=== PATIENT | female | born 1960 | race Caucasian/White ===

== ENCOUNTER 2022-06-13 12:29 | Emergency (ER) | payer BC, SELFPAY ==
[2022-06-13 12:47] VITALS: BP 160/112; PULSE 80; RESP 20; TEMP 36.8; O2SAT 97; BMI 25.7
--- OUTSIDE RECORDS SUMMARY | 2022-06-13 13:43 | XMS_ITS | Encounter Summary ---
:1960 Author Organization [facility] Address [address], [place] [address] Care Team Providers Name Role Phone Brady Morgan MD Primary Care Provider Reason for Visit Reason Comments Post-Op Check Encounter Details Date Type Department Care Team Description 03/17/2021 Office Visit GINGER Favio Mar Status pos t total Orthopaedics & Sports MD Jaylen replacement of right Medicine [address] [address] hip (Primary Dx) [address] [facility] [address] [place] [address] [phone] Social History Tobacco Use Types Packs/Day Years Used Date Smoking Tobacco: Every Day Smokeless Tobacco: Never Sex Assigned at Date Recorded Not on file documented as of this encounter Patient Instructions Patient InstructionsFavio Clark MD - 03/17/2021 4:00 PM CDT These are the instructions for your total hip replacement at this stage of your recovery: 1) You can take up to 1000 mg of Tylenol 3x/day 2) You can take up to 600 mg of Ibuprofen 3x/day with food (if you have kidney, stomach bleeding issues or take blood thinners do NOT take this) Using Omeprazole (Prilosec) daily while on the Ibuprofen can be helpful for your stomach 3) You should stay away from the dentist for at least 6 months after surgery 4) You will not require antibiotics prior to dental work 5) Vigorous massage can be helpful to soften the deep scar tissue Please call me with any questions! [phone] (TRIA) Take care, K Jaylen Clark MD documented in this encounter Progress Notes Favio Clark MD - 03/17/2021 4:00 PM CDT Delmi Blanton [id number] 1960 Date of visit: 03/17/21 POST-OP Chief complaint: Post op follow up Procedure: Right CESAR Date of surgery: (01/30/21) History of Present Illness: Delmi Blanton is a 60 y.o. female who is s/p 7 weeks the above procedure. She is feeling well. Right hip is doing well. She has occasional twinges of pain when she first gets up. She reports that she still has a little bit of trouble with her limp. Physical Exam: GENERAL: The patient is in no apparent distress. Mood and affect is normal. Alert and oriented x3. Vital signs as per the EMR SKIN: Surgical incisions in right hip, healing well. There is some thickened scar deep in the tissues. No evidence for infection. Assessment: Diagnosis and Associated Orders ICD-10-CM 1. Status post total replacement of right hip Z96.641 Plan: Patient will continue working on strengthening and stretching. I told her more therapy would probably be beneficial for her. She can follow up with me at the 1-year brady at which point new x-rays should be taken. She is very pleased with the results of the operation to date as am I. CC: Brady Morgan MD [address] [place] [id number] Scribe disclosure: Scribed for Favio Clark MD by Shwetha Allen Operations General Agent. I, Favio Clark MD, have personally reviewed and agree with the information entered by the Scribe. documented in this encounter Plan of Treatment Not on filedocumented as of this encounter Visit Diagnoses Diagnosis Status post total replacement of right h ip - Primary documented in this encounter Care Teams Punch Press Setter Relationship Specialty Start Date End Date Brady Morgan MD PCP - General Family Practice 03/01/18 [address] [place] [address] documented as of this encounter
--- OUTSIDE RECORDS SUMMARY | 2022-06-13 13:43 | XMS_ITS | Encounter Summary ---
:1960 Author Organization [facility] Address [address] [address] Care Team Providers Name Role Phone Richard Morgan MD Primary Care Provider Reason for Visit Procedure/Equipment (Routine) - Incomplete Specialty Diagnoses / Procedures Referred By Contact Refer red To Contact Procedures Provider, Foreign Images Foreign Image(S) XR Pelvis [address] [place] [address] Referral ID Status Reason Start Date Expiration Date Visits V isits Requested Authorized [id number] Incomplete 02/07/2021 05/09/2022 1 1 Encounter Details Date Type Department Care Team Description 01/30/2021 Ancillary Procedure [facility] Radiology PACS Provider, Foreign [address] [place] [address] [address] [place] [address] Social History Tobacco Use Types Packs/Day Years Used Date Smoking Tobacco: Every Day Smokeless Tobacco: Never Sex Assigned at Date Recorded Not on file documented as of this encounter Plan of Treatment Not on filedocumented as of this encounter Procedures Procedure Name Priority Date/Time Associated Diagnosis Comme nts FOREIGN IMAGE(S) XR Routine 01/30/2021 3:45 PM Re sults for this PELVIS CDT procedure are i n the results section. documented in this encounter Results Foreign Image(S) XR Pelvis (01/30/2021 3:45 PM CDT) Specimen (Source) Anatomical Location Collection Method / Collectio n Time Received Time / Laterality Volume Narrative POCT - 02/07/2021 3:41 PM CDT These outside images have been uploaded into PACS. If the results were provided, they will be located in the la goran's chart under the Media or Imaging tab. Foreign Images Provider RAD NON-REPORTABLES Performing Organization Address City/State/ZIP Code Phon e Number POCT documented in this encounter Visit Diagnoses Not on filedocumented in this encounter Care Teams Band Presser Relationship Specialty Start Date End Date Richard Morgan MD PCP - General Family Practice 03/01/18 [address] [place] [address] documented as of this encounter
--- OUTSIDE RECORDS SUMMARY | 2022-06-13 13:43 | XMS_ITS | Encounter Summary ---
:1960 Author Organization [facility] Address [address] [place] [address] Care Team Providers Name Role Phone Richard Morgan MD Primary Care Provider Encounter Details Date Type Department Care Team Description 07/29/2018 Notes/Orders [facility] Tammie Avelar MD [address] [facility] [place] [address] [place] [address] [phone] (Wo rk) Social History Tobacco Use Types Packs/Day Years Used Date Smoking Tobacco: Every Day Smokeless Tobacco: Never Sex Assigned at Date Recorded Not on file documented as of this encounter Plan of Treatment Not on filedocumented as of this encounter Visit Diagnoses Not on filedocumented in this encounter Care Teams Sanitary Engineering Teacher Relationship Specialty Start Date End Date Richard Morgan MD PCP - General Family Practice 03/01/[address] [place] [place] [address] documented as of this encounter
--- OUTSIDE RECORDS SUMMARY | 2022-06-13 13:43 | XMS_ITS | Clinical Summary ---
:1960 Author Organization [facility] Address [address] [place] [address] Care Team Providers Name Role Phone Richard Morgan MD Primary Care Provider Source Comments You are receiving this document as you are listed as the primary care provider,follow-up provider, or the patient has been referred to you for consultation.This is in compliance with the Medicare and Medicaid EHR Incentive Program,which states Providers who transition their patient to another setting of careor provider of care or refers their patient to another provider of care shouldprovide summarycare record for each transition of care or referral. [employer] Allergies Active Allergy Reactions Severity Noted Date Comments Erythromycin Nausea And Vomiting 05/04/2017 Latex Other, see comments Low 03/01/2018 Swelling and redness fingers or wherever lat ex touches skin Penicillins Hives, Rash High 12/26/2007 Medications Medication Sig Dispensed Refills Start Date End Date Status PARoxetine (PAXIL) 20 Take 20 mg by 0 Active MG tablet mouth daily. lisinopril-hydrochloro Take 1 Tab by 0 Active thiazide mouth daily. (PRINZIDE;ZESTORETIC) Indications: High 20-25 MG Blood Pressure tabletIndications: Disorder Hypertension VITAMIN B COMPLEX-C Take 1 Cap by 0 Active ORIndications: mouth daily. Supplement Indications: Supplement cholecalciferol Take 1,000 Units 0 Active (VITAMIN D3) 1000 by mouth daily. units Indications: tabletIndications: supplement supplement Pediatric Take 1 Each by 0 Activ e Ykpaqhan-Quhbcgwj-C mouth daily. 1 (GUMMI BEAR multivitamin gummy MULTIVITAMIN/MIN) daily aspirin EC 81 MG aspirin 81 mg 0 Active enteric coated tablet tablet,delayed release metoprolol succinate Take 50 mg by 0 12/30/2021 Active (TOPROL XL) 50 MG 24 mouth daily. hour release tablet rosuvastatin (CRESTOR) Take 20 mg by 0 11/04/2021 Active 20 MG tablet mouth daily at bedtime. predniSONE (DELTASONE) prednisone 20 mg 0 Active 20 MG tablet tablet Active Problems Problem Noted Date Primary osteoarthritis of right hip 12/16/2020 History of total left hip replacement 03/10/2018 Overview: 03/10/18 History of spinal surgery 03/01/2018 Overview: For scoliosis, with rods (1978 & 1986 @ [place]) Tobacco abuse 03/01/2018 Sjoegren syndrome 03/01/2018 HTN (hypertension) 02/05/2017 Esophageal reflux 12/26/2007 Resolved Problems Problem Noted Date Resolved Date Primary osteoarthritis of left hip 02/22/201804/19 Encounters Date Type Specialty Care Team Description 03/18/2022 Ancillary Procedure Radiology PN Favio Clark Status post total MD Jaylen replacement of right hip 03/18/2022 Office Visit Orthopedics Favio Clark Status post t otal replacement of right hip (Primary Dx); MD Jaylen History of tota l left hip replacement from Last 3 Months Social History Tobacco Use Types Packs/Day Years Used Date Smoking Tobacco: Every Day Smokeless Tobacco: Never Sex Assigned at Date Recorded Not on file Last Filed Vital Signs Vital Sign Reading Time Taken Comments Blood Pressure 113/59 03/11/2018 7:40 AM CDT Pulse 69 03/11/2018 7:40 AM CDT Temperature 36.7 ??C (98 ??F) 03/11/2018 7:40 AM CDT Respiratory Rate 18 03/11/2018 7:40 AM CDT Oxygen Saturation 100% 03/11/2018 7:40 AM CDT Inhaled Oxygen Concentration - - Weight 65.5 kg (144 lb 8.2 oz) 03/18/2022 4:12 PM CDT Height 158.8 cm (5' 2.5) 03/18/2022 4:12 PM CDT Body Mass Index 26.01 03/18/2022 4:12 PM CDT Plan of Treatment Health Maintenance Due Date Last Done Comments Cervical Cancer Screening 1960 Due Colon Cancer Screening Plan 1960 Due Hep C Screening (Preventive 1960 Services) Mammogram 1960 COVID-19 Vaccine (#1) 02/01/1959 HIV Screening (Preventive 1974 Services) Adult Preventive Visit 1976 Cholesterol 2003 Pneumococcal (2 - PCV) 06/27/2005 06/27/2004 Zoster/Shingles (2 of 2) 09/05/2019 07/11/2019 Influenza (#1) 2022 08/08/2021, 07/20/2020, 07/11/2019, Additional history exists DTaP/Tdap/Td (3 - Tdap) 09/09/2031 09/09/2021, 08/19/2011, 08/22/2002 HepA Aged Out No longer eligib le based on patient 's age to complete this topic HepB Aged Out No longer eligib le based on patient 's age to complete this topic Hib Aged Out No longer eligib le based on patient 's age to complete this topic IPV (Polio) Aged Out No longer eligib le based on patient 's age to complete this topic MCV4 Aged Out No longer eligib le based on patient 's age to complete this topic Medical Devices Implanted Type Area Tape Making Machine Operator Device Shelf Model / Identifier Expiration Date Ser ial / Lot Hd Fem Oxinium 09/02 36mm +0 - [id number] DEVICE Left: HIP S 01/15/2028 [id number] / Implanted: Qty: 1 on 03/10/2018 by Tammie Nowak MD at [facility] / [id number] Procedures Procedure Name Priority Date/Time Associated Diagnosis Comme nts XR PELVIS W RT Routine 03/18/2022 4:21 PM Status post total Re sults for this LATERAL HIP CDT replacement of right procedu re are in hip the results section. from Last 3 Months Results XR Pelvis W Rt Lateral Hip (03/18/2022 4:21 PM CDT) Anatomical Region Laterality Modality Pelvis, Hip Digital Radiography Specimen (Source) Anatomical Collection Method Collection Time Re ceived Time Location / / Volume Laterality 03/18/2022 4:15 PM CDT Impressions 03/18/2022 4:24 PM CDT COMPARISON: ??01/30/2021 FINDINGS: ??AP view of the pelvis with 2 additional views of the right hip. Bilateral total hip arthroplasties. No fracture or malalignment. Spinal rods appears similar with a discontinuous segment of s bird akira on the left at the level of L3 . 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 Procedure Note Roel Taveras MD - 03/18/2022Formattin g of this note might be different from the original. IMPRESSION COMPARISON: 01/30/2021 FINDINGS: AP view of the pelvis with 2 a dditional views of the right hip. Bilateral total hip arthroplasties. No fracture or malalignment. Spinal rods appears similar with a discontinuous segment of spinal akira on the left at the level of L3. Advanced osteoa rthritis at the sacroiliac joints. Favio BOB GD from Last 3 Months Insurance Payer Benefit Plan / Subscriber ID Effective Dates Phone Addre ss Type Group BCBS BCBS MNCARE [id number] 1960-Present [address] [address] [place] [address] Advance Directives Latest Code Status on File Code Status Date Activated Date Inactivated Comments Full Code 03/10/2018 12:02 PM 03/11/2018 4:41 PM Care Teams Electric Screw Driver Operator Relationship Specialty Start Date End Date Richard Morgan MD PCP - General Family Practice 03/01/18 [address] [place] [address]
--- OUTSIDE RECORDS SUMMARY | 2022-06-13 13:43 | XMS_ITS | Encounter Summary ---
:1960 Author Organization [facility] Address [address], [place] [address] Care Team Providers Name Role Phone Richard Morgan MD Primary Care Provider Reason for Visit Procedure/Equipment (Routine) - Incomplete Specialty Diagnoses / Procedures Referred By Contact Refer red To Contact Procedures Provider, Foreign Images Foreign Image(S) XR Pelvis [address] [place] [address] Referral ID Status Reason Start Date Expiration Date Visits V isits Requested Authorized [id number] Incomplete 02/07/2021 05/09/2022 1 1 Encounter Details Date Type Department Care Team Description 01/30/2021 Ancillary Procedure RC Radiology PACS Provider, Foreign [address] [place] [address] [address] [place] [address] Social History Tobacco Use Types Packs/Day Years Used Date Smoking Tobacco: Every Day Smokeless Tobacco: Never Sex Assigned at Date Recorded Not on file documented as of this encounter Plan of Treatment Not on filedocumented as of this encounter Procedures Procedure Name Priority Date/Time Associated Diagnosis Comme nts FOREIGN IMAGE(S) XR Routine 01/30/2021 3:50 PM Re sults for this PELVIS CDT procedure are i n the results section. documented in this encounter Results Foreign Image(S) XR Pelvis (01/30/2021 3:50 PM CDT) Specimen (Source) Anatomical Location Collection Method / Collectio n Time Received Time / Laterality Volume Narrative POCT - 02/07/2021 3:41 PM CDT These outside images have been uploaded into PACS. If the results were provided, they will be located in the ia goran's chart under the Media or Imaging tab. Foreign Images Provider RAD NON-REPORTABLES Performing Organization Address City/State/ZIP Code Phon e Number POCT documented in this encounter Visit Diagnoses Not on filedocumented in this encounter Care Teams Wheel Roller Relationship Specialty Start Date End Date Richard Morgan MD PCP - General Family Practice 03/01/18 [address] [place] [address] documented as of this encounter
--- OUTSIDE RECORDS SUMMARY | 2022-06-13 13:43 | XMS_ITS | Encounter Summary ---
:1960 Author Organization [facility] Address [address] [address] Care Team Providers Name Role Phone Richard Morgan MD Primary Care Provider Reason for Visit Reason Comments Post-Op Check Encounter Details Date Type Department Care Team Description 02/10/2021 Office Visit GINGER Archie Porras Status post total Orthopaedics & Sports A, ATC replac ement of right Medicine hip (Primary Dx) [address] [place] [address] Social History Tobacco Use Types Packs/Day Years Used Date Smoking Tobacco: Every Day Smokeless Tobacco: Never Sex Assigned at Date Recorded Not on file documented as of this encounter Patient Instructions Patient InstructionsArchie Jacome ATC - 02/10/2021 10:30 AM CDT Caring for your incision: ?? At this time you do not need to cover your incision with a bandage. ?? You can shower as normal. ?? Do not scrub your incision. ?? Do not take a bath or go in a pool for 3 weeks or until your incision is completely closed. ?? Do not go in a hot tub for 6 weeks. ?? Do not put any lotions, ointments, or scar cream on your incision. It is okay to gently cleanse with soap and water. ?? You can start light scar massage at 2 weeks and deeper scar massage at 3 weeks. Make sure your hands are clean. Activity: ?? Get regular activity. You should be walking 5-10 minutes at one time and slowly build to walking 30 minutes at one time. Walk often, four to five times a day. Increase the amount of time you walk asyour body tolerates. ?? Rest is also an important part of healing. You should rest 2-3 times as long as you are active inthe first couple weeks. For example, if you walk for 10 minutes you should rest, elevate, and ice for 30 minutes. ?? Attend your physical therapy appointments if you are going to physical therapy. ?? Be sure to ice every 2-4 hours the first couple weeks. Range of motion: ?? Work on range of motion by doing your exercises. ?? It is very important to work on getting full extension at the knee in the first 4-6 weeks. The extension you get by 6 weeks is the extension you will likely be left with. You can prop your ankle up on a chair and really lean into the thigh/knee. Do this at least 10 times a day and more often if able. ?? Working on getting full flexion is also important. documented in this encounter Progress Notes Archie Jacome ATC - 02/10/2021 10:30 AM CDT Subjective: Delmi Blanton is 60 y.o. and is now 2 week post right total hip arthroplasty. Pain is controlled withcurrent analgesics. Medication(s) being used: acetaminophen, ibuprofen (OTC). The patient denies fever, wound drainage, increasing redness, pus, increasing pain, increasing swelling. Post op problems reported: Patient does note increasing swelling in the posterior hip superior to her incision. Patientnotes that swelling has subsided greatly. Patient notes that she has been doing a lot of walking andactivity which seems to increase the swelling. 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 She is ambulating well with use of walker for support. Objective: General : alert, cooperative, no distress, appears stated age Gait: Normal. Incision: healing well, no significant drainage, no dehiscence, no significant erythema Tenderness: mild Flexion ROM: full range of motion Extension ROM: full range of motion Abduction ROM: full range of motion DVT Evaluation: No evidence of DVT seen on physical exam. Imaging Pelvis and post op imaging reviewed with patient. Assessment: Status post right total hip arthroplasty. doing well postoperatively. Plan: Begin local wound cares. Wound care discussed. Range of motion and rehabilitation exercises discussed with the patient. Physical Therapy for post-operative rehabilitation. Full weight bearing. Follow up: 4 weeks. documented in this encounter Plan of Treatment Not on filedocumented as of this encounter Visit Diagnoses Diagnosis Status post total replacement of right h ip - Primary documented in this encounter Care Teams Cement Truck Loader Relationship Specialty Start Date End Date Richard Morgan MD PCP - General Family Practice 03/01/18 [address] [place] [address] documented as of this encounter
--- OUTSIDE RECORDS SUMMARY | 2022-06-13 13:43 | XMS_ITS | Encounter Summary ---
:1960 Author Organization [facility] Address [address] [place] [address] Care Team Providers Name Role Phone Richard Morgan MD Primary Care Provider Encounter Details Date Type Department Care Team Description 02/05/2021 Orders Only Initial Department Provider, [place], [facility] ANI FRAUSTO MD [place], [place] [address] Interface provider [phone] [place] [address] Social History Tobacco Use Types Packs/Day Years Used Date Smoking Tobacco: Every Day Smokeless Tobacco: Never Sex Assigned at Date Recorded Not on file documented as of this encounter Plan of Treatment Not on filedocumented as of this encounter Procedures Procedure Name Priority Date/Time Associated Diagnosis Comme nts IMAGING 02/05/2021 documented in this encounter Results IMAGING (02/05/2021) Anatomical Region Laterality Modality Other Narrative This result has an attachment that is no t available. Interface Provider DUMMY/OTHER/AR documented in this encounter Visit Diagnoses Not on filedocumented in this encounter Care Teams Business Risk Consultant Relationship Specialty Start Date End Date Richard Morgan MD PCP - General Family Practice 03/01/18 [place] [address] documented as of this encounter
--- OUTSIDE RECORDS SUMMARY | 2022-06-13 13:43 | XMS_ITS | Encounter Summary ---
:1960 Author Organization [facility] Address [address] [place] [address] Care Team Providers Name Role Phone Richard Morgan MD Primary Care Provider Encounter Details Date Type Department Care Team Description 01/28/2021 Lab Visit [facility] Preop examination [address] [place] [address] Social History Tobacco Use Types Packs/Day Years Used Date Smoking Tobacco: Every Day Smokeless Tobacco: Never Sex Assigned at Date Recorded Not on file documented as of this encounter Plan of Treatment Not on filedocumented as of this encounter Procedures Procedure Name Priority Date/Time Associated Diagnosis Comme nts 2019 NOVEL Routine 01/28/2021 4:00 PM Preop examination Resu lts for this CORONAVIRUS CDT procedure are i n the results section. documented in this encounter Results Asymptomatic - 2019 Novel Coronavirus (COVID-19) (01/28/2021 4:00 PM CDT) [facility] Method Time Signature COVID-19 Not Not 01/29/2021 [facility] Interpretation Detected Detected 7:10 AM [facility] CDT Specimen Anatomical Collection Method Collection Time Receive d Time (Source) Location / / Volume Laterality Swab (Source Non-blood 01/28/2021 4:00 PM 4:00 Required) Collection / CDT PM CDT Unknown Narrative [facility] - 01/29/2021 7:10 AM CDT Test performed by Dry Cleaning Machine Operator Mediated Amplification. TMA has been shown to be equivalent to commercial real-time PCR t ests. This test has been authorized by the FDA under an Emergency Use Authorization (EUA) for use by authorized laboratories. Richard Morgan MD LAB_1 Performing Organization Address City/State/ZIP Code Phon e Number [facility] [address] [place] [address] documented in this encounter Visit Diagnoses Diagnosis Preop examination Preoperative examination, unspecified documented in this encounter Care Teams Transcribing Operator Head Relationship Specialty Start Date End Date Richard Morgan MD PCP - General Family Practice 03/01/18 [facility] [place] [place] [address] documented as of this encounter
--- OUTSIDE RECORDS SUMMARY | 2022-06-13 13:43 | XMS_ITS | Clinical Summary ---
:1960 Author Organization [facility] [place] [address] Care Team Providers Name Role Phone Rian Marmolejo MD Unavailable Kasey Roman MD Primary Care Provider Allergies Active Allergy Reactions Severity Noted Date Comments Erythromycin Nausea And Vomiting 05/04/2017 Latex Other - Describe In Low 03/01/2018 Swelling and redness Comment Field fingers or whe rever latex touches s kin Penicillins Rash 12/26/2007 Medications Medication Sig Dispensed Refills Start Date End Date Status triamcinolone 0.1% Apply topically 1 Bottle 0 01/15/2021 Active TOPICAL (KENALOG) 0.1 to affected % lotionIndications: area(s) 3 times Hand dermatitis daily. gabapentin (NEURONTIN) Take 1 Capsule 10 Capsule 0 01/30/2021 Active 300 mg (300 mg) by mouth capsuleIndications: at bedtime. Primary osteoarthritis of right hip oxyCODONE (ROXICODONE) Take 1-2 Tablets 30 Tablet 0 01/30/2021 Active 5 mg immediate release (5-10 mg) by tabletIndications: mouth every 4 Primary osteoarthritis hours if needed of right hip for Pain. sennosides-docusate Take 1 Tablet by 30 Tablet 0 01/30/2021 Active (SENOKOT S) (8.6-50 mouth 2 times mg) tabletIndications: daily. Stop for Primary osteoarthritis loose stools of right hip rosuvastatin (CRESTOR) Take 1 Tablet (20 90 tablet. 3 09/09/20 21 Active 20 mg mg) by mouth at tabletIndications: bedtime. Coronary artery disease involving [place] coronary artery, unspecified whether angina present, unspecified whether [place] or transplanted heart lisinopril-hydrochloro Take 1 Tablet by 90 Tablet 3 09/09/2021 Active thiazide, 20-25 mg, mouth once daily. (PRINZIDE, ZESTORETIC) 20-25 mg per tabletIndications: Essential hypertension metoprolol succinate Take 1 Tablet (50 90 Tablet 3 09/09/2021 Active (TOPROL XL) 50 mg mg) by mouth once sustained-release daily. tabletIndications: Frequent PVCs amLODIPine (NORVASC) 5 Take 1 Tablet (5 90 tablet. 3 1 Active mg tabletIndications: mg) by mouth once HTN (hypertension) daily. PARoxetine (PAXIL) 20 Take 1 Tablet (20 90 Tablet 3 09/09/2021 Active mg tabletIndications: mg) by mouth once Anxiety state daily. albuterol (PROVENTIL) Inhale 3 mL (2.5 180 mL 0 05/01/2022 Active 0.083 % neb mg) via a solutionIndications: nebulizer every 4 Wheezing hours if needed for Cough. albuterol HFA (ProAir Inhale 2 Puffs by 1 Each 0 05/01/2022 Active HFA) 90 mcg/actuation mouth every 4 inhalerIndications: hours if needed Wheezing for Shortness Of Breath. Wait until they call for this. 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 0 Allergic rhinitis, cause unspecified 12/27/2007 Tobacco use disorder 12/27/2007 Anxiety state, unspecified 12/26/2007 Esophageal reflux 12/26/2007 Endometriosis, site unspecified 12/26/2007 Overview: 04/11/00 Resolved Problems Problem Noted Date Resolved Date Sjogrens syndrome 10/31/2012 02/11/2018 Encounters Date Type Specialty Care Team Description 05/27/2022 Telephone Rosa Maria Gaviria, SALES SERVICE PROMOTER Appointment 05/01/2022 Phone Office Visit Aimee Berumen [facility] (positive CAITIE Lam covid 04/30) 05/01/2022 Travel 04/30/2022 Telephone Kasey Roman Covid-19 Positive Result MD from Last 3 Months Immunizations Name Administration Dates Next Due AMB Influenza, IIV3 (Age >=3 07/14/2013, 07/28/2012, 011, years)(Flu Clinic Only) 06/26/2009, 07/23/2008 COVID-19 vaccine (j-Grab 11/23/2020, 11/02/2020 30mcg/0.3mL) PF, MDV Influenza A (H1N1), Inactivated (Age 1107/29/2009 >=3 Years) Influenza, IIV3 (Age 6-35 mos) 07/13/2011 Influenza, IIV3 (Age >=3 years) 07/14/2013, 07/28/2012, 06/20, 06/26/2009, 07/23/2008, 10/29/2006, 06/30/2004, 06/27/2004, 07/14/2003 Influenza, IIV4 08/08/2021, 07/20/2020, 07/11/2019, 07/15/2018, 06/25/2017, 07/22/2016, 06/17/2015 Pneumococcal Poly,23-Valent 06/27/2004 (Pneumovax) Td (Age >=7 Years) 08/22/2002 Tdap 09/09/2021, 08/19/2011 Zoster (Shingrix-RZV, recombinant) 07/11/2019 Family History Medical History Relation Name Comments Allergies Father Heart Disease Father CHF at 72 Hypertension Father Cancer Maternal Grandfather in 60s unknown origin Arthritis Mother Rheumatoid arthr itis Asthma Mother Heart Disease Mother CHF, Atrial Fib Other Mother Blood clots, Pul monary embolus Stroke Mother Thyroid Disease Mother Diabetes Paternal Grandmother Lupus Sister Other Sister disabled Cancer-breast No Family History Cancer-ovarian No Family History Relation Name Status Comments Father Maternal Grandfather Mother Paternal Grandmother Sister Alive Social History Tobacco Use Types Packs/Day Years Used Date Current Every Day Smoker Cigarettes 1 45 Smokeless Tobacco: Never Used Tobacco Cessation: Counseling Given: Yes Alcohol Use Standard Drinks/Week Comments Yes 11.7 (1 standard drink = 0.6 oz pure 2 g lasses of wine daily in the alcohol) evening Alcohol Habits Answer Date Recorded How often do you have a drink 4 or more times a week 019 containing alcohol? How many drinks containing alcohol do 1 or 2 you have on a typical day when you are drinking? How often do you have six or more Not asked drinks on one occasion? Comment: 2 glasses of wine daily in the 8 evening Sex Assigned at Date Recorded Not on file Obstetrics History Last Filed Vital Signs Vital Sign Reading Time Taken Comments Blood Pressure 190/87 12/01/2021 3:02 PM CDT Pulse 62 12/01/2021 3:00 PM CDT Temperature 36.8 ??C (98.2 ??F) 12/01/2021 3:00 PM CDT Respiratory Rate 20 12/01/2021 3:00 PM CDT Oxygen Saturation 98% 12/01/2021 3:00 PM CDT Inhaled Oxygen Concentration - - Weight 66.7 kg (147 lb 1.6 oz) 12/01/2021 3:00 PM CDT Height 158.5 cm (5' 2.4) 09/09/2021 1:18 PM VAULT WORKER Body Mass Index 26.56 09/09/2021 1:18 PM VAULT WORKER Plan of Treatment Upcoming Encounters Date Type Specialty Care Team Description 06/26/2022 Preop Visit Suellen Freire Ma, PA [address] [place] [address] (Wo rk) 07/13/2022 Nurse/Clinic Staff Only Health Maintenance Due Date Last Done Comments Pneumococcal series for age 19-64 06/27/2005 06/27/2004 (2 - PCV) Pap test for age 21-65 01/14/2018 01/14/2015, 10/04/2006, 10/31/2004 Zoster (shingles) series for age 1209/05/2019 07/11/2019 50+ (2 of 2) Fecal testing non-DNA 10/09/2020 10/09/2019 (FIT,FOBT,iFOBT) for age 45-75 COVID-19 vaccine series (4 - 11/28/2021 07/31/2021, 021, Booster for Pfizer series) 11/02/2020 Influenza for age 50-64 05/21/2022 08/08/2021, 07/20/2020, 07/11/2019, Additional history exists BMI (ht and wt on same day) for 09/09/2022 09/09/2021, 12/20, age 18+ 10/05/2019, Additional history exists Depression screening for age 12+ 09/10/2022 09/10/2021, , 09/09/2021, Additional history exists Mammogram for age 45-75 09/30/2022 09/30/2021, 10/09/2019, 02/12/2017, Additional history exists Low Dose CT (for lung CA) age 0312/01/2022 12/01/2021 50-80 Lipids for age 45-75 09/09/2026 09/09/2021, 08/22/2020, 02/12/2017, Additional history exists Tetanus booster 09/09/2031 09/09/2021, 08/19/2011, 08/22/2002 Hepatitis C screening for age Completed 01/24/2015 18-79 Tdap Completed 09/09/2021, 08/19/2011 Medical Devices Implanted Type Area Back Hoe Machine Operator Device Shelf Model / Identifier Expiration Serial / Date Lot Stem Hip Sz 6 Profemswati Gladiator Classic Std - [id number] Right: [facility] 05/20/2024 [id number] / Implanted: Qty: 1 on 01/30/2021 by Favio Clark MD at [facility] [employer] / [id number] Results Not on filefrom Last 3 Months Insurance Payer Benefit Plan / Subscriber ID Effective Dates Phone Addre ss Type Group [employer] [place] [employer] [id number] 2018-Present [address] [address] [place] [address] Advance Directives Latest Code Status on File Code Status Date Activated Date Inactivated Comments Full Code 01/30/2021 6:17 AM 01/30/2021 5:56 PM Code Status Discussion: Discussed Care Teams Pick Up Relationship Specialty Start Date End Date Kasey Roman MD PCP - General Family Practice 09/21/19 [address] [place] [address] Rian Marmolejo MD Rheumatology Rheumatology 05/04/17 [address] [facility] [address] [place], [place] [id number]
--- OUTSIDE RECORDS SUMMARY | 2022-06-13 13:43 | XMS_ITS | Encounter Summary ---
:1960 Author Organization [facility] Address [address] [facility] [place] [address] Care Team Providers Name Role Phone Richard Morgan MD Primary Care Provider Encounter Details Date Type Department Care Team Description 06/10/2019 Notes/Orders [facility] Tammie Avelar MD [address] [facility] [place] [address] [place] [address] [phone] (Wo rk) Social History Tobacco Use Types Packs/Day Years Used Date Smoking Tobacco: Every Day Smokeless Tobacco: Never Sex Assigned at Date Recorded Not on file documented as of this encounter Plan of Treatment Not on filedocumented as of this encounter Visit Diagnoses Not on filedocumented in this encounter Care Teams Lens Dotter Relationship Specialty Start Date End Date Richard Morgan MD PCP - General Family Practice 03/01/[address] [place] [address] documented as of this encounter
--- OUTSIDE RECORDS SUMMARY | 2022-06-13 13:43 | XMS_ITS | Encounter Summary ---
:1960 Author Organization [facility] Address [address] [address] Care Team Providers Name Role Phone Richard Morgan MD Primary Care Provider Reason for Visit Procedure/Equipment (Routine) - Incomplete Specialty Diagnoses / Procedures Referred By Contact Refer red To Contact Diagnoses Status post total replacement of right hip Favio Clark MD Procedures XR Pelvis W Rt Lateral Hip [address] [address] [place] [address] Referral ID Status Reason Start Date Expiration Date Visits V isits Requested Authorized [id number] Incomplete 03/18/2022 06/17/2023 1 1 Encounter Details Date Type Department Care Team Description 03/18/2022 Ancillary [place] Favio Cochran Status post total Procedure Fay [id number] MD Jaylen replacement of right Radiology [address] [address] hip [address] [phone] Social History Tobacco Use Types Packs/Day [...] re are in hip the results section. documented in this encounter Results XR Pelvis W Rt Lateral Hip [...] osteoa rthritis at the sacroiliac joints. Favio Jaylen Clark MD RAD GD documented in this encounter Visit Diagnoses Diagnosis Status post total replacement of right h ip documented in this encounter Care Teams Credit Control Manager Relationship Specialty Start Date End Date Richard Morgan MD PCP - General Family Practice 03/01/18 [address] [place] [address] documented as of this encounter
--- OUTSIDE RECORDS SUMMARY | 2022-06-13 13:43 | XMS_ITS | Encounter Summary ---
:1960 Author Organization [facility] Address [address], [place] [address] Care Team Providers Name Role Phone Richard Morgan MD Primary Care Provider Reason for Visit Procedure/Equipment (Routine) - Incomplete Specialty Diagnoses / Procedures Referred By Contact Refer red To Contact Diagnoses Hip pain Favio Clark MD Procedures XR Pelvis Bilat Hips 2+ Views [id number] [facility] [address] [place] [address] Referral ID Status Reason Start Date Expiration Date Visits V isits Requested Authorized [id number] Incomplete 12/16/2020 03/17/2022 1 1 Encounter Details Date Type Department Care Team Description 12/16/2020 Ancillary Procedure Park Favio Cochran, Hip pain [place] [address] Radiology [address] [address] [id number] [phone] Social History Tobacco Use Types Packs/Day Years Used Date Smoking Tobacco: Every Day Smokeless Tobacco: Never Sex Assigned at Date Recorded Not on file documented as of this encounter Plan of Treatment Not on filedocumented as of this encounter Procedures Procedure Name Priority Date/Time Associated Diagnosis Comme nts XR PELVIS BILAT Routine 12/16/2020 4:09 PM Hip pain Result s for this HIPS 2+ VIEWS CDT procedure are in the results section. documented in this encounter Results XR Pelvis Bilat Hips 2+ Views (12/16/2020 4:09 PM CDT) Anatomical Region Laterality Modality Pelvis, Hip Digital Radiography Specimen (Source) Anatomical Collection Method Collection Time Re ceived Time Location / / Volume Laterality 12/16/2020 3:52 PM CDT Impressions 12/16/2020 4:25 PM CDT COMPARISON: ??03/10/1980 FINDINGS: ??Advanced degenerative change s of the right hip with marked narrowing. Findings have progressed compared to prior. Prominent osteophytic spurring. Left hip prosthesis appears in stable alignm ent compared to prior. Spinal rods appea r similar. No acute finding. Procedure Note Rafael Mejias MD - 12/16/2020For matting of this note might be different from the original. IMPRESSION COMPARISON: 03/10/1980 FINDINGS: Advanced degenerative changes of the right hip with marked narrowing. Findings have progressed compared to prior. Prominent osteophytic spurring. Left hip prosthesis appears in stable alignment compared to prior. Spinal rods appear si milar. No acute finding. [place] Jaylen Clark MD RAD GD documented in this encounter Visit Diagnoses Diagnosis Hip pain Pain in joint, pelvic region and thigh documented in this encounter Care Teams Morning Babysitter Relationship Specialty Start Date End Date Richard Morgan MD PCP - General Family Practice 03/01/18 [address] [place] [address] documented as of this encounter
--- OUTSIDE RECORDS SUMMARY | 2022-06-13 13:43 | XMS_ITS | Encounter Summary ---
:1960 Author Organization [facility] Address [address], [place] [address] Care Team Providers Name Role Phone Richard Morgan MD Primary Care Provider Reason for Visit Reason Comments QUESTIONS, GENERAL Encounter Details Date Type Department Care Team Description 05/14/2021 Telephone TRIA Favio Mar QUES TIONS, GENERAL Orthopaedics & Sports MD Medicine [address] [facility] [address] [facility] [address] [place] [address] [place] [address] [phone] (Wo rk) Social History Tobacco Use Types Packs/Day Years Used Date Smoking Tobacco: Every Day Smokeless Tobacco: Never Sex Assigned at Date Recorded Not on file documented as of this encounter Nursing Notes Meghna Yeung RN - 05/14/2021 10:15 AM CDT Spoke with pt and made her aware ok to have bronchitis treated with recommended abx from PCP. Pt aware when it comes to abx we recommend not having any treatment of possible infection of the hipreplacement until Dr. Clark evaluates. All other potential infections throughout the body should be treated as soon as possible. Pt verbalized understanding. KT Zelda Luu - 05/14/2021 10:06 AM CDT Has the patient recently had surgery or an injury? Yes. Date of Surgery: January 30, 2021 Type of Surgery: Right CESAR How may we help you today? Pt. would like call back from the care team. Describe your symptoms/concerns: pt. stated that she has Bronchitis she needs prescription for antibiotics. Please call to advise RICHARD. When did the issue start: N/A Have you been seen for this recently?: N/A [[facility] [employer]: If yes, please include date and provider.] Is it okay to leave detailed message on your voicemail? yes [[facility] [employer]: If this call is after 3 p.m., communicate to patient: If we are not able to get back to you by the end of the day and your symptoms worsen please contact the Careline] documented in this encounter Plan of Treatment Not on filedocumented as of this encounter Visit Diagnoses Not on filedocumented in this encounter Care Teams Top Collar Maker Relationship Specialty Start Date End Date Richard Morgan MD PCP - General Family Practice 03/01/18 [address] [place] [address] documented as of this encounter
--- OUTSIDE RECORDS SUMMARY | 2022-06-13 13:43 | XMS_ITS | Encounter Summary ---
:1960 Author Organization [facility] Address [address] [place] [address] Care Team Providers Name Role Phone Richard Morgan MD Primary Care Provider Encounter Details Date Type Department Care Team Description 01/27/2021 Notes/Orders [facility] Saira Morgan MD Preop examination Up [address] [place] [address] [place], [place] [id number] [phone] Social History Tobacco Use Types Packs/Day Years Used Date Smoking Tobacco: Every Day Smokeless Tobacco: Never Sex Assigned at Date Recorded Not on file documented as of this encounter Plan of Treatment Not on filedocumented as of this encounter Results Asymptomatic - 2019 Novel Coronavirus (COVID-19) (01/28/2021 4:00 PM CDT) [facility] Method Time Signature COVID-19 Not Not 01/29/2021 [facility] Interpretation Detected Detected 7:10 AM CENTRAL LAB CDT Specimen Anatomical Collection Method Collection Time Receive d Time (Source) Location / / Volume Laterality Swab (Source Non-blood 01/28/2021 4:00 PM 4:00 Required) Collection / CDT PM CDT Unknown Narrative [facility] - 01/29/2021 7:10 AM CDT Test performed by Check Embosser Mediated Amplification. TMA has been shown to be equivalent to commercial real-time PCR t ests. This test has been authorized by the FDA under an Emergency Use Authorization (EUA) for use by authorized laboratories. Richard Morgan MD LAB_1 Performing Organization Address City/State/ZIP Code Phon e Number [facility] [address] [address] documented in this encounter Visit Diagnoses Diagnosis Preop examination Preoperative examination, unspecified documented in this encounter Care Teams Lan Manager Relationship Specialty Start Date End Date Richard Morgan MD PCP - General Family Practice 03/01/18 [address] [place] [address] documented as of this encounter
--- OUTSIDE RECORDS SUMMARY | 2022-06-13 13:43 | XMS_ITS | Encounter Summary ---
:1960 Author Organization [facility] Address [address], [place] [address] Care Team Providers Name Role Phone Richard Morgan MD Primary Care Provider Reason for Visit Procedure/Equipment (Routine) - Incomplete Specialty Diagnoses / Procedures Referred By Contact Refer red To Contact Procedures Provider, Foreign Images Foreign Image(S) XR Pelvis [address] [place] [address] Referral ID Status Reason Start Date Expiration Date Visits V isits Requested Authorized [id number] Incomplete 02/07/2021 05/09/2022 1 1 Encounter Details Date Type Department Care Team Description 01/30/2021 Ancillary Procedure [facility] Radiology PACS Provider, Foreign [address] [place] [address] [address] [place] [address] Social History Tobacco Use Types Packs/Day Years Used Date Smoking Tobacco: Every Day Smokeless Tobacco: Never Sex Assigned at Date Recorded Not on file documented as of this encounter Plan of Treatment Not on filedocumented as of this encounter Procedures Procedure Name Priority Date/Time Associated Diagnosis Comme nts FOREIGN IMAGE(S) XR Routine 01/30/2021 3:55 PM Re sults for this PELVIS CDT procedure are i n the results section. documented in this encounter Results Foreign Image(S) XR Pelvis (01/30/2021 3:55 PM CDT) Specimen (Source) Anatomical Location Collection [...] on filedocumented in this encounter Care Teams Vendor Management Consultant Relationship Specialty Start Date End Date Richard Morgan MD PCP - General Family Practice 03/01/18 [address] [place] [address] documented as of this encounter
--- OUTSIDE RECORDS SUMMARY | 2022-06-13 13:43 | XMS_ITS | Encounter Summary ---
:1960 Author Organization [facility] Address [address] [place] [address] Care Team Providers Name Role Phone Richard Morgan MD Primary Care Provider Encounter Details Date Type Department Care Team Description 02/05/2021 Orders Only Initial Department Provider, Lynn, [facility] ANI FRAUSTO MD [place], [place] [address] Interface provider [phone] [place] [address] Social History Tobacco Use Types Packs/Day Years [...] on filedocumented in this encounter Care Teams Rectification Printer Relationship Specialty Start Date End Date Richard Morgan MD PCP - General Family Practice 03/01/18 [place] [address] documented as of this encounter
--- OUTSIDE RECORDS SUMMARY | 2022-06-13 13:43 | XMS_ITS | Encounter Summary ---
:1960 Author Organization [facility] Address [address] [place] [address] Care Team Providers Name Role Phone Richard Morgan MD Primary Care Provider Encounter Details Date Type Department Care Team Description 02/05/2021 Orders Only Initial Department Provider, Lynn, [facility] ANI FRAUSTO MD [place], [place] [address] Interface provider [phone] [place] [address] Social History Tobacco Use Types Packs/Day Years [...] on filedocumented in this encounter Care Teams Nutrition Technician Relationship Specialty Start Date End Date Richard Morgan MD PCP - General Family Practice 03/01/18 [place] [address] documented as of this encounter
--- OUTSIDE RECORDS SUMMARY | 2022-06-13 13:43 | XMS_ITS | Encounter Summary ---
:1960 [facility] Address [address], [place] [address] Care Team Providers Name Role Phone Richard Morgan MD Primary Care Provider Reason for Referral Procedure/Equipment (Routine) - Incomplete Specialty Diagnoses / Procedures Referred By Contact Refer red To Contact Diagnoses Status post total replacement of right hip Favio Clark MD Procedures XR Pelvis W Rt Lateral Hip [address] [address] [place] [id number] Referral ID Status Reason Start Date Expiration Date Visits V isits Requested Authorized [id number] Incomplete 03/18/2022 06/17/2023 1 1 Reason for Visit Reason Comments Follow-up R CESAR DOS: 01/30/21 Encounter Details Date Type Department Care Team Description 03/18/2022 Office Visit Favio Sands Status pos t total replacement of right hip (Primary Dx); Orthopaedics & Sports MD Jaylen History of total left hip replacement Medicine [address] [address] [id number] [phone] Social History Tobacco Use Types Packs/Day Years Used Date Smoking Tobacco: Every Day Smokeless Tobacco: Never Sex Assigned at Date Recorded Not on file documented as of this encounter Last Filed Vital Signs Vital Sign Reading Time Taken Comments Blood Pressure - - Pulse - - Temperature - - Respiratory Rate - - Oxygen Saturation - - Inhaled Oxygen Concentration - - Weight 65.5 kg (144 lb 8.2 oz) 03/18/2022 4:12 PM CDT Height 158.8 cm (5' 2.5) 03/18/2022 4:12 PM CDT Body Mass Index 26.01 03/18/2022 4:12 PM CDT documented in this encounter Progress Notes Favio Clark MD - 03/18/2022 4:00 PM CDT Delmi Blanton [id number] 1960 Date of visit: 03/18/22 FOLLOW UP Chief complaint: Right hip pain History of Present Illness: Delmi Blanton is a 61 y.o. female who presents for follow-up of right hip pain. She is 1-year status post right total hip arthroplasty performed on 01/30/21. She has no pain in the hip. She states she feels like she waddles when she walks. She reports the left total hip is doing well. Physical Exam: GENERAL: The patient is in no apparent distress. Mood and affect is normal. Alert and oriented x3. Vital signs as per the EMR MUSCULOSKELETAL: Right hip/lower extremity: She has some weakness in both gluteal muscle groups. She has a slight waddle when she walks. No tenderness in the trochanter. Imaging: Radiographs taken today are personally reviewed and demonstrate good alignment and fixation of bilateral total hip arthroplasties with no evidence for complications. Assessment: Diagnosis and Associated Orders ICD-10-CM 1. Status post total replacement of right hip Z96.641 XR Pelvis W Rt Lateral Hip 2. History of total left hip replacement Z96.642 Plan: Patient is doing well. She needs to work on gluteal strengthening. She can follow up with me in 5 years for new x-rays of both hips. All of her questions were answered. Scribe Disclosure: Scribed for Favio Clark MD by Shwetha Allen, Janitor Helper. I, Favio Clark MD , have personally reviewed and agree with the information entered by the Scribe. documented in this encounter Plan of Treatment Not on filedocumented as of this encounter Results XR Pelvis W Rt [...] osteoa rthritis at the sacroiliac joints. Favio Clark MD RAD GD documented in this encounter Visit Diagnoses Diagnosis Status post total replacement of right h ip - Primary History of total left hip replacement Status post total replacement of right h ip documented in this encounter Care Teams Nitrogen Operator Relationship Specialty Start Date End Date Richard Morgan MD PCP - General Family Practice 03/01/[address] [place] [place] [address] documented as of this encounter
--- OUTSIDE RECORDS SUMMARY | 2022-06-13 13:43 | XMS_ITS | Encounter Summary ---
:1960 Author Organization [facility] Address [address] [place] [address] Care Team Providers Name Role Phone Judith Justin MD Primary Care Provider Reason for Referral Therapies (Routine) - Closed Specialty Diagnoses / Procedures Referred By Contact Refer red To Contact Diagnoses Status post total replacement of left hip Muscular deconditioning Tammie Nowak MD [address] [place] [address] Dr FERRO ME 7255 1 Referral ID Status Reason Start Date Expiration Date Visits Requ ested Visits Authorized [id number] Closed 04/19/2018 06/18/2018 1 1 Scheduling Instructions If scheduling assistance is needed, juan jose evans inquire with the medical office staff upon exiting your appointment or contact the ordering clinic for recommended locations. This recommended service/s may not be co parth by your insurance coverage. To find out your specific benefit coverage, please c all the number on your insurance card. Reason for Visit Reason Comments Post-Op Follow Up quin check 6 wk Encounter Details Date Type Department Care Team Description 04/19/2018 Office Visit [facility] Tammie Nowak, Statu s post total replacement of left hip (Primary Dx); [facility]OO[facility] Muscular deconditioning; [address] [place] [address] [place] [address] History of spinal surgery; [place], [place] [address] [place], [place] Sjogren's syndrome, with uns pecified organ involvement (HRC) [phone] (Wo rk) Social History Tobacco Use Types Packs/Day Years Used Date Smoking Tobacco: Every Day Smokeless Tobacco: Never Sex Assigned at Date Recorded Not on file documented as of this encounter Patient Instructions Patient InstructionsMicNury bender OA-C - 04/19/2018 3:[address] Tammie Nowak MD Orthopaedic Surgeon Curator Of Manuscripts: Bel Oh Please contact Bel for all administrative questions at [phone] Please contact Nurse Triage for all medical related questions at [phone] Medication Requests: Prescriptions are not filled on Weekends or on Weekdays after 3:00PM For all medication refills: Request a refill using [facility] or contact your Pharmacy documented in this encounter Progress Notes Tammie Nowak MD - 04/19/2018 12:00 PM CDT NAME: JAVI BLANTON MR#: [id number] CSN: [id number] AUTHENTICATING CLINICIAN: Tammie Nowak MD CONFIRM #: [id number] LOC: 711 CLINIC PROGRESS NOTE DATE OF VISIT: 04/19/2018 : 1960 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 Date of surgery March 10, 2018. Javi is delighted at her pain relief. She says she feels like a new person and like she has gotten her life back. She is able to even stand more upright when she walks. Others have commented in a positive fashion with regard to that. 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 She is eager to resume her massage therapy that she was receiving at [facility] in [place]. We asked her to hold off for the first 6 weeks as they were doing some work on her IT band there prior to surgery and we wished to hold off until her scar had adequate time to heal. She has hypertension and Sjogren's disease, but does not take any immune suppression medications. She completed her 2 baby aspirin daily course for DVT prophylaxis. EXAM: Patient is alert and oriented. Walks with a much smoother, nonantalgic gait pattern now without assistive devices. Seated flip test does not give her radicular pain. Her left hip surgical scar is healed nicely. She tolerates hip range of motion much more comfortably. ASSESSMENT: 1.Doing well 6 weeks status post left total hip arthroplasty for end-stage degenerative joint disease. 2.Healthy immune system. Not indicated for antibiotic prophylaxis for dental procedures. I placed an order for her outpatient PT that may resume now. Okay to have massage work done. Stick with low-impact exercise. No hip precautions. I will see her back on an as-needed basis. CC: JUDITH JUSTIN MD [address] [place] [address] KSP:MEDQ C: R:04/19/18 16:41 CONFIRM#:[id number] documented in this encounter Plan of Treatment Scheduled Referrals Name Type Priority Associated Diagnoses Order S chedule Physical Therapy Referral Routine Status post total replac ement Ordered: 04/19/2018 of left hip Muscular deconditioning documented as of this encounter Visit Diagnoses Diagnosis Status post total replacement of left hi p - Primary Muscular deconditioning Muscular wasting and disuse atrophy, not elsewhere classified History of spinal surgery Other postprocedural status Sjogren's syndrome, with unspecified org an involvement (HRC) documented in this encounter Care Teams Solar Sales Advisor Relationship Specialty Start Date End Date Judith Justin MD PCP - General Family Practice 03/01/18 [address] [place] [address] documented as of this encounter
--- OUTSIDE RECORDS SUMMARY | 2022-06-13 13:43 | XMS_ITS | Encounter Summary ---
:1960 Author Organization [facility] Address [address] [place] [address] Care Team Providers Name Role Phone Richard Morgan MD Primary Care Provider Reason for Referral Procedure/Equipment (Routine) - Incomplete Specialty Diagnoses / Procedures Referred By Contact Refer red To Contact Diagnoses Hip pain Favio Clark MD Procedures XR Pelvis Bilat Hips 2+ Views [id number] [place] [address] Referral ID Status Reason Start Date Expiration Date Visits V isits Requested Authorized [id number] Incomplete 12/16/2020 03/17/2022 1 1 Reason for Visit Reason Comments HIP PAIN Consult/Transfer Care (Routine) - Closed Specialty Diagnoses / Procedures Referred By Contact Refer red To Contact Orthopedics Diagnoses Pain in right hip Kasey Roman MD [facility] Orthopaedic [address] [place] [address] [place] [address] Fax: Referral ID Status Reason Start Date Expiration Date Visits Requ ested Visits Authorized [id number] Closed 11/21/2020 02/20/2022 1 1 Encounter Details Date Type Department Care Team Description 12/16/2020 Office Visit Favio Sands Primary os teoarthritis of right hip (Primary Dx); Orthopaedics & Sports MD Jaylen Hip pain; Medicine [address] [place] History of total left hip re placement; [address] [facility] 1ST FLOOR Screening examination for infectious dis ease; [place], [place] History of total right hip replacement [id number] [phone] Social History Tobacco Use Types Packs/Day Years Used Date Smoking Tobacco: Every Day Smokeless Tobacco: Never Sex Assigned at Date Recorded Not on file documented as of this encounter Last Filed Vital Signs Vital Sign Reading Time Taken Comments Blood Pressure - - Pulse - - Temperature - - Respiratory Rate - - Oxygen Saturation - - Inhaled Oxygen Concentration - - Weight 68 kg (150 lb) 12/16/2020 3:49 PM CDT Height 158.8 cm (5' 2.5) 12/16/2020 3:49 PM CDT Body Mass Index 27 12/16/2020 3:49 PM CDT documented in this encounter Progress Notes Favio Clark MD - 12/16/2020 3:30 PM CDT Delmi Blanton [id number] 1960 Date of Visit: 12/16/20 CONSULT Chief Complaint: Right hip pain History of Present Illness: Delmi Blanton is a 60 y.o. female who presents for evaluation of right hip pain. This has been going on the last month or so now, progressively worsening. She reports no specific injury, trauma or surgery. Her left hip is doing well status post left hip replacement. Pain is constant, localized in groin,lateral aspect and worsened with walking. She is using a cane to help ambulate. She has difficulty with going up and down the stairs. Sleep is being disrupted currently. Usually takes OTC medication for pain management. The patient has a PMHx of HTN, esophageal reflux, Sjoegren syndrome, tobacco abuse. PSHx of spinal surgery and left hip replacement. Past medical, social, family history, medications, and allergies were personally reviewed and as perthe intake form. Review of Systems: A complete 12-point review of systems is done today. This is notable for right hip pain, HTN, esophageal reflux, Sjoegren syndrome, tobacco abuse, spinal surgery and left hip replacement. The remainderare negative. Physical Exam: GENERAL: This is a very pleasant 60 y.o. female in no apparent distress. Mood and affect is normal. Alert and oriented x3. VITALS: As per the EMR MUSCULOSKELETAL: Deferred. Imaging: Radiographs of the BILATERAL HIPS - 2+ views (12/16/20): Findings: Deferred. The images were personally reviewed and results were discussed with the patient. Assessment: Diagnosis and Associated Orders ICD-10-CM 1. Primary osteoarthritis of right hip M16.11 2. Hip pain M25.559 XR Pelvis Bilat Hips 2+ Views 3. History of total left hip replacement Z96.642 4. Screening examination for infectious disease Z11.9 MRSA MSSA Preop Culture - Staph Aureus Culture 5. History of total right hip replacement Z96.641 Physical Therapy Plan: Patient is having advancing symptoms. She has severe osteoarthritic change in the right hip. It is bone on bone. It has gotten worse since the last time she had x-rays. She is good candidate to move forward with surgical intervention. We will have to be careful with the anteversion of her cup given the horizontal nature of her pelvis and her stiff spine. All of her questions were answered. CC: Kasey Roman MD [address] [place], [place] [id number] Scribe Disclosure: Scribed for Favio Clark MD by Shwetha Allen, Compensation Business Partner. I, Favio Clark MD, have personally reviewed and agree with the information entered by the Scribe. documented in this encounter Plan of Treatment Not on filedocumented as of this encounter Results XR Pelvis Bilat Hips [...] rods appear si milar. No acute finding. Favio Clark MD RAD GD documented in this encounter Visit Diagnoses Diagnosis Primary osteoarthritis of right hip - Pr imary Primary localized osteoarthrosis, pelvic region and thigh Hip pain Pain in joint, pelvic region and thigh History of total left hip replacement Screening examination for infectious dis ease Screening examination for unspecified in fectious disease History of total right hip replacement Hip pain Pain in joint, pelvic region and thigh documented in this encounter Care Teams Undercoat Sprayer Relationship Specialty Start Date End Date Richard Morgan MD PCP - General Family Practice 03/01/18 [address] [place] [address] documented as of this encounter
--- OUTSIDE RECORDS SUMMARY | 2022-06-13 13:44 | XMS_ITS | Encounter Summary ---
:1960 [address] [facility] Address [address] [place] [address] Care Team Providers Name Role Phone Judith Morgan MD Primary Care Provider Reason for Referral (Routine) - Closed Specialty Diagnoses / Procedures Referred By Contact Refer red To Contact Procedures Tammie Nowak MD Physical Therapy Eval and [facility] Treat twice [place] [address] Today Referral ID Status Reason Start Date Expiration Date Visits Requ ested Visits Authorized [id number] Closed 03/10/2018 06/09/2019 1 1 Procedure/Equipment (Routine) - Incomplete Specialty Diagnoses / Procedures Referred By Contact Refer red To Contact Procedures Tammie Nowak MD XR Hip Lt [address] [place] [address] Dr [place] 5543 1 Referral ID Status Reason Start Date Expiration Date Visits V isits Requested Authorized [id number] Incomplete 03/10/2018 06/09/2019 1 1 Procedure/Equipment (Routine) - Incomplete Specialty Diagnoses / Procedures Referred By Contact Refer red To Contact Procedures Tammie Nowak MD XR Pelvis 1-[address] 5543 1 Referral ID Status Reason Start Date Expiration Date Visits V isits Requested Authorized [id number] Incomplete 03/10/2018 06/09/2019 1 1 Reason for Visit Auth/Cert Specialty Diagnoses / Procedures Referred By Contact Refer red To Contact Diagnoses Primary osteoarthritis of left hip Procedures TOTAL HIP JOINT REPLACEMENT Referral ID Status Reason Start Date Expiration Date Visits Requ ested Visits Authorized [id number] 1 1 Encounter Details Date Type Department Care Team Description 03/10/2018 - Hospital Encounter [facility] 6E Ortho Tammie Nowak, 03/11/2018 Med Surg [address] [facility] [address] [place], [place] [id number] [phone] (Wo rk) Social History Tobacco Use Types [...] CDT Inhaled Oxygen Concentration - - Weight 68 kg (149 lb 14.6 oz) 03/10/2018 12:17 PM CDT Height 158 cm (5' 2.21) 03/09/2018 11:25 AM CDT Body Mass Index 27.23 03/09/2018 11:25 AM CDT documented in this encounter Discharge Summaries Trudy Bush, BLACKJACK DEALER, CORRESPONDENT - 03/11/2018 8:25 AM CDT Ortho Discharge Summary Admission Date: 03/10/2018 Discharge Date: 03/11/2018 Admitting Diagnosis: Primary osteoarthritis of left hip [M16.12] Discharge diagnosis: left CESAR Procedure: Procedure(s) (LRB): TOTAL HIP JOINT REPLACEMENT (Left) Date of Procedure: 03/10/2018 Surgeon: Dr Nowak Disposition: home Code Status: Full Discharge condition: stable HPI: Patient is a 57 y.o., she who presents with left hip OA. For full details please refer to Dr Eliu hsu. Surgical management was recommended and patient underwent Procedure(s) (LRB): TOTAL HIP JOINT REPLACEMENT (Left). Patient today has tolerable pain. No n/v/sob/dizzyness. Hospital Course: Patient was admitted following the above noted procedure. Procedure was without complication. For full details please refer to operative note. Patient received routine angelito-operative antibiotic and DVTprophylaxis. she was evaluated by physical therapy and will discharge to home in stable condition. Significant Studies: Lab Results Component Value Date/Time Hemoglobin 9.5 (L) 03/11/2018 0703 Hemoglobin 13.6 03/10/2018 0602 Lab Results Component Value Date/Time Creatinine Serum 0.52 (L) 03/10/2018 0603 Blood Urea Nitrogen 11 03/10/2018 0603 Sodium 137 03/10/2018 0603 Potassium 3.4 (L) 03/10/2018 0603 Chloride 104 03/10/2018 0603 CO2 26 03/10/2018 0603 Recent Labs 03/11/18 0703 HGB 9.5* No results for input(s): INR, PTT in the last 24 hours. Invalid input(s): PT I/O last 3 completed shifts: In: 2370 [Oral:420; IV:1950] Out: 800 [Urine:550] Active Problems: Principal Problem: Primary osteoarthritis of left hip Active Problems: Tobacco abuse (HRC) HTN (hypertension) (HRC) Esophageal reflux Status post total replacement of left hip Past Medical Diagnoses: Patient Active Problem List Diagnosis ??? Primary osteoarthritis of left hip ??? History of spinal surgery ??? Tobacco abuse (HRC) ??? Sjoegren syndrome (HRC) ??? HTN (hypertension) (HRC) ??? Esophageal reflux ??? Status post total replacement of left hip Medications: Medication List START taking these medications acetaminophen 325 MG tablet Commonly known as: TYLENOL Take 2 Tabs by mouth 4 times a day. 24 hour limit of acetaminophen (TYLENOL) is 4000mg. Each tablet contains 325mg of acetaminophen. Please be aware of acetaminophen limit when taking other medicationsthat contain acetaminophen. Indications: Pain aspirin EC 81 MG enteric coated tablet Take 2 Tabs by mouth daily for 42 days. Over the counter medication. If on previous aspirin, resume previous aspirin dosing after 42 days. Indications: Thrombosis prevention following orthopedic surgery. HYDROmorphone 2 MG tablet Commonly known as: DILAUDID Take 0.5-1 Tabs by mouth every 4 hours as needed for Pain. Take 0.5 tablet for pain rated at 5-7. Take 1 tablet for pain rated 8-10. senna 8.6 MG tablet Commonly known as: SENOKOT Take 1 Tab by mouth daily. Take while on narcotics. Hold for loose stools. Indications: Constipation ASK your doctor about these medications cholecalciferol 1000 units tablet Commonly known as: VITAMIN D3 cyclobenzaprine 10 MG tablet Commonly known as: FLEXERIL GUMMI BEAR MULTIVITAMIN/MIN lisinopril-hydrochlorothiazide 20-25 MG tablet Commonly known as: PRINZIDE;ZESTORETIC PARoxetine 20 MG tablet Commonly known as: PAXIL VITAMIN B COMPLEX-C OR Where to Get Your Medications You can get these medications from any pharmacy Bring a paper prescription for each of these medications ??? acetaminophen 325 MG tablet ??? aspirin EC 81 MG enteric coated tablet ??? HYDROmorphone 2 MG tablet ??? senna 8.6 MG tablet Discharge Exam: BP 113/59 (BP Location: Right Arm, BP Cuff Size: Adult Regular) Pulse 69 Temp 36.7 ??C (98 ??F) (Oral) Resp 18 Ht 1.58 m (5' 2.21) Wt 68 kg (149 lb 14.6 oz) SpO2 100% BMI27.23 kg/m2 Normal exam - Patient is in no acute distress. Patient alert, has normal respiratory effort, Distal CMS is intact. Calf is soft and nontender 2+ DP pulses. +dorsi/planter flexion Abnormal exam - alginate Dressing is clean, dry, intact and soft thigh Assessment and Plan: Status post left CESAR POD #1. ?? DJD/osteoarthritis- s/p left CESAR. No precautions. alginate ?? Pain, left CESAR - controlled with toradol and dilaudid, reviewed post op pain expectations and management strategies. ?? Constipation- narcotic induced, senna and MOM. ?? Acute blood loss asymptomatic, no acute s/s of bleeding. No further monitoring of hemoglobin unless patient becomes symptomatic. ?? Physical deconditioning - PT/OT, ?? Obesity - Estimated body mass index is 27.23 kg/(m^2) as calculated from the following: ?? Height as of this encounter: 1.58 m (5' 2.21). ?? Weight as of this encounter: 68 kg (149 lb 14.6 oz)., ETCO2 inpatient, ?? VTE prophylaxis/Anticoagulation - ASA 162mg x 6 weeks ?? Sjorgen syndrome ?? Essential htn stable with current meds ?? Hypokalemia- replaced with KCL. Follow up: Discharge Procedure Orders Eat fiber (whole grains, fruits and vegetables) and drink plenty of fluids to prevent constipation. Pain medication can cause constipation. Resume your usual diet as you feel comfortable. Activity as tolerated. You may bear weight as tolerated on your operative leg Use 1 to 2 pillows between your legs while in bed for comfort. Do the exercises instructed by your physical therapist at least twice daily You may shower Let the water run over your dressing. Leave the dressing on until your first orthopedic follow up appointment. If you have trouble with your dressings, please call your surgeon. Do not soak in a bath tub, hot tub or pool until your incision is completely healed Order Comments: X 6 weeks Apply ice over your incision (not directly on your skin) as needed to ease discomfort and reduce swelling Do not apply creams, lotions, powder or hydrogen peroxide to your incision You must be accompanied by a responsible adult combine driver at the time you are discharged. Do not drive until you have been seen for your follow-up appointment and are OK???d for driving. Do not drink alcohol or make any major decisions, such as signing important papers or managing legalissues, while taking prescription pain medication. To prevent pneumonia after surgery: Order Comments: 1) Use your incentive spirometer 10 times an hour while you are awake and continue this 2 weeks after your surgery. 2) Practice coughing after each set of incentive spirometer use 3) Practice good oral care. [place] your teeth and use mouthwash twice daily. Educational handouts provided: Hip and Knee Replacement Care Guide Preparing for Surgery and Becoming Active Again Call your doctor if you have any of the following symptoms: (See below) Order Comments: Call your doctor if you have any of the following symptoms: 1. Fever of 101 degrees Farenheit or 38 degrees Celsius or higher and /or chills 2. Severe pain not relieved with pain medication 3. Bleeding from the incision that does not stop. 4. Signs of a surgical infection: increased or foul smelling drainage and/or extreme redness, warmth, tenderness or swelling around the incision and/ or seperation of the skin closures Do not start antibiotics for incision/joint infection without contacting the orthopedic surgeon first. For non-urgent orthopedic questions please contact your orthopedic nurse care manager Wednesday - Wednesday Order Comments: 1. Your Orthopedic Product Development Specialist Wednesday - Wednesday 2. [facility] Orthopedic Nurse Information Line Wednesday - Wednesday 8:30 am to 5:00 pm at [phone] and select option #2. 3. Your orthopedic surgeon or the surgeon etl consultant Evenings 5:00 pm - 8:30 am, weekends and holidays at: [phone]. For medical issues, please contact your primary care physician JAME: For URGENT surgical issues, wound concerns, pain medication refill requests, please contact: (See below) Order Comments: Call [facility] Orthopedic Triage Nurse at [phone] Not all post-operative infections can be prevented, but early detection and proper treatment can prevent major catastrophes. Do not start antibiotics for incision/joint infection without contacting the orthopedic surgeon first. IF in doubt, call the orthopedic surgeon. No follow-up provider specified. Total time spent on discharge on day of discharge 35 For full discharge orders and instructions, please see the after visit summary for this hospitalization. Trudy Bush APRN, CNP 8:25 AM 03/11/2018 documented in this encounter Medications at Time of Discharge Medication Sig Dispensed Refills Start Date End Date cholecalciferol (VITAMIN Take 1,000 Units by 0 D3) 1000 units mouth daily. tabletIndications: Indications: supplement supplement lisinopril-hydrochloroth Take 1 Tab by mouth 0 iazide daily. Indications: (PRINZIDE;ZESTORETIC) High Blood Pressure 20-25 MG Disorder tabletIndications: Hypertension PARoxetine (PAXIL) 20 MG Take 20 mg by mouth 0 tablet daily. Pediatric Take 1 Each by mouth 0 Eiftqcsb-Zhwrcgkd-R daily. 1 multivitamin (GUMMI BEAR gummy daily MULTIVITAMIN/MIN) VITAMIN B COMPLEX-C Take 1 Cap by mouth 0 ORIndications: daily. Indications: Supplement Supplement aspirin EC 81 MG enteric Take 2 Tabs by mouth 84 Tab 0 0 03/10/2018 04/21/2018 coated daily for 42 days. tabletIndications: Over the counter Thrombosis prevention medication. If on following orthopedic previous aspirin, surgery. resume previous aspirin dosing after 42 days. Indications: Thrombosis prevention following orthopedic surgery. acetaminophen (TYLENOL) Take 2 Tabs by mouth 100 Tab 0 12/16/2020 325 MG 4 times a day. 24 tabletIndications: Pain hour limit of acetaminophen (TYLENOL) is 4000mg. Each tablet contains 325mg of acetaminophen. Please be aware of acetaminophen limit when taking other medications that contain acetaminophen. Indications: Pain cyclobenzaprine Take 10 mg by mouth 3 01/29/2018 03/18/2022 (FLEXERIL) 10 MG at bedtime as needed tabletIndications: for Muscle Spasms. Muscle Spasm Indications: Muscle Spasm HYDROmorphone (DILAUDID) Take 0.5-1 Tabs by 35 Tab 0 04/19/2018 2 MG tablet mouth every 4 hours as needed for Pain. Take 0.5 tablet for pain rated at 5-7. Take 1 tablet for pain rated 8-10. senna (SENOKOT) 8.6 MG Take 1 Tab by mouth 30 Tab 0 02/1904/19/2018 tabletIndications: daily. Take while on Constipation narcotics. Hold for loose stools. Indications: Constipation documented as of this encounter Progress Notes Arminda Whipple RN - 03/11/2018 2:31 PM CDT DISCHARGE O: Patient safely discharged to home. D: Patient is alert and oriented x 4. Pt up independently with assistive device . Discharge criteriamet. Vaccines addressed prior to discharge. A: Discharge instructions and medications reviewed and given to patient. Written medication education material provided on verbal explanation on new meds including possible side effects. Prescriptions sent with patient. Belongings checklist reviewed with patient and belongings sent. Equipment sent: walker. Supplies sent none. Care plan issues addressed and education record updated. R: Patient verbalizes understanding and teaches back discharge instructions. Patient discharged by: wheelchair with volunteer. Arminda Whipple RN 2:32 PM 03/11/2018 Thelma Rojas, PT - 03/11/2018 8:11 AM CDT Physical Therapy Inpatient Daily Progress Note Patient's diagnosis: L CESAR on 03/10/2018 GENERAL INFORMATION Mood: pleasant and alert Cooperation: full Treatment Location: Satellite Special Equipment: None Precautions: total hip precautions: none, falls risk Patient Self Report: AGreeable to PT. Feels ready to DC home after afternoon PT session. Continues to report pain in L ITband. Pain: pain in Lt IT band- does not rate pain OBJECTIVE Objective: -- Range of Motion: Decreased L hip ROM; RLE WFL -- Strength: Functionally 3+/5 in BLE, pt able to complete SLR without assist, quad activation, and DF/PF on LLE this date. -- Sensation: intact to light touch bilateral lower extremities and patient denies numbness and tingling -- Endurance: adequate for household mobility -- Balance: -- standing balance: fair with FWW Patient???s treatment includes: Gait: Weight bearing status - L LE: full, as tolerated Equipment: wheeled walker Assistance: minimal assist with managing FWW Distance: 200 feet Gait Pattern: reciprocal gait at slower gait speed with decreased stance time on LLE. Instruction provided: Cues for gait mechanics, providing wheels for FWW at DC. Stairs: Equipment: 1 rail and 2 rails Assistance: contact guard assist # of steps: 3x3 steps (total of 9 steps) Pattern: Step-to Instruction provided: Cue for pattern, safety with mobility, having family nearby Transfers: Sit to Stand: supervision with UE assist Supine to/sit Sit: supervision Other Treatments: CESAR exercises: Supine L LE x10 reps each: -quad sets -glut sets -straight leg raise -short arc quad -heel slides -hamstring sets -hip abduction -ankle pumps *verbal and tactile cues for correct technique. Patient Education Provided: Plan for session, cues for gait, exercise and stairs; DC recommendations. ASSESSMENT/PLAN Patient findings include: Patient's response to RX: good Barriers to Learning: none Assessment & Progress Toward Goals: Pt is progressing toward her therapy goals this date. Continues to require cues for safety with gait and stairs. Pt will continue to benefit from skilled PT. Updated progress toward goals set on 03/10/18: Progressing toward goals 03/11/2018 Patient will transfer supine to/from sit with modified independent in 2 days. Patient will transfer sit to/from stand with modified independent in 2 days. Patient will ambulate with wheeled walker and modified independent for 100 feet in 2 days. Patient will climb 7 steps modified independent with 1 rail in 2 days. Therapist Discharge Recommendations: Anticipate patient will be safe to discharge home on 03/11/2018 after pm session. Patient does not need additional PT services upon discharge. Therapist discharge recommendation was discussed with patient. Patient in agreement with recommendations. Interdisciplinary Communication: OT Plan for Next Treatment: Satellite: gait with FWW, stairs with single HR, CESAR exercises. Timed codes: Therapeutic exercise x 10 minutes, Therapeutic activities x 10 minutes and Gait training x 10 minutes Total timed minutes: 30 Total treatment time: 30 min Therapist: Thelma Rojas PT 9:19 AM 03/11/2018 PM Physical Therapy Treatment session: Subjective: Pt is agreeable to therapy this session. Reports she feels ready to DC home. Pt's is present during session. Treatment today: Gait: Weight bearing status - L LE: full, as tolerated Equipment: wheeled walker Assistance: Modified independent Distance: 300 feet Gait Pattern: reciprocal gait at slower gait speed with decreased stance time on LLE. Instruction provided: Cues for gait mechanics Stairs: Equipment: 1 rail (2 hands on single rail) Assistance: Modified independent # of steps: 2x3 steps (total 6 steps) Pattern: Step-to Instruction provided: Educated pt's on CGA at home during stairs for first couple days. Transfers: Sit to Stand: Modified independent Supine to/sit Sit: Modified independent Other Treatments: CESAR exercises: Supine L LE x10 reps each: -quad sets -glut sets -straight leg raise -short arc quad -heel slides -hamstring sets -hip abduction -ankle pumps *verbal and tactile cues for correct technique. Provided handout of CESAR exercises for pt to take home. *provided pt with wheel extensions for her FWW, educated on how to set up on FWW and pt signed appropriate paperwork for insurance. *RN notified of performance and safe to DC. Timed codes: Therapeutic exercise x 10 minutes and Gait training x 15 min minutes Total timed minutes: 25 min Total treatment time: 25 min Therapist: Thelma Rojas PT 2:22 PM 03/11/2018 Xiomy Hartley OTR/L - 03/11/2018 7:57 AM CDT Occupational Therapy Occupational Therapy Orthopedic Hip/Knee ADL Evaluation Date of admit: 03/10/2018 5:31 AM History of current medical diagnosis:s/p L CESAR on 03/10/18 Past medical history: No past medical history on file. MD order: Eval and Treat: Total Joint Protocol General Current living situation: house with spouse Prior ADL/IADL status: independent using standard walker/cane and driving. 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 Precautions: falls risk, WBAT LLE, NO hip precautions Communication: Verbal/appropriate Location of treatment: satellite clinic Objective Information Current upper extremity ROM: Right: WFL Left: WFL Current upper extremity strength: Right: WFL Left: WFL Current Visual Functioning: Reports no concerns GLASSES: Yes: reading Current Cognitive Functioning: oriented x 3, appropriate Current ADL Performance: Grooming/Hygiene: independently Upper body dressing: independently Lower body dressing: educated pt on use of outpatient case manager to assist with LE dressing; pt reports plan to have spouse assist with all dressing tasks at home Recliner transfer: with standby assist Bed mobility: with standby assist- educated pt on safe technique to assist with pain management Toileting/toilet transfer: with standby assist- using elevated toilet seat Bathing/Tub/Shower transfer: with standby assist stepping in/out of tub. Educated pt on safe technique for in/out of tub. Pt reports she is hoping her will place grab bars Meal Prep: no concerns- family to complete Homemaking/Home management: no concerns- family to complete Gait/mobility: with standby assist with FWW Treatment Today: educated pt on OT role and above ADLs Recommended adaptive equipment: None Resource information provided: No Response to treatment: Endurance/activity tolerance: Patient tolerated treatment well. Cooperation: good Pain scale 0 to 10 (low to high): At rest 5/10 With activity 3-4/10 Functional Limitations/Impairments Patient's functional limitations are: ?? Decreased activity tolerance/endurance Barriers to Learning Patient's barriers to learning are: ?? none Occupational Therapy Interventions Patient's Occupational Therapy interventions are: ?? Evaluation only Outcomes The following goals have been established: ?? Patient and family goals: Discharging home today ?? Goals reviewed with patient/family: Yes ?? Other services: Physical Therapy ?? Rehab potential: Good ?? Evaluation Complexity Rating: Occupational profile and history: low Assessment: low Clinical decision making: low Overall complexity rating: low ?? Timed Code Treatment Minutes: 0 ?? Total Treatment Minutes: 15 - DC OT ?? Plan for next session: No further OT needs at this time Initial Discharge Recommendations Patient's initial discharge recommendation is: From ADL/safety standpoint, patient is safe to discharge home today with: increased assist for: bathing, meal prep, homemaking and driving. Disposition recommendations discussed with patient. Patient agrees with recommendations. Signature: JLUIS Anderson/Brenda 9:31 AM 03/11/2018 NOTE: The clinician's signature certifies medical necessity for the treatment plan above. Thelma Rojas, PT - 03/10/2018 2:00 PM CDT Physical Therapy Inpatient Initial Evaluation Date of Admit: 03/10/2018 History of current medical diagnosis: L CESAR on 03/10/2018 Rehab Diagnosis: Pain, Decreased range of motion, Weakness, Deconditioning, Impaired mobility, Decreased balance and Risk of falls Past Medical History: No past medical history on file. Order: Twice daily For Gait training: Straight Leg Raises, active abduction to operative leg, Isometric, AAROM, AROM to operative leg. SUBJECTIVE Patient reports: Pt is agreeable to PT this date. Mood: pleasant and alert Pain: 2/10 pain scale Location: lateral L hip Support System: is able to assist pt as needed. Prior Functional Level: Mobility: --Independent with community mobility with wheeled walker and SEC - Single End Cane. --Independent with household mobility with wheeled walker and SEC - Single End Cane. 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 Moderate Complexity: 1-2 personal factors and/or comorbidities that impact plan of care OBJECTIVE Treatment Location: Bedside - room 662 Special Equipment: IV Precautions: total hip precautions: none, falls risk Orientation: Oriented x 3 Cooperation: full -- Range of Motion: Decreased L hip ROM; RLE WFL -- Strength: Functionally 3+/5 in BLE, pt able to complete SLR with min A, quad activation, and DF/PF on LLE this date. -- Sensation: intact to light touch bilateral lower extremities and patient denies numbness and tingling -- Endurance: Inadequate for household mobility this date but anticipate pt will be adequate for household mobility by DC. -- Balance: -- standing balance: fair with FWW Standardized test: AM-PAC 5 Items (out of 20 points): Raw Score: 15, Standardized Score: 38.88, G Code: CK, 44.61% impaired Gait: Weight bearing status - L LE: full, as tolerated Equipment: wheeled walker Assistance: minimal assist Distance: bed to chair Gait Pattern: antalgic, emily decreased, step-to: left, heelstrike decreased: left, stance time decreased: left and weight shift decreased: left Instruction provided: Cues for safety with gait this date. Stairs: Not tested this date. Transfers: Sit to Stand: minimal assist at trunk Supine to Sit: minimal assist at trunk and LLE to EOB Clinical Examination: ?? Low complexity: Addressed 1-2 elements from body structures and functions (see above), and/or functional limitations as noted below. Today's Intervention: None this date, focused on mobility. *pt was left sitting in bedside chair with call light nearby, all needs met, tray table within reachand RN aware of performance and ending position. Education/Handouts: Plan for session, cues for mobility and safety, no precautions and WBAT, DC recommendations. Multidisciplinary Communication: RN joshua'd session. Timed codes: None Total timed minutes: 0 Total treatment time: 30 in ASSESSMENT PT Clinical Presentation: ?? Moderate Complexity: Evolving Clinical Presentation with changing clinical characteristics Clinical Decision Making: ?? Low Complexity Eval Patient's impairments are: Decreased balance Decreased strength in LLE Decreased ROM in LLE Decreased endurance Pain Functional limitations: Patient unable to perform bed mobility independently Patient unable to transfer independently Patient unable to ambulate independently Patient unable to climb stairs independently Increased risk of falls Goals/Functional Outcomes: Patient will transfer supine to/from sit with modified independent in 2 days. Patient will transfer sit to/from stand with modified independent in 2 days. Patient will ambulate with wheeled walker and modified independent for 100 feet in 2 days. Patient will climb 7 steps modified independent with 1 rail in 2 days. Barriers to Learning: none Rehab Potential: Good PLAN Planned intervention/education: Evaluation Therapeutic Exercise Therapeutic Activity Gait Training Neuromuscular re-education Patient/family education Home exercise program instruction Frequency: twice a day Duration: 2-3 days Goals and Plan of Care discussed with patient/family; patient consents to treatment: Yes Discharge Recommendations: Patient is post-op day zero after joint replacement. Patient's desired discharge plan is home with family assistance and no further PT Plan for Next Treatment: satellite: progress mobility with FWW, transfers, stairs with single hand rail, CESAR exercises. NOTE: The clinician's signature certifies medical necessity for the treatment plan above. Chris Keyes RN - 03/10/2018 1:43 PM CDT ADMIT O: Admitted patient via cart from Post-Anesthesia Recovery to bed # [id number]. D: Patient is alert and oriented x 4; significant other present. See Admission Assessments. A: Discussed plan of care. See education record for admission education. Oriented to room. Call light in reach. Bed alarm: on R: Patient status: VSS; dressing CDI. Will monitor. documented in this encounter H&P Notes Tammie Nowak MD - 03/10/2018 7:33 AM CDT Surgery Update for Preop History and Physical For 03/10/2018 scheduled procedure Update to H&P includes: Patient and/or family denies any health changes since the H&P (which was done by her PCP, paper copy in chart reviewed) This patient has been evaluated by me today and has been found to be a suitable candidate for surgery. 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 She has a diagnosis of severe osteoarthritis of her left hip. She has been feltto have tried and failed optimized nonsurgical management for the past 6 plus months and is referredfor consideration of hip replacement surgery. Onset of symptoms approximately 1 year ago without any specific injury, primarily left groin area pain. Over the past 6 months or so pain has radiated from the left groin down the anterior thigh towards her knee. Exacerbated particularly with weightbearing activity, also with going up and down stairs, which she has had progressively more difficulty with. She leans heavily on the railing for stairs, has difficulty going grocery shopping, leans on a cart. Her walking distance has been limited to less than 1 block for the past 4 months. For the past 2 months, she has been using a walker or cane for support with ambulation, even around the house. Her pain occasionally is a 10 on a scale of 1-10. With use of the walker, she can reduce the pain toabout a 6 at times. She has felt as though her left hip might buckle or give way, is awakened at nighttime by discomfort, and sleeps generally with a pillow between her knees to try to control that. She has had more difficulty dressing herself, rotating her hip to get shoe or sock on and off and has tended to wear slides. 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 Getting down to the floor and up again is quite uncomfortable, if not impossible. She has tried Tylenol 1000 mg 2-3 times daily and that seems to be no longer effective. She supplemented that with Aleve at times. She has to be cautious about nonsteroidals due to history of hypertension. She has been working with physical therapist since May of 2017, with mild benefit, and is working with a massage therapist. She was initially thought to have possibly sciatic type pain, but when she was referred to a supervisory investigative specialist, an MRI study of the lumbar spine was done and her exam suggested that the pain was actually coming from her hip joint. Thus, she saw Dr. Tony Thompson February 21, 2018, and was felt to be an appropriate surgical candidate as there was really no other nonsurgical treatment to offer her that she had not already tried and failed. Delmi feels that she is lost quality of life and her pain, stiffness, and sense of instability are affecting her activities of daily living and her ability to be a good day care provider. She is eager to have her hip replaced, would like to have it done within the next couple of weeks if possible. She has tried activity modification, has become less and less active and able to do activities of daily living. She has to use her hands to lift her thigh into and out of a vehicle, cannot get down on to the floor for light housekeeping or to pharmacy picking tech items or children under her care. She has medical problems of hypertension and anxiety. She takes blood pressure medications and Paxil, in addition to Tylenol or Aleve. She has a history of scoliosis and has had 2 lumbar spine surgeries in 1978, and 1988, with rods placed. She denies any back pain, but does have some limited spine mobility. ALLERGIES: Medication allergy listed to penicillin (hives). SOCIAL HISTORY: She is , lives with her . They provide daycare out of their home. 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 has had some medical problems this past year and Delmi was then able to really take care of herself or seek medical care for her own hip area pain as the 's health care needed to be their priority. It has only been over the past several months that she could seek her own medical care. RISK FACTORS: Include no history of drug abuse. She is a cigarette smoker 1 and half packs per day and has for 42 years. She drinks alcohol daily, a glass of wine after work. She never exercises, but she would love to get back to being more active again once her hip pain is resolved. She always wears her seatbelt. REVIEW OF SYSTEMS: 14-point review of symptoms positive for wearing eyeglasses, having nosebleeds in the winter, wears dentures, has hypertension, joint pain, arthritis, and anxiety. 14-point review of symptoms otherwisenegative. FAMILY HEALTH HISTORY: Positive for grandparent with diabetes, mother with stroke, mother with arthritis. GOALS: Patient's goals for today's visit, pain relief and surgery, specifically hip replacement. PHYSICAL EXAMINATION: Delmi is alert and oriented, appropriate weight for height. Height listed as 5 foot 2 inches, [id number] pounds. She walks with a markedly antalgic gait pattern favoring the left side. Standing position, left iliac crest height about a quarter to half inch lower than the right, but she also appears unable to fully extend her left hip and knee. She reports some peripheral neuropathy affecting her feet. Sensation seems to be intact over her legs and thighs. Seated flip test does not give her radicularpain, and with the left hip flexed, her left knee fully extends. She does not have an effusion of either knee. Left hip range of motion is extremely limited compared to the right. As her hip is flexed from 0-90,she goes into slight abduction and external rotation about 15 degrees. Further external rotation is to about 30 degrees with discomfort at extreme, internal rotation lacks 5 degrees to neutral with discomfort, and abduction is to about 30 degrees with discomfort. This compares to the right hip which ranges from 0-100 of flexion, external rotation 45, internal rotation 20, abduction 40 without discomfort. IMAGING STUDIES: X-rays were reviewed from February 21, 2018, showing severe end-stage osteoarthritis of left hip with subchondral sclerosis and cyst formation of the femoral head, particularly superiorly, and the subchondral bone of the left acetabulum. Completely [id number] with lateral osteophytes. Right hip joint space narrowed down to about 2 mm. Good cortical bone thickness of the femoral shafts. Sacroiliac jointshave some surrounding sclerosis, a little more so on the right side than the left, and patient has retained rods in her lumbar spine to the sacrum, on the left side, the akira is broken at about the L4 level. ASSESSMENT: Severe end-stage osteoarthritis of left hip with [id number]. Stiffness, sense of instability, and pain are affecting her quality of life and activities of daily living, which have been compromised despite greater than 6 months efforts at optimized nonsurgical management, including medication, activity modification, use of assistive device, physical therapy, and maintaining good weight. 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 Benefits and risks of hip replacement surgery were discussed with the patient, including risk of anesthetic complications, blood loss and possible need for transfusion, blood clot, fracture, dislocation, infection, possible need for revision surgery in the future, limb length inequality, and continuedpain. The fact that she will still have whatever issues are going on with her spine postop, but hopefully to improve her left hip range of motion, may secondarily benefit her lumbar spine as well. Further diagnosis and management of her lumbar spine can be carried out after she has recovered from her hip replacement as needed. Surgery will be done at [facility] under either a spinal or general anesthetic. Likely 1, possibly 2 nights stay in the hospital and then discharging home. Handicap parking form was filled out.She will need to see her primary care provider for preoperative history and physical consultation within a month of surgery. Hoping to get the surgery scheduled within the next 2 weeks at patient's request. Today's clinic visit was 40 minutes in length of which 20-30 minutes were spent counseling and discussion with patient regarding her symptoms, diagnosis, management options, and recommendations, including benefits and risks of hip replacement surgery. CC: TONY THOMPSON MD [address] [place] [address] JUDITH MORGAN MD [facility] [address] [place] [address] KSP:MEDQ C: R:03/01/18 11:21 CONFIRM#:[id number] documented in this encounter Procedure Notes Tammie Nowak MD - 03/10/2018 9:37 AM CDT Operative Report Patient Name: Delmi Blanton Procedure Date: 03/10/2018 Date of : 1960 Admit Type: Inpatient Age:57 y.o. Gender: female Attending MD: Tammie Nowak MD Surgical Staff: MD Eliu; CELESTE Chauhan Procedure: Primary Left Total Hip Arthroplasty: Press Fit Acetabular and Femoral Components Implant List: Solares Nephew R3 54 cup with 2 screws and 0 deg xlpe liner Synergy 14 stem with +0 x 36 Oxinium head Patient Profile: This is a 57 y.o. female. Refer to note in patient chart for documentation of history and physical. This patient has had progressively severe and disabling hip pain. The patient has failed appropriate non-operative treatment, including anti-inflammatory treatment and physical therapy. As a result, surgery is recommended. The alternatives, risks and benefits of surgery were discussed with the patient.The patient verbalized understanding of the risks as well as the alternatives to surgery. The patient wished to proceed with operative intervention. A signed and witnessed informed consent was then placed on the chart. Pre-OP Diagnosis: Primary osteoarthritis of Left hip Post-OP Diagnosis: Primary osteoarthritis of Left hip Comorbidities HTN Tobacco use (1ppd smoker) h/o L/S spine surgery with retained hardware Anesthesia: General. Findings: Bone: Severe degenerative changes were found. The quality of the bone stock for subsequent implant placement was good. Large circumferential osteophyte rim acetabulum (1cm), oblong flattened misshappened femoral head and egg shaped acetabulum. Severely stiff hip (flexion and abduction contractures) Description of Procedure: Patient Positioning: Pre-operative antibiotics were administered, with 1000mg Tranexamic acid + 8mg Dexamethasone IV. Following induction of anesthesia a ely catheter was placed aseptically. The patient was placed in thelateral decubitus position on the standard operating table with the Wixson positioner. An axillary roll was placed. All body parts were well padded and protected to make sure there were no pressure points. The surgical area was prepped and draped in the appropriate sterile fashion. Instruments and Methods: Pause for the cause was carried out to confirm correct patient, procedure, surgical site, and staff.A standard small incision was made posteriorly, centered on the posterior aspect of the greater trochanter. The fascia jenny was incised on the lateral aspect of the femur to expose the vastus lateralis. Deep dissection was continued by splitting the fibers of the gluteus terry. The split gluteus terry and the deep fascia of the thigh were retracted. The short external rotator muscles were detached from their femoral insertions and reflected back to protect the sciatic nerve. The posterior hip capsule was identified. A posterior T-shaped arthrotomy was performed and the capsule was tagged for later repair. Following incision of the capsule and dislocation of the femoral head, the femoral neck was transected one thumb breadth above the lesser trochanter. This was done using the oscillating saw. Throughoutthe surgical procedure, great care was taken to protect the sciatic nerve. A large smooth Lexis pin was placed in the innominate bone superiorly, a largeretractor carefully placed on the anterior rim of the acetabulum, a blunt Cobra placed inferiorly, to expose the acetabulum. With the excision of cartilage fragments, labrum and 1cm rim osteophytes using osteotome and rongeur, the acetabulum was cleared of soft tissue and satisfactory exposure was obtained. The acetabulum was reamed starting at 42 mm diameter. The final ream diameter was 54 mm, down to the true floor of cotyloid fossa. The acetabular bone quality was good. The trial component was inserted and found to be stable. 1x2cm posterior periacetabular cyst was removed with cautery and rongeur. The Solares Nephew 54 hydroxyapatite coated press fit acetabular implant was inserted in satisfactory abduction, in satisfactory anteversion. The implant was stable. Fixation was augmented by the placement of 2 screws. A 0 degree hooded trial liner was inserted. The femoral neck was exposed and excess soft tissue was resected. The femoral broach entry site was created on the medial aspect of the greater trochanter, into the medullary canal, using the Follicum cutter. The femoral canal was reamed and broached sequentially in increments of 1 mm to accept the Solares Nephew Synergy press fit 14 femoral implant. Trial reductions were performed and the +0 neck provided optimum stability and seemed to restore the proper length. Was still stiff with effort at full extension and adduction. But the -3 was equally stiff and less stable to adduction and flexion with internal rotation. Broach was then removed, the acetabulum was irrigated, and the 0 degree acetabular line r was seated in the shell. The Solares Nephew Synergy femoral implant was seated into place. Trialing with various neck lengths was performed and the +0 was found optimal, and this 36 mm Oxinium implant was placed on the 09/02 taper. The hip was reduced and range of motion, limb length and stability were re-examined. Implants: Solares Nephew R3 54 acetabular component with 2 screws and 0 degree highly crosslinked poly liner. Solares Nephew Synergy press fit 14 femoral stem with Oxinium +0 x 36mm head. Wound Closure: The wound was thoroughly irrigated with brown wash protocol, including a liter of sterile saline. 1000mg Tranexamic acid was redosed IV. The joint capsule was closed with #1 Ethibond using figure of 8 technique. The fascia was closed with #0 Vicryl using simple running technique. The subcutaneous layer was closed with 2-0 Vicryl. The skin was closed with subcuticular 3-0 monoQuill and steristrips. Drains / Dressing: A sterile Tegaderm alginate dressing was applied. Sponge / Instrument / Needle Counts: Final counts were correct. Estimated Blood Loss: 250 mL. Patient to Recovery Room: The patient tolerated the procedure well and was brought to the recovery room in satisfactory condition. Complications: No Immediate Complications. Post-OP Plan: Keep Tegaderm alginate dressing in place for 2 weeks postop. DVT prophylaxis with ASA. WBAT, no hip precautions needed. Nicoderm patch while inpatient. Patient states she prefers no oxycodone, due to potential for abuse or dependence. Is ok with Dilaudid or Glover, or narcotic sparing pain management as able. Home in 1 day, anticipated. RTC appts as scheduled. documented in this encounter Consult Notes Jana Dorsey RN - 03/11/2018 9:26 AM CDTAssociated Order(s): CONSULT CARE INTEGRATION Care Integration: Received Care Integration consult for discharge planning. Reviewed chart including therapy recommendations and attending provider???s progress note. Patient has been cleared to discharge home with no additional PT. Care Integration will not assess/meet patient face to face because no transition needs are required at this time. If further discharge needs arise, please page the assigned Care Integration treatment team to assess. Jana Dorsey RN CC 03/11/2018, 9:27 AM documented in this encounter Miscellaneous Notes [employer] Activation Code - Priscilla Machado HUC - 03/10/2018 12:02 PM CDT Thank you for enrolling in [employer]. Please follow the instructions below to securely access your online medical record. [employer] allows you to send messages to your doctor, view your test results, renewyour prescriptions, schedule appointments, and more. How Do I Sign Up? 1. In your Internet browser, go to [email or web address] 2. Click on the Enter activation code link under the New User? section. You will see the Activate your account! page. 3. Enter your activation code exactly as it appears below. You will not need to use this code after you???ve completed the sign-up process. If you do not sign up before the expiration date, you must request a new code. Activation Code: [email or web address] Expires: 04/09/2018 12:01 PM 4. Enter your last name and date of (mm/dd/yyyy) as indicated, then click Continue. You will be taken to the Let's set up your account page. 5. Create a username. This will be your [employer] login ID and cannot be changed, so think of one thatis secure and easy to remember. 6. Create a password. You can change your password at any time. 7. Enter your e-mail address. You will receive e-mail notification when new information is availablein [employer]. 8. Select your Security Questions and enter your answers. These can be used at a later time if you forget your password. 9. Check the box to accept the terms and conditions. Click Create your account. You can now view your medical record. Additional Information If you have questions, you can call [phone] to talk to our MyChart staff. Remember, MyChart is NOT to be used for urgent needs. For medical emergencies, dial 911. documented in this encounter Plan of Treatment Not on filedocumented as of this encounter Procedures Procedure Name Priority Date/Time Associated Diagnosis Comme nts POTASSIUM Specified Time 03/11/2018 9:36 Results fo r AM CDT this procedure are in the results section. HEMOGLOBIN, BLOOD Specified Time 03/11/2018 7:03 Resul ts for AM CDT this procedure are in the results section. XR HIP LT 1 VIEW Routine 03/10/2018 3:44 Results for PM CDT this procedure are in the results section. XR PELVIS 1-2 VIEWS STAT 03/10/2018 10:15 Resu lts for AM CDT this procedure are in the results section. TOTAL HIP JOINT 03/10/2018 7:20 Primary REPLACEMENT AM CDT osteoarthritis of left hip BEDSIDE GLUCOSE Routine 03/10/2018 6:16 Results f or MONITOR POCT AM CDT this procedure are in the results section. ANION GAP Routine 03/10/2018 6:03 Results for AM CDT this procedure are in the results section. BASIC METABOLIC Routine 03/10/2018 6:03 Results f or PANEL AM CDT this procedure are in the results section. HGB A1C STAT 03/10/2018 6:03 Results for AM CDT this procedure are in the results section. DRAW & HOLD - STAT 03/10/2018 6:02 Results for INPATIENT ONLY AM CDT this procedur e are in the results section. COMPLETE BLOOD STAT 03/10/2018 6:02 Results fo r COUNT-W/DIFF AM CDT this procedure are in the results section. DIFFERENTIAL STAT 03/10/2018 6:02 Results for AM CDT this procedure are in the results section. documented in this encounter Results (ABNORMAL) Potassium (03/11/2018 9:36 AM CDT) P athologist Signature Potassium 3.3 (L) 3.5 - 5.2 PN SOFT mmol/L Specimen Anatomical Collection Method Collection Time Receive d Time (Source) Location / / Volume Laterality 03/11/2018 9:36 AM 8 9:49 CDT AM CDT Narrative PN SOFT - 03/11/2018 10:19 AM CD[place] [address] CLIA number [id number] .Collection has been rescheduled by BIJAN at 03/11/2018 09:38. Reason: .done [id number] Trudy Bush APRN, CNP LAB_1 Performing Organization Address [facility] Phon e Number PN SOFT [address] [place] [address] (ABNORMAL) Hemoglobin in AM POD #1 (03/11/2018 7:03 AM CDT) athologist Signature Hemoglobin 9.5 (L) 11.8 - 15.5 PN SOFT g/dL Specimen Anatomical Collection Method Collection Time Receive d Time (Source) Location / / Volume Laterality 03/11/2018 7:03 AM 8 7:25 CDT AM CDT Narrative PN SOFT - 03/11/2018 7:59 AM CDT Performed at [facility], [address] [place] [id number] CLIA number [id number] Tammie Nowak MD LAB_1 Performing Organization Address [facility] Phon e Number PN SOFT [address] [place] [address] XR Hip Lt 1 View (03/10/2018 3:44 PM CDT) Anatomical Region Laterality Modality Lower Extremity, Hip Radiographic Imagin g Specimen (Source) Anatomical Collection Method Collection Time Re ceived Time Location / / Volume Laterality 03/10/2018 3:20 PM CDT Narrative 03/10/2018 3:51 PM CDT COMPARISON: ??Portable AP exam same day FINDINGS: ??Single portable lateral view shows satisfactory alignment and appearance of the new left total hip arthroplasty. Procedure Note Lang Kee MD - 03/10/2018Formatti ng of this note might be different from the original. COMPARISON: Portable AP exam same day FINDINGS: Single portable lateral view s hows satisfactory alignment and appearance of the new left total hip arthroplasty. Tammie Nowak MD RAD GD XR Pelvis 1-2 Views (03/10/2018 10:15 AM CDT) Anatomical Region Laterality Modality Pelvis Radiographic Imaging Specimen (Source) Anatomical Collection Method Collection Time Re ceived Time Location / / Volume Laterality 03/10/2018 10:04 AM CDT Narrative 03/10/2018 10:20 AM CDT COMPARISON: ??02/21/2018. FINDINGS: ??Single image shows a new lef t total hip arthroplasty. No acute complication. Procedure Note Juwan Mcdaniel MD - 03/10/2018For matting of this note might be different from the original. COMPARISON: 02/21/2018. FINDINGS: Single image shows a new left total hip arthroplasty. No acute complication. Tammie Nowak MD RAD GD Bedside Glucose Monitor (03/10/2018 6:16 AM CDT) athologist Signature Bedside Blood 87 mg/dL PN SOFT Glucose Test Comment: Performed at [facility] [place] [address] Specimen Anatomical Collection Method Collection Time Receive d Time (Source) Location / / Volume Laterality 03/10/2018 6:16 AM 8 6:20 CDT AM CDT Tammie Nowak MD LAB_1 Performing Organization Address City/[facility] Phon e Number PN SOFT [address] [place] [address] Anion Gap (03/10/2018 6:03 AM CDT) athologist Signature ANION GAP 7 0 - 16 mEq/L PN SOFT Specimen Anatomical Collection Method Collection Time Receive d Time (Source) Location / / Volume Laterality 03/10/2018 6:03 AM 8 6:14 CDT AM CDT Narrative PN SOFT - 03/10/2018 6:33 AM CDT Performed at [facility] [place] [address] [place] [address] CLIA number [id number] Tammie Nowak MD LAB_1 Performing Organization Address City/[facility] Phon e Number PN SOFT [address] [place] [address] [phone] HGB A1C (03/10/2018 6:03 AM CDT) P athologist Signature HGB A1C 5.2 4.0 - 5.6 % PN SOFT Specimen Anatomical Collection Method Collection Time Receive d Time (Source) Location / / Volume Laterality 03/10/2018 6:03 AM 8 6:14 CDT AM CDT Narrative PN SOFT - 03/10/2018 12:25 PM CDT Performed at [facility], [address] [place] [address] CLIA number [id number] Tammie Nowak MD LAB_1 Performing Organization Address City/State/ZIP Code Phon e Number PN SOFT [address] [place] [address] [phone] (ABNORMAL) Basic Metabolic Panel: only if not drawn within the last 7 days (03/10/2018 6:03 AM CDT) Analysis Performed At Patho logist Time Signature Creatinine 0.52 (L) 0.55 - PN SOFT Serum 1.02 mg/dL Lab Glucose 61 (L) 70 - 100 PN SOFT mg/dL Comment: The stated glucose range is for the fast ing state. Non-fasting glucose range is 70-180 mg/d L CO2 26 22 - 31 mmol/L PN SOFT Chloride 104 98 - 109 mmol/L PN SOFT Potassium 3.4 (L) 3.5 - 5.2 mmol/L PN SOFT Sodium 137 136 - 145 mmol/L PN SOFT Blood Urea Nitrogen 11 9 - 26 mg/dL PN SOFT Calcium 9.3 8.4 - 10.4 mg/dL PN SOFT Est GFR Am >60 >60 mL/min/1.73m2 PN SOFT Est GFR Non-Afr Am >60 >60 mL/min/1.73m2 PN SOFT Comment: Normal>60, moderate decrease 30 - 59, se melanie decrease 15 - 29, renal failure <15 mL/min/1.73 m2 NOTE: ??Choose the eGFR result above arelis ropriate for the race of the patient. Specimen Anatomical Collection Method Collection Time Receive d Time (Source) Location / / Volume Laterality 03/10/2018 6:03 AM 8 6:14 CDT AM CDT Narrative PN SOFT - 03/10/2018 6:33 AM CDT Performed at [facility], [address] [place] [address] CLIA number [id number] Tammie Nowak MD LAB_1 Performing Organization Address [facility] Phon e Number PN SOFT [address] [place] [address] [phone] Differential (03/10/2018 6:02 AM CDT) P athologist Signature Absolute 1.8 1.8 - 8.0 PN SOFT Neutrophils k/cmm Absolute 1.1 1.1 - 4.0 PN SOFT Lymphocytes k/cmm Absolute 0.5 0.2 - 0.8 PN SOFT Monocytes k/cmm Absolute 0.1 0.0 - 0.5 PN SOFT Eosinophils k/cmm Absolute 0.0 0.0 - 0.2 PN SOFT Basophils k/cmm Immature 0.3 0.0 - 0.5 PN SOFT Granulocytes % Specimen Anatomical Collection Method Collection Time Receive d Time (Source) Location / / Volume Laterality 03/10/2018 6:02 AM 8 6:14 CDT AM CDT Narrative PN SOFT - 03/10/2018 6:17 AM CDT Performed at [address] [address] CLIA number [id number] Tammie Nowak MD LAB_1 Performing Organization Address [facility] e Number PN SOFT [address] [place] [address] (ABNORMAL) Complete Blood Count-W/Diff :only if not drawn within the last 7 days (03/10/2018 6:02 AMCDT) Analysis Performed At Patho logist Time Signature White Blood Cell 3.5 (L) 3.8 - 11.0 PN SOFT Count k/cmm Red Blood Cell 4.15 3.70 - PN SOFT Count 5.20 m/cmm Hemoglobin 13.6 11.8 - PN SOFT 15.5 g/dL Hematocrit 39.7 35.0 - PN SOFT 46.0 % Mean Corpuscular 95.7 80.0 - PN SOFT Volume 100.0 fL RDW 12.3 11.0 - PN SOFT 15.0 % Platelet Count 206 140 - 450 PN SOFT k/cmm Specimen Anatomical Collection Method Collection Time Receive d Time (Source) Location / / Volume Laterality 03/10/2018 6:02 AM 8 6:14 CDT AM CDT Narrative PN SOFT - 03/10/2018 6:18 AM CDT Performed at [facility], [facility] [place] [address] CLIA number [id number] Tammie Nowak MD LAB_1 Performing Organization Address City/[facility] Phon e Number PN SOFT [address] [place] [address] Draw & Hold - Inpatient Only: (03/10/2018 6:02 AM CDT) athologist Signature Draw And Hold REC'D PN SOFT Specimen Anatomical Collection Method Collection Time Receive d Time (Source) Location / / Volume Laterality 03/10/2018 6:02 AM 8 6:14 CDT AM CDT Narrative PN SOFT - 03/10/2018 6:22 AM CDT Performed at [facility], [facility] [place] [address] CLIA number [id number] Tammie Nowak MD PN BLOOD BANK ORDERS Performing Organization Address [facility] Phon e Number TEJINDER SOFT [address] [place] [address] documented in this encounter Visit Diagnoses Diagnosis Primary osteoarthritis of left hip - [facility] Primary localized osteoarthrosis, pelvic region and thigh HTN (hypertension) (HRC) Unspecified essential hypertension Tobacco abuse (HRC) Tobacco use disorder Esophageal reflux Status post total replacement of left hi p documented in this encounter Administered Medications Inactive Administered Medications - up to 3 most recent administrations Medication Order MAR Action Action Date Dose Rate Site acetaminophen (TYLENOL) tablet Given 03/11/2018 12:06 PM CDT 650 mg 650 mg 650 mg, Oral, QID, First dose on Aisha 03/10/18 at 1600, Until Discontinued, Post-op Given 03/11/2018 8:09 AM CDT 650 mg Given 03/10/2018 4:30 PM CDT 650 mg aspirin EC enteric coated tablet 162 mg Given 03/11/2018 8:10 AM CDT 162 mg 162 mg, Oral, DAILY, First dose on Aisha 03/10/18 at 2000, Until Discontinued, Begin day of surgery., Post-op Given 03/10/2018 7:38 PM CDT 162 mg celecoxib (CeleBREX) capsule 200 mg Given 03/10/2018 6:20 AM CDT 200 mg 200 mg, Oral, ONCE, On Aisha 03/10/18 at 0600, For 1 dose, Give in Preop. DO NOT give if history of GI bleed; DE or sulfa allergy., Pre-op clindamycin in dextrose 5% (CLEOCIN) IVPB Started 2017 12:35 AM CDT 900 mg 900 mg 900 mg, Intravenous, Administer over 30 Minutes, Q8H (NON-STND), First dose on Aisha 03/10/18 at 1600, For 2 doses, Post-op Started 03/10/2018 4:31 PM CDT 900 mg cyclobenzaprine (FLEXERIL) tablet 10 mg Given 03/10/2018 10:07 PM CDT 10 mg 10 mg, Oral, TID PRN, Muscle Spasms, Starting on Aisha 03/10/18 at 1202, Until Wed03/11/18 at 1636 Given 03/10/2018 12:22 PM CDT 10 mg diphenhydrAMINE (BENADRYL) capsule 25-50 mg 25-50 mg, Oral, Q6H PRN, Itching, Starting on Aisha 03/10 at 1202, Until Wed03/11/18 at 1636, If able to take ORAL medications., Po st-op diphenhydrAMINE (BENADRYL) injection 25- 50 mg 25-50 mg, Intravenous, Q6H PRN, Itching, Starting on Aisha 03/10/18 at 1202, Until Wed03/11/18 at 1636, Give IV only if unable to take ORALLY ., Post-op hydroCHLOROthiazide (ORETIC) tablet 25 m g Given 03/11/2018 8:09 AM CDT 25 mg 25 mg, Oral, DAILY, First dose on Aisha 03/10/18 at 1400, Until Discontinued Given 03/10/2018 2:48 PM CDT 25 mg ketorolac (TORADOL) injection 30 mg Given 03/11/2018 1:51 PM CDT 30 mg 30 mg, Intravenous, Q6H, First dose on Aisha 03/10/18 at 1400, Last dose on Wed03/12/18 at 0800, For 48 hours, Do not give if CrCl <60 or history of GI bleed, Post-op Given 03/11/2018 8:10 AM CDT 30 mg Given 03/11/2018 2:53 AM CDT 30 mg lactated ringers Continue Current Bag 03/10/2018 10:41 AM 25 mL/hr 25 mL/hr infusion CDT 25 mL/hr, Intravenous, CONTINUOUS, Starting on Aisha 03/10/18 at 0600, Administer on all preop surgery patients, ages 12 and older, unless specified differently in the Protocol for Preop Initiation of IV fluids Order Set., Pre-op Started 03/10/2018 6:19 AM CDT 25 mL/hr 25 mL/hr Left Hand lisinopril (zeSTRIL) tablet 20 mg Given 03/11/2018 8:10 AM CDT 20 mg 20 mg, Oral, DAILY, First dose on Aisha 03/10/18 at 1400, Until Discontinued Given 03/10/2018 1:49 PM CDT 20 mg magnesium hydroxide (MILK OF MAGNESIA) Given 03/11/2018 8:14 AM CDT 30 mL suspension 30 mL 30 mL, Oral, DAILY, First dose on Wed03/11/18 at 0800, Until Discontinued, Hold for loose stools., Post-op nicotine (NICODERMCQ) 21 MG/24HR 1 Patch Applied 03/10/2018 12 :23 PM CDT 1 Patch Patch 1 Patch, Transdermal, Q24H, First dose on Aisha 03/10/18 at 1300, Until Discontinued, Hazardous waste disposal required. ondansetron (ZOFRAN) injection 4 mg Given 03/10/2018 6:27 AM CDT 4 mg 4 mg, Intravenous, ONCE, On Aisha 03/10/18 at 0600, For 1 dose, Give in Preop., Pre-op ondansetron (ZOFRAN) injection 4 mg 4 mg, Intravenous, Q6H PRN, Nausea, Vomiting, Starting on Aisha 03/10/18 at 1202, Until Wed03/11/18 at 1636, Give IV if un able to take oral. Give lorazepam if nausea is not resolved in 15 minutes, Post-op ondansetron (ZOFRAN-ODT) disintegrating tablet 4 mg 4 mg, Oral, Q6H PRN, Nausea, Vomiting, S tarting on Asiha 03/10/18 at 1202, Until Wed03/11/18 at 1636, Give lorazepam if nause a is not resolved in 15 minutes, Post-op PARoxetine (PAXIL) tablet 20 mg Given 03/11/2018 8:10 AM CDT 20 mg 20 mg, Oral, DAILY, First dose on Aisha 03/10/18 at 1400, Until Discontinued Given 03/10/2018 1:48 PM CDT 20 mg potassium chloride SA (KLOR-CON) controlled Given 02/19 12:06 PM CDT 20 mEq release tablet 20 mEq 20 mEq, Oral, ONCE, On Wed03/11/18 at 1215, For 1 dose, Tablet should be swallowed whole senna (SENOKOT) tablet 1 Tab Given 03/10/2018 7:38 PM CDT 1 Tablet 1 Tablet, Oral, DAILY - 1999, First dose on Aisha 03/10/18 at 2000, Until Discontinued, Give every day while on opioids (stimulant) starting day of surgery. Hold for loose stools., Post-op sodium chloride 0.9% infusion New Bag Started 03/11/2018 12:35 AM 100 mL/hr Intravenous, at 100 mL/hr, CDT CONTINUOUS, Starting on Aisha 03/10/18 at 1100, Start after completion of bag currently infusing., Post-op Started 03/10/2018 11:40 AM CDT 100 mL/hr sodium chloride 0.9% injection 10-60 mL Given 03/11/2018 1:51 PM CDT 10 mL 10-60 mL, Intravenous, BID, First dose on Aisha 03/10/18 at 2000, Until Discontinued, For an INT flush, flush with at least 10 mL. For PICC (including Power Injectable PICC), flush with 10 mL. For Port-a-Cath, flush with a minimum of 10mL. For Hung, flush with a minimum of 10 mL. For jugular, subclavian, femoral central lines, flush with a minimum 10 mL. For additional information about flushing processes, reference the Vascular Access Device Users Guide. Given 03/11/2018 8:10 AM CDT 10 mL sodium chloride 0.9% injection 10-60 mL 10-60 mL, Intravenous, PRN, Line Patency, Line Care, S tarting on Aisha 03/10/18 at 1423, Until Wed03/11/18 at 1636, For an INT flush, flush with at least 10 mL. For PICC (including Power Injectable PICC), flush with 10 mL. For Port-a-Cath, flush with a minimum of 10mL. For Hung, flu sh with a minimum of 10 mL. For jugular, subclavian, femoral central lines, flush with a minimu m 10 mL. For additional information about flushing processes, re ference the Vascular Access Device Users Guide. documented in this encounter Active and Recently Administered Medications Times are shown in CDT. Scheduled Medication Order 03/09/2018 03/10/2018 03/11/2018 acetaminophen (TYLENOL) tablet 650 mg 16 30 (Given - Provider: Artem Weber RN)1938 (Not Given - Provider: Fatimah Lau RN - Reason: Patient/family refused) 0809 (Given - Provider: Arminda erickson, DAMARIS)1206 (Given - Provider: Arminda Whipple RN) 650 mg, Oral, QID, First dose on Aisha 03/10/18 at 1600, Post-op aspirin EC enteric coated tablet 162 mg 193 (Given - Provider: Fatimah Lau, DAMARIS) 0810 (Given - Provider: Arminda erickson RN) 162 mg, Oral, DAILY, First dose on Aisha at 2000, Begin day of surgery., Post-op celecoxib (CeleBREX) capsule 200 mg (COMPLETED) 06 (Given - Provider: Micaela Damico, DAMARIS) 200 mg, Oral, ONCE, Aisha 03/10/18 at 0600, For 1 dose, Give in Preop. DO NOT give if history of GI bleed; DE or sulfa allergy., Pre-op clindamycin in dextrose 5% (CLEOCIN) IVPB 900 mg (COMPLETED) 0756 (Given - Provider: Karl Guy APRN, ACCOUNT ENGINEER) 900 mg, Intravenous, Administer over 30 Minutes, ONCE, [facility] 03/10/18 at 0745, For 1 dose, Infuse within 60 minutes prior to incision; Re-dose 900 mg IV every 6 hours after initial dose until incision closed., Pre-op clindamycin in dextrose 5% (CLEOCIN) IVPB 900 mg (COMPLETED) 1631 (Started - Provider: Artem Weber, DAMARIS)1701 (Infused - Provider: Artem Weber RN) 0035 (Started - Provider: Mallory King, DAMARIS)0105 (Infused - Provider: Mallory King RN) 900 mg, Intravenous, Administer over 30 Minutes, Q8H (NON-STND), First dose on Wed03/10/18 at 1600, For 2 doses, Post-op hydroCHLOROthiazide (ORETIC) tablet 25 mg(Linked Group 1) 1448 (Given - Provider: Chris Keyes RN) 0809 (Given - Provider: Arminda erickson RN) 25 mg, Oral, DAILY, First dose on Wed03/10/18 at 1400 ketorolac (TORADOL) injection 30 mg 1350 (Given - Provider: Chris Keyes RN)1938 (Given - Provider: Fatimah Lau RN) 0253 (Given - Provider: Mallory King RN)0810 (Given - Provider: Arminda Whipple, DAMARIS)1351 (Given - Provider: Arminda Whipple, DAMARIS) 30 mg, Intravenous, Q6H, First dose on 03/10/18 at 1400, For 48 hours, Do not give if CrCl <60 or history of GI bleed, Post-op lisinopril (zeSTRIL) tablet 20 mg(Linked Group 1) 1349 (Given - Provider: Chris Keyes RN) 0810 (Given - Provider: Arminda erickson RN) 20 mg, Oral, DAILY, First dose on Wed03/10/18 at 1400 magnesium hydroxide (MILK OF MAGNESIA) suspension 30 mL 0814 (Given - Provider: Arminda Whipple, DAMARIS) 30 mL, Oral, DAILY, First dose on 6/ 22/18 at 0800, Hold for loose stools., Post-op nicotine (NICODERMCQ) 21 MG/24HR 1 Patch 1223 (Patch Applied - Provider: Chris Keyes RN) 1223 (Patch Removed - Provider: Arminda Whipple, DAMARIS)1300 (Not Given - Provider: Arminda Whipple, DAMARIS - Reason: Patient/family refused) 1 Patch, Transdermal, Q24H, First dose o n Aisha 03/10/18 at 1300, Hazardous waste disposal required. ondansetron (ZOFRAN) injection 4 mg (COMPLETED) 06 (Given - Provider: Micaela Damico, DAMARIS) 4 mg, Intravenous, ONCE, Aisha 03/10/18 at 0600, For 1 dose, Give in Preop., Pre-op PARoxetine (PAXIL) tablet 20 mg 1348 (Gi nila - Provider: Chris Keyes, DAMARIS) 0810 (Given - Provider: Arminda erickson, DAMARIS) 20 mg, Oral, DAILY, First dose on Aisha 03/10/18 at 1400 potassium chloride SA (KLOR-CON) controlled release tablet 20 mE q (COMPLETED) 1206 (Given - Provider: Arminda Whipple, DAMARIS) 20 mEq, Oral, ONCE, Wed03/11/18 at 1215, For 1 dose, Tablet should be swallowed whole senna (SENOKOT) tablet 1 Tab 1937 (Given - Provi kala: Fatimah Lau, DAMARIS) 1 Tab, Oral, DAILY - 1999, First dose on Aisha 03/10/18 at 2000, Give every day while on opioids (stimulant) starting day of surgery. Hold for loose stools., Post-op sodium chloride 0.9% injection 10-60 mL 1999 (Not Given - Provider: Fatimah Lau, DAMARIS - Reason: Other (Enter Reason in Comment Area) - Comment: IVF infusing) 0810 (Given - Provider: Arminda erickson, DAMARIS)1351 (Given - Provider: Arminda Whipple, DAMARIS) 10-60 mL, Intravenous, BID, First dose o n Aisha 03/10/18 at 2000, For an INT flush, flush with at least 10 mL. For PICC (including Power Injectable PICC), flush with 10 mL. For Port-a-Cath, flush with a mi nimum of 10mL. For Hung, flush with a minimum of 10 mL. For jugular, subclavian, femoral central lines, flush with a minimum 10 mL. For additional information about flushing processes, reference the Vascular Access Device Users Guide. tranexamic acid (CYKLOKAPRON) 1,000 mg i n sodium chloride 0.9 % 50 mL IVPB (COMPLETED) 0806 (Started - Provider: Tanner Guy APRN, SUDEEP)0934 (Bolus - Provider: Rosa Maria Montano APRN, SUDEEP) 1,000 mg, Intravenous, ONCE, Aisha 03/10/18 at 0600, For 1 dose, Maximum administration rate is 100 mg/minute. To be given in OR by ACCOUNT ENGINEER prior to incision. Re-dose 1000 mg IV during wound closure., Pre-op Continuous Medication Order 03/09/2018 03/10/2018 03/11/2018 lactated ringers infusion (CANCELED) 061 9 (Started - Provider: Micaela Damico RN)0900 (Infused - Provider: Rosa Maria Montano APRN, SUDEEP)1001 (Anesthesia Fluid - Provider: Karl Guy APRN, SUDEEP)1041 (Continue Current Bag - Provide r: Noemi Lopez RN) 25 mL/hr, Intravenous, at 25 mL/hr, CONT INUOUS, Starting Aisha 03/10/18 at 0600, Administer on all preop surgery patients, ages 12 and older, unless specified differently in the Protocol for Preop Initiation of IV fluids Order Set., Pre-op 1140 (Stopped - Provider: Noemi Lopez RN) sodium chloride 0.9% infusion (CANCELED) 1140 (Started - Provider: Noemi Lopez RN) 0035 (New Bag Started - Provider: Mallory King RN) Intravenous, at 100 mL/hr, CONTINUOUS, S tarting Aisha 03/10/18 at 1100, Start after completion of bag currently infusing., Post-op PRN Medication Order 03/09/2018 03/10/2018 03/11/2018 bisacodyl (DULCOLAX) rectal suppository 10 mg 10 mg, Rectal, DAILY PRN, Other, Moderat e Constipation, Starting Aisha 03/10/18 at 1202, Post-op cyclobenzaprine (FLEXERIL) tablet 10 mg 1222 (Given - Provider: Chris Keyes, DAMARIS)2207 (Given - Provider: Fatimah Lau RN) 10 mg, Oral, TID PRN, Muscle Spasms, Starting Aisha 03/10/18 at 120 2 diphenhydrAMINE (BENADRYL) capsule 25-50 mg(Linked Group 2) 25-50 mg, Oral, Q6H PRN, Itching, Starti ng Aisha 03/10/18 at 1202, If able to take ORAL medications., Post-op diphenhydrAMINE (BENADRYL) injection 25-50 mg(Linked Group 2) 25-50 mg, Intravenous, Q6H PRN, Itching, Starting Aisha 03/10/18 at 1202, Give IV only if unable to take ORALLY., Post-op HYDROmorphone (DILAUDID) tablet 2-4 mg 2-4 mg, Oral, Q2H PRN, Other, Moderate P ain (pain score 5-7), Severe Pain (pain score 8-10), Starting Aisha 03/10/18 at 1202, Do NOT administer at the same time as IV opioids. May administer 1 hour after I V opioid administration. HOLD if on MANUFACTURING STOREPERSON., Post-op HYDROmorphone injectable 0.3-0.5 mg 0.3-0.5 mg, Intravenous, Q1H PRN, Other, Severe Pain (pain score 8-10) or if patient unable to take PO, Starting Aisha 03/10/18 at 1202, Do NOT administer at the same time as PO opioids. May administer 1 h our after PO opioid administration. HOLD if on MANUFACTURING STOREPERSON., Post-op nalBUPHine (NUBAIN) 1-2 mg in sodium chloride 0.9 % 1-2 mL syrin ge 1-2 mg, Intravenous, Q4H PRN, Itching, S tarting Aisha 18 at 1202, Contact Pharmacy for dose, Post-op naloxone (NARCAN) injection 0.08 mg 0.08 mg, Intravenous, PRN, Other, Opioid Reversal, Starting Aisha 03/10/18 at 1202, Dilute 0.4mg/1mL with 9mL NS, then 0.08mg = 2mL. Give 0.08mg/2mL every 3 minutes as needed. Maximum total dose = 2mg., Post-op omeprazole (PriLOSEC) delayed release capsule 20 mg 20 mg, Oral, CONDITIONAL, Other, For GI symptoms with aspirin, Starting Aisha 03/10/18 at 1202, If patient experiences GI symptoms with aspirin, Notify Pharmacy to reenter this order with a frequency of Daily, Post-op ondansetron (ZOFRAN) injection 4 mg(Linked Group 3) 4 mg, Intravenous, Q6H PRN, Nausea, Vomi ting, Starting Aisha 03/10/18 at 1202, Give IV if unable to take oral. Give lorazepam if nausea is not resolved in 15 minutes, Post-op ondansetron (ZOFRAN-ODT) disintegrating tablet 4 mg(Linked Group 3) 4 mg, Oral, Q6H PRN, Nausea, Vomiting, S tarting Aisha 03/10/18 at 1202, Give lorazepam if nausea is not resolved in 15 minutes, Post-op povidone-iodine 10% in sodium chloride 5 00 mL sterile irrigation (surgery only) (CANCELED) 0829 (Given - Provider: Tammie Nowak MD) ONCE PRN, Starting Aisha 03/10/18 at 0829, Intra-op sodium chloride 0.9% injection 10-60 mL 10-60 mL, Intravenous, PRN, Line Patency , Line Care, Starting Aisha 03/10/18 at 1423, For an INT flush, flush with at least 10 mL. For PICC (including Power Injectable PICC), flush with 10 mL. For Port-a-C ath, flush with a minimum of 10mL. For H ickman, flush with a minimum of 10 mL. For jugular, subclavian, femoral central lines, flush with a minimum 10 mL. For additional information about flushing proce sses, reference the Vascular Access Device Users Guide. sodium chloride for irrigation 0.9 % (CANCELED) 0829 (Given - Provider: Tammie Nowak MD) ONCE PRN, Starting Aisha 03/10/18 at 0829, Intra-op sodium phosphate (FLEET) enema 1 Enema 1 Enema, Rectal, PRN, Other, Severe Cons tipation, Starting Aisha 03/10/18 at 1202, Post-op temazepam (RESTORIL) capsule 15 mg 15 mg, Oral, HS MAY REPEAT X1 PRN, Sleep, Starting Aisha 18 at 1202, Post-op Linked Groups Order Group 1: lisinopril (zeSTRIL) tablet 20 mgJump to med 20 mg, Oral, DAILY, First dose on Aisha at 1400 And hydroCHLOROthiazide (ORETIC) tablet 25 mgJump to med 25 mg, Oral, DAILY, First dose on Aisha 18 at 1400 Group 2: diphenhydrAMINE (BENADRYL) capsule 25-50 mgJump to med 25-50 mg, Oral, Q6H PRN, Itching, Starti ng Aisha 03/10/18 at 1202
If able to take ORAL medications.
Post-op Or diphenhydrAMINE (BENADRYL) injection 25-50 mgJump to med 25-50 mg, Intravenous, Q6H PRN, Itching, Starting Aisha 03/10/18 at 1202
Give IV only if unable to take ORALLY.
Post-op Group 3: ondansetron (ZOFRAN) injection 4 mgJump to med 4 mg, Intravenous, Q6H PRN, Nausea, Vomi ting, Starting Aisha 18 at 1202
Give IV if unable to take oral. Give lorazepam if nausea is not resolved in 15 minutes
Post-op Or ondansetron (ZOFRAN-ODT) disintegrating tablet 4 mgJump to med 4 mg, Oral, Q6H PRN, Nausea, Vomiting, S tarting Aisha 03/10/18 at 1202
Give lorazepam if nausea is not resolved in 15 minutes
Post-op documented in this encounter Care Teams Coding Advisor Relationship Specialty Start Date End Date Judith Morgan MD PCP - General Family Practice 03/01/18 [address] [place] [address] documented as of this encounter
--- OUTSIDE RECORDS SUMMARY | 2022-06-13 13:44 | XMS_ITS | Encounter Summary ---
:1960 Author Organization [facility] Address [address], [place] [address] Care Team Providers Name Role Phone Judith Justin MD Primary Care Provider Reason for Referral (Routine) - Incomplete Specialty Diagnoses / Procedures Referred By Contact Refer red To Contact Diagnoses Primary osteoarthritis of left hip Tammie Nowak MD Procedures Case Request OR - Orthopedic Surgery: TOTAL HIP JOINT REPLACEMENT [address] [place] [address] Referral ID Status Reason Start Date Expiration Date Visits V isits Requested Authorized [id number] Incomplete 03/01/2018 05/31/2019 1 1 Reason for Visit Reason Comments HIP PAIN left Encounter Details Date Type Department Care Team Description 03/01/2018 Office Visit [facility] Tammie Nowak, Prima ry osteoarthritis of left hip (Primary Dx); [place] History of spinal surgery; [address] [facility] [address] [facility] Sjogren's syndrome, with unspecified org an involvement ([facility]) [place] [address] [phone] Social History Tobacco Use Types Packs/Day Years Used Date Smoking Tobacco: Every Day Smokeless Tobacco: Never Sex Assigned at Date Recorded Not on file documented as of this encounter Patient Instructions Patient InstructionsNury Aguiar, [place] - 03/01/2018 10:[address] Tammie Nowak MD Orthopaedic Surgeon Straddle Bug Operator: Bel Oh Please contact Bel for all administrative questions at [phone] Please contact Nurse Triage for all medical related questions at [phone] Medication Requests: Prescriptions are not filled on Weekends or on Weekdays after 3:00PM For all medication refills: Request a refill using [facility] or contact your Pharmacy documented in this encounter Progress Notes Tammie Nowak MD - 03/01/2018 12:00 PM CDT NAME: JAVI BLANTON MR#: [id number] CSN: [id number] AUTHENTICATING CLINICIAN: Tammie Nowak MD CONFIRM #: [id number] LOC: 711 CLINIC PROGRESS NOTE DATE OF VISIT: 03/01/2018 : 1960 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 Getting down to the floor and up [...] but when she was referred to a sales product specialist, an MRI study of the lumbar spine was done and her exam suggested that the pain was actually coming from her hip joint. Thus, she saw Dr. Tony Tomas February 21, 2018, and was felt to be an appropriate surgical candidate as there was really no other nonsurgical treatment to offer her that she had not already tried and failed. Javi feels that she is lost quality of [...] the floor for light housekeeping or to shredder picker items or children under her care. She [...] some medical problems this past year and Javi was then able to really take care [...] and surgery, specifically hip replacement. PHYSICAL EXAMINATION: Javi is alert and oriented, appropriate weight for height. Height listed as 5 foot 2 inches, mretol286 pounds. She walks with a markedly antalgic [...] subchondral bone of the left acetabulum. Completely mrdt-qb-ntat with lateral osteophytes. Right hip joint space [...] Severe end-stage osteoarthritis of left hip with [id number]. Stiffness, sense of instability, and pain are [...] as needed. Surgery will be done at [facility] under either a spinal or general anesthetic. [...] risks of hip replacement surgery. CC: TONY TOMAS MD [address] [place] [address] JUDITH JUSTIN MD [facility] [address] [place] [address] KSP:MEDQ C: R:03/01/18 11:21 CONFIRM#:[id number] documented in this encounter Plan of Treatment Not on filedocumented as of this encounter Visit Diagnoses Diagnosis Primary osteoarthritis of left hip - [facility] melisa Primary localized osteoarthrosis, pelvic region and thigh History of spinal surgery Other postprocedural status Sjogren's syndrome, with unspecified org an involvement ([facility]) documented in this encounter Care Teams Senior Mobile Developer Relationship Specialty Start Date End Date Judith Justin MD PCP - General Family Practice 03/01/18 [address] [place] [address] documented as of this encounter
--- OUTSIDE RECORDS SUMMARY | 2022-06-13 13:44 | XMS_ITS | Encounter Summary ---
:1960 Author [facility] Address [address] [place] [address] Care Team Providers Name Role Phone Richard Morgan MD Primary Care Provider Reason for Visit Reason Comments Post-Op Follow Up Call Encounter Details Date Type Department Care Team Description 03/14/2018 Telephone [facility] Tammie Nowak, Post- Op Follow Up Call CENTER [address] [place] [address] [place], [place] [phone] (Wo rk) Social History Tobacco Use Types Packs/Day Years Used Date Smoking Tobacco: Every Day Smokeless Tobacco: Never Sex Assigned at Date Recorded Not on file documented as of this encounter Nursing Notes Brittany Jean RN - 03/14/2018 8:01 PM CDT Post-operative follow up call placed to patient at home. Date of surgery: 03/10/2018 L CESAR Date of discharge: 03/11/2018 -Pain: Pt states she has stopped taking the Tylenol and Dilaudid. She is icing, taking 2 tabs of Ibuprofen in the morning and Flexeril at night. -Bowels: No issues with constipation. -Incision: Tegaderm intact. No new drainage, no redness. Encouraged to call with any questions or concerns before or after next appointment. Post hospitalization discharge follow up call completed. See doc flowsheet: SURGPR for details documented in this encounter Plan of Treatment Not on filedocumented as of this encounter Visit Diagnoses Not on filedocumented in this encounter Care Teams Tv Host Relationship Specialty Start Date End Date Richard Morgan MD PCP - General Family Practice 03/01/18 [address] [place] [address] documented as of this encounter
--- OUTSIDE RECORDS SUMMARY | 2022-06-13 13:44 | XMS_ITS | Encounter Summary ---
:1960 Author Organization [facility] Address [address] [place] [address] Care Team Providers Name Role Phone Richard Morgan MD Primary Care Provider Reason for Visit Reason Comments Post Op Exam Encounter Details Date Type Department Care Team Description 03/24/2018 Office Visit [facility] ESTHELA HANY NurseJame Status post total [address] Ortho replacement of left [place], [place] [address] hip (Primary Dx) [phone] Social History Tobacco Use Types Packs/Day Years Used Date Smoking Tobacco: Every Day Smokeless Tobacco: Never Sex Assigned at Date Recorded Not on file documented as of this encounter Patient Instructions Patient InstructionsTanLilia hernandez RN - 03/24/2018 1:30 PM CDT 1. Do not soak in bath tub, hot tub or pool until incision is completely healed. 2. Apply ice over incision (not directly on skin) as needed to ease discomfort and swelling. 3. Follow hip precautions, if required. 4. Pain medication can cause constipation. Eat fiber (fruits and vegetables) and drink plenty of fluids. 5. If you have any of these problems, call [facility]: ?? Fever of 101 or higher ?? Chills ?? Foul odor ?? Cloudy drainage from your wound ?? Increased redness, warmth, or swelling at the wound site ?? Increased pain ?? Symptoms of deep vein thrombosis (DVT) such as swelling, redness, warmth, or pain in your calf 6. If given, do your exercises to prevent muscle weakness, improve circulation, and rebuild strengthand flexibility. [facility] Wednesday-Wednesday 8:00AM-5:00PM (#[phone]) documented in this encounter Progress Notes Lilia Yoo RN - 03/24/2018 1:30 PM CDT Patient Name: Delmi Blanton Procedure Date: 03/10/2018 Attending MD: Tammie Nowak MD Procedure: Primary Left Total Hip Arthroplasty: Press Fit Acetabular and Femoral Components Patient in for 2 week follow up. Incision looks good. Steristrips removed and new ones placed. Incision is CDI, some scabs noted. Patient ambulating with a cane. Doing well with pain relief. Some swelling noted, encouraged more ice packing. She is taking ibuprofen in the AM and at night. She would like an order for PT to work in her quad strengthening and IT band which is reportedly very weak prior to surgery. Will ask Dr. Nowak if okay to place, wants to continue PT at [facility]: #[phone]. Will return to clinic 04/19. documented in this encounter Plan of Treatment Not on filedocumented as of this encounter Visit Diagnoses Diagnosis Status post total replacement of left hi p - Primary documented in this encounter Care Teams Medical Liaison Relationship Specialty Start Date End Date Richard Morgan MD PCP - General Family Practice 03/01/18 [address] [place] [address] documented as of this encounter
--- OUTSIDE RECORDS SUMMARY | 2022-06-13 13:44 | XMS_ITS ---
:1960 Author Care Team Providers Name Role Phone Emiliano Adams Primary Care Provider Unavailable Allergies Code Code System Name Reaction Severity Status Onset Penicillins Rash ? Active ? Medications Name Status Start Date Stop Date ? ? albuterol sulfate HFA 90 mcg/actuation aerosol inhaler Active ? Not available aspirin 81 mg tablet,delayed release Active ? Not available azithromycin 250 mg tablet Active ? Not a vailable ibuprofen 600 mg tablet Active ? Not avai lable lisinopril 20 mg-hydrochlorothiazide 25 mg tablet Active ? Not available metoprolol succinate ER 50 mg tablet,extended release 24 hr Acti ve ? Not available oxycodone 5 mg tablet Active ? Not availa ble Pain Reliever Extra Strength 500 mg tablet Active ? Not available paroxetine 20 mg tablet Active ? Not avai lable prednisone 20 mg tablet Active ? Not avai lable rosuvastatin 20 mg tablet Active ? Not av ailable Senna Plus 8.6 mg-50 mg tablet Active ? N ot available triamcinolone acetonide 0.1 % lotion Active ? Not available Problems None recorded. Procedures None recorded. Results Lab Results Date Name Specimen Result Interpretation Description Value Range Status Address ? 11/05/2021 SARS CoV 2 RNA, Nose (nasal ? Result negative ? ? [facility] QL, JUNITO+probe, passage) [facility] [place]: [address] , [place] Past Encounters 11/05/2021 Exposure to SARS-CoV-2 Emiliano Adams, [place]: [address], [place] [address], Ph. Social History Tobacco Smoking Status Heavy Tobacco Smoker (1 pack per day) Vaccine List Vaccine Type COVID-19, mRNA, LNP-S, PF, 30 mcg/0.3 mL dose (Vir2us) 11/02/2020 11/23/2020 07/31/2021 influenza, injectable, quadrivalent, pre servative free 06/17/2015 07/22/2016 06/25/2017 07/15/2018 07/11/2019 07/20/2020 08/08/2021 influenza, seasonal, injectable 07/14/2003 06/30/2004 10/29/2006 07/23/2008 06/26/2009 07/02/2010 07/28/2012 07/14/2013 influenza, seasonal, injectable, preserv ative free 07/13/2011 novel [id number] 07/29/2009 pneumococcal polysaccharide PPV23 06/27/2004 Tdap 08/19/2011 09/09/2021 zoster recombinant 07/11/2019 Plan of Care Patient Instructions Discussed rapid covid results with alessandra ent. No treatment indicated as patient is asymptomatic. Patient in agreement and understanding. All questions answered. RTC as needed. Reminders Provider Appointments None recorded. ? ? Lab None recorded. ? ? Referral None recorded. ? ? Procedures None recorded. ? ? Surgeries None recorded. ? ? Imaging None recorded. ? ? Vitals Blood Pressure 157/81 mm[Hg]
--- OUTSIDE RECORDS SUMMARY | 2022-06-13 13:44 | XMS_ITS | Encounter Summary ---
:1960 Author Organization [facility] Address [address] [place] [address] Care Team Providers Name Role Phone Unavailable Primary Care Provider Unavailable Reason for Visit Procedure/Equipment (Routine) - Incomplete Specialty Diagnoses / Procedures Referred By Contact Refer red To Contact Diagnoses Primary osteoarthritis of left hip Tony Tomas MD Procedures XR Pelvis W Lt Lateral Hip [address] [place] [address] Referral ID Status Reason Start Date Expiration Date Visits V isits Requested Authorized [id number] Incomplete 02/21/2018 05/23/2019 1 1 Encounter Details Date Type Department Care Team Description [facility]21[facility] Tony Tomas MD Left hip pain [address] [place] [address] [place] [address] [phone] (Wo rk) Social History Tobacco Use Types Packs/Day Years Used Date Smoking Tobacco: Every Day Smokeless Tobacco: Never Sex Assigned at Date Recorded Not on file documented as of this encounter Plan of Treatment Not on filedocumented as of this encounter Procedures Procedure Name Priority Date/Time Associated Diagnosis Comme nts XR PELVIS W LT Routine 02/21/2018 3:40 PM Left hip pain Result s for this LATERAL HIP CDT procedure are i n the results section. documented in this encounter Results XR Pelvis W Lt Lateral Hip (02/21/2018 3:40 PM CDT) Anatomical Region Laterality Modality Pelvis, Hip Digital Radiography Specimen (Source) Anatomical Collection Method Collection Time Re ceived Time Location / / Volume Laterality 02/21/2018 3:40 PM CDT Narrative 02/21/2018 3:53 PM CDT OpenEd XR PELVIS W LT LATERAL HIP 02/21/2018 3:40 PM INDICATION: Pain COMPARISON: None. FINDINGS: Severe degenerative change at the left hip joint with complete obliteration of the joint space and bony remodeling of the acetabulum. Less advanced but still significant degenerative changes r ight hip. No evidence for fracture or di slocation. Postoperative changes within the visualized portion of the lower lumbar spine. Degenerative changes at both SI joints. Osteopenia. Procedure Note Jac Malloy MD - 02/21/2018Formatti ng of this note might be different from the original. OpenEd XR PELVIS W LT LATERAL HIP 02/21/2018 3:40 PM INDICATION: Pain COMPARISON: None. FINDINGS: Severe degenerative change at the left hip joint with complete obliteration of the joint space and bony remodeling of the acetabulum. Less advanced but still significant degenerative changes right hip. No evidence for fracture or dislocation. Po stoperative changes within the visualized portion of the lower lumbar spine. Degenerative changes at both SI joints. Osteopenia. Tony Tomas MD RAD [facility] documented in this encounter Visit Diagnoses Diagnosis Left hip pain Pain in joint, pelvic region and thigh documented in this encounter
--- OUTSIDE RECORDS SUMMARY | 2022-06-13 13:44 | XMS_ITS | Encounter Summary ---
:1960 Author Organization [facility] Address [address] [place] [address] Care Team Providers Name Role Phone Richard Morgan MD Primary Care Provider Encounter Details Date Type Department Care Team Description 03/10/2018 Notes/Orders [facility] ESTHELA Tammie Avelar MD [address] [facility] [place] [address] [place] [address] [phone] (Wo rk) Social History Tobacco Use Types Packs/Day Years Used Date Smoking Tobacco: Every Day Smokeless Tobacco: Never Sex Assigned at Date Recorded Not on file documented as of this encounter Plan of Treatment Not on filedocumented as of this encounter Visit Diagnoses Not on filedocumented in this encounter Care Teams Switch Operators Supervisor Relationship Specialty Start Date End Date Richard Morgan MD PCP - General Family Practice 03/01/[address] [place] [place] [address] documented as of this encounter
--- OUTSIDE RECORDS SUMMARY | 2022-06-13 13:44 | XMS_ITS | Encounter Summary ---
:1960 Author [facility] Address [address] [place] [address] Care Team Providers Name Role Phone Richard Morgan MD Primary Care Provider Reason for Referral Procedure/Equipment (Routine) - Incomplete Specialty Diagnoses / Procedures Referred By Contact Refer red To Contact Diagnoses Difficulty walking Tammie Nowak MD Procedures Walker wheels 5 inch ([id number]) [address] [facility] [place], [place] [address] Referral ID Status Reason Start Date Expiration Date Visits V isits Requested Authorized [id number] Incomplete 03/11/2018 06/10/2019 1 1 Encounter Details Date Type Department Care Team Description 03/11/2018 Notes/Orders [facility] Tammie Nowak Dif ficulty walking Therapy Felipe TOVAR (Primary Dx) [address] [facility] [place] [address] [phone] (Wo rk) Social History Tobacco Use Types Packs/Day Years Used Date Smoking Tobacco: Every Day Smokeless Tobacco: Never Sex Assigned at Date Recorded Not on file documented as of this encounter Plan of Treatment Not on filedocumented as of this encounter Visit Diagnoses Diagnosis Difficulty walking - Primary Difficulty in walking documented in this encounter Care Teams Home Care Liaison Relationship Specialty Start Date End Date Richard Morgan MD PCP - General Family Practice 03/01/[address] [place] [address] documented as of this encounter
--- OUTSIDE RECORDS SUMMARY | 2022-06-13 13:44 | XMS_ITS | Encounter Summary ---
:1960 [id number] Address [address] [place] [address] Care Team Providers Name Role Phone Richard Morgan MD Primary Care Provider Reason for Visit Auth/Cert Specialty Diagnoses / Procedures Referred By Contact Refer red To Contact Diagnoses Primary osteoarthritis of left hip Procedures TOTAL HIP JOINT REPLACEMENT Referral ID Status Reason Start Date Expiration Date Visits Requ ested Visits Authorized [id number] 1 1 Encounter Details Date Type Department Care Team Description 03/10/2018 Anesthesia Event Faith Operating Chad Jones MD [address] [place] [address] Room [facility] [address] [place] [address] Anesthesia Record Procedure Summary Procedure Name Responsible Anesthesia Start Anesthesia Stop Anesthesiologist Time Time TOTAL HIP JOINT Corey Jones MD 03/10/18 0735 03/10/18 1002 REPLACEMENT (Left) Events Date Time Event Comment 03/10/2018 0645 0735 An Start 0741 An Start Data 0742 MD/DO Present 0746 An Induction 0746 An Intubation 0750 MD/DO Present 0812 MD/DO Present 0840 MD/DO Present 0931 MD/DO Present 0953 MD/DO Present 0954 An Extubation Purposeful movem ent with spontaneous respirations and adequate air exchange. Suctioned and ETT removed. Transfe rred with oxygen to recovery. 0957 an stop data 1002 Care Handoff Note I discussed wi th the receiving nurse and we: 1) Identified the p atient, vital family member(s) or patient surrogat e 2) Identified the responsible practitioner 3) Reviewed the pertinent medical history 4) Discu ssed the surgical/procedure course 5) Reviewed intr a-op anesthesia management and issues during an esthesia 6) Set expectations for the post-procedu re period 7) Allowed opportunity for questions an d acknowledgement of understanding of report Electr onically signed by Karl Guy APRN, CRNA 1002 An [facility] Care transferred . Name Total midazolam injection 2 mg/2 mL (VERSED) 2 mg midazolam (VERSED) injection 1-2 mg 0 mg fentaNYL injection (SUBLIMAZE) 400 mcg lidocaine 1% PF injection (XYLOCAINE) 75 mg propofol 10 mg/mL for procedural sedation (aka diPRIva n) 150 mg ondansetron injection (ZOFRAN) 4 mg phenylephrine 40 mcg/mL in NaCl 0.9% (PF) syringe 760 mcg ePHEDrine 25 mg prediluted syringe 55 mg HYDROmorphone injection 1 mg/mL (DILAUDID) 0.5 mg succinylcholine injection (QUELICIN) 100 mg rocuronium injection (ZEMURON) 50 mg dexamethasone 4 mg/mL injection (DECADRON) 8 mg clindamycin in dextrose 5% (CLEOCIN) IVPB 900 mg 900 m g tranexamic acid (CYKLOKAPRON) 1,000 mg in sodium chlor keyana 0.9 % 50 mL IVPB 2,000 mg sugammadex injection 100mg/mL (aka BRIDION) 200 mg lactated ringers infusion 1,100 mL hetastarch 6%-NaCl 0.9% infusion (HeSPAN) 500 mL Agents Name O2 N2O Air Sevoflurane () Identified Agent Name Blood No blood administrations on file. Lines, Drains, and Airways Type Details Placement Removal Peripheral IV Placement Date: 03/10/18617 by 03/11/18 1420 b y 03/10/18; Placement Micaela Damico RN Halbakken, Susan M, RN Time: 617; Pre-existing: No; Inserted by?: RN; Size (Gauge): 20 G; Orientation: Left; Site Prep: ChloraPrep; Insertion attempts: 1; Patient Tolerance: Tolerated well; Removal Date: 03/11/18; Removal Time: 1420 ETT Placement Date: 03/10/18 0746 by 03/10/18 0954 b y 03/10/18; Placement Karl Guy, Shayla morris, Karl P, Time: 0746; Placed RESEARCH BIOSTATISTICIAN, MANUFACTURING COORDINATOR RESEARCH BIOSTATISTICIAN, MANUFACTURING COORDINATOR By: SRNA; Induction Type: Pre-O2, IV; Masking: Easy; ETT Type: ETT; Orientation: Right; Size (mm): 7.0; Depth Secured (cm): 23 cm; Cuffed: Cuffed; Intubation Method: DL; Cormack_Lehane Glottic Grade: Grade 1; Glottic View: Cords Open, Cords Clear; Blade: Lopez; Blade Size: 2; Difficulty: Atraumatic; Adjunct Equipment: Stylet; Placement Verification: BBSE, Positive EtCO2, auscultation, capnometry; Teeth and Lips Unchanged: Unchanged; Removal Date: 03/10/18; Removal Time: 09 Incision/Surgical Site 03/10/18; 0829; #1; 03/10/18 0829 by 03/07 1436 by Lda, No; Hip; Left; Ayanna Max RN Discontinue 03/25/18; 1436 Indwelling Urethral 03/10/18; 0830; No; 03/10/18 0830 by 8 [id number] by Catheter jason; Indwelling Ayanna Max RN Miller, Eri n L, RN Catheter; 16 Fr.; 1 documented in this encounter Social History Tobacco Use Types Packs/Day Years Used Date Smoking Tobacco: Every Day Smokeless Tobacco: Never Sex Assigned at Date Recorded Not on file documented as of this encounter Miscellaneous Notes Anesthesia Postprocedure Evaluation - Corey Jones MD - 03/10/2018 11:07 AM CDT [facility] Anesthesia Post-op Note Patient: Delmi Blanton Post-Op Diagnosis: Primary osteoarthritis of left hip Procedure Performed: Procedure(s): TOTAL HIP JOINT REPLACEMENT Anesthesia Type: General Post-op vital signs: BP 107/69 Pulse 87 Temp 97.5 ??F (36.4 ??C) (Temporal Artery) Resp 20 Ht 5' 2.21 Wt 67.1 kg (148 lb) SpO2 94% BMI 26.89 kg/m2 Pain Score: Preferred Pain Scale: number (Numeric Rating Pain Scale) Pain Rating (0-10): Rest: 0 Pain Rating (0-10): Activity: 7 Post-op assessment: No anesthesia complication. Patient location: PACU Airway Status: Patent Cardiovascular function: Satisfactory Hydration status: Satisfactory PONV: None Level of Consciousness: Awake Fully Participates Postop Assessment: Patient tolerated procedure well. Electronically signed by: Corey Jones MD 03/10/2018 11:07 AM Anesthesia Preprocedure Evaluation - Corey Jones MD - 03/10/2018 6:44 AM CDT [facility] Anesthesia Pre-op Evaluation Procedure: Procedure(s): TOTAL HIP JOINT REPLACEMENT HPI: 57 y.o. old female with Primary osteoarthritis of left hip NPO Status: Last Fluid Intake Time: 607 Last Fluid Intake Date: 03/10/18 Last Food Intake Date: 03/09/18 Last Food Intake Time: 2129 Allergies Allergen Reactions ??? Latex Other, see comments Swelling and redness fingers or wherever latex touches skin ??? Penicillins Hives and Rash ??? Erythromycin Nausea And Vomiting No past medical history on file. Patient Active Problem List Diagnosis ??? Primary osteoarthritis of left hip ??? History of spinal surgery ??? Tobacco abuse ([facility]) ??? Sjoegren syndrome ([facility]) No past surgical history on file. Outpatient Prescriptions Marked as Taking for the 03/10/18 encounter (Hospital Encounter) Medication Sig Dispense Refill ??? lisinopril-hydrochlorothiazide (PRINZIDE;ZESTORETIC) 20-12.5 MG tablet Take 1 Tab by mouth daily. Indications: High Blood Pressure Disorder ??? PARoxetine (PAXIL) 20 MG tablet Take 20 mg by mouth daily. Current Facility-Administered Medications Medication Dose Route Frequency ??? acetaminophen (TYLENOL) tablet 1,000 mg 1,000 mg Oral Once ??? clindamycin in dextrose 5% (CLEOCIN) IVPB 900 mg 900 mg Intravenous Once ??? dexamethasone (DECADRON) injection 8 mg 8 mg Intravenous Once ??? fentaNYL (SUBLIMAZE) injection 25-100 mcg 25-100 mcg Intravenous Q5MIN PRN ??? fentaNYL (SUBLIMAZE) injection 25-50 mcg 25-50 mcg Intravenous Q5MIN PRN ??? HYDROmorphone injectable 0.2-0.4 mg 0.2-0.4 mg Intravenous Q10MIN PRN ??? lactated ringers infusion 25 mL/hr Intravenous Continuous ??? meperidine (DEMEROL) injection 12.5 mg 12.5 mg Intravenous Q5MIN PRN ??? midazolam (VERSED) injection 1-2 mg 1-2 mg Intravenous Q5MIN PRN ??? morphine injectable 1-2 mg 1-2 mg Intravenous Q5MIN PRN ??? ondansetron (ZOFRAN) injection 4 mg 4 mg Intravenous Q4H PRN ??? tranexamic acid (CYKLOKAPRON) 1,000 mg in sodium chloride 0.9 % 50 mL IVPB 1,000 mg Intravenous Once Labs: Lab Results Component Value Date/Time SODIUM 137 03/10/2018 06:03 AM K 3.4 (L) 03/10/2018 06:03 AM CHLORIDE 104 03/10/2018 06:03 AM BUN 11 03/10/2018 06:03 AM CREATININE 0.52 (L) 03/10/2018 06:03 AM GLUCOSE 61 (L) 03/10/2018 06:03 AM Lab Results Component Value Date/Time WBC 3.5 (L) 03/10/2018 06:02 AM HGB 13.6 03/10/2018 06:02 AM HCT 39.7 03/10/2018 06:02 AM PLTS 206 03/10/2018 06:02 AM No results found for: INR No results found for: HCGQUANT Urine : Urine : Blood Bank: No results found for: ABORH, ABSCR EKG: No results found for this or any previous visit. Physical Exam: BP 139/75 Pulse 65 Temp 97.5 ??F (36.4 ??C) (Temporal Artery) Resp 18 Ht 5' 2.21 Wt 67.1 kg (148 lb) SpO2 97% BMI 26.89 kg/m2 Assessment/Plan: Review of Systems Patient does not have GERD. Patient is a smoker. Did not abstain from smoking prior to anesthesia day of surgery and Pre-operative visit by myself or proxy The patient denies alcohol use. Patient denies any recent URI. History of PONV: No. History of motion sickness: No. Patient denies any personal or family history of anesthesia complications (PONV). Exam Mental Status: Alert and oriented. Mallampati score: II (Two). Mouth opening: Normal Thyromental Distance: > 3 finger breadths and Normal Neck Extension: Full Neck Circumference > 40 cm?: No Airway assessment: Unknown. Current airway assessment:Normal Dentition: Normal. Cardiac Exam: Regular rate and rhythm. Respiratory Exam: Breath sounds clear to auscultation Assessment ASA Status: 2 . Plan Anesthesia type: ETT and General Induction: Maintenance: Postoperative pain management (PONV): Plan for postoperative opioid use PONV Risk Score Peds:0 PONV Risk Score Adult: 2 PONV Prophylaxis (planned):Ondansetron and Decadron Anesthetic plan, risks, benefits and alternatives discussed with: Patient H&P Reviewed and Patient examined, no change observed IV access Antibiotics per surgery Electronically signed by: Corey Jones MD 03/10/2018 6:44 AM documented in this encounter Plan of Treatment Not on filedocumented as of this encounter Visit Diagnoses Not on filedocumented in this encounter Administered Medications Inactive Administered Medications - up to 3 most recent administrations Medication Order MAR Action Action Date Dose Rate Site clindamycin in dextrose 5% Given 03/10/2018 7:56 AM CDT 900 mg (CLEOCIN) IVPB 900 mg 900 mg, Intravenous, Administer over 30 Minutes, ONCE, On Aisha 03/10/18 at 0745, For 1 dose, Infuse within 60 minutes prior to incision; Re-dose 900 mg IV every 6 hours after initial dose until incision closed., Pre-op dexamethasone (aka DECADRON) injection Given 03/10/2018 7:44 AM CDT 8 mg Intravenous, Starting on Aisha 03/10/18 at 0744 ePHEDrine 5mg/ml in 0.9% sodium chloride Given 03/10/2018 9:38 A M CDT 5 mg syringe Starting on Aisha 03/10/18 at 0802, Until Aisha 03/10/18 at 1002 Given 03/10/2018 9:32 AM CDT 5 mg Given 03/10/2018 9:20 AM CDT 5 mg fentaNYL (SUBLIMAZE) injection Given 03/10/2018 9:48 AM CDT 25 mcg Intravenous, Starting on Aisha 03/10/18 at 0742, Until Aisha 03/10/18 at 1002 Given 03/10/2018 9:37 AM CDT 25 mcg Given 03/10/2018 8:43 AM CDT 150 mcg hetastarch-NaCl (heSPAN) 6-0.9 % infusio n Started 03/10/2018 8:46 AM CDT Starting on Aisha 03/10/18 at 0846, Until Aisha 03/10/18 at 1002 HYDROmorphone (DILAUDID) injection Given 03/10/2018 8:03 AM CDT 0.5 mg Starting on Aisha 03/10/18 at 0803, Until Aisha 03/10/18 at 1002 lidocaine (XYLOCAINE) 1 % injection Given 03/10/2018 7:46 AM CDT 75 mg Starting on Aisha 03/10/18 at 0746 midazolam (VERSED) injection Given 03/10/2018 7:38 AM CDT 2 mg Intravenous, Starting on Aisha 03/10/18 at 0738, Until Aisha 03/10/18 at 1002 ondansetron (ZOFRAN) injection Given 03/10/2018 7:50 AM CDT 4 mg Intravenous, Starting on Aisha 03/10/18 at 0750, Until Aisha 03/10/18 at 1002 phenylephrine 40 mcg/mL in NaCl 0.9% (PF) Given 03/10/2018 9:30 AM CDT 80 mcg syringe Starting on Aisha 03/10/18 at 0800, Until Aisha 03/10/18 at 1002 Given 03/10/2018 9:20 AM CDT 80 mcg Given 03/10/2018 9:10 AM CDT 120 mcg propofol (aka diPRIvan) injection Given 03/10/2018 7:45 AM CDT 150 mg Intravenous, Starting on Aisha 03/10/18 at 0745 rocuronium (ZEMURON) injection Given 03/10/2018 8:03 AM CDT 20 mg Intravenous, Starting on Aisha 03/10/18 at 0803 Given 03/10/2018 7:52 AM CDT 30 mg succinylcholine (QUELICIN) injection Given 03/10/2018 7:46 AM CDT 100 mg Intravenous, Starting on Aisha 03/10/18 at 0746, Until Aisha 03/10/18 at 1002 sugammadex (BRIDION) injection Given 03/10/2018 9:29 AM CDT 200 mg Starting on Aisha 03/10/18 at 0929, Until Aisha 03/10/18 at 1002 tranexamic acid (CYKLOKAPRON) 1,000 mg in Bolus 03/10/2018 9 :34 AM CDT 1,000 mg sodium chloride 0.9 % 50 mL IVPB 1,000 mg, Intravenous, ONCE, On Aisha 03/10/18 at 0600, For 1 dose, Maximum administration rate is 100 mg/minute. To be given in OR by MANUFACTURING COORDINATOR prior to incision. Re-dose 1000 mg IV during wound closure., Pre-op Started 03/10/2018 8:06 AM CDT 1,000 mg documented in this encounter Care Teams Oracle R12 Developer Relationship Specialty Start Date End Date Richard Morgan MD PCP - General Family Practice 03/01/18 [address] [place] [address] documented as of this encounter
--- OUTSIDE RECORDS SUMMARY | 2022-06-13 13:44 | XMS_ITS | Encounter Summary ---
:1960 Author Organization [facility] Address [address] [place] [address] Care Team Providers Name Role Phone Judith Morgan MD Primary Care Provider Reason for Visit Auth/Cert Specialty Diagnoses / Procedures Referred By Contact Refer red To Contact Diagnoses Primary osteoarthritis of left hip Procedures TOTAL HIP JOINT REPLACEMENT Referral ID Status Reason Start Date Expiration Date Visits Requ ested Visits Authorized [id number] 1 1 Encounter Details Date Type Department Care Team Description 03/10/2018 Surgery Nondenominational Operating Laura Nowak MD TOTAL HIP JOINT Room [address] [facility] [address] REPLACEMENT [address] [place] [address] [place] [address] [phone] Social History Tobacco Use Types Packs/Day Years Used Date Smoking Tobacco: Every Day Smokeless Tobacco: Never Sex Assigned at Date Recorded Not on file documented as of this encounter Last Filed Vital Signs Vital Sign Reading Time Taken Comments Blood Pressure 139/75 03/10/2018 5:56 AM CDT Pulse 65 03/10/2018 5:56 AM CDT Temperature 36.4 ??C (97.5 ??F) 03/10/2018 5:56 AM CDT Respiratory Rate 18 03/10/2018 5:56 AM CDT Oxygen Saturation 97% 03/10/2018 5:56 AM CDT Inhaled Oxygen Concentration - - Weight 67.1 kg (148 lb) 03/10/2018 5:56 AM CDT Height 158 cm (5' 2.21) 03/09/2018 11:25 AM CDT Body Mass Index 27.23 03/09/2018 11:25 AM CDT documented in this encounter Discharge Summaries Trudy Bush, SERVICE CENTER SPECIALIST, INDUSTRIAL GREEN SYSTEMS DESIGNER - 03/11/2018 8:25 AM CDT Ortho Discharge [...] For full details please refer to Dr Nowak notes. Surgical management was recommended and patient underwent [...] must be accompanied by a responsible adult dedicated truck driver at the time you are discharged. [...] spirometer use 3) Practice good oral care. [place] your teeth and use mouthwash twice daily. [...] non-urgent orthopedic questions please contact your orthopedic home health care physician Wednesday - Wednesday Order Comments: 1. Your Orthopedic Wardrobe Manager Wednesday - Wednesday 2. [facility] Orth[facility] Nurse Information Line Wednesday - Wednesday 8:30 am to 5:00 pm at [phone] and select option #2. 3. Your orthopedic surgeon or the surgeon production material handler Evenings 5:00 pm - 8:30 am, weekends and holidays at: [phone]. For medical issues, please contact your primary care physician GINGER: For URGENT surgical issues, wound concerns, pain medication refill requests, please contact: (See below) Order Comments: Call [facility] Orth[facility] Triage Nurse at [phone] Not all post-operative infections can be prevented, [...] Pediatric Take 1 Each by mouth 0 Cqjbgjss-Uhaqwzcr-G daily. 1 multivitamin (GUMMI BEAR gummy daily [...] gait mechanics, providing wheels for FWW at [place]. Stairs: Equipment: 1 rail and 2 rails [...] Total treatment time: 30 min Therapist: Thelma Rojas, PT 9:19 AM 03/11/2018 PM Physical Therapy [...] Total treatment time: 25 min Therapist: Thelma Rojas, PT 2:22 PM 03/11/2018 Xiomy Hartley OTR/Brenda - 03/11/2018 7:57 AM CDT Occupational Therapy [...] body dressing: educated pt on use of bag repairer to assist with LE dressing; pt reports [...] necessity for the treatment plan above. Thelma Rojas PT - 03/10/2018 2:00 PM CDT Physical [...] will be going back to work on Wednesday --Physical Activity: no Assistance provided by: no [...] precautions and WBAT, DC recommendations. Multidisciplinary Communication: DAMARIS blackwell session. 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 Getting down to the floor and [...] but when she was referred to a production specialist, an MRI study of the lumbar [...] the floor for light housekeeping or to grain picker items or children under her care. [...] Height listed as 5 foot 2 inches, [id number] pounds. She walks with a markedly antalgic [...] subchondral bone of the left acetabulum. Completely jwmi-kz-omwy with lateral osteophytes. Right hip joint space [...] Severe end-stage osteoarthritis of left hip with houh-es-fpat. Stiffness, sense of instability, and pain are [...] as needed. Surgery will be done at [facility] under either a spinal or general anesthetic. [...] CC: TONY THOMPSON MD [address] [place] [address] JUDITH MORGAN MD [facility] [address] [place] [address] KSP:MEDQ C: R:03/01/18 11:21 CONFIRM#:[id number] documented in this encounter Procedure Notes Tammie [...] trochanter, into the medullary canal, using the FanFueled cutter. The femoral canal was reamed and [...] and 0 degree highly crosslinked poly liner. Oslares Nephew Synergy press fit 14 femoral stem [...] or dependence. Is ok with Dilaudid or Jackson, or narcotic sparing pain management as able. [...] AM documented in this encounter Miscellaneous Notes [employer] [facility] Activation Code - Priscilla Machado HUC - 03/10/2018 12:02 PM CDT Thank you for enrolling in [employer]. Please follow the instructions below to securely access your online medical record. [employer] allows you to send messages to your doctor, view your test results, renewyour prescriptions, schedule appointments, and more. How Do I Sign Up? 1. In your Internet browser, go to [email or web address] 2. Click on the Enter activation code link under the New User? section. You will see the Activate your account! page. 3. Enter your activation code exactly as it appears below. You will not need to use this code after you???ve completed the sign-up process. If you do not sign up before the expiration date, you must request a new code. Activation Code: [email or web address] Expires: 04/09/2018 12:01 PM 4. Enter your last name and date of (mm/dd/yyyy) as indicated, then click Continue. You will be taken to the Let's set up your account page. 5. Create a username. This will be your [employer] login ID and cannot be changed, so think of one thatis secure and easy to remember. 6. Create a password. You can change your password at any time. 7. Enter your e-mail address. You will receive e-mail notification when new information is availablein [employer]. 8. Select your Security Questions and enter your answers. These can be used at a later time if you forget your password. 9. Check the box to accept the terms and conditions. Click Create your account. You can now view your medical record. Additional Information If you have questions, you can call [phone] to talk to our [employer] staff. Remember, [employer] is NOT to be used for urgent [...] Results (ABNORMAL) Potassium (03/11/2018 9:36 AM CDT) athologist Signature Potassium 3.3 (L) 3.5 - 5.2 PN SOFT mmol/L Specimen Anatomical Collection Method Collection Time Receive d Time (Source) Location / / Volume Laterality 03/11/2018 9:36 AM 8 9:49 CDT AM CDT Narrative PN SOFT - 03/11/2018 10:19 [place] [address] CLIA number [id number] .Collection has been rescheduled by BIJAN at 03/11/2018 09:38. Reason: .done 937 Trudy Bush APRN, CNP LAB_1 Performing Organization Address City/[facility] Phon e Number PN SOFT [address] [place] [address] (ABNORMAL) Hemoglobin in AM POD #1 (03/11/2018 7:03 AM CDT) athologist Signature Hemoglobin 9.5 (L) 11.8 - 15.5 PN SOFT g/dL Specimen Anatomical Collection Method Collection Time Receive d Time (Source) Location / / Volume Laterality 03/11/2018 7:03 AM 8 7:25 CDT AM CDT Narrative PN SOFT - 03/11/2018 7:59 AM CDT Performed at [address] [address] CLIA number [id number] Tammie Nowak MD LAB_1 Performing Organization Address [facility] Phon e Number PN SOFT [address] [place] [address] XR Hip Lt 1 View (03/10/2018 3:44 [...] Bedside Glucose Monitor (03/10/2018 6:16 AM CDT) P athologist Signature Bedside Blood 87 mg/dL PN SOFT Glucose Test Comment: Performed at [address] [place] [address] Specimen Anatomical Collection Method Collection Time Receive d Time (Source) Location / / Volume Laterality 03/10/2018 6:16 AM 8 6:20 CDT AM CDT Tammie Nowak MD LAB_1 Performing Organization Address City/State/ZIP Code Phon e Number PN SOFT [address] [place] [address] Anion Gap (03/10/2018 6:03 AM CDT) P athologist Signature ANION GAP 7 0 - 16 mEq/L PN SOFT Specimen Anatomical Collection Method Collection Time Receive d Time (Source) Location / / Volume Laterality 03/10/2018 6:03 AM 8 6:14 CDT AM CDT Narrative PN SOFT - 03/10/2018 6:33 [place] [address] CLIA number [id number] Tammie Nowak MD LAB_1 Performing Organization Address [facility] Phon e Number PN SOFT [address] [place] [address] HGB A1C (03/10/2018 6:03 AM CDT) P athologist Signature HGB A1C 5.2 4.0 - 5.6 % PN SOFT Specimen Anatomical Collection Method Collection Time Receive d Time (Source) Location / / Volume Laterality 03/10/2018 6:03 AM 8 6:14 CDT AM CDT Narrative PN SOFT - 03/10/2018 12:25 PM CDT Performed at [address] [address] CLIA number [id number] Tammie Nowak MD LAB_1 Performing Organization Address [facility] Phon e Number PN SOFT [address] [place] [address] (ABNORMAL) Basic Metabolic Panel: only if not [...] - 03/10/2018 6:33 AM CDT Performed at [address] [address] CLIA number [id number] Tammie Nowak MD LAB_1 Performing Organization Address [facility] Phon e Number PN SOFT [address] [place] [address] Differential (03/10/2018 6:02 AM CDT) athologist Signature Absolute 1.8 1.8 - 8.0 [...] - 03/10/2018 6:17 AM CDT Performed at [address] [address] CLIA number [id number] Tammie Nowak MD LAB_1 Performing Organization Address [facility] Phon e Number PN SOFT [address] [place] [address] (ABNORMAL) Complete Blood Count-W/Diff :only if not [...] - 03/10/2018 6:18 AM CDT Performed at [address] [address] CLIA number [id number] Tammie Nowak MD LAB_1 Performing Organization Address [facility] Phon e Number PN SOFT [address] [place] [address] Draw & Hold - Inpatient Only: (03/10/2018 6:02 AM CDT) P athologist Signature Draw And Hold REC'D PN SOFT Specimen Anatomical Collection Method Collection Time Receive d Time (Source) Location / / Volume Laterality 03/10/2018 6:02 AM 8 6:14 CDT AM CDT Narrative PN SOFT - 03/10/2018 6:22 AM CDT Performed at [address] [address] CLIA number [id number] Tammie Nowak MD PN BLOOD BANK ORDERS Performing Organization Address [facility] Phon e Number PN SOFT [address] [place] [address] documented in this encounter Visit Diagnoses Diagnosis Primary osteoarthritis of left hip - Lucia melisa Primary localized osteoarthrosis, pelvic region and thigh HTN (hypertension) (HRC) Unspecified essential hypertension Tobacco abuse (HRC) Tobacco use disorder Esophageal reflux Status post total replacement of left hi p Primary osteoarthritis of left hip Primary localized osteoarthrosis, pelvic region and thigh documented in this encounter Administered Medications Inactive [...] Given 03/10/2018 7:38 PM CDT 162 mg cyclobenzaprine (FLEXERIL) tablet 10 mg Given [...] 30 mg, Intravenous, Q6H, First dose on Wed03/10/18 at 1400, Last dose on Wed03/12/18 at 0800, For 48 hours, Do not give if CrCl <60 or history of GI bleed, Post-op Given 03/11/2018 8:10 AM CDT 30 mg Given 03/11/2018 2:53 AM CDT 30 mg lisinopril (zeSTRIL) tablet 20 mg Given 03/11/2018 8:10 AM CDT 20 mg 20 mg, Oral, DAILY, First dose on Wed03/10/18 at 1400, Until Discontinued Given 03/10/2018 1:49 [...] 1 Patch, Transdermal, Q24H, First dose on Wed03/10/18 at 1300, Until Discontinued, Hazardous waste disposal required. ondansetron (ZOFRAN) injection 4 mg 4 mg, Intravenous, Q6H PRN, Nausea, Vomiting, Starting on Wed03/10/18 at 1202, Until Wed03/11/18 at 1636, Give IV if un able to take oral. Give lorazepam if nausea is not resolved in 15 minutes, Post-op ondansetron (ZOFRAN-ODT) disintegrating tablet 4 mg 4 mg, Oral, Q6H PRN, Nausea, Vomiting, S tarting on Wed03/10/18 at 1202, Until Wed03/11/18 at 1636, Give lorazepam if nause a is not resolved in 15 minutes, Post-op PARoxetine (PAXIL) tablet 20 mg Given 03/11/2018 8:10 AM CDT 20 mg 20 mg, Oral, DAILY, First dose on Wed03/10/18 at 1400, Until Discontinued Given 03/10/2018 1:48 PM CDT 20 mg povidone-iodine 10% in sodium Given 03/10/2018 8:29 AM CDT 517.5 mL Left Hip chloride 500 mL sterile irrigation (surgery only) ONCE PRN, Starting on Aisha 03/10/18 at 0829, Intra-op senna (SENOKOT) tablet 1 Tab Given 03/10/2018 7:38 PM CDT 1 Tablet 1 Tablet, Oral, DAILY - 1999, First dose on Aisha 03/10/18 at 2000, Until Discontinued, Give every day while on opioids (stimulant) starting day of surgery. Hold for loose stools., Post-op sodium chloride 0.9% injection 10-60 mL Given [...] ference the Vascular Access Device Users Guide. sodium chloride for irrigation 0.9 % Given 03/10/2018 8:29 AM CDT 1,000 mL Left Hip ONCE PRN, Starting on Aisha 03/10/18 at 0829, Intra-op documented in this encounter Active and Recently Administered Medications Times are shown in CDT. Scheduled Medication Order 03/09/2018 03/10/2018 03/11/2018 acetaminophen (TYLENOL) tablet 650 mg 16 30 (Given - Provider: Artem Weber, DAMARIS)1938 (Not Given - Provider: Fatimah Lau, DAMARIS - Reason: Patient/family refused) 0809 (Given - Provider: Arminda erickson, RN)1206 (Given - Provider: Arminda Whipple, RN) 650 mg, Oral, QID, First dose on Aisha 03/10/18 at 1600, Post-op aspirin EC enteric coated tablet 162 mg 1938 (Given - Provider: Fatimah Lau, DAMARIS) 0810 (Given - Provider: Arminda erickson, RN) 162 mg, Oral, DAILY, First dose on Aisha at 2000, Begin day of surgery., Post-op celecoxib (CeleBREX) capsule 200 mg (COMPLETED) 06 (Given - Provider: Micaela Damico, DAMARIS) 200 mg, Oral, ONCE, Aisha 03/10/18 at 0600, For 1 dose, Give in Preop. DO NOT give if history of GI bleed; UT or sulfa allergy., Pre-op clindamycin in dextrose 5% (CLEOCIN) IVPB 900 mg (COMPLETED) 0756 (Given - Provider: Karl Guy APRN, POULTRY EVISCERATOR) 900 mg, Intravenous, Administer over 30 Minutes, ONCE, Aisha 03/10/18 at 0745, For 1 dose, Infuse within 60 minutes prior to incision; Re-dose 900 mg IV every 6 hours after initial dose until incision closed., Pre-op clindamycin in dextrose 5% (CLEOCIN) IVPB 900 mg (COMPLETED) 1631 (Started - Provider: Artem Weber RN)1701 (Infused - Provider: Artem Weber, DAMARIS) 0035 (Started - Provider: Mallory King, DAMARIS)0105 (Infused - Provider: Mallory King RN) 900 mg, Intravenous, Administer over 30 Minutes, Q8H (NON-STND), First dose on Aisha 18 at 1600, For 2 doses, Post-op hydroCHLOROthiazide (ORETIC) tablet 25 mg(Linked Group 1) 1448 (Given - Provider: Chris Keyes, DAMARIS) 0809 (Given - Provider: Arminda erickson RN) 25 mg, Oral, DAILY, First dose on Wed03/10/18 at 1400 ketorolac (TORADOL) injection 30 mg 1350 (Given - Provider: Chris Keyes RN)1938 (Given - Provider: Fatimah Lau RN) 0253 (Given - Provider: Mallory King RN)0810 (Given - Provider: Arminda Whipple RN)1351 (Given - Provider: Arminda Whipple RN) 30 mg, Intravenous, Q6H, First dose on [...] 30 mL 0814 (Given - Provider: Arminda Whipple RN) 30 mL, Oral, DAILY, First dose on Wed at 0800, Hold for loose stools., Post-op nicotine (NICODERMCQ) 21 MG/24HR 1 Patch 1223 (Patch Applied - Provider: Chris Keyes RN) 1223 (Patch Removed - Provider: Arminda Whipple RN)1300 (Not Given - Provider: Arminda Whipple RN - Reason: Patient/family refused) 1 Patch, Transdermal, Q24H, First dose o n Wed03/10/18 at 1300, Hazardous waste disposal required. ondansetron (ZOFRAN) injection 4 mg (COMPLETED) 626 (Given - Provider: Micaela Damico, DAMARIS) 4 mg, Intravenous, ONCE, Wed03/10/18 at 0600, For 1 dose, Give in Preop., Pre-op PARoxetine (PAXIL) tablet 20 mg 1348 (Gi nila - Provider: Chris Keyes RN) 0810 (Given - Provider: Arminda erickson RN) 20 mg, Oral, DAILY, First dose on Aisha 03/10/18 at 1400 potassium chloride SA (KLOR-CON) controlled release tablet 20 mE q (COMPLETED) 1206 (Given - Provider: Arminda Whipple, DAMARIS) 20 mEq, Oral, ONCE, 03/11/18 at 1215, For 1 dose, Tablet should be swallowed whole senna (SENOKOT) tablet 1 Tab 1937 (Given - Provi kala: Fatimah Lau, DAMARIS) 1 Tab, Oral, DAILY - 1999, First dose on Aisha 18 at 2000, Give every day while on opioids (stimulant) starting day of surgery. Hold for loose stools., Post-op sodium chloride 0.9% injection 10-60 mL 1999 (Not Given - Provider: Fatimah Lau RN - Reason: Other (Enter Reason in Comment Area) - Comment: IVF infusing) 0810 (Given - Provider: Arminda erickson RN)1351 (Given - Provider: Arminda Whipple RN) 10-60 mL, Intravenous, BID, First dose o [...] 0806 (Started - Provider: Tanner Guy APRN, CRNA)0934 (Bolus - Provider: Rosa Maria Montano APRN, SUDEEP) 1,000 mg, Intravenous, ONCE, Aisha 18 at 0600, For 1 dose, Maximum administration rate is 100 mg/minute. To be given in OR by POULTRY EVISCERATOR prior to incision. Re-dose 1000 mg IV during wound closure., Pre-op Continuous Medication Order 03/09/2018 03/10/2018 03/11/2018 lactated ringers infusion (CANCELED) 061 9 (Started - Provider: Micaela Damico, DAMARIS)0900 (Infused - Provider: Rosa Maria Montano APRN, POULTRY EVISCERATOR)1001 (Anesthesia Fluid - Provider: Karl Guy APRN, POULTRY EVISCERATOR)1041 (Continue Current Bag - Provide r: Noemi [...] 10 mg 1222 (Given - Provider: Chris Keyes RN)2207 (Given - Provider: Fatimah Lau RN) 10 mg, Oral, TID PRN, Muscle Spasms, Starting Aisha 03/10/18 at 120 2 diphenhydrAMINE (BENADRYL) capsule 25-50 mg(Linked Group 2) 25-50 mg, Oral, Q6H PRN, Itching, Starti ng Aisha 03/10/18 at 1202, If able to take ORAL medications., Post-op diphenhydrAMINE (BENADRYL) injection 25-50 mg(Linked Group 2) 25-50 mg, Intravenous, Q6H PRN, Itching, Starting Aisha 6/21/18 at 1202, Give IV only if unable to take ORALLY., Post-op HYDROmorphone (DILAUDID) tablet 2-4 mg 2-4 mg, Oral, Q2H PRN, Other, Moderate P ain (pain score 5-7), Severe Pain (pain score 8-10), Starting Aisha 03/10/18 at 1202, Do NOT administer at the same time as IV opioids. May administer 1 hour after I V opioid administration. HOLD if on COMMUNITY MANAGER., Post-op HYDROmorphone injectable 0.3-0.5 mg 0.3-0.5 mg, Intravenous, Q1H PRN, Other, Severe Pain (pain score 8-10) or if patient unable to take PO, Starting Aisha 03/10/18 at 1202, Do NOT administer at the same time as PO opioids. May administer 1 h our after PO opioid administration. HOLD if on COMMUNITY MANAGER., Post-op nalBUPHine (NUBAIN) 1-2 mg in sodium chloride 0.9 % 1-2 mL syrin ge 1-2 mg, Intravenous, Q4H PRN, Itching, S tarting Aisha 03/10/18 at 1202, Contact Pharmacy for dose, Post-op [...] Q6H PRN, Nausea, Vomiting, S tarting Aisha 18 at 1202, Give lorazepam if nausea is [...] PRN, Other, Severe Cons tipation, Starting Aisha 18 at 1202, Post-op temazepam (RESTORIL) capsule 15 mg 15 mg, Oral, HS MAY REPEAT X1 PRN, Sleep, Starting Aisha 18 at 1202, Post-op Linked Groups Order Group 1: lisinopril (zeSTRIL) tablet 20 mgJump to med 20 mg, Oral, DAILY, First dose on Aisha 18 at 1400 And hydroCHLOROthiazide (ORETIC) tablet 25 [...] Nausea, Vomi ting, Starting Aisha 03/10/18 at 1202
Give IV if unable to take oral. Give lorazepam if nausea is not resolved in 15 minutes
Post-op Or ondansetron (ZOFRAN-ODT) disintegrating tablet 4 mgJump to med 4 mg, Oral, Q6H PRN, Nausea, Vomiting, S tarting Aisha 03/10/18 at 1202
Give lorazepam if nausea is not resolved in 15 minutes
Post-op documented in this encounter Care Teams Dealer Sales Manager Relationship Specialty Start Date End Date Judith Morgan MD PCP - General Family Practice 03/01/18 [address] [place] [address] documented as of this encounter
--- OUTSIDE RECORDS SUMMARY | 2022-06-13 13:44 | XMS_ITS | Encounter Summary ---
:1960 Author Organization [facility] Address [address] [place] [address] Care Team Providers Name Role Phone Richard Morgan MD Primary Care Provider Reason for Visit Reason Comments Orders Needed PT Encounter Details Date Type Department Care Team Description 03/24/2018 Telephone [facility] Tammie Avelar MD Orders Needed (PT) [address] Laura MD [address] [place] [address] [phone] (Wo rk) Social History Tobacco Use Types Packs/Day Years Used Date Smoking Tobacco: Every Day Smokeless Tobacco: Never Sex Assigned at Date Recorded Not on file documented as of this encounter Nursing Notes Lilia Yoo, RN - 03/24/2018 5:43 PM CDT Might be best to wait til 5-6 weeks postop to work very aggressively with PT for ITB. There is important healing going on, do not want to tear repaired tissue or deep stitches. Suggest she just do walking and the exercises she learned from PT, for 1st 5-6 weeks postop. After that 6 week visit she can add formal PT. KSP Read the above message from Dr. Nowak and patient verbalized understanding. She will do the walking and PT exercises she learned from now until she follows up w/ Dr. Nowak in 6 weeks. Tehy will reassess at that time the need for PT. Lilia Yoo RN - 03/24/2018 2:49 PM CDT Patient Name: Delmi Blanton Procedure Date: 03/10/2018 Attending MD: Tammie Nowak MD Procedure: Primary Left Total Hip Arthroplasty: Press Fit Acetabular and Femoral Components Patient in for 2 week follow up. Incision looks good. S/S of infection and dvt discussed. Steristrips removed and new ones placed. Incision [...] Nowak if okay to place, [facility] #[phone]. Will return to clinic 04/19. documented in this encounter Plan of Treatment Not on filedocumented as of this encounter Visit Diagnoses Not on filedocumented in this encounter Care Teams Plater Supervisor Relationship Specialty Start Date End Date Richard Morgan MD PCP - General Family Practice 03/01/18 [address] [place] [address] documented as of this encounter
--- OUTSIDE RECORDS SUMMARY | 2022-06-13 13:44 | XMS_ITS | Encounter Summary ---
:1960 Author Organization [facility] Address [address] [place] [address] Care Team Providers Name Role Phone Richard Morgan MD Primary Care Provider Reason for Visit Reason Comments Lab mrsa Encounter Details Date Type Department Care Team Description 03/01/2018 Notes/Orders [facility] Tammie Nowak, Errol fox examination CENTER for infectious [address] disease (Primary Dx) [place], [place] [address] [place], [place] [phone] (Wo rk) Social History Tobacco Use Types Packs/Day Years Used Date Smoking Tobacco: Every Day Smokeless Tobacco: Never Sex Assigned at Date Recorded Not on file documented as of this encounter Progress Notes Lilia Yoo RN - 03/01/2018 12:25 PM CDT Patient seen for preoperative Staphylococcus aureus nasal screening. Procedure explained, patient verbalized understanding, and specimen collected without incident. Informational handout Screening & Treatment for Staphylococcus aureus Before Surgery, provided to patient. Patient will be called if results are positive. documented in this encounter Plan of Treatment Not on filedocumented as of this encounter Procedures Procedure Name Priority Date/Time Associated Diagnosis Comme nts PREOP STAPH AUREUS Routine 03/01/2018 11:45 AM Screening Re sults for this CULTURE CDT examination for procedure ar e in infectious disease the resul ts section. documented in this encounter Results MRSA MSSA Preop Culture - Staph Aureus Culture (03/01/2018 11:45 AM CDT) Component Value Ref Test Analysis Performed At [facility] gist Range Method Time Signature Source Nares PN SOFT Site PN SOFT Preop Staph No Staphylococcus 03/02/2018 PN SOFT Aureus aureus Isolated 10:11 PM Culture CDT Specimen (Source) Anatomical Collection Method Collection Time Re ceived Time Location / / Volume Laterality Nares: 03/01/2018 11:45 AM CDT Narrative PN SOFT - 03/02/2018 10:11 PM CDT Performed at [facility], [address] [place] [address], CLIA Number [id number] Tammie Nowak MD LAB_1 Performing Organization Address City/State/ZIP Code Phon e Number PN SOFT [address] [place] [address] documented in this encounter Visit Diagnoses Diagnosis Screening examination for infectious dis ease - Primary Screening examination for unspecified in fectious disease documented in this encounter Care Teams Complaint Supervisor Relationship Specialty Start Date End Date Richard Morgan MD PCP - General Family Practice 03/01/18 [address] [place] [address] documented as of this encounter
--- OUTSIDE RECORDS SUMMARY | 2022-06-13 13:44 | XMS_ITS | Encounter Summary ---
:1960 Author Organization [facility] Address [address] [place] [address] Care Team Providers Name Role Phone Unavailable Primary Care Provider Unavailable Reason for Referral Procedure/Equipment (Routine) - Incomplete Specialty Diagnoses / Procedures Referred By Contact Refer red To Contact Diagnoses Primary osteoarthritis of left hip Tony Tomas MD Procedures Walker, folding with wheels ([id number]) [address] [place] [address] Referral ID Status Reason Start Date Expiration Date Visits V isits Requested Authorized [id number] Incomplete 02/22/2018 05/24/2019 1 1 Procedure/Equipment (Routine) - Incomplete Specialty Diagnoses / Procedures Referred By Contact Refer red To Contact Diagnoses Primary osteoarthritis of left hip Tony Tomas MD Procedures XR Pelvis W Lt Lateral Hip [address] [place] [address] Referral ID Status Reason Start Date Expiration Date Visits V isits Requested Authorized [id number] Incomplete 02/21/2018 05/23/2019 1 1 Reason for Visit Reason Comments HIP PAIN Left Hip Pain; DOI: ongoing, VIDAL: unknown Encounter Details Date Type Department Care Team Description 02/21/2018 Office Visit Tony Padilla o steoarthritis Orthopedic Aurelio Chávez MD of left hip (Primary Care [address]) [address] [place] [address] [place] [address] Social History Tobacco Use Types Packs/Day Years Used Date Smoking Tobacco: Every Day Smokeless Tobacco: Never Sex Assigned at Date Recorded Not on file documented as of this encounter Last Filed Vital Signs Vital Sign Reading Time Taken Comments Blood Pressure 182/83 02/21/2018 2:59 PM CDT Pulse - - Temperature 36.9 ??C (98.5 ??F) 02/21/2018 2:59 PM CDT Respiratory Rate - - Oxygen Saturation - - Inhaled Oxygen Concentration - - Weight 66.7 kg (147 lb) 02/21/2018 2:59 PM CDT Height - - Body Mass Index - - documented in this encounter Patient Instructions Patient InstructionsSharif Marin ATC - 02/21/2018 2:[address] Tony Tomas MD Sports & Orthopedic Medicine [facility] Medication Requests: Prescriptions are not filled on Weekends or on Weekdays after 3:00PM For all medication refills: Request a refill using [employer] [facility] or contact your Pharmacy Orthopedic Urgent Care Nurse Line: [phone] Please contact the Orthopedic Urgent Care Nurse line for any medical questions or for continued or worsening symptoms MRI Scheduling: To schedule an MRI at [facility] please call [phone] Paperwork Requests: Questions regarding FMLA or disability paperwork please call [phone] Phone lines are answered 8AM to 5PM Wednesday - Wednesday. Workers??? Compensation: Please contact our department for any Work Comp concerns at Email: [email or web address] Left hip DJD Follow up with Dr. Fritz in [facility] provided documented in this encounter Progress Notes Tony Tomas MD - 02/22/2018 2:15 PM CDT NAME: JAVI BLANTON MR#: [id number] CSN: [id number] AUTHENTICATING CLINICIAN: Tony Tomas MD CONFIRM #: [id number] LOC: [address] CLINIC PROGRESS NOTE DATE OF VISIT: 02/21/2018 : 1960 Javi is a 57-year-old woman who complains of left hip pain, onset she believes between 1 and 2 years ago. No known injury or trauma. Described as constant groin pain, including lateral hip and knee pain as well. She was worked up for her back for a while and eventually a hip x-ray was done which showed advanced arthritis and she was referred to Dr. Fontenot. She comes in today because the consultation is later this month and she was interested in seeing somebody sooner. Pain is described as 8/10, worse with everything, and nothing makes it better. No fever. No rash. She does describe paresthesias going down to the left toe intermittently. She has a history of scoliosis with akira placements in 1978 a nd 1986 at [place]. 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 PHYSICAL EXAM: Height 62, weight 147. Temp 98.5, blood pressure 182/83. GENERAL: No distress. Normal mood and affect. Gait and station intact. LEFT LEG: No erythema, warmth, coolness, or lymphadenopathy. Normal tone and light touch sensation. LEFT HIP: Range of motion 20-90 degrees. Pain limiting both directions. Internal rotation 10 degrees, external rotation 30 degrees, both limited by pain. Strength intact at the hip. IMAGING: X-ray hip and pelvis shows advanced left hip arthritis and mild right hip arthritis. ASSESSMENT: Left hip degenerative joint disease, advanced. PLAN: 1.Walker to help with ambulation. 2.Patient declined any medications for management of the pain. 3.We discussed a corticosteroid injection, but she would like to proceed directly to surgical consultation. 4.We will look to help her move up her consultation visit for the advanced hip DJD. NME:MEDQ C: R:02/22/18 15:36 CONFIRM#:[id number] documented in this encounter Plan of Treatment Not on filedocumented as of this encounter Results XR Pelvis W Lt Lateral Hip (02/21/2018 3:40 PM CDT) Anatomical Region Laterality Modality Pelvis, Hip Digital Radiography Specimen (Source) Anatomical Collection Method Collection Time Re ceived Time Location / / Volume Laterality 02/21/2018 3:40 PM CDT Narrative 02/21/2018 3:53 PM CDT [employer] RANDI XR PELVIS W LT LATERAL HIP 02/21/2018 [...] note might be different from the original. [employer] RANDI XR PELVIS W LT LATERAL HIP 02/21/2018 [...] Diagnosis Primary osteoarthritis of left hip - [facility] Primary localized osteoarthrosis, pelvic region and thigh Left hip pain Pain in joint, pelvic region and thigh documented in this encounter
--- NOTE | 2022-06-13 14:59 | ED_ITS ---
HPI - SOB/Dyspnea General Chief Complaint: Cough Stated Complaint: Cough, Congestion Time Seen by Provider: 06/13/22 12:30 Source: patient Mode of arrival: ambulatory Limitations: no limitations History of Present Illness HPI Narrative: Patient presents with a 4 day history of cough and mild dyspnea on exertion. She states that she is ?prone to bronchitis every fall?. 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 She states that there have been several children with upper respiratory infection symptoms lately. She has been taking COVID swabs at home and these have been negative x3. She is COVID vaccinated. She is a smoker. She has a nebulizer machine, and albuterol inhalers and also nebulizers at home to use if needed, she has not tried these for her cough. She says that she does tender respond well to azithromycin and prednisone every year. She has no formal diagnosis of COPD and is not on any preventative type treatment. She does continue to smoke. No fevers. No severe dyspnea. No productive cough. Appetite has been normal. No GI symptoms. She does have some sinus congestion and rhinorrhea but no other HEENT concerns. She has not tried any [id number] medications or her inhaler to help with her symptoms. Past medical history is notable for chronic tobacco use, hypertension, anxiety disorder, hyperlipidemia. Her home medications are lisinopril, Paxil, rosuvastatin, metoprolol and baby aspirin. Data does flow into our health records regarding her [facility] history which is reviewed. Related Data Previous Rx's Medication Instructions Recorded azithromycin 250 mg tablet See Taper PO DAILY #6 tabs 06/13/22 cyclobenzaprine 10 mg tablet 5 - 10 mg PO HS PRN muscle spasm 06/13/22 #10 tabs prednisone 20 mg tablet 40 mg PO DAILY #10 tabs 06/13/22 Review of Systems Narrative: ROS was notable for the generalized, HEENT, respiratory symptoms as above. Specifically denies any cardiovascular, musculoskeletal, urinary, GI or neurological changes today. [facility] Social History Smoking Status: Current every day smoker What tobacco products do you use: cigarettes Smoking packs per day: 1 Smoking cigarettes per day: 20.0 Do you use any of these nicotine containing products: None Second hand tobacco smoke exposure: No How often do you have a drink containing alcohol: 4 or more times a week How many standard drinks containing alcohol do you have on a typical day: 1 or 2 How often do you have six or more drinks on one occasion: Never AUDIT-C Alcohol total score: 4 Non-prescribed substance use: denies use Exam Const: Vital Signs, click to edit/add: Vital Signs - 24 hr 06/13/22 12:47 Temperature 98.3 F Pulse Rate [Pulse Oximeter] 80 Respiratory Rate 20 Blood Pressure [Ri ght Upper Arm] 160/112 H Pulse Oximetry 97 Oxygen Delivery Me thod Room Air Documenting provider has reviewed patient's vital signs: yes Common normals: no apparent distress General appearance: cooperative HENMT: Common normals: normocephalic Head and scalp: normocephalic Mouth: oral and palatal mucosa normal Throat: posterior oropharynx normal Other: Nose with mild clear mucus rhinorrhea. Mild postnasal drip noted as well. Eye: Common normals: conjunctivae normal and no scleral icterus Conjunctiva: conjunctiva(e) normal Neck & C-Spine: Common normals: full ROM and no lymphadenopathy Resp: Common normals: normal respiratory effort Effort & inspection: able to speak in complete sentences Other: Moderate expiratory wheeze with no crackles noted. Mild prolongation of expiration at about a 2-1 ratio. Cardio: Common normals: regular rate, regular rhythm, no murmurs and peripheral pulses 2+ throughout Rate: regular rate Rhythm: regular rhythm Peripheral pulses: pulses 2+ throughout Extremity: Common normals: normal to inspection, normal capillary refill and no pedal edema Neuro: Speech: speech normal Motor exam: strength 5/5 throughout and no movement abnormalities noted Psych: Common normals: speech normal Attitude: calm and engaged Speech: normal speech Mood and affect: euthymic mood Skin: Common normals: no rashes or lesions noted General skin exam: no rashes or lesions noted Course Vital Signs Vital signs: Initial Vital Signs Temperature 98.3 F 06/13/22 12:47 Temperature Source Temporal Artery Scan 06/13/22 12:47 Pulse Rate 80 06/13/22 12:47 Pulse Rhythm 06/13/22 12:47 Respiratory Rate 20 06/13/22 12:47 Blood Pressure 160/112 H 06/13/22 12:47 Blood Pressure Mean 128 06/13/22 12:47 Blood Pressure Position Sitting 06/13/22 12:47 Pulse Oximetry 97 06/13/22 12:47 Oxygen Delivery Method 06/13/22 12:47 Vital Signs Temperature 98.3 F 06/13/22 12:47 Pulse Rate 80 06/13/22 12:47 Respiratory Rate 20 06/13/22 12:47 Blood Pressure 160/112 H 06/13/22 12:47 Pulse Oximetry 97 06/13/22 12:47 Oxygen Delivery Method 06/13/22 12:47 Temperature 98.3 F 06/13/22 12:47 Pulse Rate 80 06/13/22 12:47 Respiratory Rate 20 06/13/22 12:47 Blood Pressure 160/112 H 06/13/22 12:47 Pulse Oximetry 97 06/13/22 12:47 Oxygen Delivery Method 06/13/22 12:47 MDM - SOB/Dyspnea MDM Narrative Medical decision making narrative: Counseled on COPD exacerbation, discussed need for some long-term therapy in smoking cessation as well. Offered her 1st dose of medications here, but she states in the interest of efficiency in time, she would prefer to have her medications filled at the pharmacy today. She agrees that she will make an outpatient follow-up appointment to discuss long-term COPD management with her primary care provider Discharge Plan Discharge Clinical Impression: Acute exacerbation of chronic obstructive pulmonary disease Patient Disposition: Home, Self-Care Condition: Stable Instructions: COPD (Chronic Obstructive Pulmonary Disease) (ED) Additional Instructions: Your lungs are inflamed from a viral illness. I do sense that you have some underlying COPD from smoking as well. I would like for you to further discuss long-term COPD management with your primary care provider at your earliest convenience. We will start prednisone and azithromycin. Please use her albuterol up to every 2 hours as needed. I will also give you a limited supply of Flexeril for sleep and your muscle aches as we discussed. Come back to the emergency department if you are having significant difficulty breathing or worsening of symptoms. Activity Level: No Restrictions Discharge Diet: Regular Prescriptions: New prednisone 20 mg tablet 40 mg PO DAILY Qty: 10 0RF azithromycin 250 mg tablet See Taper PO DAILY Qty: 6 0RF Taper: Z-NURIS 500 mg Q24H for 1 Day and 0 Hour 250 mg Q24H for 4 Days and 0 Hour Rx Instructions: For 250 mg dose pack: take 500 mg today (day 1), then 250 mg for 4 days (days 2-5) orally daily; cyclobenzaprine 10 mg tablet 5 - 10 mg PO HS PRN (Reason: muscle spasm) Qty: 10 0RF Follow Up/Referrals: Kasey Roman MD [Primary Care Provider] - Stand Alone Forms: [employer] Info Instructions
== END 2022-06-13 13:42 | disposition home or self-care (01) ==
LOC: ED 13:41
PROVIDERS: Emergency Provider Family Medicine; PCP Family Medicine
DX: J44.1 Chronic obstructive pulmonary disease with (acute) exacerbation (principal)
CPT/HCPCS: 99282; 99283; 99284

== ENCOUNTER 2022-07-01 06:16 | Day surgery (SDC) | payer BC, SELFPAY ==
[2022-07-01 06:25] VITALS: BMI 26.2
[2022-07-01] MEDS: TETRACAINE 0.5% OPHTH 1 DROP EYE-RIGHT ×2 (06:25→06:45)
[2022-07-01 06:39] VITALS: BP 166/89; PULSE 56; RESP 16; TEMP 36.5; O2SAT 97
[2022-07-01] MEDS: KETOROLAC OPHTH 0.5% 1 DROP EYE-RIGHT ×2 (06:40→07:00)
[2022-07-01] MEDS: SODIUM CHLORIDE 0.9 % (FLUSH) 10 ML SYRINGE IVF (06:45)
[2022-07-01] MEDS: TETRACAINE 0.5% OPHTH 2 DROP EYE-RIGHT (07:17)
[2022-07-01] MEDS: BALANCED SALT IRRIG SOLN 15 ML EYE-RIGHT (07:22)
--- NOTE | 2022-07-01 07:47 | W.ANESCHARGE ---
Anesthesia Charges Start Date/Time Anesthesia Start Date: 07/01/22 Anesthesia Start Time: 07:13 Stop Date/Time Anesthesia Stop Date: 07/01/22 Summary Emergency: No
--- NOTE | 2022-07-01 07:55 | W.ANESCHARGE ---
Anesthesia Charges Start Date/Time Anesthesia Start Date: 07/01/22 Anesthesia Start Time: 07:13 Stop Date/Time Anesthesia Stop Date: 07/01/22 Anesthesia Stop Time: 07:55 Summary Emergency: No
--- NOTE | 2022-07-01 08:01 | W.PM.OPTPROC ---
Procedure Note Date of procedure: 07/01/22 Will [facility] bill your pro fee for this procedure?: Yes Procedure Description: SURGEON: Sweetie Berumen MD PREOPERATIVE DIAGNOSIS: Nuclear sclerotic cataract, right eye. POSTOPERATIVE DIAGNOSIS: Nuclear sclerotic cataract, right eye. NAME OF OPERATION: Phacoemulsification of cataract with posterior chamber intraocular lens implantation in the right eye. ANESTHESIA: Topical. ESTIMATED BLOOD LOSS: Less than 2 cc. COMPLICATIONS: None. PATHOLOGY SPECIMEN: None. INDICATIONS: See consult note for details. The risks, benefits and alternatives of the procedure were explained to the patient, who elected to proceed and signed informed consent to do so. PROCEDURE: The patient was brought to the pre-holding area where the right eye was identified as the operative eye. I placed my initials above this eye. The patient received eye drops consisting of 0.5% tetracaine, 1% tropicamide, 10% phenylephrine, and 0.5% ketorolac. The patient was then brought to the operating room where the right eye was again identified as the operative eye. The eye was prepped with Betadine and draped in the usual sterile ophthalmic fashion. A #15 super-sharp blade was used to create a paracentesis site. 1% non-preserved intracameral lidocaine was injected into the anterior chamber. Endocoat was injected into the anterior chamber. A 2.4 mm keratome was used to create a three-plane self-sealing incision 1 mm anterior to the temporal limbus. A cystotome was used to create an anterior capsular leaflet. The Utrata forceps were used to extend this to form a continuous curvilinear capsulorrhexis. Hydrodissection was performed. The cataract was removed with phacoemulsification using the [id number] technique. The irrigation and aspiration tip was used to remove the remaining cortex. Healon was injected into the capsular bag. An OLINDA ZCB00 intraocular lens of 19.5 diopters was injected into the capsular bag. The irrigation and aspiration tip was used to remove the remaining viscoelastic. Balanced salt solution on a cannula was used to hydrate the wound, and the wound was found to be watertight. The pupil was noted to be round. DISPOSITION: The patient was taken to the recovery room and discharged to home in stable condition. The patient was instructed to call me or go to the emergency department with any sudden change, including dramatic loss of vision, severe pain in the eye or eyebrow region, nausea, or vomiting. The patient will follow up in the clinic tomorrow morning. Surgeon: Sweetie Berumen MD
[2022-07-01 08:08] VITALS: BP 174/94; PULSE 61; RESP 16; TEMP 36.5; O2SAT 96
--- NOTE | 2022-07-01 08:23 | W.ANESCHARGE ---
Anesthesia Charges Start Date/Time Anesthesia Start Date: 07/01/22 Anesthesia Start Time: 07:13 Stop Date/Time Anesthesia Stop Date: 07/01/22 Anesthesia Stop Time: 07:55 Summary Emergency: No
== END 2022-07-01 08:45 | disposition home or self-care (01) ==
PROVIDERS: PCP Family Medicine; Visit Provider Ophthalmology
PROC: (CPT 66984; principal; 2022-07-01 06:15)
DX: H25.11 Age-related nuclear cataract, right eye (principal)
CPT/HCPCS: 66984; 00142; A9270; J2250; J3010; V2632

== ENCOUNTER 2022-07-26 09:58 | Emergency (ER) | payer BC, SELFPAY ==
[2022-07-26 10:11] VITALS: BP 183/79; PULSE 65; PULSE 98; RESP 20; TEMP 36.3; O2SAT 98; BMI 25.3
[2022-07-26 11:09] LABS: PCR FLU A Negative PCR FLU A (Negative); PCR FLU B Negative PCR FLU B (Negative); PCR RSV Negative PCR RSV (Negative)
--- NOTE | 2022-07-26 11:12 | ED.GENADULT ---
HPI - General Adult General Time Seen by Provider: 11:13 Date Seen: 07/26/22 Chief complaint: Cough Stated complaint: Cough Time Seen by Provider: 07/26/22 11:03 Source: patient and RN notes reviewed Mode of arrival: ambulatory Limitations: no limitations History of Present Illness HPI narrative: Patient is a 61-year-old female chronic smoker coming in with cough that is productive. She is bringing up sputum but states she can cleared. Yesterday she had an episode of palpitations because she was upset that she was getting sick again. This was not sustained. She is declining further workup for it but we did certainly discuss this. I went over arrhythmias that this could signify. If she ever has this again or if it is short but continuing to come back, she does need to follow up with her primary care provider. Reviewed that if she had sustained irregular heartbeat or sense of palpitations that was going on beyond 10-20 minutes would recommend ED evaluation. She is not having any fevers. 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 She states she has had COVID, croup and a GI illness recently. In May she saw Dr. Cha here in the ED home recommended follow-up with primary care provider to review maintenance treatment for her COPD. I have seconded that to her today. Related Data Home Medications Medication Instructions Recorded Confirmed amlodipine 5 mg tablet (Norvasc) 5 mg PO DAILY 06/29/22 07/01/22 lisinopril 20 1 tab PO DAILY 06/29/22 07/01/22 mg-hydrochlorothiazide 25 mg tablet metoprolol succinate 50 mg 50 mg PO DAILY 06/29/22 07/01/22 tablet,extended release 24 hr paroxetine HCl 20 mg tablet 20 mg PO DAILY 06/29/22 07/01/22 rosuvastatin 20 mg tablet 20 mg PO DAILY 06/29/22 07/01/22 Previous Rx's Medication Instructions Recorded cyclobenzaprine 10 mg tablet 5 - 10 mg PO HS PRN muscle spasm 06/13/22 #10 tabs prednisone 20 mg tablet 40 mg PO DAILY #10 tabs 06/13/22 azithromycin 250 mg tablet See Rx Instructions .Route 07/26/22 .COMPLEX #6 tabs prednisone 20 mg tablet 20 mg PO BID #10 tabs 07/26/22 Allergies Allergy/AdvReac Type Severity Reaction Status Date / Time latex Allergy Redness of Verified 07/26/22 10:19 Skin Penicillins Allergy Rash Verified 07/26/22 10:19 erythromycin base AdvReac Nausea Verified 07/26/22 10:19 Review of Systems Status of ROS: Reports: 6 or more systems reviewed and unremarkable except as noted in History and below [facility] Medical History (Updated 07/26/22 @ 11:33 by Paz Philip MD) Allergic rhinitis due to allergen Anxiety Asthma Chronic shoulder pain Endometriosis Esophageal reflux Hypersomnia Hypertension Left leg weakness Osteoarthritis PSVT (paroxysmal supraventricular tachycardia) Sjogren's syndrome Tobacco use disorder Surgical History (Updated 06/29/22 @ 12:16 by Catrina Ashton RN) H/O Spinal surgery History of hysteroscopy History of right salpingo-oophorectomy Status post total hip replacement, left Status post total hip replacement, right Social History Smoking Status: Current every day smoker What tobacco products do you use: cigarettes Smoking packs per day: 1 Smoking cigarettes per day: 20.0 Do you use any of these nicotine containing products: None Second hand tobacco smoke exposure: No How often do you have a drink containing alcohol: 4 or more times a week Alcohol type: wine How many standard drinks containing alcohol do you have on a typical day: 1 or 2 How often do you have six or more drinks on one occasion: Never AUDIT-C Alcohol total score: 4 Non-prescribed substance use: denies use Caffeine: Yes Are you using contraception or practicing any form of control: No service: No Exam Const: Vital Signs, click to edit/add: Vital Signs - 24 hr 07/26/22 10:11 Temperature 97.3 F L Pulse Rate [Pulse Oximeter] 98 Pulse Rate [Right] 65 Respiratory Rate 20 Blood Pressure [Ri ght Upper Arm] 183/79 H Pulse Oximetry 98 Oxygen Delivery Me thod Room Air Documenting provider has reviewed patient's vital signs: yes Common normals: no apparent distress, average body habitus, oriented x3, no limitations, healthy appearing and alert General appearance: cooperative, comfortable, well kempt and well developed HENMT: Common normals: normocephalic, head/scalp atraumatic, hearing grossly normal bilaterally, external ears normal, EAC's normal, TM's normal bilaterally, external nose normal, nasal mucous membranes and turbinates normal, moist oral mucous membranes, oropharynx normal, dentition normal and gingiva normal Head and scalp: normocephalic and atraumatic Nose: external nose normal and nasal mucous membranes and turbinates normal External ear: external ears normal External auditory canal: EAC's normal Tympanic membrane: TM's normal bilaterally Eye: Common normals: PERRL, EOMs intact bilaterally, conjunctivae normal and no scleral icterus Conjunctiva: conjunctiva(e) normal Pupil: PERRL Neck & C-Spine: Common normals: full ROM, no lymphadenopathy, supple, no meningeal signs, no JVD and thyroid normal Thyroid: thyroid normal Resp: Common normals: normal respiratory effort, no retractions and no use of accessory muscles Other: Has tight sound in breath sounds, end-expiratory wheezing as well as some rhonchi heard throughout. Is still able to speak in complete sentences however. Cardio: Common normals: no JVD, regular rate, regular rhythm, S1 normal heart sound, S2 normal heart sound, no gallops, no clicks and no murmurs Rate: regular rate Rhythm: regular rhythm Heart sounds: S1 normal and S2 normal Neuro: Common normals: oriented x3 Sensorium/orientation: alert Meningeal signs: no meningeal signs Psych: Appearance: well kempt Course Vital Signs Vital signs: Initial Vital Signs Temperature 97.3 F L 07/26/22 10:11 Temperature Source Temporal Artery Scan 07/26/22 10:11 Pulse Rate 65 07/26/22 10:11 Pulse Rhythm 07/26/22 10:11 Respiratory Rate 20 07/26/22 10:11 Blood Pressure 183/79 H 07/26/22 10:11 Blood Pressure Mean 113 07/26/22 10:11 Blood Pressure Position Sitting 07/26/22 10:11 Pulse Oximetry 98 07/26/22 10:11 Oxygen Delivery Method 07/26/22 10:11 Vital Signs Temperature 97.3 F L 07/26/22 10:11 Pulse Rate 65 07/26/22 10:11 Respiratory Rate 20 07/26/22 10:11 Blood Pressure 183/79 H 07/26/22 10:11 Pulse Oximetry 98 07/26/22 10:11 Oxygen Delivery Method 07/26/22 10:11 Temperature 97.3 F L 07/26/22 10:11 Pulse Rate 65 07/26/22 10:11 Respiratory Rate 20 07/26/22 10:11 Blood Pressure 183/79 H 07/26/22 10:11 Pulse Oximetry 98 07/26/22 10:11 Oxygen Delivery Method 07/26/22 10:11 Medical Decision Making Lab Data Lab results reviewed: Yes I reviewed the patient's lab results Labs: Lab Results 07/26/22 Range/Units 10:29 SARS-CoV-2 (PCR) Negative SARS-CoV-2 (Negative) Influenza Type A (PCR) Negative PCR FLU A (Negative) Influenza Type B (PCR) Negative PCR FLU B (Negative) RSV (PCR) Negative PCR RSV (Negative) Critical Care Time Critical Care Time Critical Care Time: No Discharge Plan Discharge Clinical Impression: Acute exacerbation of chronic obstructive pulmonary disease (COPD) Condition: Stable Instructions: COPD (Chronic Obstructive Pulmonary Disease) (ED) Additional Instructions: Need to follow-up with your primary care provider as soon as possible. You really need to be considered for further pulmonary function tests and treatment with inhalers to help stabilize COPD. It is very likely that acute virus has precipitated this. We will treat you with a Z-Tommy and prednisone. It is highly recommended that you try to stop smoking as this can help improve your lung function. If you have further difficulty breathing, feel you are worsening, develops fever/worsening cough or increased difficulty breathing, do need to seek re-evaluation. Activity Level: Activity as Tolerated Prescriptions: New azithromycin 250 mg tablet See Rx Instructions .ROUTE .COMPLEX Qty: 6 0RF Taper: Z-TOMMY 500 mg Q24H for 1 Day and 0 Hour 250 mg Q24H for 4 Days and 0 Hour Rx Instructions: For 250 mg dose pack: take 500 mg today (day 1), then 250 mg for 4 days (days 2-5) prednisone 20 mg tablet 20 mg PO BID Qty: 10 0RF No Action lisinopril-hydrochlorothiazide 20-25 mg tablet 1 tab PO DAILY metoprolol succinate 50 mg tablet extended release 24 hr 50 mg PO DAILY paroxetine HCl 20 mg tablet 20 mg PO DAILY rosuvastatin 20 mg tablet 20 mg PO DAILY amlodipine [Norvasc] 5 mg tablet 5 mg PO DAILY prednisone 20 mg tablet 40 mg PO DAILY Qty: 10 0RF cyclobenzaprine 10 mg tablet 5 - 10 mg PO HS PRN (Reason: muscle spasm) Qty: 10 0RF Follow Up/Referrals: Kasey Roman MD [Primary Care Provider] - Stand Alone Forms: [employer] Info Instructions
[2022-07-26 11:13] LABS: SARS PCR* Negative SARS-CoV-2 (Negative)
== END 2022-07-26 11:46 | disposition home or self-care (01) ==
PROVIDERS: Emergency Medicine Emergency Medical Services; Emergency Provider Family Medicine; PCP Family Medicine
DX: J44.1 Chronic obstructive pulmonary disease with (acute) exacerbation (principal); F17.210 Nicotine dependence, cigarettes, uncomplicated
CPT/HCPCS: 87502; 87634; 87635; 99283

== ENCOUNTER 2022-11-26 14:42 | Emergency (ER) | payer BC, SELFPAY ==
[2022-11-26] VITALS (7 sets, daily range): BP systolic 147–159; BP diastolic 80–113; PULSE 58–82; RESP 16–18; TEMP 36.7; O2SAT 91–98; BMI 26.6
--- NOTE | 2022-11-26 14:53 | ED.ARRPALP ---
HPI - Arrhythmia/Palpitations General Time Seen by Provider: 14:53 Date Seen: 11/26/22 Chief Complaint: Arrhythmia/Palpitations Stated Complaint: Arrhythmia is getting worse Time Seen by Provider: 11/26/22 14:53 Source: patient and RN notes reviewed Mode of arrival: ambulatory Limitations: no limitations History of Present Illness HPI narrative: Kristi is a very pleasant 62-year-old female with history of paroxysmal SVT, COPD, hypertension and Sjogren's who comes to the emergency room with a fast beating heart and some slight shortness of breath. Patient notes that she has been experiencing accelerated heart rate that usually is on and off but today was not quitting. She states that a couple of years ago this happened and she has had other similar instances. Today she also notes that she was slightly short of breath with any activity especially going up stairs. Again she describes this is very slight and states that she was ?not have finger puffing?. She had some chills this morning but otherwise has been well with no evidence of a fever. She denies chest pain. She was actually seen 48 hours ago by her primary Dr. Roman for PVCs and at that time was started on amlodipine. Ironically she was supposed to have been taking it but did know that and just started at 10 mg. She states her blood pressure was 147 systolic this morning. She notes that she had a friend come to the hospital for pneumonia last week and ended up having a cardiac arrest in dying and thus she states she was very worried and came in. She has not had a history of a heart attack in the past. She notes no blood clots but did return from [place] 2 weeks ago and since that time she has had swelling of both of her ankles. She denies any calf pain. Her dad had a history of a DVT. Related Data Home Medications Medication Instructions Recorded Confirmed amlodipine 5 mg tablet (Norvasc) 5 mg PO DAILY 06/29/22 07/01/22 lisinopril 20 1 tab PO DAILY 06/29/22 07/01/22 mg-hydrochlorothiazide 25 mg tablet metoprolol succinate 50 mg 50 mg PO DAILY 06/29/22 07/01/22 tablet,extended release 24 hr paroxetine HCl 20 mg tablet 20 mg PO DAILY 06/29/22 07/01/22 rosuvastatin 20 mg tablet 20 mg PO DAILY 06/29/22 07/01/22 Previous Rx's Medication Instructions Recorded cyclobenzaprine 10 mg tablet 5 - 10 mg PO HS PRN muscle spasm 06/13/22 #10 tabs prednisone 20 mg tablet 40 mg PO DAILY #10 tabs 06/13/22 azithromycin 250 mg tablet See Rx Instructions .Route 07/26/22 .COMPLEX #6 tabs prednisone 20 mg tablet 20 mg PO BID #10 tabs 07/26/22 furosemide 20 mg tablet (Lasix) 20 mg PO DAILY #7 tabs 11/26/22 potassium chloride 20 mEq oral 20 meq PO DAILY #7 ea 11/26/22 packet Allergies Allergy/AdvReac Type Severity Reaction Status Date / Time latex Allergy Redness of Verified 11/26/22 14:53 Skin Penicillins Allergy Rash Verified 11/26/22 14:53 erythromycin base AdvReac Nausea Verified 11/26/22 14:53 Review of Systems Status of ROS: Reports: 10 or more systems reviewed and unremarkable except as noted in History and below Const: Denies: fever or chills Eyes: Denies: blurry vision ENMT: Denies: throat pain, neck pain, throat swelling or difficulty swallowing Cardio: Reports: palpitations, swelling of feet/ankles and shortness of breath with exertion; Denies: chest pain or lightheadedness Resp: Reports: shortness of breath; Denies: cough GI: Denies: abdominal pain, nausea, vomiting or difficulty swallowing : Denies: painful urination or urinary frequency Musculo: Denies: back pain or neck pain Neuro: Denies: headache or numbness in extremities Allergy/Immuno: Denies: throat swelling PFSH PFSH Medical History Allergic rhinitis due to allergen Anxiety Asthma Chronic shoulder pain Endometriosis Esophageal reflux Hypersomnia Hypertension Left leg weakness Osteoarthritis PSVT (paroxysmal supraventricular tachycardia) Sjogren's syndrome Tobacco use disorder Surgical History H/O Spinal surgery History of hysteroscopy History of right salpingo-oophorectomy Status post total hip replacement, left Status post total hip replacement, right Social History Smoking Status: Current every day smoker What tobacco products do you use: cigarettes Smoking packs per day: 1 Smoking cigarettes per day: 20.0 Do you use any of these nicotine containing products: None Second hand tobacco smoke exposure: No How often do you have a drink containing alcohol: 4 or more times a week Alcohol type: wine How many standard drinks containing alcohol do you have on a typical day: 1 or 2 How often do you have six or more drinks on one occasion: Never AUDIT-C Alcohol total score: 4 Non-prescribed substance use: denies use Caffeine: Yes Are you using contraception or practicing any form of control: No service: No Exam Narrative: Exam Narrative: Patient is very pleasant female in no acute distress. Head is atraumatic normocephalic. EOM is full. Oral cavity moist mucous membranes. Face symmetrical. Heart with regular rate and rhythm with occasional additional systole with compensatory pause. On the monitor IC frequent PVCs occasional bigeminy. Lungs are clear to auscultation. Abdomen soft nontender. The ankle show 1+ edema. No calf tenderness and negative Homans sign. Const: Vital Signs, click to edit/add: Vital Signs - 24 hr 11/26/22 14:49 11/26/22 16:23 11/26/22 16:30 Temperature 98.1 F Pulse Rate 79 69 Pulse Rate [Pulse Oximeter] 70 Respiratory Rate 18 Blood Pressure Blood Pressure [Ri ght Upper Arm] 147/113 H Pulse Oximetry 98 96 97 Oxygen Delivery Me thod Room Air 11/26/22 17:00 11/26/22 17:16 11/26/22 17:30 Temperature Pulse Rate 66 82 77 Pulse Rate [Pulse Oximeter] Respiratory Rate Blood Pressure 159/80 H Blood Pressure [Ri ght Upper Arm] Pulse Oximetry 97 91 97 Oxygen Delivery Me thod 11/26/22 18:14 Temperature Pulse Rate Pulse Rate [Pulse Oximeter] 58 L Respiratory Rate 16 Blood Pressure Blood Pressure [Ri ght Upper Arm] 150/95 H Pulse Oximetry 96 Oxygen Delivery Me thod Room Air Documenting provider has reviewed patient's vital signs: yes Course Course Hospital Course: At this time patient has EKG that shows frequent PVCs and at times bigeminy. She is otherwise stable at this time. Will place an IV, give 250 mL normal saline and placed patient on director of cardiac rehabilitation. Patient has recently been on a plane ride and has lower extremity edema and thus will be adding ultrasound to rule out any evidence of DVT, proBNP to see if she is in a fluid overload state as well as a chest x-ray. Will also check CBC, comprehensive panel, magnesium, troponin to rule out any underlying electrolyte abnormalities, magnesium deficiencies or underlying acute coronary event that may be contributing to patient's visit here today. She did take an aspirin this morning. Will continue to monitor. Reevaluation(s) Reevaluation #1: Ultrasound negative for DVT. ProBNP is elevated but there is no signs of heart failure on chest x-ray. Magnesium relatively low at 1.7. Will replace with 2 g IV. White count low at 2.88 with previous values normal x2. Will check for COVID. Although patient really has no symptoms at this time. Reevaluation #2: PVCs are moderately to greatly improved. Patient states she is also feeling much better. Vital Signs Vital signs: Initial Vital Signs Temperature 98.1 F 11/26/22 14:49 Temperature Source Temporal Artery Scan 11/26/22 14:49 Pulse Rate 70 11/26/22 14:49 Pulse Rhythm 11/26/22 14:49 Pulse Strength 3+ Normal 11/26/22 14:49 Respiratory Rate 18 11/26/22 14:49 Blood Pressure 147/113 H 11/26/22 14:49 Blood Pressure Mean 124 11/26/22 14:49 Blood Pressure Position Supine 11/26/22 14:49 Pulse Oximetry 98 11/26/22 14:49 Oxygen Delivery Method 11/26/22 14:49 Vital Signs Temperature 98.1 F 11/26/22 14:49 Pulse Rate 70 11/26/22 14:49 Respiratory Rate 18 11/26/22 14:49 Blood Pressure 147/113 H 11/26/22 14:49 Pulse Oximetry 98 11/26/22 14:49 Oxygen Delivery Method 11/26/22 14:49 Temperature 98.1 F 11/26/22 14:49 Pulse Rate 58 L 11/26/22 18:14 Respiratory Rate 16 11/26/22 18:14 Blood Pressure 150/95 H 11/26/22 18:14 Pulse Oximetry 96 11/26/22 18:14 Oxygen Delivery Method 11/26/22 18:14 MDM - Arrhythmia/Palpitations MDM Narrative Medical decision making narrative: 1. Frequent PVC-this is improved. Id EKG has no signs of underlying acute coronary syndrome. Troponin is negative x2. Reassurance at this time. PVC still occasional but certainly not compared to patient's initial arrival. 2 g IV magnesium given. 2. Lower extremity edema -patient did not notes that she has been using Advil p.m. for an extended period but the swelling in her ankles is really only been present for the past 2 weeks since she return from her trip to [place]. Ultrasound negative for DVT. Certainly no signs of or evidence of PE given normal O2 sats and pulse. Really does not show any evidence of congestive heart failure with a reassuring chest x-ray. Will try Lasix 20 mg daily for 7 days to see if this may help. Amlodipine has only been given since earlier this week and the swelling proceeded that medication. Recommend following up with echocardiogram which is already scheduled. Because patient has low normal potassium will give her 20 mEq daily while she is on the Lasix. Both medications sent to her pharmacy. 3. Tobacco user-advised to discontinue 4. Leukopenia-COVID pending. Patient does not want to wait for the result. No symptoms at this time. 5. Disposition -home. Patient very anxious to go. Happy that she has no signs of a heart attack. Medical Records Attestation: I reviewed the patient's medical records. Lab Data Attestation: I reviewed the patient's lab results. Labs: Lab Results 11/26/22 11/26/22 11/26/22 Range/Units 15:05 15:43 15:43 WBC 2.88 L (4.50-11.00) K/uL RBC 4.07 (4.00-5.20) m/uL Hgb 13.1 (12.0-16.0) gm/dL Hct 39.4 (33.0-51.0) % MCV 97 (80-100) fL MCH 32 (26-34) pg MCHC 33 (32-36) gm/dL RDW Coeff of Puneet 12.7 (11.5-15.5) % Plt Count 135 L (140-440) K/uL Neut % (Auto) 55.2 (42.0-72.0) % Lymph % (Auto) 30.6 (20-44) % [place] % (Auto) 11.5 H (0.0-11.0) % Eos % (Auto) 2.4 (0.0-7.0) % Baso % (Auto) 0.3 (0.0-3.0) % Neut # (Auto) 1.60 L (1.7-7.0) K/uL Lymph # (Auto) 0.90 (0.90-2.90) K/uL [place] # (Auto) 0.30 (0.00-0.90) K/UL Eos # (Auto) 0.10 (0.00-0.50) K/uL Baso # (Auto) 0.00 (0.00-0.30) K/uL Sodium 134 L (135-149) mmol/L Potassium 3.5 L (3.6-5.1) mmol/L Chloride 99 (96-114) mmol/L Carbon Dioxide 31 (20-32) mmol/L BUN 13 (7-30) mg/dL Creatinine 0.5 (0.5-1.5) mg/dL Estimated Creat Clear 44.95 Estimated GFR 105 ml/min Glucose 91 (60-115) mg/dL Calcium 9.2 (8.4-10.6) mg/dL Magnesium 1.7 (1.5-2.6) mg/dL Total Bilirubin 0.5 (0.1-1.5) mg/dL AST 46 H (12-35) U/L ALT 29 (4-35) U/L Alkaline Phosphatase 96 (40-150) U/L Troponin I (0.01-0.04) ng/mL C-Reactive Protein < 0.5 L (0.5-1.0) mg/dL NT-Pro-B Natriuret Pep 1570 pg/mL Total Protein 7.9 (6.0-8.3) g/dL Albumin 4.3 (3.3-5.0) g/dL POC Troponin I 0.01 (0.01-0.04) ng/ml 11/26/22 Range/Units 16:30 WBC (4.50-11.00) K/uL RBC (4.00-5.20) m/uL Hgb (12.0-16.0) gm/dL Hct (33.0-51.0) % MCV (80-100) fL MCH (26-34) pg MCHC (32-36) gm/dL RDW Coeff of Puneet (11.5-15.5) % Plt Count (140-440) K/uL Neut % (Auto) (42.0-72.0) % Lymph % (Auto) (20-44) % [place] % (Auto) (0.0-11.0) % Eos % (Auto) (0.0-7.0) % Baso % (Auto) (0.0-3.0) % Neut # (Auto) (1.7-7.0) K/uL Lymph # (Auto) (0.90-2.90) K/uL [place] # (Auto) (0.00-0.90) K/UL Eos # (Auto) (0.00-0.50) K/uL Baso # (Auto) (0.00-0.30) K/uL Sodium (135-149) mmol/L Potassium (3.6-5.1) mmol/L Chloride (96-114) mmol/L Carbon Dioxide (20-32) mmol/L BUN (7-30) mg/dL Creatinine (0.5-1.5) mg/dL Estimated Creat Clear Estimated GFR ml/min Glucose (60-115) mg/dL Calcium (8.4-10.6) mg/dL Magnesium (1.5-2.6) mg/dL Total Bilirubin (0.1-1.5) mg/dL AST (12-35) U/L ALT (4-35) U/L Alkaline Phosphatase (40-150) U/L Troponin I < 0.01 L (0.01-0.04) ng/mL C-Reactive Protein (0.5-1.0) mg/dL NT-Pro-B Natriuret Pep pg/mL Total Protein (6.0-8.3) g/dL Albumin (3.3-5.0) g/dL POC Troponin I (0.01-0.04) ng/ml Imaging Data Chest x-ray: Attestation: I have reviewed the pertinent imaging results. My impression: Question mild cardiomegaly Radiologist's impression: No acute findings Venous US: Attestation: I have reviewed the pertinent imaging results. Radiologist's impression: Sonographic imaging demonstrates the common femoral, deep femoral, superficial femoral, popliteal, posterior tibial and greater saphenous veins to be fully compressible with normal color Doppler blood flow in both lower extremities.? Limited evaluation of the calf veins due to edema. IMPRESSION: Normal bilateral lower extremity venous ultrasound, no sign of deep venous thrombosis. Limited evaluation of the calf veins due to edema. ECG Data Attestation: I personally reviewed and interpreted this ECG as follows: ECG interpretation date: 11/26/22 Interpretation: EKG 1. By my read shows sinus rhythm at a rate of 74. Patient has frequent PVCs at times it bigeminy configuration. No evidence of acute coronary event per EKG 2. By my read shows sinus rhythm with frequent PVC but much improved compared to EKG 1.. No acute ST or T-wave changes. Discharge Plan Discharge Clinical Impression: Palpitations, Leukopenia, Fluid retention Patient Disposition: Home, Self-Care Condition: Improved Instructions: Heart Palpitations (ED) Additional Instructions: You should note improvement in the number of extra heartbeats or palpitations you have been feeling. Start the diuretic called Lasix tomorrow morning. Hopefully this will help get rid of excess fluid. Because Lasix can drop potassium I will have you on a low dose of potassium while taking this medication for a week. Please keep your appointment for your echocardiogram or ultrasound of your heart. I would talk to your doctor about moving that up if you choose to do so. Today you had no evidence of heart attack, blood clot, or pneumonia. If you are feeling worse or new symptoms happen please return to the emergency room for further evaluation. Prescriptions: New furosemide [Lasix] 20 mg tablet 20 mg PO DAILY Qty: 7 0RF potassium chloride 20 mEq packet 20 meq PO DAILY Qty: 7 0RF No Action lisinopril-hydrochlorothiazide 20-25 mg tablet 1 tab PO DAILY metoprolol succinate 50 mg tablet extended release 24 hr 50 mg PO DAILY paroxetine HCl 20 mg tablet 20 mg PO DAILY rosuvastatin 20 mg tablet 20 mg PO DAILY amlodipine [Norvasc] 5 mg tablet 5 mg PO DAILY prednisone 20 mg tablet 40 mg PO DAILY Qty: 10 0RF cyclobenzaprine 10 mg tablet 5 - 10 mg PO HS PRN (Reason: muscle spasm) Qty: 10 0RF azithromycin 250 mg tablet See Rx Instructions .ROUTE .COMPLEX Qty: 6 0RF Taper: Z-NURIS 500 mg Q24H for 1 Day and 0 Hour 250 mg Q24H for 4 Days and 0 Hour Rx Instructions: For 250 mg dose pack: take 500 mg today (day 1), then 250 mg for 4 days (days 2-5) prednisone 20 mg tablet 20 mg PO BID Qty: 10 0RF Follow Up/Referrals: Kasey Roman MD [Primary Care Provider] - Stand Alone Forms: [employer] Info Instructions
--- NOTE | 2022-11-26 15:05 | CRLHL7_ITS ---
For Patients: As a result of the Century Cures Act, medical imaging exams and procedure reports are released immediately into your electronic medical record. You may view this report before your referring provider. If you have questions, please contact your health care provider. INDICATION: Arrhythmia TECHNIQUE: Chest 1 view. COMPARISON: 03/18/2019 FINDINGS: Cardiovascular and mediastinum: Cardiomegaly. Mediastinum is within normal limits. Lungs and pleural space: Lungs are clear. No sign of infiltrate or mass. No sign of pleural effusion. No pneumothorax. Bones and soft tissues: No significant findings. IMPRESSION: No acute findings. Dictated by Arnaldo Bello MD @ 11/26/2022 3:24:58 PM Dictated by: Arnaldo Bello MD @ 11/26/2022 15:27:23 (Electronically Signed)
--- NOTE | 2022-11-26 15:11 | CRLHL7_ITS ---
For Patients: As a result of the Century Cures Act, medical imaging exams and procedure reports are released immediately into your electronic medical record. You may view this report before your referring provider. If you have questions, please contact your health care provider. INDICATION: L swelling, status post air travel TECHNIQUE: : Ultrasound venous duplex lower extremity bilateral. Compression venous exam was performed using edouard scale, color Doppler, and spectral Doppler imaging. COMPARISON: None FINDINGS: Sonographic imaging demonstrates the common femoral, deep femoral, superficial femoral, popliteal, posterior tibial and greater saphenous veins to be fully compressible with normal color Doppler blood flow in both lower extremities. Limited evaluation of the calf veins due to edema. IMPRESSION: Normal bilateral lower extremity venous ultrasound, no sign of deep venous thrombosis. Limited evaluation of the calf veins due to edema. Dictated by Arnaldo Bello MD @ 11/26/2022 4:38:22 PM Dictated by: Arnaldo Bello MD @ 11/26/2022 16:38:29 (Electronically Signed)
[2022-11-26] MEDS: 0.9 % SODIUM CHLORIDE 250 ml 250 ML IV (15:18)
[2022-11-26 16:11] LABS: Albumin* 4.3 g/dL (3.3-5.0); Chloride* 99 mmol/L (96-114); Potassium* 3.5 mmol/L (3.6-5.1); Sodium* 134 mmol/L (135-149)
[2022-11-26 16:13] LABS: Bilirubin Total* 0.5 mg/dL (0.1-1.5); Creatinine* 0.5 mg/dL (0.5-1.5); Est. Creatinine Clearance* 44.95; Estimated Glomerular Filt Rate 105 ml/min
[2022-11-26 16:14] LABS: Alanine Aminotransferase* 29 U/L (4-35); Alkaline Phosphatase* 96 U/L (40-150); Aspartate Amino Transferase* 46 U/L (12-35); Blood Urea Nitrogen* 13 mg/dL (7-30); Carbon Dioxide* 31 mmol/L (20-32); Glucose* 91 mg/dL (60-115); Total Protein* 7.9 g/dL (6.0-8.3)
[2022-11-26 16:15] LABS: Calcium* 9.2 mg/dL (8.4-10.6); Magnesium* 1.7 mg/dL (1.5-2.6)
[2022-11-26 16:17] LABS: C Reactive Protein* < 0.5 mg/dL (0.5-1.0)
[2022-11-26 16:21] LABS: Troponin, Point-of-Care* 0.01 ng/ml (0.01-0.04)
[2022-11-26 16:25] LABS: NT Pro B Type NatriureticPept* 1570 pg/mL
[2022-11-26 16:39] LABS: Basophils Percent Auto 0.3 % (0.0-3.0); Eosinophils Percent Auto 2.4 % (0.0-7.0); Hematocrit 39.4 % (33.0-51.0); Hemoglobin* 13.1 gm/dL (12.0-16.0); Lymphocytes Percent Auto 30.6 % (20-44); Mean Corpuscular HGB Conc 33 gm/dL (32-36); Mean Corpuscular Hemoglobin 32 pg (26-34); Mean Corpuscular Volume 97 fL (80-100); Monocytes Percent Auto 11.5 % (0.0-11.0); Neutrophils Percent Auto 55.2 % (42.0-72.0); Platelet Count* 135 K/uL (140-440); RDW Coefficient of Variation % 12.7 % (11.5-15.5); Red Blood Count 4.07 m/uL (4.00-5.20); White Blood Count* 2.88 K/uL (4.50-11.00)
[2022-11-26 16:40] LABS: Slide Review Reflex No
[2022-11-26] MEDS: MAGNESIUM IV 2 GM/50 ML PIGGYBACK IVPB (16:50)
[2022-11-26 17:58] LABS: Troponin I* < 0.01 ng/mL (0.01-0.04)
[2022-11-26 19:02] LABS: PCR FLU A Negative PCR FLU A (Negative); PCR FLU B Negative PCR FLU B (Negative)
[2022-11-26 19:04] LABS: SARS PCR* Negative SARS-CoV-2 (Negative)
== END 2022-11-26 18:31 | disposition home or self-care (01) ==
PROVIDERS: Emergency Provider Family Medicine; PCP Family Medicine
DX: R00.2 Palpitations (principal); R60.9 Edema, unspecified; D72.819 Decreased white blood cell count, unspecified; F17.200 Nicotine dependence, unspecified, uncomplicated
CPT/HCPCS: 36415; 71045; 80053; 83735; 83880; 84484; 85025; 86140; 87631; 93005; 93970; 96365; 99284; 99285; J3475; J7050

== ENCOUNTER 2024-04-20 15:06 | Outpatient (CLI) | payer MEDICARE, SELFPAY ==
--- OUTSIDE RECORDS SUMMARY | 2024-04-21 06:40 | XMS_ITS | Continuity of Care Document ---
Author Organization [facility] Address [address] [place] [address] Phone Care Team Providers Care Director Of Automation Name Role Phone Cindy Barnes Unavailable Unavailable Allergies, Adverse Reactions, Alerts Substance Reaction Status Criticality PENICILLIN rash Active No Information Medications Medication Instructions Dosage Effective Dates (start - stop) Status Comments LISINOPRIL (unknown strength) Not Available - Active PREDNISONE INTENSOL (unknown strength) Not Available - Active PAXIL (unknown strength) Not Available - Active Procedures Procedure Date Office/Outpatient Visit,[facility] 2017 Results Test Name Date and Time Measure Units Reference Range Abnormal Flag Status Comments Panel Description: Lumbosacral Min. 4 Views Unk nown [id number] 20:27:55 (See Attached Document) Unknown (See Attached Document) Panel Description: Lumbosacral Min. 4 Views Unk nown Image Lumbosacral Min. 4 Views Advance Directives Directive Yes / No Effective Date File Name No Information Encounters Encounter Description Practice Location Reason(s) For Visit Diagnoses Date Provider Providers Copied on Encounter Office/Outpat ient Visit,New, [facility], [address], [place], [place], [id number], [place] tel:[phone] [facility], unspecified 8 Daxa White. [facility], [address], [place], [address], [place]. tel:[phone] Referring Provider: Richard Morgan, [place] [address], [address] . tel:[phone] [facility], [address], [place], [place], [id number], [place] tel:[phone] [facility] Radiculopathy, lumbar region 8 Keith Marin. [facility], [address], [place], [address], [place]. tel:[phone] Family History Family Member Type Diagnosis Age At Onset No Information Payers Payer name Insurance type Covered democrat ID Authoriza tion(s) No Information Social History Type Description Quantity Date Captured Comments Alcohol Use Details Unknown Caffeine Use Details Unknown Tobacco Use Status Smoking Status Current every day smoker Non-Smoking Tobacco Use Details : No Details Available : No Details Available Sex Female Vital Signs Date / Time: Height Weight BMI Pulse Rate Blood Pressure Temperature Respiratory Rate Body Surface Area Head Circumference Head Circ. Percentile Wt./Ankit. Percentile BMI percentile Pulse Ox Inhaled Ox 3:40 PM 62.00 in 66.769 kg (147.20 lbs) 26.9 2 kg/m eter (2) 90 /min 117/74 mm[Hg] Chief Complaint And Reason For Visit No Information Reason For Referral Reason For Referral No Information Plan Of Treatment Date Type Action Status Future Order: Radiology Order AP /Lat/Flex/Ext Lumb (APLatFlExL), Ordered on: Ordered History Of Present Illness Encounter Date Complaint History Of Prese nt Illness No Information Functional Status Date Functional Assessmen t No Information Instructions Date Instruction Additional Infor mation No Information Assessments Type Assessment Date assessment Osteoarthritis of hip, unspecifi ed Patient Care Teams Name Effective Dates (start - stop) Status Members No Information
--- OUTSIDE RECORDS SUMMARY | 2024-04-21 06:40 | XMS_ITS | Clinical Summary ---
Author Organization [facility] Address [address] [address] Care Team Providers Care Clinical Documentation Developer Name Role Phone Richard Morgan MD Primary Care Provider [phone] Source Comments You are receiving this document as you are listed as the primary care provider,follow-up provider, or the patient has been referred to you for consultation.This is in compliance with the Medicare and[facility] EHR Incentive Program,which states Providers who transition their patient to another setting of careor provider of care or refers their patient to another provider of care shouldprovide summary care record for each transition of care or referral. [facility] Allerg[facility] Active Allergy Reactions Criticality Noted Date Comments Erythromycin Nausea And Vomiting 05/04/2017 Latex Other, see comments Low 03/01/2018 Swelling and redness fingers or wherever latex touches skin Penicillins Hives,Rash High 12/26/2007 Medications Medication Sig Dispensed Refills Start Date End Date Status PARoxetine (PAXIL) 20 MG tablet Take 20 mg by mouth daily. Active lisinopril-hydrochl orothiazide (PRINZIDE;ZESTORETI C) 20-25 MG tabletIndications:H ypertension Take 1 Tab by mouth daily. Indications: High Blood Pressure Disorder Active VITAMIN B COMPLEX-C ORIndications:Suppl ement Take 1 Cap by mouth daily. Indications: Supplement Active cholecalciferol (VITAMIN D3) 1000 units tabletIndications:s upplement Take 1,000 Units by mouth daily. Indications: supplement Active Pediatric Pkomhwqw-Wrtycqoo-L (GUMMI BEAR MULTIVITAMIN/MIN) Take 1 Each by mouth daily. 1 multivitamin gummy daily Active aspirin EC 81 MG enteric coated tablet aspirin 81 mg tablet,delayed release Active metoprolol succinate (TOPROL XL) 50 MG 24 hour release tablet Take 50 mg by mouth daily. 12/30/2021 Active rosuvastatin (CRESTOR) 20 MG tablet Take 20 mg by mouth daily at bedtime. 11/04/2021 Active predniSONE (DELTASONE) 20 MG tablet prednisone 20 mg tablet Active Active Problems Problem Noted Date Diagnosed Date Primary osteoarthritis of right hip 12/16/2020 History of total left hip replacement 03/10/2018 Overview: 03/10/18 History of spinal surgery 03/01/2018 Overview: For scoliosis, with rods (1978 & 1986 @ [facility]) Tobacco abuse 03/01/2018 Sjogren's syndrome 03/01/2018 HTN (hypertension) 02/05/2017 Esophageal reflux 12/26/2007 Resolved Problems Problem Noted Date Diagnosed Date Resolved Date Primary osteoarthritis of left hip 02/22/2018 04/19/2018 Social History Tobacco Use Types Packs/Day Years Used Date Smoking Tobacco: Every Day Smokeless Tobacco: Never Sex and Gender Information Value Date Recorded Sex Assigned at Not on file Gender Identity Not on file Sexual Orientation Not on file Last Filed Vital Signs Vital Sign Reading Time Taken Comments Blood Pressure 113/59 03/11/2018 7:40 AM CDT Pulse 69 03/11/2018 7:40 AM CDT Temperature 36.7 ??C (98 ??F) 03/11/2018 7:40 AM CDT Respiratory Rate 18 03/11/2018 7:40 AM CDT Oxygen Saturation 100% 03/11/2018 7:40 AM CDT Inhaled Oxygen Concentration - - Weight 65.5 kg (144 lb 8.2 oz) 03/18/2022 4:12 P M CDT Height 158.8 cm (5' 2.5) 03/18/2022 4:12 PM CDT Body Mass Index 26.01 03/18/2022 4:12 PM CDT Plan of Treatment Health Maintenance Due Date Last Done Comments Cervical Cancer Screening Due 1960 Colon Cancer Screening Plan Due 1960 Hep C Screening (Preventive Services) 1960 Mammogram 1960 Adult Preventive Visit 1976 Cholesterol 2003 Pneumococcal 65+ Yrs (2 - PCV) 06/27/2005 06/27/2004 Zoster/Shingles (2 of 2) 09/05/2019 07/11/2019 COVID-19 Vaccine (4 - season) 2023 07/31/2021, 11/23/2020, 11/02/2020 Influenza (#1) 2024 08/08/2021, 06/22, 07/11/2019, Additional history exists DTaP/Tdap/Td (3 - Tdap) 09/09/2031 09/09/20, 08/19/2011, 08/22/2002 HepA Aged Out No longer eligi ble based on patient's age to complete this topic HepB Aged Out No longer eligi ble based on patient's age to complete this topic Hib Aged Out No longer eligi ble based on patient's age to complete this topic IPV (Polio) Aged Out No longer eligi ble based on patient's age to complete this topic MCV4 Aged Out No longer eligi ble based on patient's age to complete this topic Medical Devices Implanted Type Area Counterperson Device Identifier Shelf Expiration Date Model / Serial / Lot Cover Hole Thrd Reflection - [id number] Implanted:Qty: 1 on 03/10/2018 by Tammie Nowak MD at [facility] DEVICE Left: HIP S 01/17/2028 [id number] / / [id number] Shell Acet R3 Std 54mm 3h - [id number] Implanted:Qty: 1 on 03/10/2018 by Tammie Nowak MD at [facility] DEVICE Left: HIP S 01/15/2028 [id number] / / [id number] Scr Hd Spherical R3 6.5x25 - [id number] Implanted:Qty: 1 on 03/10/2018 by Tammie Nowak MD at [facility] DEVICE Left: HIP S 11/01/2027 [id number] / / [id number] Scr Hd Spherical R3 6.5x30 - [id number] Implanted:Qty: 1 on 03/10/2018 by Tammie Nowak MD at [facility] DEVICE Left: HIP S 11/19/2027 [id number] / / [id number] Liner Acet R3 Xlpe 0deg 36x54 - [id number] Implanted:Qty: 1 on 03/10/2018 by Tammie Nowak MD at [facility] DEVICE Left: HIP S 01/01/2028 [id number] / / [id number] Comp Fem Std Ofst Sz14 160mm - [id number] Implanted:Qty: 1 on 03/10/2018 by Tammie Nowak MD at [facility] DEVICE Left: HIP S 11/30/2027 [id number] / / [id number] Hd Fem Oxinium 09/02 36mm +0 - [id number] Implanted:Qty: 1 on 03/10/2018 by Tammie Nowak MD at [facility] DEVICE Left: HIP S 01/15/2028 [id number] / / [id number] Advance Directives * Full Code (Latest Code Status on File) Date Activated Date Inactivated Comments 03/10/2018 12:02 PM 03/11/2018 4:41 PM Care Teams Clinical Documentation Developer Relationship Specialty Start Date End Date Richard Morgan MD [facility] [place] [address] PCP - General Family Practice 03/01/18
--- OUTSIDE RECORDS SUMMARY | 2024-04-21 06:41 | XMS_ITS | Clinical Summary ---
Author Organization [facility] Address [place], [place] [address] Care Team Providers Care Senior Gis Analyst Name Role Phone Rian Marmolejo MD Unavailable [phone] Kasey Roman MD Primary Care Provider Amber Santana RN Unavailable Allergies Active Allergy Reactions Criticality Noted Date Comments Erythromycin Nausea And Vomiting 05/04/2017 Latex Other - Describe In Comment Field Low 03/01/2018 Swelling and redness fingers or wherever latex touches skin Other reaction(s): Redness of Skin Penicillins Rash 12/26/2007 Medications Medication Sig Dispensed Refills Start Date End Date Status aspirin (ECOTRIN) 81 mg enteric coated tablet Take 1 Tablet (81 mg) by mouth once daily with a meal. 0 3 Suspended cyclobenzaprine (FLEXERIL) 5 mg tabletIndications:N andrew muscle spasm Take 1 Tablet (5 mg) by mouth at bedtime if needed for Muscle Spasm. 15 Tablet 4 Suspended Additional Information metoprolol succinate (TOPROL XL) 50 mg sustained-release tabletIndications:F requent PVCs Take 1 Tablet (50 mg) by mouth once daily. 90 Tablet 3 4 Suspended Additional Information PARoxetine (PAXIL) 30 mg tabletIndications:A nxiety state Take 1 Tablet (30 mg) by mouth once daily. 90 Tablet 3 4 Suspended Additional Information lisinopril-hydrochl orothiazide, 20-25 mg, (PRINZIDE, ZESTORETIC) 20-25 mg per tabletIndications:E ssential hypertension Take 1 Tablet by mouth once daily. 90 Tablet 3 4 Suspended Additional Information amLODIPine (NORVASC) 10 mg tabletIndications:H ypertension, unspecified type Take 1 Tablet (10 mg) by mouth once daily. 90 Tablet 3 4 024 Discontinued (Patient refused) albuterol 0.083% (2.5 mg/3 mL) neb solutionIndications :Wheezing Inhale 3 mL (2.5 mg) via a nebulizer every 4 hours if needed for Cough. 180 mL 4 Suspended Additional Information albuterol HFA (ProAir HFA) 90 mcg/actuation inhalerIndications: Wheezing Inhale 2 Puffs by mouth every 4 hours if needed for Shortness Of Breath. Wait until they call for this. 2 Each 3 4 Discontinued (Medication therapy change per hospital protocol (E-cancel not sent)) rosuvastatin (CRESTOR) 20 mg tabletIndications:C oronary artery disease involving [place] coronary artery, unspecified whether angina present, unspecified whether [place] or transplanted heart Take 1 Tablet (20 mg) by mouth at bedtime. 90 Tablet 3 4 Discontinued (Medication therapy change per hospital protocol (E-cancel not sent)) acetaminophen (TYLENOL EXTRA STRGTH) 500 mg tabletIndications:M ediastinal lymphadenopathy Take 2 Tablets (1,000 mg) by mouth four times daily. Max acetaminophen dose: 4000mg in 24 hrs. 150 Tablet 4 024 Discontinued (*IP Discontinued ) ibuprofen (ADVIL; MOTRIN) 600 mg tabletIndications:p ain Take 1 Tablet (600 mg) by mouth four times daily with meals and at bedtime. Maximum of 3200 mg in 24 hours. 50 Tablet 4 024 Discontinued (*IP Discontinued ) oxyCODONE (ROXICODONE) 5 mg immediate release tabletIndications:M ediastinal lymphadenopathy Take 1-2 Tablets (5-10 mg) by mouth every 4 hours if needed for Pain. 20 Tablet 4 024 Discontinued (*IP Discontinued ) sennosides-docusate (SENOKOT S) (8.6-50 mg) tabletIndications:M ediastinal lymphadenopathy Take 1-4 Tablets by mouth 2 times daily if needed for Constipation. 25 Tablet 4 024 Discontinued (*IP Discontinued ) albuterol HFA (PRO-AIR; VENTOLIN; PROVENTIL) 90 mcg/actuation inhalerIndications: Wheezing Inhale 1-2 Puffs by mouth every 4 hours if needed for Shortness Of Breath or Wheezing. 2 Each 4 Suspended Additional Information rosuvastatin (Crestor) 20 mg tablet Take 20 mg by mouth at bedtime. Suspended Active Problems Problem Noted Date Diagnosed Date Pneumothorax after biopsy 04/20/2024 Mediastinal lymphadenopathy 04/07/2024 Overview: Robotic assisted left VATS, Mediastinal Mass/Lymph Node Resection performed by Dr. Luis Daniel Jean 04/07/2024 Neck muscle spasm 01/12/2024 Postmenopausal 01/12/2024 Bronchitis, chronic, simple 01/12/2024 Peripheral sensory neuropathy 01/12/2024 Coronary artery disease involving [place] coronar y artery 11/24/2022 Frequent PVCs 11/24/2022 PSVT (paroxysmal supraventricular tachycardia) 1 11/10/2020 Primary osteoarthritis of right hip 01/28/2021 Status post total replacement of left hip 2017 Overview: Overview: 03/10/18 Mild intermittent asthma wit hout complication triggered by URIs 03/04/2018 History of spinal surgery 03/01/2018 Overview: Overview: For scoliosis, with rods (1978 & 1986 @ [place]) Sjogren's syndrome 02/11/2018 Left leg weakness 02/03/2018 Chronic pain of both shoulders w AC and degen ar thritis 06/25/2017 HTN (hypertension) 02/05/2017 Hypersomnia, 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 Allergic rhinitis, cause unspecified 12/27/2007 Tobacco use disorder 12/27/2007 Anxiety state, unspecified 12/26/2007 Esophageal reflux 12/26/2007 Endometriosis, site unspecified 12/26/2007 Overview: 04/11/00 Resolved Problems Problem Noted Date Diagnosed Date Resolved Date Pap smear for cervical cancer screening 01/21/2023 01/27/2024 Overview: 12/2022 Unsatisfactory/HPV negative Plan: Repeat Pap/HPV due 12/2023 Sjogrens syndrome 10/31/2012 02/11/2018 Encounters Date Type Department Care Team Description 04/20/2024 4:22 PM CDT - Present Hospital Encounter [facility] [address] [place] [address] Chanel Vázquez MD Raiolo, Alyssa Ann Marie, PA [facility], Tierney Adams MD Pneumothorax of left lung after biopsy (Primary Dx) 04/20/2024 1:45 PM CDT Ancillary Procedure [facility] [address] [place] [address] Arrived 04/20/2024 12:45 PM CDT Office Visit [facility] [address] [place] [address] Kasey Roman MD Hospital F/U 04/20/2024 Travel 04/14/2024 Orders Only [facility] [address] [place] [address] Kasey Roman MD <No scans attached> 04/14/2024 Orders Only [facility] [address] [place] [address] Kasey Roman MD <No scans attached> 04/14/2024 Telephone [facility] [address] [place] [address] [facility] Referral 04/14/2024 Telephone [facility] [address], [place] [address] Luis Daniel Jean MD Questions (Questions regarding plan of care ) 04/13/2024 Telephone [facility] [address] [place] [address] Luis Daniel Jean MD Surgical Followup 04/12/2024 Telephone [facility] [address] [place] [address] Kasey Roman MD 04/11/2024 Telephone [facility] [address] [place] [address] Mildred Lilly, client specialist Followup 04/11/2024 Patient Outreach [facility] [address] [place] [address] Meghan Anderson, RN Primary RN Care Management; Hospital F/U (LACE 19) 04/10/2024 Orders Only [facility] [address] [place] [address] Kasey Roman MD 1 scan: (1-Ord) NFLLD-EKG-04/05/24 04/07/2024 7:50 AM CDT Anesthesia Event [facility] [address] [place] [address] Gentry Harrison MD Shea, Caroline Victoria, APPLICATION PERFORMANCE ENGINEER 04/07/2024 7:00 AM CDT - 04/07/2024 10:52 AM CDT Surgery [facility] [address] [place] [address] Luis Daniel Jean MD flexible bronchoscopy, left robotic assisted thoracoscopic surgery, Mediastinal Mass/Lymph Node Resection 04/07/2024 6:03 AM CDT - 04/10/2024 1:42 PM CDT Hospital Encounter [facility] [address] [place] [address] Luis Daniel Jean MD Mediastinal lymphadenopathy (Primary Dx); PVC's (premature ventricular contractions) Discharge Disposition: Home Self Care 04/07/2024 Travel 04/05/2024 2:25 PM CDT Office Visit [facility] [address] [place] [address] Kasey Roman MD Pre-Op Exam (04/07/2024, ANW, Dr Denys Jean) 04/05/2024 Travel 03/31/2024 Telephone [facility] [address] [place] [address] Matteo Ervin MD Referral 03/30/2024 4:00 PM CDT Office Visit [facility] [address] [place] [address] Gabriel Land MD Follow Up (Peripheral sensory neuropathy/) 03/30/2024 Travel 03/27/2024 Travel 02/10/2024 4:00 PM CDT Telemedicine [facility] [address] [place] [address] Luis Daniel Jean MD Follow Up 02/10/2024 Travel 02/09/2024 Telephone [facility] [address] [place] [address] Luis Daniel Jean MD Pre-visit call 02/07/2024 Telephone [facility] [address] [place] [address] [facility] Referral (Mediastinal mass/lymph node - discuss biopsy/excision) 02/07/2024 Telephone [facility] [address] [place] [address] Kasey Roman MD 02/03/2024 9:10 AM CDT - 02/03/2024 11:59 PM CDT Hospital Encounter [facility] [address] [place] [address] Kasey Roman MD Enlarged lymph node; Other nonspecific abnormal finding of lung field 02/03/2024 Travel 02/02/2024 Telephone [facility] [address] [place] [address] Kasey Roman MD 02/01/2024 Telephone [facility] [address] [place] [address] Kasey Roman MD Results 01/31/2024 3:45 PM CDT Orders Only [facility] [address] [place] [address] Lab, [facility] 01/31/2024 2:30 PM CDT Ancillary Procedure [facility] [address] [place] [address] 01/31/2024 Travel 01/31/2024 Telephone [facility] [place] [address] [place] [phone] [facility] Referral (Enlarged lymph node) 01/31/2024 Telephone [facility] [address] [place] [address] Kasey Roman MD 01/27/2024 3:45 PM CDT Ancillary Procedure [facility] [address] [facility] [place] [address] 01/27/2024 3:15 PM CDT Office Visit [facility] [address] [place] [address] Kasey Roman MD Knee Pain/problem (Bilateral knee pain) 01/26/2024 4:00 PM CDT Ancillary Procedure [facility] [address] [place] [address] 01/26/2024 Travel 01/26/2024 Telephone [facility] [address] [place] [address] Matteo Ervin MD Referral 01/25/2024 Telephone [facility] [address] [place] [address] Kasey Roman MD Lab from Last 3 Months Immunizations Name Administration Dates Next Due AMB Influenza, IIV3 (Age >=3 years)(Flu Clinic Only) 07/14/2013,07/28/2012,07/13/2011,2008,07/23/2008 COVID-19 vaccine (EVS [employer]-Bio NTech 30mcg/0.3mL) 12YO+ BIVALENT PF, MDV 12/23/2022 COVID-19 vaccine (Pfizer-Bio NTech 30mcg/0.3mL) PF, MDV 11/23/2020,11/02/2020 Influenza A (H1N1), Inactiva tushar (Age >=3 Years) 07/29/2009 Influenza, IIV3 (Age 6-35 mos) 07/13/2011 Influenza, IIV3 (Age >=3 years) 07/14/20 13,07/28/2012,07/02/2010,2008,07/23/2008,10/29/2006,06/30/2004,1 ,07/14/2003 Influenza, IIV4 09/23/2022,,07/20/2020,2018,07/15/2018,06/25/2017,07/22/2016,0 06/17/2015 Pneumococcal Conj 20-valent (Prevnar 20) 12/23/2022 Pneumococcal Poly,23-Valent (Pneumovax) 06/27/2004 Td (Age >=7 Years) 08/22/2002 Tdap 09/09/2021,08/19/2011 Zoster (Shingrix-RZV, recombinant) 07/11/2019 Family History Medical History Relation Name Comments Allergies Father Heart Disease Father CHF at 72 Hypertension Father Cancer Maternal Grandfather in 60s unknown origin Arthritis Mother Rheumatoid arth ritis Asthma Mother Heart Disease Mother CHF, Atrial Fi b Other Mother Blood clots, Pu lmonary embolus Stroke Mother Thyroid Disease Mother Diabetes Paternal Grandmother Lupus Sister Other Sister disabled Anesthesia Problem No Family History Cancer-breast No Family History Cancer-ovarian No Family History Relation Name Status Comments Father Maternal Grandfather Mother Paternal Grandmother Sister Alive Social History Tobacco Use Types Packs/Day Years Used Date Smoking Tobacco: Every Day Cigarettes 1 45 Passive Smoke Exposure: Never Smokeless Tobacco: Never Tobacco Cessation:Ready to Q uit: Not Asked; Counseling Given: Yes Alcohol Use Standard Drinks/Week Comments Yes 0 (1 standard drink = 0.6 oz pure alcohol) 2 glasses of wine daily in the evening PHQ-2 Answer Date Recorded PHQ-2 TOTAL SCORE 0 01/12/2024 Social Connections Answer Date Recorded Frequency of Communication with Friends and Fami ly 0 2023 Financial Resource Strain Answer Date R ecorded Difficulty of Paying Living Expenses 3 2023 Difficulty of Paying Living Expenses Not on file 2023 Food Insecurity Answer Date Recorded Worried About Running Out of Food in the Last Ye ar 1 2023 Transportation Needs Answer Date Record ed Lack of Transportation (Medical) 1 2023 Housing Stability Answer Date Recorded Unable to Pay for Housing in the Last Year 1 2023 Sex and Gender Information Value Date Recorded Sex Assigned at Not on file Gender Identity Not on file Sexual Orientation Not on file Travel History Travel Start Travel End [place] 03/18/2024 03/25/2024 Obstetrics History Last Filed Vital Signs Vital Sign Reading Time Taken Comments Blood Pressure 177/88 04/21/2024 12:45 AM CDT Pulse 75 04/21/2024 12:41 AM CDT Temperature 36.7 ??C (98 ??F) 04/20/2024 10:53 PM CDT Respiratory Rate 16 04/21/2024 12:00 AM CDT Oxygen Saturation 97% 04/21/2024 12:41 AM CDT Inhaled Oxygen Concentration - - Weight 67.7 kg (149 lb 3.2 oz) 04/20/2024 4:35 P M CDT Height 160 cm (5' 3) 04/20/2024 4:35 PM CDT Body Mass Index 26.43 04/20/2024 4:35 PM CDT Plan of Treatment Health Maintenance Due Date Last Done Comments Zoster (shingles) series for age 50+ (2 of 2) 09/05/2019 07/11/2019 COVID-19 vaccine series ( season) 2023 12/23/2022, 07/31/2021, 11/23/2020, Additional history exists DEXA/DXA scan for age 65+ 2023 Influenza for age 65+ 05/21/2024 09/23/2022 , 08/08/2021, 07/20/2020, Additional history exists Medicare Wellness for age 65+ 01/12/2025 01/12/2024 Depression screening for age 12+ 01/13/2025 01/14/2024, 01/12/2024, 12/23/2022, Additional history exists Mammogram for age 45-75 01/16/2025 01/17/20, 09/30/2021, 10/09/2019, Additional history exists Low Dose CT (for lung CA) ag e 50-80 01/25/2025 01/26/2024, 12/31/2022, 12/01/2021 BMI (ht and wt on same day) for age 18+ 04/05/2025 04/05/2024, 01/12/2024, 01/07/2023, Additional history exists Pap test for age 21-65 01/11/2027 4, 01/12/2024, 12/23/2022, Additional history exists Fecal testing sDNA-FIT (Cologuard) for age 45-75 02/15/2027 02/16/2024 Lipids for age 45-75 01/11/2029 01/12/2024, 11/24/2022, 09/09/2021, Additional history exists Tetanus booster 09/09/2031 09/09/2021, 07/23, 08/22/2002 Hepatitis C screening for ag e 18-79 Completed 01/24/2015 Fecal testing non-DNA (FIT,FOBT,iFOBT) for age 45-75 Discontinued 10/09/2019 Tdap Completed 09/09/2021, 08/19/2011 HIV for age 15-65 Completed 11/24/2022 Pneumococcal series for age 65+ Completed , 06/27/2004 Medical Devices Implanted Type Area Retail Sales Merchandiser Device Identifier Shelf Expiration Date Model / Serial / Lot Screw Bone 6.5x20mm Mpo Torx T25 Canclls - [id number] Implanted:Qty: 1 on 01/30/2021 by Favio Clark MD at [facility] Right: Hip [employer] 11/15/2025 [id number] / / [id number] Shell Hip 50mm Procotyl Prime Bf Quad Group C - [id number] Implanted:Qty: 1 on 01/30/2021 by Favio Clark MD at [facility] Right: Hip [employer] 01/09/2029 [id number] / / [id number] Prime A- Class Xlpe Fc Lat Liner 36mm C Liner Implanted:Qty: 1 on 01/30/2021 by Favio Clark MD at [facility] Right: Hip H [employer] 10/02/2028 [id number] / / [id number] Head Hip Od36mm -3.5 Biolox Delta - [id number] Implanted:Qty: 1 on 01/30/2021 by Favio Clark MD at [facility] Right: Hip [employer] 10/29/2028 [id number] / / [id number] Stem Hip Sz 6 Profemswati Huntdiator Classic Std - [id number] Implanted:Qty: 1 on 01/30/2021 by Favio Clark MD at [facility] Right: Hip [employer] 05/20/2024 [id number] / / [id number] Procedures The patient is currently admitted. The information in this section might not be complete until the patient is discharged. Procedure Name Priority Date/Time Associated Diagnosis Comments XR CHEST 2 VIEWS PA AND LATERAL STAT 04/20/2024 6:00 PM CDT BASIC METABOLIC PANEL STAT 04/20/2024 4:57 PM CDT CBC W PLT NO DIFF STAT 04/20/2024 4:5 7 PM CDT EKG 12 LEAD STAT 04/20/2024 4:54 PM CDT XR CHEST 2 VIEWS PA AND LATERAL Routine 04/20/2024 1:44 PM CDT Non-small cell lung cancer, unspecified laterality (HC) Hospital discharge follow-up EKG 12 LEAD Routine 04/10/2024 12:46 PM CDT Pre-op exam RI READING EKG - NO CHARGE, COMP ONLY Routine 04/10/2024 12:45 PM CDT Pre-op exam XR CHEST 1 VIEW PORTABLE Timed 04/10/2024 11:50 AM CDT SCAN-CARDIAC STRIP 04/10/2024 10:14 AM CDT XR CHEST 1 VIEW PORTABLE Timed 04/10/2024 4:45 AM CDT SCAN-CARDIAC STRIP 04/10/2024 1: 46 AM CDT SCAN-CARDIAC STRIP 04/09/2024 4: 43 PM CDT T4,FREE RICHARD 04/09/2024 3:57 PM CDT T3,FREE RICHARD 04/09/2024 3:57 PM CDT CBC WITH AUTO DIFFERENTIAL STAT 04/09/2024 3:57 PM CDT CBC WITH AUTO DIFFERENTIAL STAT 04/09/2024 3:57 PM CDT COMP METABOLIC PANEL STAT 04/09/2024 3:57 PM CDT T3,TOTAL STAT 04/09/2024 3:57 PM CDT TSH STAT 04/09/2024 3:57 PM CDT MAGNESIUM STAT 04/09/2024 3:57 PM CDT EKG 12 LEAD STAT 04/09/2024 3:31 PM CDT XR CHEST 1 VIEW PORTABLE Timed 04/09/2024 5:20 AM CDT XR CHEST 1 VIEW PORTABLE Routine 04/08/2024 5:06 AM CDT HCHG KIT PR5 Routine 04/07/2024 10:51 AM CDT HCHG DRSG PR1 Routine 04/07/2024 10:51 AM CDT HCHG TUBING PR20 Routine 04/07/2024 10:51 AM CDT HCHG TUBING PR1 Routine 04/07/2024 10:51 AM CDT HCHG CATH INFUSION PR10 Routine 04/07/2024 10:51 AM CDT XR CHEST 1 VIEW PORTABLE STAT 04/07/2024 10:24 AM CDT PATH TISSUE EXAM Today 04/07/2024 9:22 AM CDT FOCUS Timed 04/07/2024 9:22 AM CDT ENDOTRACHEAL TUBE Routine 04/07/2024 8:4 4 AM CDT ENDOTRACHEAL TUBE Routine 04/07/2024 8:4 4 AM CDT ENDOTRACHEAL TUBE Routine 04/07/2024 8:4 4 AM CDT OR IMAGE CAPTURE Routine 04/07/2024 7:24 AM CDT BRONCHOSCOPY Elective 04/07/2024 7:06 AM CDT Lymphadenopathy Case Notes XILATEX ALLERGY ROBOTIC ASSISTED THORACOSCOPY WITH MEDIASTINAL MASS RESECTION XI Elective 04/07/2024 7:06 AM CDT Lymphadenopathy Case Notes XILATEX ALLERGY TYPE & SCREEN Preop 04/07/2024 7:03 AM CDT CBC WITH AUTO DIFFERENTIAL Preop 04/07/2024 7:03 AM CDT PROTIME-INR Preop 04/07/2024 7:03 AM CDT CREATININE Preop 04/07/2024 7:03 AM CDT BUN Preop 04/07/2024 7:03 AM CDT POTASSIUM Preop 04/07/2024 7:03 AM CDT CBC WITH AUTO DIFFERENTIAL Preop 04/07/2024 7:03 AM CDT SCAN-CARDIAC STRIP 04/07/2024 12:00 AM CDT BASIC METABOLIC PANEL Routine 04/05/2024 3:37 PM CDT Pre-op exam HEMOGLOBIN Routine 04/05/2024 3:37 PM CDT Pre-op exam SDNA-FIT EXTERNAL (COLOGUARD) Routine 02/16/2024 8:30 AM CDT Screening for colon cancer PET CT SKULL BASE TO MID THIGH INITIAL TREAT Routine 02/03/2024 11:05 AM CDT Enlarged lymph node Other nonspecific abnormal finding of lung field COMP METABOLIC PANEL Routine 01/31/2024 3:10 PM CDT Elevated LFTs US ANKLE BRACHIAL INDEX BILATERAL Routine 01/31/2024 3:06 PM CDT Chilblains, subsequent encounter Cold feet Other specified symptoms and signs involving the circulatory and respiratory systems XR KNEE WB 1 VIEW AP BILATERAL AND 2 VIEWS BILATERAL Routine 01/27/2024 3:51 PM CDT Chronic pain of both knees CT CHEST SCREENING LOW DOSE WO CONTRAST Routine 01/26/2024 4:09 PM CDT Encounter for screening for lung cancer Smoker XR MAMMO BILAT SCREENING Routine 01/17/2024 4:22 PM CDT Visit for screening mammogram LIPID PANEL W REFLEX MEASURED LDL Routine 01/12/2024 3:38 PM CDT Hyperlipidemia, unspecified hyperlipidemia type HPV THIN PREP Routine 01/12/2024 3:11 PM CDT Unsatisfactory cervical Papanicolaou smear LC HIV-1/O/2, 4TH GENERATION Routine 11/24/2022 5:31 PM SCHOOL CLERK Screening for HIV (human immunodeficiency virus) OCCULT BLOOD IFOBT STOOL Routine 10/09/2019 2:10 PM SCHOOL CLERK Screening for colon cancer ANTI HCV Routine 01/24/2015 7:12 AM CDT Need for hepatitis C screening test from Last 3 Months or Most Recently Relevant to Health Maintenance Results * XR CHEST 2 VIEWS PA AND LATERAL (04/20/2024 6:00 PM CDT) Only the most recent of2 resultswithin the time period is included. Anatomical Region Laterality Modality CHEST, THORAX, Lung, HEART Digit al Radiography 04/20/2024 7:29 PM CDT Narrative 04/20/2024 7:29 PM CDT For Patients: ??As a result of the Cures Act, medical imaging exams and procedure reports are released immediately into your electronic medical record. ??You may view this report before your referring provider. ??If you have questions, please contact your health care provider. INDICATION: Shortness of breath. TECHNIQUE: Chest 2 view(s) COMPARISON: Chest radiograph earlier same day dated 04/20/2024. FINDINGS/IMPRESSION: No significant change in size of left hydropneumothorax. Stable cardiomegaly. Stable patchy right middle lobe airspace opacities. Small volume subcutaneous emphysema along the left chest wall. Partially visualized postsurgical changes of the spine. Dictated by Ludin Guzmán MD @ Apr ??2023 ??7:29PM (Electronically Signed) [email or web address] Procedure Note Ludin Guzmán MD - 04/20/2024 For Patients: As a result of the Cures Act, medical imagingexams and procedure reports are released immediately into your electronicmedical record. You may view this report before your referring provider.If you have questions, please contact your health care provider. INDICATION: Shortness of breath. TECHNIQUE: Chest 2 view(s) COMPARISON: Chest radiograph earlier same day dated 04/20/2024. FINDINGS/IMPRESSION: No significant change in size of left hydropneumothorax. Stable cardiomegaly. Stable patchy right middle lobe airspace opacities.Small volume subcutaneous emphysema along the left chest wall. Partiallyvisualized postsurgical changes of the spine. Dictated by Ludin Guzmán MD @ Apr 20 2024 7:29PM (Electronically Signed) [email or web address] BLOOD GENERAL [email or web address] [email or web address] * (ABNORMAL) CBC W PLT NO DIFF (04/20/2024 4:57 PM CDT) WHITE BLOOD COUNT 4.3(L) 4.5 - 11.0 thou/cu mm 04/20/2024 5:20 PM CDT [facility] RED BLOOD COUNT 4.15 4.00 - 5.20 mil/cu mm 04/20/2024 5:20 PM CDT [facility] HEMOGLOBIN 13.7 12.0 - 16.0 g/dL 04/20/2024 5:20 PM CDT [facility] HEMATOCRIT 40.0 33.0 - 51.0 % 04/20/2024 5:20 PM CDT [facility] MCV 96 80 - 100 fL 04/20/2024 5:20 PM CDT [facility] MCH 33.0 26.0 - 34.0 pg 04/20/2024 5:20 PM CDT [facility] MCHC 34.3 32.0 - 36.0 g/dL 04/20/2024 5:20 PM CDT [facility] RDW 12.1 11.5 - 15.5 % 04/20/2024 5:20 PM CDT [facility] PLATELET COUNT 204 140 - 440 thou/cu mm 04/20/2024 5:20 PM CDT [facility] MPV 9.5 6.5 - 11.0 fL 04/20/2024 5:20 PM CDT [facility] NRBC 0.0 % 04/20/2024 5:20 PM CDT [facility] ABS NRBC 0.0 thou /cu mm 04/20/2024 5:20 PM CDT [facility] Blood BLOOD SPECIMEN / Unknown Venipuncture / Unknown 04/20/2024 4:57 PM CDT 04/20/2024 5:15 PM CDT [facility] BLOOD HEMATOLOGY [facility] [address] [place] [address], * (ABNORMAL) BASIC METABOLIC PANEL (04/20/2024 4:57 PM CDT) Only the most recent of2 resultswithin the time period is included. SODIUM 135(L) 136 - 145 mmol/L 04/20/2024 5:49 PM CDT [facility] POTASSIUM 3.8 3.5 - 5.1 mmol/L 04/20/2024 5:49 PM CDT [facility] CHLORIDE 97(L) 98 - 107 mmol/L 04/20/2024 5:49 PM CDT [facility] CO2,TOTAL 30(H) 22 - 29 mmol/L 04/20/2024 5:49 PM CDT [facility] ANION GAP 8 5 - 18 04/20/2024 5:49 PM CDT [facility] GLUCOSE 93 70 - 99 mg/dL 04/20/2024 5:49 PM CDT [facility] CALCIUM 9.1 8.8 - 10.2 mg/dL 04/20/2024 5:49 PM CDT [facility] BUN 11 8 - 23 mg/dL 04/20/2024 5:49 PM CDT [facility] CREATININE 0.40(L) 0.50 - 0.90 mg/dL 04/20/2024 5:49 PM CDT [facility] BUN/CREAT RATIO 28(H) 10 - 20 5:49 PM CDT [facility] eGFR >90 >90 mL/min/1.7 3m2 04/20/2024 5:49 PM CDT [facility] Comment:As of 2021, eG FR is calculated by the CKD-EPI creatinine equation without race adjustment. ??eGFR can be influenced by muscle mass, exercise, and diet. ??The reported eGFR is an estimation only and is only applicable if the renal function is stable. Blood BLOOD SPECIMEN / Unknown Venipuncture / Unknown 04/20/2024 4:57 PM CDT 04/20/2024 5:15 PM CDT Lisbeth BLOOD CHEMISTRY [facility] [address] [place] [address], [place] * EKG 12 LEAD (04/10/2024 12:46 PM CDT) Only the most recent of2 resultswithin the time period is included. Kasey Roman MD EKG ORD * RI READING EKG - NO CHARGE, COMP ONLY (04/10/2024 12:45 PM CDT) Kasey Roman MD PB - PROVIDER READI NGS * XR CHEST 1 VIEW PORTABLE (04/10/2024 11:50 AM CDT) Only the most recent of5 resultswithin the time period is included. Anatomical Region Laterality Modality HEART, THORAX, CHEST Digital Rad iography 04/10/2024 11:3 8 PM CDT Narrative 04/10/2024 11:38 PM CDT For Patients: ??As a result of the Cures Act, medical imaging exams and procedure reports are released immediately into your electronic medical record. ??You may view this report before your referring provider. ??If you have questions, please contact your health care provider. INDICATION: Chest tube clamped. TECHNIQUE: Chest 1 view. COMPARISON: Earlier same day. FINDINGS/IMPRESSION: Cardiovascular and mediastinum: Stable cardiomegaly. Lungs and pleural spaces: Stable position of left chest tube. No pneumothorax. No new focal consolidation. No pleural effusions. Bones and soft tissues: Left chest wall subcutaneous emphysema. Dictated by Santos Read MD @ Apr 10 2024 11:38PM (Electronically Signed) [email or web address] Procedure Note Santos Read MD - 04/10/2024 For Patients: As a result of the Cures Act, medical imagingexams and procedure reports are released immediately into your electronicmedical record. You may view this report before your referring provider.If you have questions, please contact your health care provider. INDICATION: Chest tube clamped. TECHNIQUE: Chest 1 view. COMPARISON: Earlier same day. FINDINGS/IMPRESSION: Cardiovascular and mediastinum: Stable cardiomegaly. Lungs and pleural spaces: Stable position of left chest tube. Nopneumothorax. No new focal consolidation. No pleural effusions. Bones and soft tissues: Left chest wall subcutaneous emphysema. Dictated by Santos Read MD @ Apr 10 2024 11:38PM (Electronically Signed) [email or web address] Rosy BLOOD GENERAL IMAGING * SCAN-CARDIAC STRIP (04/10/2024 10:14 AM CDT) Scanner OTHER * SCAN-CARDIAC STRIP (04/10/2024 1:46 AM CDT) Scanner OTHER * SCAN-CARDIAC STRIP (04/09/2024 4:43 PM CDT) Scanner OTHER * CBC WITH AUTO DIFFERENTIAL (04/09/2024 3:57 PM CDT) Only the most recent of2 resultswithin the time period is included. WHITE BLOOD COUNT 5.3 4.5 - 11.0 thou/cu mm 04/09/2024 4:28 PM CDT [facility] RED BLOOD COUNT 4.00 4.00 - 5.20 mil/cu mm 04/09/2024 4:28 PM CDT [facility] HEMOGLOBIN 13.1 12.0 - 16.0 g/dL 04/09/2024 4:28 PM CDT [facility] HEMATOCRIT 39.0 33.0 - 51.0 % 04/09/2024 4:28 PM CDT [facility] MCV 98 80 - 100 fL 04/09/2024 4:28 PM CDT [facility] MCH 32.8 26.0 - 34.0 pg 04/09/2024 4:28 PM CDT [facility] MCHC 33.6 32.0 - 36.0 g/dL 04/09/2024 4:28 PM CDT [facility] RDW 12.9 11.5 - 15.5 % 04/09/2024 4:28 PM CDT [facility] PLATELET COUNT 142 140 - 440 thou/cu mm 04/09/2024 4:28 PM CDT [facility] MPV 9.5 6.5 - 11.0 fL 04/09/2024 4:28 PM CDT [facility] NRBC 0.0 % 04/09/2024 4:28 PM CDT [facility] ABS NRBC 0.0 thou /cu mm 04/09/2024 4:28 PM CDT [facility] % NEUT 71.2 % 04/09/2024 4:28 [facility] % LYMPH 19.5 % 04/09/2024 4:28 PM T [facility] % MONO 7.2 % 04/09/2024 4:[address] [facility] % EOS 1.1 % 04/09/2024 4:[address] [facility] % BASO 0.4 % 04/09/2024 4:[address] [facility] % IMMATURE GRAN (METAS,MYELOS,RI OS) 0.6 % 04/09/2024 4:28 PM T [facility] ABSOLUTE NEUTROPHILS 3.8 1.7 - 7.0 thou/cu mm 04/09/2024 4:[address] [facility] ABSOLUTE LYMPHOCYTES 1.0 0.9 - 2.9 thou/cu mm 04/09/2024 4:28 PM T [facility] ABSOLUTE MONOCYTES 0.4 <0.9 thou/cu mm 04/09/2024 4:28 PM T [facility] ABSOLUTE EOSINOPHILS 0.1 <0.5 thou/cu mm 04/09/2024 4:28 PM T [facility] ABSOLUTE BASOPHILS 0.0 <0.3 thou/cu mm 04/09/2024 4:28 PM T [facility] ABSOLUTE IMMATURE GRANULOCYTES(MET ,MYELOS,PROS) 0.0 <0.3 thou/cu mm 04/09/2024 4:28 PM CDT [facility] Blood BLOOD SPECIMEN / Unknown Venipuncture / Unknown 04/09/2024 3:57 PM CDT 04/09/2024 4:[address] [facility] - 04/09/2024 4:28 PM CDT RN to order if patient presents with two or more positive sepsis screening criteria plus new or worsening signs or symptoms of suspected infection. Luis Daniel Jean MD HEMATOLOGY Performing Organization Address [facility] Co de Phone Number [facility] [address] [place] [address], [place] * TSH (04/09/2024 3:57 PM CDT) TSH 3.20 0.27 - 4.20 uIU/mL 04/09/2024 4:38 PM CDT [facility] Blood BLOOD SPECIMEN / Unknown Venipuncture / Unknown 04/09/2024 3:57 PM CDT 04/09/2024 4:[address] [facility] - 04/09/2024 4:38 PM CDT In Adults, TSH values between 5.00 and 10.00 uIU/ml do not necessarily indicate the presence of Hypothyroidism. Correlation with clinical findings such as presence of goiter and/or Thyroperoxidase (TPO) Antibody may be helpful. For more information please refer to MEHDI 2004; 291: 228-238. Noman Guajardo MD CHEMISTRY Performing Organization Address [facility] Co de Phone Number [facility] [address] [place] [address], [place] * T3,FREE (04/09/2024 3:57 PM CDT) T3,FREE 2.25 2.00 - 4.40 pg/mL 04/09/2024 5:31 PM CDT [facility] Blood BLOOD SPECIMEN / Unknown Venipuncture / Unknown 04/09/2024 3:57 PM CDT 04/09/2024 4:03 PM CDT Marco Pedraza MD CHEMISTRY Performing Organization Address [facility] Co de Phone Number [facility] [address] [address], [place] * (ABNORMAL) T3,TOTAL (04/09/2024 3:57 PM CDT) T3,TOTAL 73(L) 85 - 202 ng/dL 04/09/2024 4:39 PM CDT [facility] Blood BLOOD SPECIMEN / Unknown Venipuncture / Unknown 04/09/2024 3:57 PM CDT 04/09/2024 4:03 PM CDT Noman Guajardo MD CHEMISTRY Performing Organization Address [facility] Co de Phone Number [facility] [address] [address], [place] * T4,FREE (04/09/2024 3:57 PM CDT) T4,FREE 1.25 0.93 - 1.70 ng/dL 04/09/2024 5:31 PM CDT [facility] Blood BLOOD SPECIMEN / Unknown Venipuncture / Unknown 04/09/2024 3:57 PM CDT 04/09/2024 4:03 PM CDT Marco Pedraza MD CHEMISTRY Performing Organization Address [facility] Co de Phone Number [facility] [address] [address], [place] * Magnesium - [employer] (04/09/2024 3:57 PM CDT) MAGNESIUM 1.7 1.6 - 2.4 mg/dL 04/09/2024 4:38 PM CDT [facility] Blood BLOOD SPECIMEN / Unknown Venipuncture / Unknown 04/09/2024 3:57 PM CDT 04/09/2024 4:03 PM CDT Luis Daniel Jean MD CHEMISTRY [facility] [address] [place] [address], * (ABNORMAL) Comprehensive Metabolic Panel - [employer] (04/09/2024 3:57 PM CDT) Only the most recent of2 resultswithin the time period is included. SODIUM 136 136 - 145 mmol/L 04/09/2024 4:38 PM CDT [facility] POTASSIUM 4.5 3.5 - 5.1 mmol/L 04/09/2024 4:38 PM CDT [facility] CHLORIDE 100 98 - 107 mmol/L 04/09/2024 4:38 PM CDT [facility] CO2,TOTAL 31(H) 22 - 29 mmol/L 04/09/2024 4:38 PM CDT [facility] ANION GAP 5 5 - 18 04/09/2024 4:38 PM CDT [facility] GLUCOSE 83 70 - 99 mg/dL 04/09/2024 4:38 PM CDT [facility] CALCIUM 9.3 8.8 - 10.2 mg/dL 04/09/2024 4:38 PM CDT [facility] BUN 12 8 - 23 mg/dL 04/09/2024 4:38 PM T [facility] CREATININE 0.49(L) 0.50 - 0.90 mg/dL 04/09/2024 4:38 PM CDT [facility] BUN/CREAT RATIO 24(H) 10 - 20 4:38 PM CDT [facility] eGFR >90 >90 mL/min/1.7 3m2 04/09/2024 4:38 PM CDT [facility] Comment:As of 2021, eG FR is calculated by the CKD-EPI creatinine equation without race adjustment. ??eGFR can be influenced by muscle mass, exercise, and diet. ??The reported eGFR is an estimation only and is only applicable if the renal function is stable. ALBUMIN 3.4(L) 4.0 - 4.9 g/dL 04/09/2024 4:38 PM CDT [facility] PROTEIN,TOTAL 6.9 6.0 - 8.0 g/dL 04/09/2024 4:38 PM CDT [facility] BILIRUBIN,TOTAL 0.4 0.0 - 1.2 mg/dL 04/09/2024 4:38 PM CDT [facility] ALK PHOSPHATASE 105(H) 35 - 104 IU/L 04/09/2024 4:38 PM CDT [facility] ALT (SGPT) 14 10 - 35 IU/L 04/09/2024 4:38 PM CDT [facility] AST (SGOT) 34 10 - 35 IU/L 04/09/2024 4:38 PM CDT [facility] Blood BLOOD SPECIMEN / Unknown Venipuncture / Unknown 04/09/2024 3:57 PM CDT 04/09/2024 4:03 PM CDT Luis Daniel Jean MD CHEMISTRY Performing Organization Address City/State/[facility] Co de Phone Number [facility] [address] [address], * HCHG CATH INFUSION PR10, HCHG TUBING PR1, HCHG TUBING PR20, HCHG DRSG PR1, HCHG KIT PR5 (0:51 AM CDT) Narrative Gentry Harrison MD - 04/07/2024 10:51 AM CDT Gentry Harrison MD ? 04/07/2024 10:51 AM Arterial Line Patient location during procedure: OR Staffing Preanesthetic Checklist Completed: patient identified, risks and benefits discussed, consent obtained and timeout performed Arterial Line Patient position: supine. ??Comment:. Laterality: left Site: radial Ultrasound guidance: No ultrasound used. Securement/dressing: dressing applied. ??Comment: Vessel Banking Specialist Additional supplies used to locate vessel: no Needle Catheter size: 20 G. ??Comment:. Catheter length: 12 cm. ??Comment: Events: no complications. Gentry Harrison MD ANESTHESIA PX NOTE O RDERABLES * FOCUS (04/07/2024 9:22 AM CDT) Tissue (Station 5 Subaortic Lymph Node) 04/07/2024 9:22 AM CDT 04/12/2024 10:32 AM CDT Luis Daniel Jean MD LABORATORY [facility] [address] [place] [address], * PATH TISSUE EXAM (04/07/2024 9:22 AM CDT) Case Report Pathology Report ?Case: [id number] ? Authorizing Provider: ??Luis Daniel Jean MD Collected: ? 04/07/2024921 ? Ordering Location: ? [facility] ?Received: ?04/07/2024926 ? Hospital ? Pathologist: ? Amber Pollock MD ? Specimens: ?? A) - Station 5 Subaortic Lymph Node, frozen ? B) - Station 5 Subaortic Lymph Node, fresh ? 4 5:16 PM CDT [facility] Amendment 04/13/2024 - Amendmen t issued to report PD-L1 results. See final diagnosis section. 04/19/2024 - Amendment to report [facility] Targeted Next Generation Sequencing results. Please see attached scanned report and updated diagnosis. 4 5:16 PM CDT [facility] Final Diagnosis A-B) LYMPH NODE(S), STATION 5 SUBAORTIC, RESECTION: 1. 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 See comment 3. Ancillary testing: ?? a. PD-L1: ?- Tumor Proportion Score (TPS): 0% (No PD-L1 expression, TPS less than 1%) ?- Tumor Cell (TC): 0% (Negative, TC less than 1%) ?? b. NGS (lung panel): ?- DNA (mutation and copy number): Negative; see attached report ?- RNA (fusion): Fusion analysis failed ?- ALK FISH: Pending, ordered 04/19/2024 ?- ROS1 FISH: Pending, ordered 04/19/2024 ?- See attached NGS report 4 5:16 PM CDT [facility] Amendment electronically signed by Mary Ellen David MD on 04/19/2024 at 5:16 PM Amendment electronically signed by Amber Pollock MD on 04/13/2024 at 1:34 PM Comment The slides demonstrate a solid growth pattern of non-small cell carcinoma involving what appears to be lymph node tissue with at least focal extracapsular extension of tumor. ??While not entirely specific, TTF-1 immunoreactivity favors metastatic involvement of a lymph node from pulmonary primary adenocarcinoma (possibly regressed primary tumor), especially if other occult primary sites can be excluded. ??The features of this tumor are not very suggestive of primary thymic, thyroid, or parathyroid carcinoma, and do not suggest metastasis from another obvious primary site other than lung. Dr. Pollock discussed the preliminary findings with Dr. Jean 04-10-2024 at 2:11 PM. ?? Case seen in consultation with Dr. Meneses. LUNG ANCILLARY TESTING PROTOCOL This patient's sample meets [facility] Thoracic Oncology Program Committee criteria* for reflex testing or such testing has been requested by the ordering physician. Testing will be performed, and the results will be communicated in an amendment to this report. There is no need to call to order the above tests. If there is a need for ancillary tests other than these, please contact the [facility] ([phone]). Slides available for [facility] NGS testing: A1-2 used for NGS; A1-3 Blocks available for [facility] NGS testing: B1, A1, A2, B2, B3 Blocks available for tests using immunostains and/or FISH (requiring 100 cells): A1, A2, B1, B2, B3 (8 air dried unstained slides also available) Blocks available for send out (outside vendor) testing requiring 5 x 5 mm of tumor: B1, B2, B3, A1, A2 *[facility] Thor[facility] Oncology Program Committee reflex testing criteria: Stage IV pulmonary non-small cell carcinoma OR Tumor size >= 4 cm, or lymph node involvement, pulmonary non-small cell carcinoma, neoadjuvant setting OR Resected stage IB - IIIB pulmonary non-small cell carcinoma, adjuvant setting (if not previously performed) - [facility] NGS panel (EGFR, ALK, ROS1, RET, MET, KRAS, BRAF, HRAS, NRAS, ERBB2, NTRK1/2/3) - [facility] PD-L1 SP263 - If RNA NGS fusion analysis fails, FISH for ALK and ROS1 fusion will be attempted 4 5:16 PM CDT [facility] Clinical Information Smoker with history of endometriosis. ??Enlarged PET-avid prevascular/AP window mass only accessible by surgery for sampling. Review of [facility] pathology records shows no prior history of significant cancer. ??PET/CT report from January describes abnormal left-sided mediastinal mass/lymph node level of arch of the aorta, 3.9 cm, SUV max 14.7. The mediastinal lesion was initially noted on screening chest CT in November 2021, where an enlarged aortopulmonary window lymph node was described as measuring 2.3 x 4 cm. ??This is thought to be significantly diminished in December 2022, when measured as 2.4 x 1 cm, but in January 2024 was measured as 1.7 x 3.9 cm, similar to the November 2021 exam. 4 5:16 PM T [facility] Gross Description A) Received fresh labeled with the patient's name and Station 5 Subaortic lymph node, frozen, is a 2.0 x 1.7 x 0.9 cm pink-white hemorrhagic possible lymph node. An H&E and Diff-Quick touch prep are prepared. Four air dried touch preps are prepared. A portion of tissue is placed in RPMI for HOLD. The remaining tissue is entirely submitted in 2 cassettes. B) Received fresh labeled with the patient's name and station 5 subaortic lymph node, fresh, is a 3.7 x 2.6 x 2.0 cm firm nodular lymph node. The cut surface is gritty edouard-white and hemorrhagic. Four air dried touch preps are prepared. A portion of tissue is placed in RPMI for HOLD. The remaining tissue is entirely submitted in 3 cassettes. The specimen was placed in formalin at 1005 on 04/07/2024. ?? [facility] 04/07/2024 ?? 4 5:16 PM T [facility] Intraoperative Consultation A) LYMPH NODE, STATION 5 SUBAORTIC, INTRAOPERATIVE CONSULTATION WITH CYTOLOGY PREPARATIONS: 1. Numerous epithelioid cells, favor metastatic malignancy 2. Final diagnosis and classification pending permanent sections 3. Results discussed intraoperatively with Dr. Luis Daniel Woodard MD, 04/07/2024 9:41 AM Intraoperative consultation, which may have included frozen section preparation, gross specimen examination, and/or cytology touch imprints/smears, was performed by a pathologist during the surgical procedure. ??This testing was performed at: [facility] ?? [address] [place] [address] [address] 4 5:16 PM [facility] Microscopic Description The final diagnosis is based on microscopic examination of appropriate sections of all specimens. Immunohistochemical stains were performed using block B1, including a multiplex immunohistochemistry procedure containing antibodies directed to p40 (red chromagen) and TTF1 (brown chromogen). Results are as follows in tumor cells: TTF1: Weak positive p40: Negative CK5: Negative P16: Diffusely positive PAX8: Faint nonspecific blush CD5: Negative KIT: Focal weak positive GATA3: Negative ER: Negative After the initial round of immunostains, additional immunostains were necessary to help confirm the tumor classification and favored primary site of disease with results as follows: Napsin: Negative CK7: Diffusely positive CK20: Negative WT1: Negative Cytokeratin cocktail: Diffusely positive INSM1: Negative Synaptophysin: Negative SALL4: Negative CDX2: Negative PTH: Negative Arginase: Negative The ancillary stain results support the diagnosis. Support for the interpretation of this case may have included the use of immunohistochemistry and/or in situ hybridization tests that were performed by [facility] and whose performance characteristics were evaluated by pathologists from [facility]. These tests have not been cleared or approved by the U.S. Food and Drug Administration. The FDA has determined that such clearance or approval is not necessary. These tests are used for clinical purposes and should not be regarded as investigational or for research. This laboratory is certified under the Clinical Laboratory Improvement Amendments of 1988 (CLIA) as qualified to perform high complexity clinical laboratory testing. 4 5:16 PM [facility] Cytogenetics Summary Cytogenetic testing has been ordered and will be reported separately. 4 5:16 PM [facility] Molecular Diagnostics Summary Preanalytical microdissection of tissue/cytology slides for Next Generation Sequencing was performed according to laboratory protocol as follows: Microscopic examination was performed by a pathologist, Dr. Pollokc, to determine specimen adequacy and identify areas of tumor for isolation. Areas of tumor selected and marked by the pathologist were manually harvested by a medical laboratory specialist for nucleic acid extraction. 4 5:16 PM CDT [facility] Additional Information Interpreted at [facility], Central Laboratory - [address] [place] [id number] Immunohistochemistry controls were reviewed and approved by the pathologist during this examination. TEST PERFORMED: PD-L1 (SP263) ANALYSIS BY IMMUNOHISTOCHEMISTRY MATERIALS AND METHODS: ??- Adequate number of tumor cells are present on the re-cut H&E stain section. Minimum number of tumor cells required is 100 viable tumor cells ??- The positive and negative control tissue demonstrate appropriate staining TESTING INFORMATION FOR PD-L1 ANALYSIS: PD-L1 assayed by immunohistochemistry with microscopy, following tissue fixation in 10% neutral buffered formalin. Tissue sections are incubated with a PD-L1 rabbit monoclonal antibody (ExactCost PD-L1 SP263 assay), performed on the ExactCost BenchMark ULTRA instrument and visualized with OptiView DAB IHC Detection kit and OptiView Amplification Kit. PD-L1 22C3 Tumor Proportion Score (TPS) Interpretation Guidelines for non-small cell lung carcinoma: Tumor Proportion Score is determined by manual morphometry evaluating the number of tumor cells with partial or complete membranous staining (1+ intensity or more) divided by the total number of viable tumor cells. TPS scoring cut-offs: TPS less than 1% (No PD-L1 expression) TPS greater than or equal to 1% and less than 50% (PD-L1 Expression) TPS greater than or equal to 50% (High PD-L1 expression) Tumor Cell (TC) Interpretation Guidelines for non-small cell lung carcinoma: PD-L1 SP263 Tumor cell Score (TC) is determined by manual morphometry, evaluating the percentage of tumor cells (%TC) with any membrane staining above the background. TC scoring cut-offs: TC less than 1% (Negative) TC greater than or equal to 1% (Expression) This [place] SP263 immunohistochemical antibody assay is considered a laboratory developed test for patients with??non-small cell lung cancer who are being considered for treatment with atezolizumab. This [place] SP263 immunohistochemical antibody assay is considered a laboratory developed test for patients with non-small cell lung carcinoma who are being considered for treatment with pembrolizumab. This SP263 assay has been validated against the FDA approved PharmDX 22C3 assay. ?? The performance of this assay has not been validated on decalcified specimens. Results on decalcified specimens should be interpreted with caution, given the likelihood of a false negative result on decalcified specimens. References N Engl J Med 2020; 383:6549-0346 ?? 10.1056/[id number] J Thorac Oncol 2018;13(3):367-76 https://doi.org/10.10 16/j.jtho.2017.11.112 J Thorac Oncol 2018;13(9):1302-11 ??https://doi.org/10. 1016/j.jtho.2018.05.0 13 J Thorac Oncol 2017;12(11):1654-63 ??https://doi.org /10.1016/j.jtho.2017. 07.031 Am J Clin Oncol 202;39(15)suppl:8500 ?? 10.1200/JCO.202.39.1 5_suppl.8500 Disclaimer Support for the interpretation of this case may have included the use of immunohistochemistry and/or in situ hybridization tests that were performed by [facility] and whose performance characteristics were evaluated by pathologists from [facility]. These tests have not been cleared or approved by the U.S. Food and Drug Administration. These tests are used for clinical purposes and should not be regarded as investigational or for research. This laboratory is certified under the Clinical Laboratory Improvement Amendments of 1988 (CLIA) as qualified to perform high complexity clinical laboratory testing. 4 5:16 PM CDT [facility] Tissue (Station 5 Subaortic Lymph Node) 04/07/2024 9:22 AM CDT 04/07/2024 9:27 AM CDT Tissue specimen (specimen) (Station 5 Subaortic Lymph Node) 04/07/2024 9:23 AM CDT 04/07/2024 9:40 AM CDT Luis Daniel Jean MD PATHOLOGY/CYTOL OGY [facility] [address] [place] [address], * HCHG TUBE TRACH PR40, HCHG STYLET PR1, HCHG INSTRUMENT DISP PR275 (04/07/2024 8:44 AM CDT) Narrative Nadine Castro CRNA - 04/07/2024 8:44 AM CDT Nadine Castro CRNA ? 04/07/2024 ??8:44 AM Procedure: ETT Patient location during procedure: OR ETT Properties Mask Ventilation: easy and oral airway Final Technique: direct laryngoscopyFiberoptic scope size: BFlex Slim 3.8 Type: ETT - double lumen left Location: oral Cuffed: yes Stylet: yes Laryngoscope Blade: Mac Blade Size: 3 Cormack-Lehane Grade View: 1 Insertion Attempts: 1 Placement Verification: end tidal CO2, symmetrical chest wall movement and fiber optic visualization Assessment: pharynx clear, atraumatic and dentition unchanged Difficulty: 0 (not difficult) Tube Size: 37 Fr Gentry Harrison MD ANESTHESIA PX NOTE O RDERABLES * Type and Screen (04/07/2024 7:03 AM CDT) ABORH A Rh Positive 04/07/2024 8:01 AM CDT [facility] ANTIBODY SCREEN Negative Negative 04/07/2024 8:01 AM CDT [facility] SPECIMEN EXPIRATION DATE/TIME 04/10/24 23:59 04/07/2024 8:01 AM CDT [facility] Blood BLOOD SPECIMEN / Unknown Venipuncture / Unknown 04/07/2024 7:03 AM CDT 04/07/2024 7:19 AM CDT Nilam BLOOD BLOOD BANK [facility] [address] [place] [address], * BUN (04/07/2024 7:03 AM CDT) BUN 12 8 - 23 mg/dL 04/07/2024 8:10 AM CDT [facility] Blood BLOOD SPECIMEN / Unknown Venipuncture / Unknown 04/07/2024 7:03 AM CDT 04/07/2024 7:19 AM CDT Nilam BLOOD CHEMISTRY Performing Organization Address City/[facility]/ZIP Co de Phone Number [facility] [address] [place] [id number], [place] * Potassium (04/07/2024 7:03 AM CDT) POTASSIUM 3.6 3.5 - 5.1 mmol/L 04/07/2024 8:29 AM CDT [facility] Blood BLOOD SPECIMEN / Unknown Venipuncture / Unknown 04/07/2024 7:03 AM CDT 04/07/2024 7:19 AM CDT Nilam BLOOD CHEMISTRY Performing Organization Address [facility] de Phone Number [facility] [address] [place] [id number], [place] * Creatinine (04/07/2024 7:03 AM CDT) eGFR >90 >90 mL/min/1.7 3m2 04/07/2024 8:10 AM CDT [facility] Comment:As of 2021, eG FR is calculated by the CKD-EPI creatinine equation without race adjustment. ??eGFR can be influenced by muscle mass, exercise, and diet. ??The reported eGFR is an estimation only and is only applicable if the renal function is stable. CREATININE 0.50 0.50 - 0.90 mg/dL 04/07/2024 8:10 AM CDT [facility] Blood BLOOD SPECIMEN / Unknown Venipuncture / Unknown 04/07/2024 7:03 AM CDT 04/07/2024 7:19 AM CDT Nilam BLOOD CHEMISTRY Performing Organization Address City/[facility] Co de Phone Number [facility] [address] [place] [phone], [place] * Protime - INR (04/07/2024 7:03 AM CDT) INR 1.0 <1.3 04/07/2024 7:43 AM CDT [facility] PROTIME 11.0 10.3 - 12.3 sec 04/07/2024 7:43 AM CDT [facility] Blood BLOOD SPECIMEN / Unknown Venipuncture / Unknown 04/07/2024 7:03 AM CDT 04/07/2024 7:[address] [facility] - 04/07/2024 7:43 AM CDT ?Therapeutic Range 2.0-3.0 for most anticoagulated patients 2.5-3.5 or 4.0 for high risk patients The INR is only used for patients on stable oral anticoagulant therapy. It makes no significant contribution to the diagnosis or treatment of patients whose Protime is prolonged for other reasons. INR results are increased when heparin levels exceed 1.0 U/mL, which corresponds to an aPTT >125 seconds if the patient is on UFH. [facility]am BLOOD HEMATOLOGY [facility] [address] [place] [address], * SCAN-CARDIAC STRIP (04/07/2024 12:00 AM CDT) Narrative 04/07/2024 12:00 AM CDT Ordered by an unspecified provider. Other Clinical Staff OTHER * HEMOGLOBIN (04/05/2024 3:37 PM CDT) HEMOGLOBIN 14.4 12.0 - 16.0 g/dL 04/05/2024 3:44 PM CDT [facility] MCV 96 80 - 100 fL 04/05/2024 3:44 PM CDT [facility] Blood BLOOD SPECIMEN / Unknown Venipuncture / Unknown 04/05/2024 3:37 PM CDT 04/05/2024 3:38 PM CDT Kasey Roman MD HEMATOLOGY [facility] [place] [address], * SDNA-FIT EXTERNAL (COLOGUARD) (02/16/2024 8:30 AM CDT) NONINV COLON CA DNA+OCC BLD SCRN STL-IMP Negative Negative 02/21/2024 7:43 PM CDT [facility] (CLIA #:[id number]) Comment: NEGATIVE TEST RESULT. A negative Cologuard result indicates a low likelihood that a colorectal cancer (CRC) or advanced adenoma (adenomatous polyps with more advanced pre-malignant features) ??is present. The chance that a person with a negative Cologuard test has a colorectal cancer is less than 1 in 1500 (negative predictive value >99.9%) or has an ??advanced adenoma is less than ??5.3% (negative predictive value 94.7%). These data are based on a prospective cross-sectional study of 10,000 individuals at average risk for colorectal cancer who were screened with both Cologuard and colonoscopy. (Stanislavialtemo T. et al, N Engl J Med 2014;370(14):1286- 1297) The normal value (reference range) for this assay is negative. COLOGUARD RE-SCREENING RECOMMENDATION: Periodic colorectal cancer screening is an important part of preventive healthcare for asymptomatic individuals at average risk for colorectal cancer. ??Following a negative Cologuard result, the [place] [employer] and U.S. Multi-Society Task Force screening guidelines recommend a Cologuard re-screening interval of 3 years. References: [place] [employer] Guideline for Colorectal Cancer Screening: https://www.cancer.org/cancer/dxzuw-tsutnh-mxnhql/unoknjluk-ztyovngrt-gmyjcwy/ac s-rec ommendations.html.; Sixto NERI, Lauren RICKETTS, Louisa MarceloK, Colorectal Cancer Screening: Recommendations for Physicians and Patients from the U.S. Multi-Society Task Force on Colorectal Cancer Screening , Am J Gastroenterology 2017; 112:3639-7403. TEST DESCRIPTION: Composite algorithmic analysis of stool DNA-biomarkers with hemoglobin immunoassay. ?? Quantitative values of individual biomarkers are not reportable and are not associated with individual biomarker result reference ranges. Cologuard is intended for colorectal cancer screening of adults of either sex, 45 years or older, who are at average-risk for colorectal cancer (CRC). Cologuard has been approved for use by the U.S. FDA. The performance of Cologuard was established in a cross sectional study of average-risk adults aged 50-84. Cologuard performance in patients ages 45 to 49 years was estimated by sub-group analysis of near-age groups. Colonoscopies performed for a positive result may find as the most clinically significant lesion: colorectal cancer [4.0%], advanced adenoma (including sessile serrated polyps greater than or equal to 1cm diameter) [20%] or non- advanced adenoma [31%]; or no colorectal neoplasia [45%]. These estimates are derived from a prospective cross-sectional screening study of 10,000 individuals at average risk for colorectal cancer who were screened with both Cologuard and colonoscopy. (Pradeep Graves. et al, N Engl J Med 2014;370(14):6701-6415.) Cologuard may produce a false negative or false positive result (no colorectal cancer or precancerous polyp present at colonoscopy follow up). A negative Cologuard test result does not guarantee the absence of CRC or advanced adenoma (pre-cancer). The current Cologuard screening interval is every 3 years. ([place] [employer] and U.S. Multi-Society Task Force). Cologuard performance data in a 10,000 patient pivotal study using colonoscopy as the reference method can be accessed at the following location: www.[employer]/results. Additional description of the Cologuard test process, warnings and precautions can be found at www.[employer].com. Stool specimen (specimen) (Rectum) 02/16/2024 8:30 AM CDT 02/17/2024 9:48 AM CDT Kasey Roman MD URINE [facility] (CLIA #:[id number]) [place] [place] [address], * PET CT SKULL BASE TO MID THIGH INITIAL TREAT (02/03/2024 11:05 AM CDT) Anatomical Region Laterality Modality Positron Emissio n Tomography (PET) 02/04/2024 11:2 7 AM CDT Impressions 02/04/2024 11:27 AM CDT 1. Left-sided mediastinal mass is identified which is hypermetabolic, SUV max 14.7. Finding is suspicious for a pathologic lymph node. Differential diagnosis would include metastatic disease versus lymphoma. Recommend tissue diagnosis. 2. No other significant hypermetabolic lymph nodes are noted. 3. There is a small focus of activity in the upper esophagus without significant wall thickening, favored to be physiologic. 4. Other PET-CT findings as detailed above. Dictated by Bill Miller MD @ 02/04/2024 11:27:54 AM (Electronically Signed) Narrative 02/04/2024 11:27 AM CDT For Patients: ??As a result of the Century Cures Act, medical imaging exams and procedure reports are released immediately into your electronic medical record. ??You may view this report before your referring provider. ??If you have questions, please contact your health care provider. INDICATION: Left mediastinal lymphadenopathy. Exam is being performed for staging. TECHNIQUE: Patient received 11.8 millicuries of 18 FDG (18 fluorodeoxyglucose) intravenously. PET-CT imaging has been performed from the mid skull to mid thigh level [address] images have been obtained for attenuation correction and localization only. Blood glucose level: 64 mg/dL. COMPARISON: CT scan dated 01/26/2024 and 12/31/2022. FINDINGS: Within the chest there is an abnormal left-sided mediastinal mass/lymph node at the level of the arch of the aorta. This measures 3.9 x 1.9 cm with a SUV max of 14.7. There are no other significant hypermetabolic lymph nodes in the mediastinum. There are some small normal-size lymph nodes noted. There is a small focus of activity in the upper esophagus near the thoracic inlet without significant wall thickening. The right hilum is unremarkable. The lungs demonstrate no significant abnormal uptake. The chest wall and axilla demonstrates no abnormal uptake. The neck demonstrates no significant abnormal uptake. Skullbase is unremarkable. The liver and spleen demonstrate no abnormal uptake. The pancreas and bilateral adrenal glands demonstrate no abnormal uptake. The retrocrural region and retroperitoneum demonstrate no abnormal uptake. There is a small calcification at the tri hepatis near the portal vein. There is extensive atherosclerotic change of the aorta. The retrocrural region and retroperitoneum demonstrate no significant abnormal uptake. Iliac darrian chain demonstrates no significant abnormal uptake. There is physiologic distal bilateral ureteric activity identified. Retained activity within the urinary bladder noted. Physiologic bowel activity is noted. No suspicious skeletal lesions are noted. Curvature of the thoracic and lumbar spine is identified with fusion hardware in place. Bilateral hip arthroplasties are noted. Procedure Note Bill Miller MD - 02/04/2024 For Patients: As a result of the Cures Act, medical imagingexams and procedure reports are released immediately into your electronicmedical record. You may view this report before your referring provider.If you have questions, please contact your health care provider. INDICATION: Left mediastinal lymphadenopathy. Exam is being performed for staging. TECHNIQUE: Patient received 11.8 millicuries of 18 FDG (18 fluorodeoxyglucose)intravenously. PET-CT imaging has been performed from the mid skull to midthigh level [address] images have been obtained forattenuation correction and localization only. Blood glucose level: 64 mg/dL. COMPARISON: CT scan dated 01/26/2024 and 12/31/2022. FINDINGS: Within the chest there is an abnormal left-sided mediastinal mass/lymphnode at the level of the arch of the aorta. This measures 3.9 x 1.9 cmwith a SUV max of 14.7. There are no other significant hypermetaboliclymph nodes in the mediastinum. There are some small normal-size lymphnodes noted. There is a small focus of activity in the upper esophagusnear the thoracic inlet without significant wall thickening. The righthilum is unremarkable. The lungs demonstrate no significant abnormaluptake. The chest wall and axilla demonstrates no abnormal uptake. Theneck demonstrates no significant abnormal uptake. Skullbase isunremarkable. The liver and spleen demonstrate no abnormal uptake. The pancreas andbilateral adrenal glands demonstrate no abnormal uptake. The retrocruralregion and retroperitoneum demonstrate no abnormal uptake. There is asmall calcification at the tri hepatis near the portal vein. There isextensive atherosclerotic change of the aorta. The retrocrural region andretroperitoneum demonstrate no significant abnormal uptake. Iliac nodalchain demonstrates no significant abnormal uptake. There is physiologicdistal bilateral ureteric activity identified. Retained activity withinthe urinary bladder noted. Physiologic bowel activity is noted. No suspicious skeletal lesions are noted. Curvature of the thoracic andlumbar spine is identified with fusion hardware in place. Bilateral hiparthroplasties are noted. IMPRESSION: 1. Left-sided mediastinal mass is identified which is hypermetabolic, SUVmax 14.7. Finding is suspicious for a pathologic lymph node. Differentialdiagnosis would include metastatic disease versus lymphoma. Recommendtissue diagnosis. 2. No other significant hypermetabolic lymph nodes are noted. 3. There is a small focus of activity in the upper esophagus withoutsignificant wall thickening, favored to be physiologic. 4. Other PET-CT findings as detailed above. Dictated by Bill Miller MD @ 02/04/2024 11:27:54 AM (Electronically Signed) Kasey Roman MD PET * US ANKLE BRACHIAL INDEX BILATERAL (01/31/2024 3:06 PM CDT) Anatomical Region Laterality Modality ANKLES, ANKLE L, ANKLE R Ultraso und 01/31/2024 2:19 PM CDT Narrative 02/01/2024 8:40 AM CDT VASCULAR ULTRASOUND REPORT DELMI BLANTON Accession#: ?? [id number] : ?1960 Study Date: ?? 01/31/2024 2:19:38 PM Age: ?63 years ?? Tech: ? PMK Gender: F ?Referring MD: MATTEO ERVIN Site: [facility] Study performed: ?Lower extremity resting ANA CRISTINA, TBI, (bilateral). Indication for study: purple toes Study Quality: ?Good TECHNIQUE: Lower/upper extremity arteries were examined per exam protocol by duplex ultrasound, color-flow and spectral Doppler. Peak systolic velocities (PSV), Doppler waveform quality, velocity ratios and vessel size in cm, were documented at protocol specific sites. Physiologic data including segmental pressures, ankle/brachial index (ANA CRISTINA), digit PPG recordings, laser Doppler flowmetry, transcutaneous oximetry, and digit temperatures were documented at sites per exam protocol and test requirements. IMPRESSION: 1. Resting ankle-brachial index is normal on the right at 1.05 and is normal on the left at 1.07. 2. Toe-brachial index is moderately reduced on the right at 0.41 and toe- brachial index is moderately reduced on the left at 0.48. COMPARISON: Compared to prior study 09-05-2019, there is no significant change. FINDINGS: Right toe/brachial index indicates moderate range. Left toe/brachial index indicates moderate range. +--------+ + + RIGHT ?? Velocity cm/s Phasicity ?? +--------+ + + PRACTICAL NURSING TEACHER DST ? 70 ? multiphasic +--------+ + + ONEIL DST ? 45 ? multiphasic +--------+ + + DPA ? 39 ? multiphasic +--------+ + + +-------+ + + LEFT ?? Velocity cm/s Phasicity ?? +-------+ + + PRACTICAL NURSING TEACHER DST ? 47 ? multiphasic +-------+ + + DPA ? 62 ? multiphasic +-------+ + + Criteria: Stenosis ?V. Ratio Mild ?<50% ?<2.0 Moderate ?? 50-74% ?> or = 2.0 Severe ? 75-99% ?> or = 4.0 Occluded ?100% ?? no detectable flow Pressures +-----+ +--------+ +-----+ ? RIGHT (mmHg) ? LEFT (mmHg) ? +-----+ +--------+ +-----+ Index ?193 ? Brachial ?190 ? Index +-----+ +--------+ +-----+ 1.04 ?200 ?PRACTICAL NURSING TEACHER ?206 ? 1.07 +-----+ +--------+ +-----+ 1.05 ?203 ?DPA ?192 ? 0.99 +-----+ +--------+ +-----+ 0.41 ? 80 ? Digit 1 ?92 ? 0.48 +-----+ +--------+ +-----+ Gino Varma MD. Electronically signed on 02/01/2024 8:40:50 AM This study was performed and interpreted by a service accredited by the Intersocietal Accreditation Commission (IAC/Vascular), www.intersocietal.org/vascular Report generated by [employer]. ??Final ?? Procedure Note Gino Varma MD - 02/01/2024 VASCULAR ULTRASOUND REPORT DELMI BLANTON : 1960 Study Date: 01/31/2024 2:19:38 PM Age: 63 years Tech: PMK Gender: F Referring MD: MATTEO ERVIN Site: [facility] Study performed: Lower extremity resting ANA CRISTINA, TBI, (bilateral). Indication for study: purple toes Study Quality: Good TECHNIQUE: Lower/upper extremity arteries were examined per exam protocol by duplexultrasound, color-flow and spectral Doppler. Peak systolic velocities(PSV), Doppler waveform quality, velocity ratios and vessel size in cm,were documented at protocol specific sites. Physiologic data includingsegmental pressures, ankle/brachial index (ANA CRISTINA), digit PPG recordings,laser Doppler flowmetry, transcutaneous oximetry, and digit temperatureswere documented at sites per exam protocol and test requirements. IMPRESSION: 1. Resting ankle-brachial index is normal on the right at 1.05 and isnormal on the left at 1.07. 2. Toe-brachial index is moderately reduced on the right at 0.41 andtoe-brachial index is moderately reduced on the left at 0.48. COMPARISON: Compared to prior study 09-05-2019, there is no significant change. FINDINGS: Right toe/brachial index indicates moderate range. Left toe/brachial index indicates moderate range. +--------+ + + RIGHT Velocity cm/s Phasicity +--------+ + + PRACTICAL NURSING TEACHER DST 70 multiphasic +--------+ + + ONEIL DST 45 multiphasic +--------+ + + DPA 39 multiphasic +--------+ + + +-------+ + + LEFT Velocity cm/s Phasicity +-------+ + + PRACTICAL NURSING TEACHER DST 47 multiphasic +-------+ + + DPA 62 multiphasic +-------+ + + Criteria: Stenosis V. Ratio Mild <50% <2.0 Moderate 50-74% > or = 2.0 Severe 75-99% > or = 4.0 Occluded 100% no detectable flow Pressures +-----+ +--------+ +-----+ RIGHT (mmHg) LEFT (mmHg) +-----+ +--------+ +-----+ Index 193 Brachial 190 Index +-----+ +--------+ +-----+ 1.04 200 PRACTICAL NURSING TEACHER 206 1.07 +-----+ +--------+ +-----+ 1.05 203 DPA 192 0.99 +-----+ +--------+ +-----+ 0.41 80 Digit 1 92 0.48 +-----+ +--------+ +-----+ Gino Varma MD. Electronically signed on 02/01/2024 8:40:50 AM This study was performed and interpreted by a service accredited by theIntersocietal Accreditation Commission (IAC/Vascular),www.intersocietal.org/vascular Report generated by [employer]. Final Matteo Ervin MD US * XR KNEE WB 1 VIEW AP BILATERAL AND 2 VIEWS BILATERAL (01/27/2024 3:51 PM CDT) Anatomical Region Laterality Modality KNEES Computed Radiogr aphy 01/29/2024 7:17 AM CDT Narrative 01/29/2024 7:17 AM CDT For Patients: ??As a result of the 21st Century Cures Act, medical imaging exams and procedure reports are released immediately into your electronic medical record. ??You may view this report before your referring provider. ??If you have questions, please contact your health care provider. Indication: Bilateral knee pain Technique: Bilateral knee AP, lateral and sunrise 6 views Comparison: 01/10/2018 Findings: Mild patellofemoral spurring bilaterally. No large joint effusion or fracture. Chronic distal quadriceps tendinosis bilaterally. Vascular calcifications are present. Standing alignment normal. No osteochondral defect. ?? 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 Dictated by Arnaldo Ashley MD @ 01/29/2024 7:17:29 AM (Electronically Signed) Procedure Note Arnaldo Ashley MD - 01/29/2024 For Patients: As a result of the Century Cures Act, medical imagingexams and procedure reports are released immediately into your electronicmedical record. You may view this report before your referring provider.If you have questions, please contact your health care provider. Indication: Bilateral knee pain Technique: Bilateral knee AP, lateral and sunrise 6 views Comparison: 01/10/2018 Findings: Mild patellofemoral spurring bilaterally. No large joint effusion orfracture. Chronic distal quadriceps tendinosis bilaterally. Vascularcalcifications are present. Standing alignment normal. No osteochondraldefect. 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 Dictated by Arnaldo Ashley MD @ 01/29/2024 7:17:29 AM (Electronically Signed) Kasey Roman MD GENERAL IMAGING * CT CHEST SCREENING LOW DOSE WO CONTRAST (01/26/2024 4:09 PM CDT) Anatomical Region Laterality Modality Computed Tomogra phy Impressions 01/28/2024 11:50 AM CDT ACR Lung-RADS Category 1S: Negative for lung cancer screening. No suspicious nodules. Enlarged AP bulky AP window lymph node. This is similar in size compared to November 2021 but had regressed in December 2022. This is of unclear underlying etiology. Please correlate with interval history and consider PET-CT tissue sampling. Additionally recommend continued annual lung cancer screening with low-dose CT in 12 months. Please note that all CT scans at this facility use dose modulation, iterative reconstruction and/or weight-based dosing when appropriate to reduce radiation dose to as low as reasonably achievable. ?? Dictated by: Omar Cornejo MD @01/27/2024 2:28:29 PM / STEPHANY:joelle Narrative 01/28/2024 11:50 AM CDT For Patients: As a result of the Cures Act, medical imaging exams and procedure reports are released immediately into your electronic medical record. ??You may view this report before your referring provider. ?? If you have questions, please contact your health care provider. CT CHEST SCREENING LOW-DOSE WITHOUT CONTRAST, 01/26/2024 INDICATION: Lung cancer screening. History of smoking. High risk patient. TECHNIQUE: Low-dose lung cancer screening non-contrast CT chest. Dose reduction techniques were used. COMPARISON: 12/31/2022. FINDINGS: NODULES: None. LUNGS AND PLEURA: Mild emphysema. MEDIASTINUM: Enlarged AP window node measuring 1.7 x 3.9 centimeters. This has substantially enlarged compared to December 2022 when it measured 1.1 x 2.2 centimeters but similar compared to the November 2021 exam when measured the same plans. CORONARY ARTERY CALCIFICATION: Present. LIMITED UPPER ABDOMEN: Atherosclerosis. MUSCULOSKELETAL: Prior thoracolumbar fusion. No suspicious osseous lesion. Kasey Roman MD CT * XR MAMMO BILAT SCREENING (01/17/2024 4:22 PM CDT) Anatomical Region Laterality Modality BREASTS, Breast Left, Breast Right Bilateral Mammography Impressions 01/18/2024 2:53 PM CDT ??There is no radiographic evidence for malignancy. ??Recommend annual mammograms. MAMMOGRAM ASSESSMENT: ??ACR 1 Negative PATIENTS: You will also receive a letter with your examination results in an easy to read format. ??If you have questions about your results, please contact your referring provider. Narrative 01/18/2024 2:53 PM CDT For Patients: As a result of the Cures Act, medical imaging exams and procedure reports are released immediately into your electronic medical record. You may view this report before your referring provider. If you have questions, please contact your health care provider. XR MAMMO BILAT SCREENING [[id number]] CLINICAL HISTORY: ??This is an asymptomatic 63 y.o. patient. INDICATION FOR EXAM: Mammogram Screening. TECHNIQUE: CC & MLO views were obtained. ??This study was evaluated with the assistance of Computer-Aided Detection. COMPARISON FILM: Yes 09/30/21 [facility] 10/09/19 [facility] FINDINGS: ??The breasts are heterogeneously dense, which may obscure small masses. There are no dominant masses, suspicious micro calcifications or areas of architectural distortion. Ksaey Roman MD MAMMO * (ABNORMAL) LIPID PANEL W REFLEX MEASURED LDL (01/12/2024 3:38 PM CDT) CHOLESTEROL,TOTAL 164 100 - 199 mg/dL 01/12/2024 11:20 PM CDT [facility] Comment: Cholesterol, Total Reference Ranges Desirable <200 mg/dL Borderline 200-239 mg/dL High >=240 mg/dL TRIGLYCERIDES 217(H) <150 mg/dL 01/12/2024 11:20 PM CDT [facility] HDL CHOLESTEROL 52 >40 mg/dL 11:20 PM CDT [facility] NON-HDL CHOLESTEROL 112 <145 mg/dl 01/12/2024 11:20 PM CDT [facility] CHOL/HDL RATIO 3.15 <4.50 01/12/2024 11:20 PM CDT [facility] LDL CHOLESTEROL 69 <=130 mg/dL 01/12/2024 11:20 PM CDT [facility] VLDL CHOLESTEROL 43(H) <=30 mg/dL 01/12/2024 11:20 PM CDT [facility] PROVIDER ORDERED STATUS RANDOM 01/12/2024 11:20 PM CDT [facility] Blood BLOOD SPECIMEN / Unknown Venipuncture / Unknown 01/12/2024 3:38 PM CDT 01/12/2024 3:39 PM CDT Kasey Roman MD [facility]STRY [facility] [address] [place] [address], * HPV HIGH RISK (01/12/2024 3:11 PM CDT) TYPE 16 Negative Negative 01/17/2024 6:08 PM CDT [facility] TYPE 18 Negative Negative 01/17/2024 6:08 PM CDT [facility] OTHER HIGH RISK TYPES Negative Negative 01/17/2024 6:08 PM CDT [facility] Other (Cervical) Non-Blood / Unknown 01/12/2024 3:11 PM CDT 01/14/2024 9:[address] [facility] - 01/17/2024 6:08 PM CDT HPV types 16, 18, 31, 33, 35, 39, 45, 51, 52, 56, 58, 59, 66 and 68 DNA were undetectable or below the pre-set threshold. Methodology: Jhonathan Gavi 4800 HPV Test Kasey Roman MD MICROBIOLOGY Performing Organization Address City/[facility]/ZIP Co de Phone Number [facility] [address] [place] [address], [place] * HIV-1/O/2, 4TH GENERATION (11/24/2022 5:31 PM SCHOOL CLERK) HIV Scr 4th Gen Non Reactive Non Reactive 11/27/2022 10:06 PM SCHOOL CLERK [facility] Comment: HIV Negative HIV-1/HIV-2 antibodies and HIV-1 p24 antigen were NOT detected. There is no laboratory evidence of HIV infection. Blood BLOOD SPECIMEN / Unknown Venipuncture / Unknown 11/24/2022 5:31 PM SCHOOL CLERK 11/24/2022 5:31 PM SCHOOL CLERK Narrative [facility] ([facility] - 11/27/2022 10:06 PM SCHOOL CLERK Performed at: ??[address] ??[id number] Associate Financial Representative: Trino Molina MD, Phone: ??[phone] Kasey Roman MD LABORATORY [facility] ([facility]) [address] [place] [address], [place] * OCCULT BLOOD IFOBT STOOL (10/09/2019 2:10 PM SCHOOL CLERK) STOOL BLOOD ,IFOBT Negative Negative 10/09/2019 2:19 PM SCHOOL CLERK [facility] Stool STOOL SPECIMEN / Unknown Non-Blood / Unknown 10/09/2019 2:10 PM SCHOOL CLERK 10/09/2019 2:10 PM SCHOOL CLERK Kasey Roman MD LABORATORY [facility] [address] [place] [address], * ANTI HCV [95779.2] (01/24/2015 7:12 AM CDT) HEPATITIS C ANTIBODY Non-Reacti ve Non-Reacti ve 01/24/2015 1:57 PM CDT [facility] Blood specimen (specimen) BLOOD SPECIMEN / Unknown Venipuncture / Unknown 01/24/2015 7:12 AM CDT 01/24/2015 7:12 AM CDT Narrative [facility] - 01/24/2015 1:57 PM CDT Antibodies to HCV not detected; does not exclude the possibility of exposure to HCV. Richard Morgan MD SEND OUTS [facility] [address] [place] [address], [place] from Last 3 Months or Most Recently Relevant to Health Maintenance Advance Directives * Full Code (Latest Code Status on File) Date Activated Date Inactivated Comments 04/20/2024 10:07 PM Question Answer Comments Code Status Discussion: Reviewed Preferences * Full Code Date Activated Date Inactivated Comments 04/07/2024 6:14 AM 04/10/2024 3:47 PM Question Answer Comments Code Status Discussion: Unable to Assess Preferences, Provider to review later * Full Code Date Activated Date Inactivated Comments 01/30/2021 6:17 AM 01/30/2021 5:56 PM Question Answer Comments Code Status Discussion: Discussed Care Teams Senior Gis Analyst Relationship Specialty Start Date End Date Kasey Roman MD [address] [place] [address] PCP - General Family Practice 09/21/19 Rian Marmolejo MD [address] [facility] [address] [place] [address] Rheumatology Rheumatology 05/04/17 Amber Santana RN [address] [facility] [place] [address] Nurse Navigator - Oncology Registered Nurse 02/02/24
== END 2024-04-20 15:07 | disposition home or self-care (01) ==
LOC: AMB 04-21 06:38
PROVIDERS: PCP Family Medicine; Visit Provider Emergency Medicine Emergency Medical Services
DX: J93.9 Pneumothorax, unspecified (principal)
CPT/HCPCS: A0425; A0429

== ENCOUNTER 2024-04-26 07:42 | Outpatient (CLI) | payer MEDICARE, SELFPAY ==
--- OUTSIDE RECORDS SUMMARY | 2024-04-26 07:44 | XMS_ITS | Clinical Summary ---
Author Organization [facility] Address [address] [address] Care Team Providers Care Benefits Sales Consultant Name Role Phone Richard Morgan MD Primary Care Provider [phone] Source Comments You are receiving this document as you are listed as the primary care provider,follow-up provider, or the patient has been referred to you for consultation.This is in compliance with the Medicare and[facility] Hospital[facility] EHR Incentive Program,which states Providers who transition their patient to another setting of careor provider of care or refers their patient to another provider of care shouldprovide summary care record for each transition of care or referral. [facility] Allergies Active Allergy Reactions Criticality Noted Date [...] by mouth daily. Indications: supplement Active Pediatric Rgcmnsnq-Jfrcpjlx-I (GUMMI BEAR MULTIVITAMIN/MIN) Take 1 Each by [...] scoliosis, with rods (1978 & 1986 @ [place]) Tobacco abuse 03/01/2018 Sjogren's syndrome 03/01/2018 HTN [...] this topic Medical Devices Implanted Type Area Advertising Designer Device Identifier Shelf Expiration Date Model / Serial / Lot Cover Hole Thrd Reflection - [id number] Implanted:Qty: 1 on 03/10/2018 by Tammie Nowak MD at [facility] DEVICE Left: HIP S 01/17/2028 [id number] / / [id number] Shell Acet R3 Std 54mm 3h - [id number] Implanted:Qty: 1 on 03/10/2018 by Tammie Nowak MD at [facility] DEVICE Left: HIP S 01/15/2028 [id number] / / [id number] Scr Hd Spherical R3 6.5x25 - [id number] Implanted:Qty: 1 on 03/10/2018 by Tammie Nowak MD at [facility] DEVICE Left: HIP S 11/01/2027 [id number] / / [id number] Scr Hd Spherical R3 6.5x30 - [id number] Implanted:Qty: 1 on 03/10/2018 by Tammie Nowak MD at [facility] DEVICE Left: HIP S 11/19/2027 [id number] / / [id number] Liner Acet R3 Xlpe 0deg 36x54 - [id number] Implanted:Qty: 1 on 03/10/2018 by Tammie Nowak MD at [facility] DEVICE Left: HIP S 01/01/2028 [id number] / / [id number] Comp Fem Std Ofst Sz14 160mm - [id number] Implanted:Qty: 1 on 03/10/2018 by Tammie Nowak MD at [facility] DEVICE Left: HIP S 11/30/2027 [id number] / / [id number] Hd Fem Oxinium 09/02 36mm +0 - [id number] Implanted:Qty: 1 on 03/10/2018 by Tammie Nowak MD at [facility] DEVICE Left: HIP S 01/15/2028 [id number] / / [id number] Advance Directives * Full Code (Latest Code Status on File) Date Activated Date Inactivated Comments 03/10/2018 12:02 PM 03/11/2018 4:41 PM Care Teams Benefits Sales Consultant Relationship Specialty Start Date End Date Richard Morgan MD [facility] [place] [address] PCP - General Family Practice 03/01/18
--- OUTSIDE RECORDS SUMMARY | 2024-04-26 07:44 | XMS_ITS | Continuity of Care Document ---
Author Organization [facility] Address [address] [place] [address] Phone Care Team Providers Care Oceanography Teacher Name Role Phone Cindy Barnes Unavailable Unavailable Allergies, Adverse Reactions, Alerts Substance Reaction Status Criticality PENICILLIN rash Active No Information Medications Medication Instructions Dosage Effective Dates (start - stop) Status Comments PAXIL (unknown strength) Not Available - Active PREDNISONE INTENSOL (unknown strength) Not Available - Active LISINOPRIL (unknown strength) Not Available - Active Procedures Procedure Date Office/Outpatient Visit,[facility] 2017 Results Test Name Date and Time Measure Units Reference Range Abnormal Flag Status Comments Panel Description: Lumbosacral Min. 4 Views Unk nown [id number] 20:27:55 (See Attached Document) Unknown (See Attached Document) Panel Description: Lumbosacral Min. 4 Views Unk nown Image Lumbosacral Min. 4 Views Advance Directives Directive Yes / No Effective Date File Name No Information Encounters Encounter Description Practice Location Reason(s) For Visit Diagnoses Date Provider Providers Copied on Encounter Office/Outpat ient Visit,[facility], [facility], [address], [place], [place], [id number], [place] tel:[phone] [facility], unspecified 8 Daxa White. [facility], [address], [place], [address], [place]. tel:[phone] Referring Provider: Richard Mogran, [employer] [address], [address] . tel:[phone] [facility], [address], [place], [place], [id number], [place] tel:[phone] [facility] Radiculopathy, lumbar region 8 Keith Marin. [facility], [address], [place], [address], [place]. tel:[phone] Family History Family Member Type Diagnosis Age At Onset No Information Payers Payer name Insurance type Covered green party ID Authoriza tion(s) No Information Social History [...]
--- OUTSIDE RECORDS SUMMARY | 2024-04-26 07:45 | XMS_ITS | Clinical Summary ---
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 0 3 Active cyclobenzaprine (FLEXERIL) 5 mg tabletIndications:N andrew muscle spasm Take 1 Tablet (5 mg) by mouth at bedtime if needed for Muscle Spasm. 15 Tablet 4 Active metoprolol succinate (TOPROL XL) 50 mg sustained-release tabletIndications:F requent PVCs Take 1 Tablet (50 mg) by mouth once daily. 90 Tablet 3 4 Active PARoxetine (PAXIL) 30 mg tabletIndications:A nxiety state Take 1 Tablet (30 mg) by mouth once daily. 90 Tablet 3 4 Active lisinopril-hydrochl orothiazide, 20-25 mg, (PRINZIDE, ZESTORETIC) 20-25 mg per tabletIndications:E ssential hypertension Take 1 Tablet by mouth once daily. 90 Tablet 3 4 Active albuterol 0.083% (2.5 mg/3 mL) neb solutionIndications :Wheezing Inhale 3 mL (2.5 mg) via a nebulizer every 4 hours if needed for Cough. 180 mL 4 Active albuterol HFA (PRO-AIR; VENTOLIN; PROVENTIL) 90 mcg/actuation inhalerIndications: Wheezing Inhale 1-2 Puffs by mouth every 4 hours if needed for Shortness Of Breath or Wheezing. 2 Each 4 Active rosuvastatin (Crestor) 20 mg tablet Take 20 mg by mouth at bedtime. Active amLODIPine (NORVASC) 10 mg tabletIndications:H ypertension, unspecified type Take 1 Tablet (10 mg) by mouth once daily. 90 Tablet 3 4 04/20/20 24 Discontinue d(Patient refused) albuterol HFA (ProAir HFA) 90 mcg/actuation inhalerIndications: Wheezing Inhale 2 Puffs by mouth every 4 hours if needed for Shortness Of Breath. Wait until they call for this. 2 Each 3 4 04/07/20 24 Discontinue d(Medicatio n therapy change per hospital protocol (E-cancel not sent)) rosuvastatin (CRESTOR) 20 mg tabletIndications:C oronary artery disease involving [place] coronary artery, unspecified whether angina present, unspecified whether [place] or transplanted heart Take 1 Tablet (20 mg) by mouth at bedtime. 90 Tablet 3 4 04/07/20 24 Discontinue d(Medicatio n therapy change per hospital protocol (E-cancel not sent)) acetaminophen (TYLENOL EXTRA STRGTH) 500 mg tabletIndications:M ediastinal lymphadenopathy Take 2 Tablets (1,000 mg) by mouth four times daily. Max acetaminophen dose: 4000mg in 24 hrs. 150 Tablet 4 04/10/20 Discontinue d(*IP Discontinue d) ibuprofen (ADVIL; MOTRIN) 600 mg tabletIndications:p ain Take 1 Tablet (600 mg) by mouth four times daily with meals and at bedtime. Maximum of 3200 mg in 24 hours. 50 Tablet 4 04/10/20 24 Discontinue d(*IP Discontinue d) oxyCODONE (ROXICODONE) 5 mg immediate release tabletIndications:M ediastinal lymphadenopathy Take 1-2 Tablets (5-10 mg) by mouth every 4 hours if needed for Pain. 20 Tablet 4 04/10/20 24 Discontinue d(*IP Discontinue d) sennosides-docusate (SENOKOT S) (8.6-50 mg) tabletIndications:M ediastinal lymphadenopathy Take 1-4 Tablets by mouth 2 times daily if needed for Constipation. 25 Tablet 4 04/10/20 24 Discontinue d(*IP Discontinue d) Active Problems Problem Noted Date Diagnosed Date Pneumothorax after biopsy 04/20/2024 Mediastinal lymphadenopathy 04/07/2024 Overview: Robotic assisted left VATS, Mediastinal Mass/Lymph Node Resection performed by Dr. Luis Daniel Jean 04/07/2024 Neck muscle spasm 01/12/2024 Postmenopausal 01/12/2024 Bronchitis, chronic, simple 01/12/2024 Peripheral sensory neuropathy 01/12/2024 Coronary artery disease involving [place] coronar y artery 11/24/2022 Frequent PVCs 11/24/2022 PSVT (paroxysmal supraventricular tachycardia) 1 11/10/2020 Primary osteoarthritis of right hip 01/28/2021 Status post total replacement of left hip 2017 Overview: Overview: 03/10/18 Mild intermittent asthma wit hout complication triggered by URIs 03/04/2018 History of spinal surgery 03/01/2018 Overview: Overview: For scoliosis, with rods (1978 & 1987 @ [facility]) Sjogren's syndrome 02/11/2018 Left leg weakness 02/03/2018 [...] Encounters Date Type Department Care Team Description 04/25/2024 11:35 AM CDT Office Visit [facility] [address] [facility] [place] [address] Melissa Lynn PA Hospital F/U ([facility] 8/PNEUMOTHORAX AFTER BIOPSY Kash Estrada MD //Shortness of breath has gotten better ) 04/25/2024 11:15 AM CDT Ancillary Procedure [facility] [address] [facility] [place] [address] Arrived 04/25/2024 Telephone [facility] [address] [address] Nilam Whyte PA Surgical Followup 04/25/2024 Travel 04/24/2024 Patient Outreach [address] [address] Meghan Anderson, RN Primary RN Care Management; [facility] 04/20/2024 4:22 PM CDT - 04/21/2024 11:04 AM CDT Hospital Encounter [facility] [address] [address] Chanel Vázquez MD Raiolo, Alyssa Ann Marie, PA [facility], [facility] Hospitalists [facility], MD Sean Clayton, Kash Moreira MD Pneumothorax of left lung after biopsy (Primary Dx); Pneumothorax after biopsy Discharge Disposition: Home Self Care 04/20/2024 1:45 PM CDT Ancillary Procedure [facility] [address] [facility] [place] [address] 04/20/2024 12:45 PM CDT Office Visit [facility] [address] [place] [address] Kasey Roman MD Hospital F/U 04/20/2024 Travel 04/14/2024 Orders Only [facility] [address] [place] [address] Kasey Roman MD <No scans attached> 04/14/2024 Orders Only [facility] [address] [place] [address] Kasey Roman MD <No scans attached> 04/14/2024 Telephone [facility] [address] [place] [address] [facility] Cancer Referral 04/14/2024 Telephone [facility] [address] [place] [address] Luis Daniel Jean MD Questions (Questions regarding plan of care ) 04/13/2024 Telephone [facility] [address] [place] [address] Luis Daniel Jean MD Surgical Followup 04/12/2024 Telephone [facility] [address] [place] [address] Kasey Roman MD 04/11/2024 Telephone [facility] [address] [place] [address] Mildred Lilly, handyperson Followup 04/11/2024 Patient Outreach [facility] [address] [place] [address] Meghan Anderson, RN Primary RN Care Management; Hospital F/U ([facility] 19) 04/10/2024 Orders Only [facility] [address] [place] [address] Kasey Roman MD 1 scan: (1-Ord) NFLLD-EKG-04/05/24 04/07/2024 7:50 AM CDT Anesthesia Event [facility] [address] [place] [address] Gentry Harrison MD Shea, Caroline Victoria, PROPELLER INSPECTOR 04/07/2024 7:00 AM CDT - 04/07/2024 10:52 AM CDT Surgery [facility] [address] [place] [address] Luis Daniel Jean MD flexible bronchoscopy, left robotic assisted thoracoscopic surgery, Mediastinal Mass/Lymph Node Resection 04/07/2024 6:03 AM CDT - 04/10/2024 1:42 PM CDT Hospital Encounter [facility] [address] [place] [address] Luis Daniel Jean MD Mediastinal lymphadenopathy (Primary Dx); PVC's (premature ventricular contractions) Discharge Disposition: Home Self Care 04/07/2024 Travel 04/05/2024 2:25 PM CDT Office Visit [facility] [address] [place] [address] Kasey Roman MD Pre-Op Exam (04/07/2024, ANW, Dr Denys Jean) 04/05/2024 Travel 03/31/2024 Telephone [facility] [address] [place] [address] Matteo Ervin MD Referral 03/30/2024 4:00 PM CDT Office Visit [facility] [address] [place] [address] Gabriel Land MD Follow Up (Peripheral sensory neuropathy/) 03/30/2024 Travel 03/27/2024 Travel 02/10/2024 4:00 PM CDT Telemedicine [facility] [address] [place] [address] Luis Daniel Jean MD Follow Up 02/10/2024 Travel 02/09/2024 Telephone [facility] [address] [place] [address] Luis Daniel Jean MD Pre-visit call 02/07/2024 Telephone [facility] [address] [place] [address] [facility] Cancer Referral (Mediastinal mass/lymph node - discuss biopsy/excision) 02/07/2024 Telephone [facility] [address] [facility] [address] Kasey Roman MD 02/03/2024 9:10 AM CDT - 02/03/2024 11:59 PM CDT Hospital Encounter [facility] [address] [place] [address] Kasey Roman MD Enlarged lymph node; Other nonspecific abnormal finding of lung field 02/03/2024 Travel 02/02/2024 Telephone [facility] [address] [place] [address] Kasey Roman MD 02/01/2024 Telephone [facility] [address] [facility] [address] Kasey Roman MD Results 01/31/2024 3:45 PM CDT Orders Only [facility] [address] [place] [address] Lab, [place] Lab 01/31/2024 2:30 PM CDT Ancillary Procedure [facility] [address] [facility] [place] [address] 01/31/2024 Travel 01/31/2024 Telephone [facility] [address] [place] [address] [place], [facility] Referral (Enlarged lymph node) 01/31/2024 Telephone [facility] [address] [facility] [place] [address] Kasey Roman MD 01/27/2024 3:45 PM CDT Ancillary Procedure [facility] [address] [place] [address] 01/27/2024 3:15 PM CDT Office Visit [facility] [address] [place] [address] Kasey Roman MD Knee Pain/problem (Bilateral knee pain) 01/26/2024 4:00 PM CDT Ancillary Procedure [facility] [address] [place] [address] 01/26/2024 Travel 01/26/2024 Telephone [facility] [address] [place] [address] Matteo Ervin MD Referral 01/25/2024 Telephone [facility] [address] [place] [address] Kasey Roman MD Lab from Last 3 Months Immunizations Name Administration Dates Next Due AMB Influenza, IIV3 (Age >=3 years)(Flu Clinic Only) 07/14/2013,07/28/2012,07/13/2011,2008,07/23/2008 COVID-19 vaccine (Pfizer-Bio NTech 30mcg/0.3mL) 12YO+ BIVALENT PF, MDV 12/23/2022 [...] on file Sexual Orientation Not on file Obstetrics History Last Filed Vital Signs Vital Sign Reading Time Taken Comments Blood Pressure 160/95 04/25/2024 11:49 AM CDT manual recheck Pulse 70 04/25/2024 11:39 AM CDT Temperature 36.8 ??C (98.3 ??F) 04/21/2024 7 :00 AM CDT Respiratory Rate 16 04/21/2024 7:00 AM CDT Oxygen Saturation 98% 04/25/2024 11: 39 AM CDT Inhaled Oxygen Concentration - - Weight 65 kg (143 lb 3.2 oz) 04/25/2024 11:39 AM CDT Height 160 cm (5' 3) 04/20/2024 4:35 PM CDT Body Mass Index 25.37 04/20/2024 4:35 PM CDT Plan of Treatment Health Maintenance Due Date Last Done Comments Zoster (shingles) series for age 50+ (2 of 2) 09/05/2019 07/11/2019 COVID-19 vaccine series (2022- season) 2023 12/23/2022, 07/31/2021, 11/23/2020, Additional history [...] exists Pap test for age 21-65 01/11/2027 , 01/12/2024, 12/23/2022, Additional history exists Fecal testing [...] , 06/27/2004 Medical Devices Implanted Type Area Mixer Operator Device Identifier Shelf Expiration Date Model / Serial / Lot Screw Bone 6.5x20mm Mpo Torx T25 Canclls - [id number] Implanted:Qty: 1 on 01/30/2021 by Favio Clark MD at [facility] Right: Hip [employer] 11/15/2025 [id number] / / [id number] Shell Hip 50mm Procotyl Prime Bf Quad Group C - [id number] Implanted:Qty: 1 on 01/30/2021 by Favio Clark MD at [facility] Right: Hip [employer] 01/09/2029 [id number] / / [id number] Prime A- Class Xlpe Fc Lat Liner 36mm C Liner Implanted:Qty: 1 on 01/30/2021 by Favio Clark MD at [facility] Right: Hip H [employer] 10/02/2028 [id number] / / [id number] Head Hip Od36mm -3.5 Biolox Delta - [id number] Implanted:Qty: 1 on 01/30/2021 by Favio Clark MD at [facility] Right: Hip [employer] 10/29/2028 [id number] / / [id number] Stem Hip Sz 6 Profemur Gladiator Classic Std - [id number] Implanted:Qty: 1 on 01/30/2021 by Favio Clark MD at [facility] Right: Hip [employer] 05/20/2024 [id number] / / [id number] Procedures Procedure Name Priority Date/Time Associated Diagnosis Comments XR CHEST 2 VIEWS PA AND LATERAL Routine 04/25/2024 11:30 AM CDT Pneumothorax after biopsy XR CHEST 2 VIEWS PA AND LATERAL Today 04/21/2024 8:07 AM CDT XR CHEST 2 VIEWS PA AND [...] Routine 04/10/2024 12:46 PM CDT Pre-op exam [facility] READING EKG - NO CHARGE, COMP ONLY [...] TISSUE EXAM Today 04/07/2024 9:22 AM CDT CG ROS1 Routine 04/07/2024 9:22 AM CDT CG ALK Routine 04/07/2024 9:22 AM CDT CYTOGENETICS MALIGNANT TISSUE Routine 04/07/2024 9:22 AM CDT FOCUS Timed 04/07/2024 [...] HIV-1/O/2, 4TH GENERATION Routine 11/24/2022 5:31 PM [facility] [place] Screening for HIV (human immunodeficiency virus) OCCULT BLOOD IFOBT STOOL Routine 10/09/2019 2:10 PM [employer] Screening for colon cancer ANTI HCV Routine 01/24/2015 7:12 AM CDT Need for hepatitis C screening test from Last 3 Months or Most Recently Relevant to Health Maintenance Results * XR CHEST 2 VIEWS PA AND LATERAL (04/25/2024 11:30 AM CDT) Only the most recent of4 resultswithin the time period is included. Anatomical Region Laterality Modality CHEST, THORAX, Lung, HEART Compu tushar Radiography 04/25/2024 3:25 PM CDT Impressions 04/25/2024 3:25 PM CDT Decreased size of left pneumothorax. Dictated by Arnaldo Ashley MD @ 04/25/2024 3:25:54 PM (Electronically Signed) Narrative 04/25/2024 3:25 PM CDT For Patients: ??As a result of the Century Cures Act, medical imaging exams and procedure reports are released immediately into your electronic medical record. ??You may view this report before your referring provider. ??If you have questions, please contact your health care provider. INDICATION: Follow-up pneumothorax TECHNIQUE: Chest 2 views COMPARISON: 04/21/2024 FINDINGS: Decreased left pneumothorax now measuring 2 cm compared to 3.3 cm on the prior study. Persistent left pleural effusion. Cardiomegaly. Scoliotic deformity. Right lung clear. Procedure Note Arnaldo Ashley MD - 04/25/2024 For Patients: As a result of the Cures Act, medical imagingexams and procedure reports are released immediately into your electronicmedical record. You may view this report before your referring provider.If you have questions, please contact your health care provider. INDICATION: Follow-up pneumothorax TECHNIQUE: Chest 2 views COMPARISON: 04/21/2024 FINDINGS: Decreased left pneumothorax now measuring 2 cm compared to 3.3 cm on theprior study. Persistent left pleural effusion. Cardiomegaly. Scolioticdeformity. Right lung clear. IMPRESSION: Decreased size of left pneumothorax. Dictated by Arnaldo Ashley MD @ 04/25/2024 3:25:54 PM (Electronically Signed) Nilam BLOOD GENERAL IMAGING * (ABNORMAL) CBC W PLT NO DIFF (04/20/2024 4:57 PM CDT) WHITE BLOOD COUNT 4.3(L) 4.5 - 11.0 thou/cu mm 04/20/2024 5:20 PM CDT [facility] RED BLOOD COUNT 4.15 4.00 - 5.20 mil/cu mm 04/20/2024 5:20 PM CDT [facility] HEMOGLOBIN 13.7 12.0 - 16.0 g/dL 04/20/2024 5:20 PM CDT [facility] HEMATOCRIT 40.0 33.0 - 51.0 % 04/20/2024 5:20 PM CDT [facility] MCV 96 80 - 100 fL 04/20/2024 5:20 PM CDT [facility] MCH 33.0 26.0 - 34.0 pg 04/20/2024 5:20 PM CDT [facility] MCHC 34.3 32.0 - 36.0 g/dL 04/20/2024 5:20 PM CDT [facility] RDW 12.1 11.5 - 15.5 % 04/20/2024 5:20 PM CDT [facility] PLATELET COUNT 204 140 - 440 thou/cu mm 04/20/2024 5:20 PM CDT [facility] MPV 9.5 6.5 - 11.0 fL 04/20/2024 5:20 PM CDT [facility] NRBC 0.0 % 04/20/2024 5:20 PM CDT [facility] ABS NRBC 0.0 thou /cu mm 04/20/2024 5:20 PM CDT [facility] Blood BLOOD SPECIMEN / Unknown Venipuncture / Unknown 04/20/2024 4:57 PM CDT 04/20/2024 5:15 PM CDT Lisbeth BLOOD HEMATOLOGY [facility] [address] [place] [address], * (ABNORMAL) BASIC METABOLIC PANEL (04/20/2024 4:57 PM CDT) Only the most recent of2 resultswithin the time period is included. SODIUM 135(L) 136 - 145 mmol/L 04/20/2024 5:49 PM CDT [facility] POTASSIUM 3.8 3.5 - 5.1 mmol/L 04/20/2024 5:49 PM CDT [facility] CHLORIDE 97(L) 98 - 107 mmol/L 04/20/2024 5:49 PM CDT [facility] CO2,TOTAL 30(H) 22 - 29 mmol/L 04/20/2024 5:49 PM CDT [facility] ANION GAP 8 5 - 18 04/20/2024 5:49 PM CDT [facility] GLUCOSE 93 70 - 99 mg/dL 04/20/2024 5:49 PM CDT [facility] CALCIUM 9.1 8.8 - 10.2 mg/dL 04/20/2024 5:49 PM CDT [facility] BUN 11 8 - 23 mg/dL 04/20/2024 5:49 PM CDT [facility] CREATININE 0.40(L) 0.50 - 0.90 mg/dL 04/20/2024 5:49 PM CDT [facility] BUN/CREAT RATIO 28(H) 10 - 20 5:49 PM CDT [facility] eGFR >90 >90 mL/min/1.7 3m2 04/20/2024 5:49 PM CDT [facility] Comment:As of 2021, eG [...] 04/20/2024 5:15 PM CDT Lisbeth BLOOD CHEMISTRY [facility] [address] [place] [address], * EKG 12 LEAD (04/20/2024 4:54 PM CDT) Only the most recent of3 resultswithin the time period is included. Interpretation Sinus rhythm with Premature atrial complexes with Aberrant conduction Possible Left atrial enlargement Anterior infarct , age undetermined Abnormal ECG BEYOND NOW Ventricular Rate 69 BPM BEYOND NOW Atrial Rate 69 BPM BEYOND NOW P-R Interval 190 ms BEYOND NOW QRS Duration 76 ms BEYOND NOW QT 454 ms BEYOND NOW QTc 486 ms BEYOND NOW P [place] 51 degrees BEYOND NOW R [place] -5 degrees BEYOND NOW T [place] 45 degrees BEYOND NOW 04/20/2024 4:54 PM CDT 04/21/2024 1:33 PM CDT Lisbeth BLOOD EKG ORD BEYOND NOW [place], [place] * [place] READING EKG - NO CHARGE, COMP ONLY [...] @ Apr 10 2024 11:38PM (Electronically Signed) [email or web address] Procedure Note Santos Read MD - 04/10/2024 [...] @ Apr 10 2024 11:38PM (Electronically Signed) [email or web address] Rosy BLOOD GENERAL IMAGING * SCAN-CARDIAC STRIP [...] 11.0 thou/cu mm 04/09/2024 4:28 PM CDT [facility] RED BLOOD COUNT 4.00 4.00 - 5.20 mil/cu mm 04/09/2024 4:28 PM CDT [facility] HEMOGLOBIN 13.1 12.0 - 16.0 g/dL 04/09/2024 4:28 PM CDT [facility] HEMATOCRIT 39.0 33.0 - 51.0 % 04/09/2024 4:28 PM CDT [facility] MCV 98 80 - 100 fL 04/09/2024 4:28 PM CDT [facility] MCH 32.8 26.0 - 34.0 pg 04/09/2024 4:28 PM CDT [facility] MCHC 33.6 32.0 - 36.0 g/dL 04/09/2024 4:28 PM CDT [facility] RDW 12.9 11.5 - 15.5 % 04/09/2024 4:28 PM CDT [facility] PLATELET COUNT 142 140 - 440 thou/cu mm 04/09/2024 4:28 PM CDT [facility] MPV 9.5 6.5 - 11.0 fL 04/09/2024 4:28 PM CDT [facility] NRBC 0.0 % 04/09/2024 4:28 PM CDT [facility] ABS NRBC 0.0 thou /cu mm 04/09/2024 4:28 PM CDT [facility] % NEUT 71.2 % 04/09/2024 4:28 PM CDT [facility] % LYMPH 19.5 % 04/09/2024 4:28 PM CDT [facility] % MONO 7.2 % 04/09/2024 4:28 PM [facility] % EOS 1.1 % 04/09/2024 4:28 PM [facility] % BASO 0.4 % 04/09/2024 4:28 PM [facility] % IMMATURE GRAN (METAS,MYELOS,NH OS) 0.6 % 04/09/2024 4:28 PM CDT [facility] ABSOLUTE NEUTROPHILS 3.8 1.7 - 7.0 thou/cu mm 04/09/2024 4:28 PM T [facility] ABSOLUTE LYMPHOCYTES 1.0 0.9 - 2.9 thou/cu mm 04/09/2024 4:28 PM [facility] ABSOLUTE MONOCYTES 0.4 <0.9 thou/cu mm 04/09/2024 4:28 PM [facility] ABSOLUTE EOSINOPHILS 0.1 <0.5 thou/cu mm 04/09/2024 4:28 PM CDT [facility] ABSOLUTE BASOPHILS 0.0 <0.3 thou/cu mm 04/09/2024 4:28 PM [facility] ABSOLUTE IMMATURE GRANULOCYTES(MET ,MYELOS,PROS) 0.0 <0.3 thou/cu mm 04/09/2024 4:28 PM [facility] Blood BLOOD SPECIMEN / Unknown Venipuncture / Unknown 04/09/2024 3:57 PM CDT 04/09/2024 4:03 PM CDT Narrative [facility] - 04/09/2024 4:28 PM CDT RN to order if patient presents with two or more positive sepsis screening criteria plus new or worsening signs or symptoms of suspected infection. Luis Daniel Jean MD HEMATOLOGY [facility] [address] [place] [id number], [place] * TSH (04/09/2024 3:57 PM CDT) TSH 3.20 0.27 - 4.20 uIU/mL 04/09/2024 4:38 PM CDT [facility] Blood BLOOD SPECIMEN / Unknown Venipuncture / Unknown 04/09/2024 3:57 PM CDT 04/09/2024 4:03 PM CDT Narrative [facility] - 04/09/2024 4:38 PM CDT In Adults, TSH values between 5.00 and 10.00 uIU/ml do not necessarily indicate the presence of Hypothyroidism. Correlation with clinical findings such as presence of goiter and/or Thyroperoxidase (TPO) Antibody may be helpful. For more information please refer to MEHDI 2004; 291: 228-238. Noman Guajardo MD CHEMISTRY [facility] [address] [place] [id number], [place] * T3,FREE (04/09/2024 3:57 PM CDT) T3,FREE 2.25 2.00 - 4.40 pg/mL 04/09/2024 5:31 PM CDT [facility] Blood BLOOD SPECIMEN / Unknown Venipuncture / Unknown 04/09/2024 3:57 PM CDT 04/09/2024 4:03 PM CDT Marco Pedraza MD CHEMISTRY Performing Organization Address [facility] Co de Phone Number [facility] [address] [address], [place] * (ABNORMAL) T3,TOTAL (04/09/2024 3:57 PM CDT) T3,TOTAL 73(L) 85 - 202 ng/dL 04/09/2024 4:39 PM CDT [facility] Blood BLOOD SPECIMEN / Unknown Venipuncture / Unknown 04/09/2024 3:57 PM CDT 04/09/2024 4:03 PM CDT Noman Guajardo MD CHEMISTRY Performing Organization Address [facility] Co de Phone Number [facility] [address] [place] [address], [place] * T4,FREE (04/09/2024 3:57 PM CDT) T4,FREE 1.25 0.93 - 1.70 ng/dL 04/09/2024 5:31 PM CDT [facility] Blood BLOOD SPECIMEN / Unknown Venipuncture / Unknown 04/09/2024 3:57 PM CDT 04/09/2024 4:03 PM CDT Marco Pedraza MD CHEMISTRY Performing Organization Address [facility] Co de Phone Number [facility] [address] [place] [address], [place] * Magnesium - AIRCRAFT ENGINE TECHNICIAN (04/09/2024 3:57 PM CDT) MAGNESIUM 1.7 1.6 - 2.4 mg/dL 04/09/2024 4:38 PM CDT [facility] Blood BLOOD SPECIMEN / Unknown Venipuncture / Unknown 04/09/2024 3:57 PM CDT 04/09/2024 4:03 PM CDT Luis Daniel Jean MD CHEMISTRY [facility] [address] [place], [place] [id number], * (ABNORMAL) Comprehensive Metabolic Panel - AIRCRAFT ENGINE TECHNICIAN (04/09/2024 3:57 PM CDT) Only the most recent of2 resultswithin the time period is included. SODIUM 136 136 - 145 mmol/L 04/09/2024 4:38 PM CDT [facility] POTASSIUM 4.5 3.5 - 5.1 mmol/L 04/09/2024 4:38 PM CDT [facility] CHLORIDE 100 98 - 107 mmol/L 04/09/2024 4:38 PM CDT [facility] CO2,TOTAL 31(H) 22 - 29 mmol/L 04/09/2024 4:38 PM CDT [facility] ANION GAP 5 5 - 18 04/09/2024 4:38 PM CDT [facility] GLUCOSE 83 70 - 99 mg/dL 04/09/2024 4:38 PM CDT [facility] CALCIUM 9.3 8.8 - 10.2 mg/dL 04/09/2024 4:38 PM T [facility] BUN 12 8 - 23 mg/dL 04/09/2024 4:38 PM CDT [facility] CREATININE 0.49(L) 0.50 - 0.90 mg/dL 04/09/2024 4:38 PM T [facility] BUN/CREAT RATIO 24(H) 10 - 20 4 4:38 PM T [facility] eGFR >90 >90 mL/min/1.7 3m2 04/09/2024 4:38 PM T [facility] Comment:As of 2021, eG FR is calculated by the CKD-EPI creatinine equation without race adjustment. ??eGFR can be influenced by muscle mass, exercise, and diet. ??The reported eGFR is an estimation only and is only applicable if the renal function is stable. ALBUMIN 3.4(L) 4.0 - 4.9 g/dL 04/09/2024 4:38 PM CDT [facility] PROTEIN,TOTAL 6.9 6.0 - 8.0 g/dL 04/09/2024 4:38 PM CDT [facility] BILIRUBIN,TOTAL 0.4 0.0 - 1.2 mg/dL 04/09/2024 4:38 PM CDT [facility] ALK PHOSPHATASE 105(H) 35 - 104 IU/L 04/09/2024 4:38 PM CDT [facility] ALT (SGPT) 14 10 - 35 IU/L 04/09/2024 4:38 PM CDT [facility] AST (SGOT) 34 10 - 35 IU/L 04/09/2024 4:38 PM CDT [facility] Blood BLOOD SPECIMEN / Unknown Venipuncture / Unknown 04/09/2024 3:57 PM CDT 04/09/2024 4:03 PM CDT Luis Daniel Jean MD CHEMISTRY [facility] [address] [place], [place] [id number], * HCHG CATH INFUSION PR10, HCHG TUBING [...] ultrasound used. Securement/dressing: dressing applied. ??Comment: Vessel Processing Assistant Additional supplies used to locate vessel: no Needle Catheter size: 20 G. ??Comment:. Catheter length: 12 cm. ??Comment: Events: no complications. Gentry Harrison MD ANESTHESIA PX NOTE O RDERABLES * CG ROS1 (04/07/2024 9:22 AM CDT) Tissue (Station 5 Subaortic Lymph Node) 04/07/2024 9:22 AM CDT 04/19/2024 5:15 PM CDT Luis Daniel Jean MD LABORATORY Performing Organization Address [facility] Co de Phone Number [facility] [address] [place] [address], [place] * CG ALK (04/07/2024 9:22 AM CDT) Tissue (Station 5 Subaortic Lymph Node) 04/07/2024 9:22 AM CDT 04/19/2024 5:15 PM CDT Luis Daniel Jean MD LABORATORY Performing Organization Address [facility] Co de Phone Number [facility] [address] [address], [place] * FOCUS (04/07/2024 9:22 AM CDT) Tissue (Station 5 Subaortic Lymph Node) 04/07/2024 9:22 AM CDT 04/12/2024 10:32 AM CDT Luis Daniel Jean MD LABORATORY Performing Organization Address [facility] Co de Phone Number [facility] [address] [address], [place] * CYTOGENETICS MALIGNANT TISSUE STUDIES (04/07/2024 9:22 AM CDT) RFR Smoker with history of endometriosis 04/25/2024 2:[address] [facility] TEST & RESULT SUMMARY ALK FISH: ?? Negative for rearrangement. ROS1 FISH: ?? Negative for rearrangement. 04/25/2024 2:[address] [facility] _ 04/25/2024 2:[address] [facility] ISCN nuc salvador(ALKx2~4)[50] nuc salvador(ROS1x2~4)[50] 04/25/2024 2:50 PM CDT [facility] EN[facility] LABORATORY INTERPRETATION ALK and ROS1 FISH analyses revealed no evidence of clonal rearrangement. ?? Clinicopathologic correlation of these results is recommended. 04/25/2024 2:50 PM CDT [facility] SOURCE Station 5 Subaortic Lymph Node (Paraffin Slides A1 2 uns 1 H&E) [id number] 04/25/2024 2:50 PM CDT [facility] METHODS Paraffin-embedded nuclei were hybridized using fluorescence in situ hybridization (FISH) with the FDA approved Vysis ALK Break Apart FISH Probe Kit (LSI 5'ALK and LSI 3'ALK) and the Vysis ROS1 Break Apart FISH Probes (LSI 5'ROS1 and LSI 3'ROS1). A statistical review of 50 tumor nuclei was performed by each of two technologists with their average score used to determine the rearrangement status for each probe set. An H&E slide was reviewed by a pathologist to confirm the presence of tumor. Each FISH test uses a multiplex probe stain procedure. Reference ranges Positive for ALK rearrangement = greater than or equal to 15% nuclei analyzed Negative for ALK rearrangement = less than 15% nuclei analyzed Positive for ROS1 rearrangement = greater than or equal to 15% nuclei analyzed Negative for ROS1 rearrangement = less than 15% nuclei analyzed 04/25/2024 2:50 PM CDT [facility] DISCLAIMER The FDA approved Vysis ALK Break Apart FISH Probe Kit was developed and its performance characteristics determined by [employer]. This test is performed with minor modifications to protocol and validated by the [facility] to yield equivocal or superior performance. The ROS1 FISH test was developed and its performance characteristics determined by the [facility]. It has not been cleared or approved by the U.S. Food and Drug Administration. The FDA does not require these tests to go through premarket FDA review. These tests are used for clinical purposes. They should not be regarded as investigational or for research. This laboratory is certified under the Clinical Laboratory Improvement Amendments (CLIA) as qualified to perform high complexity clinical laboratory testing. 04/25/2024 2:50 PM CDT [facility] ENTRAL LABORATORY Tissue (Station 5 Subaortic Lymph Node) 04/07/2024 9:22 AM CDT 04/19/2024 5:15 PM CDT Luis Daniel Jean MD LABORATORY [facility]-CENTRAL LABORATORY [address] [place] [address], * PATH TISSUE EXAM (04/07/2024 9:22 AM CDT) Case Report Pathology Report ?Case: [id number] ? Authorizing Provider: ??Luis Daniel Jean MD Collected: ? 04/07/2024 0922 ? Ordering Location: ? [facility] ?Received: ?04/07/2024 09 ? Hospital ? Pathologist: ? Amber Pollock MD ? Specimens: ?? A) - Station 5 Subaortic Lymph Node, frozen ? B) - Station 5 Subaortic Lymph Node, fresh ? 4 2:[address] [facility]AL [facility] Amendment 04/13/2024 - Amendmen t issued to report PD-L1 results. See final diagnosis section. 04/19/2024 - Amendment to report [facility] Targeted Next Generation Sequencing results. Please see attached scanned report and updated diagnosis. 04/25/2024 - Amendment issued to incorporate ancillary FISH studies. 4 2:52 PM CDT [facility] [employer] [facility] C[facility]AL LAB[facility]AT[facility] Final Diagnosis A-B) LYMPH NODE(S), [...] (fusion): Fusion analysis failed ?- ALK FISH: ?? Negative for rearrangement ?- ROS1 FISH: ??Negative for rearrangement ?- See attached NGS report 4 2:[address] [facility] Amendment electronically signed by Сергей Jensen MD on 04/25/2024 at 2:52 PM Amendment electronically signed by Mary Ellen David [...] tests other than these, please contact the [facility] ([phone]). Slides available for [facility] NGS testing: A1-2 [...] and ROS1 fusion will be attempted 4 2:52 PM T [facility] Clinical Information Smoker with history of endometriosis. ??Enlarged PET-avid prevascular/AP window mass only accessible by surgery for sampling. Review of [facility] pathology records shows no prior history of [...] similar to the November 2021 exam. 4 2:52 PM T [facility] Gross Description A) Received fresh labeled [...] on 04/07/2024. ?? KMN 04/07/2024 ?? 4 2:52 PM T [facility]AL LAB[facility]ATORY Intraoperative Consultation A) LYMPH NODE, [...] surgical procedure. ??This testing was performed at: [facility] ?? [address] [place] [address] 2:52 PM [facility] Microscopic Description The final diagnosis is [...] situ hybridization tests that were performed by [facility] [employer] and whose performance characteristics were evaluated by [...] perform high complexity clinical laboratory testing. 4 2:52 PM [facility] Cytogenetics Summary Cytogenetic testing has been ordered and will be reported separately. 4 2:52 PM [facility] Molecular Diagnostics Summary Preanalytical microdissection of tissue/cytology slides for Next Generation Sequencing was performed according to laboratory protocol as follows: Microscopic examination was performed by a pathologist, Dr. Pollock, to determine specimen adequacy and identify areas of tumor for isolation. Areas of tumor selected and marked by the pathologist were manually harvested by a color laboratory technician for nucleic acid extraction. 4 2:52 PM CDT [facility] SYNOPTIC REPORTING Lung Biomarker Reporting Template LUNG BIOMARKER REPORTING TEMPLATE - A Protocol posted: 06/09/2023 RESULTS ?? ALK: ? Rearrangement by Molecular Methods: ?No ALK rearrangement detected ?? ROS1: ? Rearrangement by Molecular Methods: ?No ROS1 rearrangement detected ?? Comment(s): ?Each FISH test uses a multiplex probe stain procedure. 4 2:52 PM CDT [facility] Additional Information Interpreted at [facility] - [address] [facility] [address] [address] Immunohistochemistry controls were reviewed and approved by [...] incubated with a PD-L1 rabbit monoclonal antibody (Anthony PD-L1 SP263 assay), performed on the WhoseView.ie BenchMark ULTRA instrument and visualized with OptiView [...] than or equal to 1% (Expression) This Anthony SP263 immunohistochemical antibody assay is considered a laboratory developed test for patients with??non-small cell lung cancer who are being considered for treatment with atezolizumab. This Anthony SP263 immunohistochemical antibody assay is considered a [...] specimens. References N Engl J Med 2020; 383:2712-7312 ?? 10.1056/BUUUxq5239813 J Thorac Oncol 2018;13(3):367-76 https://doi.org/10.10 16/j.jtho.2017.11.112 J Thorac Oncol 2018;13(9):1302-11 ??https://doi.org/10. 1016/j.jtho.2018.05.0 13 J Thorac Oncol 2017;12(11):1654-63 ??https://doi.org /10.1016/j.jtho.2017. 07.031 Am J Clin Oncol 2021;39(15)suppl:8500 ?? 10.1200/JCO.2021.39.1 5_suppl.8500 Disclaimer Support for the interpretation of this case may have included the use of immunohistochemistry and/or in situ hybridization tests that were performed by [employer] and whose performance characteristics were evaluated by [...] to perform high complexity clinical laboratory testing. 2:52 PM CDT [facility]- CENTRAL LABORATORY Tissue (Station 5 Subaortic Lymph Node) 04/07/2024 9:22 AM CDT 04/07/2024 9:27 AM CDT Tissue specimen (specimen) (Station 5 Subaortic Lymph Node) 04/07/2024 9:23 AM CDT 04/07/2024 9:40 AM CDT Luis Daniel Jean MD PATHOLOGY/CYTOL OGY [facility] LABORATORY-CENTRAL LABORATORY [address] [place] [address], * HCHG TUBE TRACH PR40, HCHG STYLET [...] A Rh Positive 04/07/2024 8:01 AM CDT [facility] [employer]-CENTRAL LAB BLOOD BANK ANTIBODY SCREEN Negative Negative 04/07/2024 8:01 AM CDT [facility] [employer]-CENTRAL LAB BLOOD BANK SPECIMEN EXPIRATION DATE/TIME 04/10/24 23:59 04/07/2024 8:01 AM CDT [facility] [employer]-CENTRAL LAB BLOOD BANK Blood BLOOD SPECIMEN / Unknown Venipuncture / Unknown 04/07/2024 7:03 AM CDT 04/07/2024 7:19 AM CDT [facility] BLOOD BLOOD BANK [facility] LAB BLOOD BANK [address] [place] [address], * BUN (04/07/2024 7:03 AM CDT) Pathologist [facility] BUN 12 8 - 23 mg/dL 04/07/2024 8:10 AM CDT [facility] Blood BLOOD SPECIMEN / Unknown Venipuncture / Unknown 04/07/2024 7:03 AM CDT 04/07/2024 7:19 AM CDT [facility] BLOOD CHEMISTRY Performing Organization Address [facility] Co de Phone Number [facility] [address] [place] [address], * Potassium (04/07/2024 7:03 AM CDT) [facility] POTASSIUM 3.6 3.5 - 5.1 mmol/L 04/07/2024 8:29 AM CDT [facility] Blood BLOOD SPECIMEN / Unknown Venipuncture / Unknown 04/07/2024 7:03 AM CDT 04/07/2024 7:19 AM CDT [facility] BLOOD CHEMISTRY Performing Organization Address City/[facility] Co de Phone Number [facility] [address] [place] [address], * Creatinine (04/07/2024 7:03 AM CDT) Pathologist [facility] eGFR >90 >90 mL/min/1.7 3m2 04/07/2024 8:10 AM CDT [facility] Comment:As of 2021, eG FR is calculated by the CKD-EPI creatinine equation without race adjustment. ??eGFR can be influenced by muscle mass, exercise, and diet. ??The reported eGFR is an estimation only and is only applicable if the renal function is stable. CREATININE 0.50 0.50 - 0.90 mg/dL 04/07/2024 8:10 AM CDT [facility] Blood BLOOD SPECIMEN / Unknown Venipuncture / Unknown 04/07/2024 7:03 AM CDT 04/07/2024 7:19 AM CDT [facility] BLOOD CHEMISTRY Performing Organization Address [facility] de Phone Number [facility] [address] [place], [place] [phone], * Protime - INR (04/07/2024 7:03 AM CDT) INR 1.0 <1.3 04/07/2024 7:43 AM CDT [facility] PROTIME 11.0 10.3 - 12.3 sec 04/07/2024 7:43 AM CDT [facility] Blood BLOOD SPECIMEN / Unknown Venipuncture / Unknown 04/07/2024 7:03 AM CDT 04/07/2024 7:19 AM CDT Narrative [facility] - 04/07/2024 7:43 AM CDT [...] patient is on UFH. [facility] BLOOD HEMATOLOGY Performing Organization Address [facility] Co de Phone Number [facility] [address] [place] [phone], * SCAN-CARDIAC STRIP (04/07/2024 12:00 AM CDT) Narrative 04/07/2024 12:00 AM CDT Ordered by an unspecified provider. Other Clinical Staff OTHER * HEMOGLOBIN (04/05/2024 3:37 PM CDT) HEMOGLOBIN 14.4 12.0 - 16.0 g/dL 04/05/2024 3:[address] [facility] MCV 96 80 - 100 fL 04/05/2024 3:[address] [facility] Blood BLOOD SPECIMEN / Unknown Venipuncture / Unknown 04/05/2024 3:37 PM CDT 04/05/2024 3:38 PM CDT Kasey Roman MD HEMATOLOGY [facility] [address] [place] [address], * SDNA-FIT EXTERNAL (COLOGUARD) (02/16/2024 8:30 AM CDT) NONINV COLON CA DNA+OCC BLD SCRN STL-IMP Negative Negative 02/21/2024 7:43 PM CDT [employer] (CLIA #:[id number]) Comment: NEGATIVE TEST RESULT. A negative Cologuard [...] screened with both Cologuard and colonoscopy. (Pradeep Cramer al, N Engl J Med 2014;370(14):1286- 1297) The normal value (reference range) for this assay is negative. COLOGUARD RE-SCREENING RECOMMENDATION: Periodic colorectal cancer screening is an important part of preventive healthcare for asymptomatic individuals at average risk for colorectal cancer. ??Following a negative Cologuard result, the [place] Cancer Society and U.S. Multi-Society Task Force screening guidelines recommend a Cologuard re-screening interval of 3 years. References: [place] [employer] Society Guideline for Colorectal Cancer Screening: https://www.cancer.org/cancer/meccd-blpzwb-cjqiur/davhaohpl-abialndqi-sliegma/ac s-rec ommendations.html.; Sixto DK, Lauren CR, Louisa MarceloK, Colorectal Cancer Screening: Recommendations for Physicians and Patients from the U.S. Multi-Society Task Force on Colorectal Cancer Screening , Am J Gastroenterology 2017; 112:8688-1387. TEST DESCRIPTION: Composite algorithmic analysis of stool [...] screened with both Cologuard and colonoscopy. (Pradeep Medina et al, N Engl J Med 2014;370(14):0321-4970.) Cologuard may produce a false negative or false positive result (no colorectal cancer or precancerous polyp present at colonoscopy follow up). A negative Cologuard test result does not guarantee the absence of CRC or advanced adenoma (pre-cancer). The current Cologuard screening interval is every 3 years. ([place] Cancer Society and U.S. Multi-Society Task Force). Cologuard performance data in a 10,000 patient pivotal study using colonoscopy as the reference method can be accessed at the following location: www.Eco[employer]ge.Scaled Agile/results. Additional description of the Cologuard test process, warnings and precautions can be found at www.Rest[employer].com. Stool specimen (specimen) (Rectum) 02/16/2024 8:30 AM CDT 02/17/2024 9:48 AM CDT Kasey Roman MD URINE [employer] (CLIA #:[id number]) [place] [address], * PET CT SKULL BASE TO MID [...] For Patients: As a result of the 21st Century Cures Act, medical imagingexams and procedure [...] VASCULAR ULTRASOUND REPORT DELMI BLANTON Accession#: ?? [id number] : ?1960 Study Date: ?? 01/31/2024 2:19:38 PM Age: ?63 years ?? Tech: ? PMK Gender: F ?Referring MD: MATTEO ERVIN Site: [facility] Study performed: ?Lower extremity resting ANA CRISTINA, [...] Velocity cm/s Phasicity ?? +--------+ + + DIE MAKER APPRENTICE DST ? 70 ? multiphasic +--------+ + + ONEIL DST ? 45 ? multiphasic +--------+ + + DPA ? 39 ? multiphasic +--------+ + + +-------+ + + LEFT ?? Velocity cm/s Phasicity ?? +-------+ + + DIE MAKER APPRENTICE DST ? 47 ? multiphasic +-------+ + [...] ? Index +-----+ +--------+ +-----+ 1.04 ?200 ?DIE MAKER APPRENTICE ?206 ? 1.07 +-----+ +--------+ +-----+ 1.05 ?203 ?DPA ?192 ? 0.99 +-----+ +--------+ +-----+ 0.41 ? 80 ? Digit 1 ?92 ? 0.48 +-----+ +--------+ +-----+ Gino Varma MD. Electronically signed on 02/01/2024 8:40:50 AM This study was performed and interpreted by a service accredited by the Intersocietal Accreditation Commission (IAC/Vascular), www.intersocietal.org/vascular Report generated by [employer]. ??Final ?? Procedure Note Gino Varma MD - 02/01/2024 VASCULAR ULTRASOUND REPORT DELMI BLANTON : 1960 Study Date: 01/31/2024 2:19:38 PM Age: 63 years Tech: PMK Gender: F Referring MD: MATTEO ERVIN Site: [facility] Study performed: Lower extremity resting ANA CRISTINA, [...] RIGHT Velocity cm/s Phasicity +--------+ + + DIE MAKER APPRENTICE DST 70 multiphasic +--------+ + + ONEIL DST 45 multiphasic +--------+ + + DPA 39 multiphasic +--------+ + + +-------+ + + LEFT Velocity cm/s Phasicity +-------+ + + DIE MAKER APPRENTICE DST 47 multiphasic +-------+ + + DPA 62 multiphasic +-------+ + + Criteria: Stenosis V. Ratio Mild <50% <2.0 Moderate 50-74% > or = 2.0 Severe 75-99% > or = 4.0 Occluded 100% no detectable flow Pressures +-----+ +--------+ +-----+ RIGHT (mmHg) LEFT (mmHg) +-----+ +--------+ +-----+ Index 193 Brachial 190 Index +-----+ +--------+ +-----+ 1.04 200 DIE MAKER APPRENTICE 206 1.07 +-----+ +--------+ +-----+ 1.05 203 DPA 192 0.99 +-----+ +--------+ +-----+ 0.41 80 Digit 1 92 0.48 +-----+ +--------+ +-----+ Gino Varma MD. Electronically signed on 02/01/2024 8:40:50 AM This study was performed and interpreted by a service accredited by theIntersocietal Accreditation Commission (IAC/Vascular),www.intersocietal.org/vascular Report generated by [employer]. Final Matteo Ervin MD US * XR [...] Omar Cornejo MD @01/27/2024 2:28:29 PM / CRL:joelle Narrative 01/28/2024 11:50 AM CDT For Patients: [...] health care provider. XR MAMMO BILAT SCREENING [[id number]] CLINICAL HISTORY: ??This is an asymptomatic 63 y.o. patient. INDICATION FOR EXAM: Mammogram Screening. TECHNIQUE: CC & MLO views were obtained. ??This study was evaluated with the assistance of Computer-Aided Detection. COMPARISON FILM: Yes 09/30/21 [facility] 10/09/19 [facility] FINDINGS: ??The breasts are heterogeneously dense, which may obscure small masses. There are no dominant masses, suspicious micro calcifications or areas of architectural distortion. Kasey Roman MD MAMMO * (ABNORMAL) LIPID PANEL W REFLEX MEASURED LDL (01/12/2024 3:38 PM CDT) CHOLESTEROL,TOTAL 164 100 - 199 mg/dL 01/12/2024 11:20 PM CDT [facility] Comment: Cholesterol, Total Reference Ranges Desirable <200 mg/dL Borderline 200-239 mg/dL High >=240 mg/dL TRIGLYCERIDES 217(H) <150 mg/dL 01/12/2024 11:20 PM CDT [facility] TRAL LABORATORY HDL CHOLESTEROL 52 >40 mg/dL 11:20 PM CDT [facility] NON-HDL CHOLESTEROL 112 <145 mg/dl 01/12/2024 11:20 PM CDT [facility] CHOL/HDL RATIO 3.15 <4.50 01/12/2024 11:20 PM CDT [facility] LDL CHOLESTEROL 69 <=130 mg/dL 01/12/2024 11:20 PM CDT [facility] VLDL CHOLESTEROL 43(H) <=30 mg/dL 01/12/2024 11:20 PM CDT [facility] PROVIDER ORDERED STATUS RANDOM 01/12/2024 11:20 PM CDT [facility] Blood BLOOD SPECIMEN / Unknown Venipuncture / Unknown 01/12/2024 3:38 PM CDT 01/12/2024 3:39 PM CDT Kasey Roman MD CHEMISTRY Performing Organization Address City/[facility]/ZIP Co de Phone Number [facility] [address] * HPV HIGH RISK (01/12/2024 3:11 PM CDT) TYPE 16 Negative Negative 01/17/2024 6:08 PM CDT [facility] TYPE 18 Negative Negative 01/17/2024 6:08 PM CDT [facility] OTHER HIGH RISK TYPES Negative Negative 01/17/2024 6:08 PM CDT [facility] Other (Cervical) Non-Blood / Unknown 01/12/2024 3:11 PM CDT 01/14/2024 9:58 AM CDT Narrative [facility] - 01/17/2024 6:08 PM CDT HPV types 16, 18, 31, 33, 35, 39, 45, 51, 52, 56, 58, 59, 66 and 68 DNA were undetectable or below the pre-set threshold. Methodology: Jhonathan Gavi 4800 HPV Test Kasey Roman MD MICROBIOLOGY Performing Organization Address [facility] Co de Phone Number [facility] [address] * LC HIV-1/O/2, 4TH GENERATION (11/24/2022 5:31 PM MANAGER [place]ARD[place]) HIV Scr 4th Gen Non Reactive Non Reactive 11/27/2022 10:06 PM MANA[facility] [place] [facility] Comment: HIV Negative HIV-1/HIV-2 antibodies and HIV-1 p24 antigen were NOT detected. There is no laboratory evidence of HIV infection. Blood BLOOD SPECIMEN / Unknown Venipuncture / Unknown 11/24/2022 5:31 PM [employer] [place] 11/24/2022 5:31 PM [facility]NA[facility] [place] Narrative [facility] - 11/27/2022 10:06 PM MANAGER [place] Performed at: ??01 - [facility] [address] ??[id number] [employer] Sticker Operator: Trino Molina MD, Phone: ??[phone] Kasey Roman MD LABORATORY [facility] [facility] [address] [place] [address] * OCCULT BLOOD IFOBT STOOL (10/09/2019 2:10 PM MANAGER GARD[facility]) STOOL BLOOD ,IFOBT Negative Negative 10/09/2019 2:19 PM [address] [facility] Stool STOOL SPECIMEN / Unknown Non-Blood / Unknown 10/09/2019 2:10 PM [facility] 10/09/2019 2:10 PM [facility] [place] Kasey Roman MD LABORATORY Performing Organization Address [facility] Co de Phone Number [facility] [address] [place] [address], * ANTI HCV [54864.2] (01/24/2015 7:12 AM CDT) HEPATITIS C ANTIBODY Non-Reacti ve Non-Reacti ve 01/24/2015 1:57 PM CDT [facility] Blood specimen (specimen) BLOOD SPECIMEN / Unknown Venipuncture / Unknown 01/24/2015 7:12 AM CDT 01/24/2015 7:12 AM CDT Narrative [facility] LAB[facility] - 01/24/2015 1:57 PM CDT Antibodies to HCV not detected; does not exclude the possibility of exposure to HCV. Richard Morgan MD SEND OUTS [facility] LABOR[facility] [address] [place] [address], [place] from Last 3 Months or Most Recently Relevant to Health Maintenance Advance Directives * Full Code (Latest Code Status on File) Date Activated Date Inactivated Comments 04/20/2024 10:07 PM 04/21/2024 1:04 PM Question Answer Comments Code Status Discussion: Reviewed Preferences * Full Code Date Activated Date Inactivated Comments 04/07/2024 6:14 AM 04/10/2024 3:47 PM Question Answer Comments Code Status Discussion: Unable to Assess Preferences, Provider to review later * Full Code Date Activated Date Inactivated Comments 01/30/2021 6:17 AM 01/30/2021 5:56 PM Question Answer Comments Code Status Discussion: Discussed Care Teams 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
--- NOTE | 2024-04-26 08:00 | CRLHL7_ITS ---
For Patients: As a result of the Century Cures Act, medical imaging exams and procedure reports are released immediately into your electronic medical record. You may view this report before your referring provider. If you have questions, please contact your health care provider. Indication: FOLLOW UP NEWLY DIAGNOSED LUNG CANCER Technique: CT chest/abdomen/pelvis with IV contrast, 69 mL Isovue 370 Comparison: PET-CT on February 03, 2024 Findings: Chest: No thyroid nodules. There is redemonstration of an AP window lymph node/mass similar in size compared to prior examination measuring approximately 1.8 x 3.9 centimeters. There are few additional mediastinal lymph nodes without pathologic enlargement. Stable cardiomegaly. No pericardial effusion. Coronary artery calcifications. The thoracic aorta and pulmonary artery are within normal limits in caliber. There is a moderate left-sided pneumothorax and moderate left-sided pleural effusion with atelectatic changes involving primarily the left lower lobe and lingula. The right lung is clear. The airways are clear. Abdomen/pelvis: The liver, gallbladder and biliary system, spleen, pancreas, adrenal glands, kidneys, ureters, and visualized portions of the bladder are unremarkable in appearance. The visualized portions of the uterus appear unremarkable. No suspicious adnexal lesions. There is no evidence of bowel obstruction or inflammation. No free fluid or free air. There are no pathologically enlarged lymph nodes throughout the abdomen or pelvis. No abdominal aortic aneurysm. Mild calcified and noncalcified atherosclerosis of the aortoiliac system and its branches. Soft tissue/musculoskeletal: There is subcutaneous emphysema seen within the soft tissues of the left posterior thorax. There is a nondisplaced fracture of the posterior left 9th rib with a small amount edema in the adjacent subcutaneous fat (series number 2, image [id number]). No appreciable suspicious osseous lesions. Similar-appearing degenerative changes and curvature of the spine with similar-appearing stabilization rods in the lumbar spine. Postsurgical changes of bilateral hip arthroplasties without evidence of hardware related complication. Impression: 1. Redemonstration of an AP window lymph node/mass similar in size compared to prior examination measuring approximately 1.8 x 3.9 centimeters. 2. Moderate left-sided pneumothorax and moderate left-sided pleural effusion with atelectatic changes involving primarily the left lower lobe and lingula. 3. There is a nondisplaced fracture of the posterior left 9th rib with a small amount edema in the adjacent subcutaneous fat (series number 2, image [id number]). 4. No CT evidence of metastatic disease involving the abdomen or pelvis. Please note that all CT scans at this facility use dose modulation, iterative reconstruction, and/or weight-based dosing when appropriate to reduce radiation dose to as low as reasonably achievable. Dictated by Arnoldo Ramsay MD @ 04/26/2024 10:24:07 AM (Electronically Signed)
[2024-04-26 08:22] LABS: Creatinine* 0.5 mg/dL (0.5-1.5); Estimated Glomerular Filt Rate 104 ml/min
== END 2024-04-26 07:43 | disposition home or self-care (01) ==
LOC: CT 07:42
PROVIDERS: PCP Family Medicine; Visit Provider Internal Medicine Hematology & Oncology
DX: C34.90 Malignant neoplasm of unspecified part of unspecified bronchus or lung (principal); J93.9 Pneumothorax, unspecified; S22.32XA Fracture of one rib, left side, initial encounter for closed fracture
CPT/HCPCS: 36415; 71260; 74177; 82565; Q9967

== ENCOUNTER 2024-06-01 06:44 | Day surgery (SDC) | payer MEDICARE, SELFPAY ==
--- OUTSIDE RECORDS SUMMARY | 2024-06-01 06:46 | XMS_ITS ---
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 Procedure Estimated Blood Loss Check Surgery Details section. Procedure Findings Check Surgery Details section. Procedure Specimens Taken Check Surgery Details section.
--- OUTSIDE RECORDS SUMMARY | 2024-06-01 06:46 | XMS_ITS | Clinical Summary ---
Author Organization [facility] Address [address] [address] Care Team Providers Care Field Contact Person Name Role Phone Richard Morgan MD Primary Care Provider [phone] Source Comments You are receiving this document as you are listed as the primary care provider,follow-up provider, or the patient has been referred to you for consultation.This is in compliance with the Medicare and[facility] EHR Incentive Program,which states Providers who transition their patient to another setting of careor provider of care or refers their patient to another provider of care shouldprovide summary care record for each transition of care or referral. [facility] Active Allergy Reactions Criticality Noted Date [...] by mouth daily. Indications: supplement Active Pediatric Yldlabdj-Zmlbqiyp-B (GUMMI BEAR MULTIVITAMIN/MIN) Take 1 Each by [...] History of total left hip replacement 03/10/2018 Overview (03/10/2018): 03/10/18 History of spinal surgery 03/01/2018 Overview (03/01/2018): For scoliosis, with rods (1978 & 1986 @ [place]) Tobacco abuse 03/01/2018 Sjogren's syndrome 03/01/2018 HTN [...] 09/05/2019 07/11/2019 COVID-19 Vaccine (4 - season) 2024 07/31/2021, 11/23/2020, 11/02/2020 Influenza (#1) 2024 08/08/2021, [...] this topic Medical Devices Implanted Type Area Kettle Room Helper Device Identifier Shelf Expiration Date Model / Serial / Lot Cover Hole Thrd Reflection - [id number] Implanted:Qty: 1 on 03/10/2018 by Tammie Nowak MD at [facility] DEVICE Left: HIP S 01/17/2028 [id number] / / [id number] Shell Acet R3 Std 54mm 3h - [id number] Implanted:Qty: 1 on 03/10/2018 by Tammie Nowak MD at [facility] DEVICE Left: HIP S 01/15/2028 [id number] / / [id number] Scr Hd Spherical R3 6.5x25 - [id number] Implanted:Qty: 1 on 03/10/2018 by Tammie Nowak MD at [facility] DEVICE Left: HIP S 11/01/2027 [id number] / / [id number] Scr Hd Spherical R3 6.5x30 - [id number] Implanted:Qty: 1 on 03/10/2018 by Tammie Nowak MD at [facility] DEVICE Left: HIP S 11/19/2027 [id number] / / [id number] Liner Acet R3 Xlpe 0deg 36x54 - [id number] Implanted:Qty: 1 on 03/10/2018 by Tammie Nowak MD at [facility] DEVICE Left: HIP S 01/01/2028 [id number] / / [id number] Comp Fem Std Ofst Sz14 160mm - [id number] Implanted:Qty: 1 on 03/10/2018 by Tammie Nwoak MD at [facility] DEVICE Left: HIP S 11/30/2027 [id number] / / [id number] Hd Fem Oxinium 09/02 36mm +0 - [id number] Implanted:Qty: 1 on 03/10/2018 by Tammie Nowak MD at [facility] DEVICE Left: HIP S 01/15/2028 [id number] / / [id number] Advance Directives * Full Code (Latest Code Status on File) Date Activated Date Inactivated Comments 03/10/2018 12:02 PM 03/11/2018 4:41 PM Care Teams Field Contact Person Relationship Specialty Start Date End Date Richard Morgan MD [address] [place] [address] PCP - General Family Practice 03/01/18
--- OUTSIDE RECORDS SUMMARY | 2024-06-01 06:46 | XMS_ITS | Clinical Summary ---
Author Organization [employer] [facility] Address [place], [place] [address] Care Team Providers Care Bander Name Role Phone Rian Marmolejo MD Unavailable Kasey Roman MD Primary Care Provider [phone] Amber Santana RN Unavailable Jacqueline Nolen RN, BSN Unavailable [phone] Luis Daniel Jean MD Unavailable [phone] Allergies Active Allergy Reactions Criticality Noted Date [...] mouth once daily with a meal. 0 12/23/2022 Active cyclobenzaprine (FLEXERIL) 5 mg tabletIndications: Neck muscle spasm Take 1 Tablet (5 mg) by mouth at bedtime if needed for Muscle Spasm. 15 Tablet 01/12/2024 Active metoprolol succinate (TOPROL XL) 50 mg sustained-release tabletIndications: Frequent PVCs Take 1 Tablet (50 mg) by mouth once daily. 90 Tablet 3 01/12/2024 Active lisinopril-hydroch lorothiazide, 20-25 mg, (PRINZIDE, ZESTORETIC) 20-25 mg per tabletIndications: Essential hypertension Take 1 Tablet by mouth once daily. 90 Tablet 3 01/12/2024 Active albuterol 0.083% (2.5 mg/3 mL) neb solutionIndication s:Wheezing Inhale 3 mL (2.5 mg) via a nebulizer every 4 hours if needed for Cough. 180 mL 01/12/2024 Active albuterol HFA (PRO-AIR; VENTOLIN; PROVENTIL) 90 mcg/actuation inhalerIndications :Wheezing Inhale 1-2 Puffs by mouth every 4 hours if needed for Shortness Of Breath or Wheezing. 2 Each 04/20/2024 Active rosuvastatin (Crestor) 20 mg tablet Take 20 mg by mouth at bedtime. Active PARoxetine (PAXIL) 40 mg tabletIndications: Anxiety state Take 1 Tablet (40 mg) by mouth once daily. 90 Tablet 05/30/2024 Active PARoxetine (PAXIL) 30 mg tabletIndications: Anxiety state Take 1 Tablet (30 mg) by mouth once daily. 90 Tablet 3 01/12/2024 05/30/2024 Discontinue d(*Medicati on adjustment) Active Problems Problem Noted Date Diagnosed Date Pneumothorax after biopsy 04/20/2024 Mediastinal lymphadenopathy 04/07/2024 Overview (04/07/2024): Robotic assisted left VATS, Mediastinal Mass/Lymph Node Resection performed by Dr. Luis Daniel Jean 04/07/2024 Neck muscle spasm 01/12/2024 Postmenopausal 01/12/2024 Bronchitis, chronic, simple 01/12/2024 Peripheral sensory neuropathy 01/12/2024 Coronary artery disease involving algaaciq coronar y artery 11/24/2022 Frequent PVCs 11/24/2022 PSVT (paroxysmal supraventricular tachycardia) 1 11/10/2020 Primary osteoarthritis of right hip 01/28/2021 Status post total replacement of left hip 2017 Overview (07/10/2019): Overview: 03/10/18 Mild intermittent asthma wit hout complication triggered by URIs 03/04/2018 History of spinal surgery 03/01/2018 Overview (07/10/2019): Overview: For scoliosis, with rods (1978 & 1986 @ [place]) Sjogren's syndrome 02/11/2018 Left leg weakness 02/03/2018 Chronic pain of both shoulders w AC and degen ar thritis 06/25/2017 HTN (hypertension) 02/05/2017 Hypersomnia, 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 Allergic rhinitis, cause unspecified 12/27/2007 Tobacco use disorder 12/27/2007 Anxiety state, unspecified 12/26/2007 Esophageal reflux 12/26/2007 Endometriosis, site unspecified 12/26/2007 Overview (12/26/2007): 04/11/00 Resolved Problems Problem Noted Date Diagnosed Date Resolved Date Pap smear for cervical cancer screening 01/21/2023 01/27/2024 Overview (01/21/2023): 12/2022 Unsatisfactory/HPV negative Plan: Repeat Pap/HPV due 12/2023 Sjogrens syndrome 10/31/2012 02/11/2018 Encounters Date Type Department Care Team Description 05/30/2024 12:45 PM CDT Preop Visit [facility] [address] [place] [address] Kasey Roman MD Pre-Op Exam (Port placement, 06/01/2024, [facility], [facility]) 05/30/2024 Travel 05/25/2024 Transcribe Orders [facility] [address] [place] [address] Namrata Suazo MD 05/25/2024 Transcribe Orders [facility] [address] [place] [address] Namrata Suazo MD 05/25/2024 Telephone [facility] [address] [place] [address] Kasey Roman MD 05/05/2024 Orders Only [facility] Scanner 1 scan: (1-Ord) RAYUS, MRI BRAIN W, 05/05/2024 05/03/2024 7:47 AM CDT Anesthesia Event [facility] [address] [place] [address] Silvano Nathan MD Groff, Bryan P, BILLING SPECIALIST Student 05/03/2024 7:30 AM CDT - 05/03/2024 9:00 AM CDT Surgery [facility] [address] [place] [address] Luis Daniel Jean MD flexible bronchoscopy, endobronchial ultrasound with biopsy 05/03/2024 5:56 AM CDT - 05/03/2024 10:28 AM CDT Hospital Encounter [facility] [address] [place] [address] Luis Daniel Jean MD Discharge Disposition: Home Self Care 05/03/2024 Travel 04/27/2024 Orders Only [facility] [address] [place] [address] Luis Daniel Jean MD <No scans attached> 04/27/2024 Orders Only [facility] [address] [place] [address] Kasey Roman MD 1 scan: (1-Ord) RAYUS, MR BRAIN WO, 04/25/2024 04/26/2024 Orders Only [facility] Scanner 1 scan: (1-Ord) MARION, CHEST ABDOMEN PELV W CON, 04/26/2024 04/25/2024 11:35 AM CDT Office Visit [facility] [address] [place] [address] Melissa Lynn PA Hospital F/U ([facility] DOD 8-2-24/PNEUMOTHORAX AFTER BIOPSY Kash Estrada MD //Shortness of breath has gotten better ) 04/25/2024 11:15 AM CDT Ancillary Procedure [facility] [address] [place] [address] 04/25/2024 Telephone [facility] [address] [place] [address] Nilam Whyte PA Surgical Followup 04/25/2024 Travel 04/24/2024 Patient Outreach [facility] [address] [place] [address] Meghan Anderson RN Primary RN Care Management; [facility] 04/20/2024 4:22 PM CDT - 04/21/2024 11:04 AM CDT Hospital Encounter [facility] [address] [place] [address] Chanel Vázquez MD Raiolo, Alyssa Ann [place], PA [facility], [facility] Hospitalists [facility], MD Sean [place], Kash Moreira MD Pneumothorax of left lung after biopsy (Primary Dx); Pneumothorax after biopsy Discharge Disposition: Home Self Care 04/20/2024 1:45 PM CDT Ancillary Procedure [facility] [address] [place] [address] 04/20/2024 12:45 PM CDT Office Visit [facility] [address] [place] [address] Kasey Roman MD Hospital F/U 04/20/2024 Travel 04/14/2024 Orders Only [facility] [address] [place] [address] Kasey Roman MD <No scans attached> 04/14/2024 Orders Only [facility] [address] [place] [address] Kaesy Roman MD <No scans attached> 04/14/[address] [phone] [facility] Cancer Referral 04/14/2024 Telephone [facility] [address], [place] [address] Luis Daniel Jean MD Questions (Questions regarding plan of care ) 04/13/2024 Telephone [facility] [address] [place] [address] Luis Daniel Jean MD Surgical Followup 04/12/2024 Telephone [facility] [address] [place] [address] Kasey Roman MD 04/11/2024 Telephone [facility] [address], [place] [address] Mildred Lilly, collections agent Followup 04/11/2024 Patient Outreach [facility] [address] [place] [address] Meghan Anderson, RN Primary RN Care Management; Hospital F/U ([facility] 19) 04/10/2024 Orders Only [facility] [address] [place] [address] Kasey Roman MD 1 scan: (1-Ord) NFLLD-EKG-04/05/24 04/07/2024 7:50 AM CDT Anesthesia Event [facility] [address], [place] [address] Gentry Harrison MD Shea, Caroline Victoria, BILLING SPECIALIST 04/07/2024 7:00 AM CDT - 04/07/2024 10:52 AM CDT Surgery [facility] [address] [place] [address] Luis Daniel Jean MD flexible bronchoscopy, left robotic assisted thoracoscopic surgery, Mediastinal Mass/Lymph Node Resection 04/07/2024 6:03 AM CDT - 04/10/2024 1:42 PM CDT Hospital Encounter [facility] [address] [place] [address] Luis Daniel Jean MD Mediastinal lymphadenopathy (Primary Dx); PVC's (premature ventricular contractions) Discharge Disposition: Home Self Care 04/07/2024 Travel 04/05/2024 2:25 PM CDT Office Visit [facility] [address] [place] [address] Kasey Roman MD Pre-Op Exam (04/07/2024, ANW, Dr Denys Jean) 04/05/2024 Travel 03/31/[address] [facility] [address] [place] [address] Matteo Ervin MD Referral 03/30/2024 4:00 PM CDT Office Visit [facility] [address] [place] [address] Gabriel Land MD Follow Up (Peripheral sensory neuropathy/) 03/30/2024 Travel 03/27/2024 Travel from Last 3 Months Immunizations Name Administration [...] 07/14/20 13,07/28/2012,07/02/2010,2008,07/23/2008,10/29/2006,06/30/2004,1 ,07/14/2003 Influenza, IIV4 09/23/2022,,07/20/2020,2018,07/15/2018,06/25/2017,07/22/2016,0 06/17/2015 Influenza, Inactivated IIV3 (Age 65+ Years) Preserv Free 05/30/2024 Pneumococcal Conj 20-valent (Prevnar 20) 12/23/2022 Pneumococcal [...] Sign Reading Time Taken Comments Blood Pressure 122/82 05/30/2024 1:22 PM CDT Pulse 71 05/30/2024 12:58 PM CDT Temperature 36 ??C (96.8 ??F) 05/03/2024 10:00 AM CDT Respiratory Rate 18 05/03/2024 10:00 AM CDT Oxygen Saturation 98% 05/30/2024 12:58 PM CDT Inhaled Oxygen Concentration - - Weight 66 kg (145 lb 6.4 oz) 05/30/2024 12:58 PM CDT Height 159.3 cm (5' 2.72) 05/30/2024 12:58 PM C DT Body Mass Index 25.99 05/30/2024 12:58 PM CDT Plan of Treatment Upcoming Encounters Date Type Department Care Team (Late st Contact Info) Description 06/01/2024 9:00 AM CDT Office Visit [facility] at [facility] [address] [place] [address] Namrata Suazo MD [address] [place] [address] Health Maintenance Due Date Last Done Comments Zoster (shingles) series for age 50+ (2 of 2) 09/05/2019 07/11/2019 DEXA/DXA scan for age 65+ 2023 COVID-19 vaccine series ( season) 2024 12/23/2022, 07/31/2021, 11/23/2020, Additional history exists Medicare Wellness for age 65+ 01/12/2025 01/12/2024 Depression screening for age 12+ 01/13/2025 01/14/2024, 01/12/2024, 12/23/2022, Additional history exists Mammogram for age 45-75 01/16/2025 01/17/20, 09/30/2021, 10/09/2019, Additional history exists Low Dose CT (for lung CA) ag e 50-80 01/25/2025 01/26/2024, 12/31/2022, 12/01/2021 BMI (ht and wt on same day) for age 18+ 05/30/2025 05/30/2024, 04/05/2024, 01/12/2024, Additional history exists Pap test for age [...] 11/24/2022 Pneumococcal series for age 65+ Completed 3, 06/27/2004 Influenza for age 65+ Completed 05/30/2024 , 09/23/2022, 08/08/2021, Additional history exists Medical Devices Implanted Type Area Certified Veterinary Technician Device Identifier Shelf Expiration Date Model / Serial / Lot Screw Bone 6.5x20mm Mpo Torx T25 Canclls - [id number] Implanted:Qty: 1 on 01/30/2021 by Favio Clark MD at [facility] Right: Hip [employer] 11/15/2025 [id number] / / [id number] Shell Hip 50mm Procotyl Prime Bf Quad Group C - [id number] Implanted:Qty: 1 on 01/30/2021 by Favio Clark MD at [facility] Right: Hip [employer] 01/09/2029 [id number] / / [id number] Prime A- Class Xlpe Fc Lat Liner 36mm C Liner Implanted:Qty: 1 on 01/30/2021 by Favio Clark MD at [facility] Right: Hip H [employer] 10/02/2028 [id number] / / [id number] Head Hip Od36mm -3.5 Biolox Delta - [id number] Implanted:Qty: 1 on 01/30/2021 by Favio Clark MD at [facility] Right: Hip [employer] 10/29/2028 [id number] / / [id number] Stem Hip Sz 6 Profemur Gladiator Classic Std - [id number] Implanted:Qty: 1 on 01/30/2021 by Favio Clark MD at [facility] Right: Hip [employer] 05/20/2024 [id number] / / [id number] Procedures Procedure Name Priority Date/Time Associated Diagnosis Comments BASIC METABOLIC PANEL Routine 05/30/2024 1:49 PM CDT Non-small cell lung cancer, unspecified laterality (HC) SCAN-MRI INTERPRETATION 05/05/2024 12:00 AM CDT PATH NON WOOL SUPPLIER CYTOLOGY Today 05/03/2024 8:21 AM CDT ENDOTRACHEAL TUBE Routine 05/03/2024 8:0 8 AM CDT ENDOTRACHEAL TUBE Routine 05/03/2024 8:0 8 AM CDT BRONCHOSCOPY ENDOBRONCHIAL ULTRASOUND FINE NEEDLE ASPIRATE Class E Urgent 05/03/2024 7:35 AM CDT Malignant neoplasm of lung, unspecified laterality, unspecified part of lung (HC) Case Notes LATEX [facility]ERGY Special Needs WT 143 SCAN-CARDIAC STRIP 05/03/2024 12:00 AM CDT SCAN-CT INTERPRETATION 04/26/2024 12:00 AM CDT XR CHEST 2 VIEWS PA AND LATERAL Routine 04/25/2024 11:30 AM CDT Pneumothorax after biopsy MR HEAD BRAIN WWO Routine 04/25/2024 12:00 AM CDT Non-small cell lung cancer, unspecified laterality (HC) XR CHEST 2 VIEWS PA AND LATERAL [...] Routine 04/10/2024 12:46 PM CDT Pre-op exam ND READING EKG - NO CHARGE, COMP ONLY [...] 8:30 AM CDT Screening for colon cancer CT CHEST SCREENING LOW DOSE WO CONTRAST [...] HIV-1/O/2, 4TH GENERATION Routine 11/24/2022 5:31 PM PRINCIPAL TRAINER Screening for HIV (human immunodeficiency virus) OCCULT BLOOD IFOBT STOOL Routine 10/09/2019 2:10 PM PRINCIPAL TRAINER Screening for colon cancer ANTI HCV Routine 01/24/2015 7:12 AM CDT Need for hepatitis C screening test from Last 3 Months or Most Recently Relevant to Health Maintenance Results * (ABNORMAL) BASIC METABOLIC PANEL (05/30/2024 1:49 PM CDT) Only the most recent of3 resultswithin the time period is included. SODIUM 134(L) 136 - 145 mmol/L 05/31/2024 3:40 AM CDT [facility] POTASSIUM 4.3 3.5 - 5.1 mmol/L 05/31/2024 3:40 AM T [facility] CHLORIDE 96(L) 98 - 107 mmol/L 05/31/2024 3:40 AM T [facility] CO2,TOTAL 29 22 - 29 mmol/L 05/31/2024 3:40 AM T [facility] ANION GAP 9 5 - 18 05/31/2024 3:40 AM T [facility] GLUCOSE 73 70 - 99 mg/dL 05/31/2024 3:40 AM T [facility] CALCIUM 9.1 8.8 - 10.2 mg/dL 05/31/2024 3:40 AM [facility] BUN 12 8 - 23 mg/dL 05/31/2024 3:40 AM [facility] CREATININE 0.53 0.50 - 0.90 mg/dL 05/31/2024 3:40 AM T [facility] BUN/CREAT RATIO 23(H) 10 - 20 3:40 AM [facility] eGFR >90 >90 mL/min/1.7 3m2 05/31/2024 3:40 AM [facility] Comment:As of 2021, eG FR is calculated by the CKD-EPI creatinine equation without race adjustment. ??eGFR can be influenced by muscle mass, exercise, and diet. ??The reported eGFR is an estimation only and is only applicable if the renal function is stable. Blood BLOOD SPECIMEN / Unknown Venipuncture / Unknown 05/30/2024 1:49 PM CDT 05/30/2024 1:51 PM T Kasey Roman MD [facility] [address] [place] [address], * SCAN-MRI INTERPRETATION (05/05/2024 12:00 AM CDT) Anatomical Region Laterality Modality Other Scanner OTHER * PATH NON WOOL SUPPLIER CYTOLOGY (05/03/2024 8:21 AM CDT) Case Report Medical Cytology Report ? Case: [id number] ? Authorizing Provider: ??Luis Daniel Jean MD Collected: ? 05/03/2024 0821 ? Ordering Location: ? [facility] ?Received: ?05/03/2024 09 ? Hospital ? Pathologist: ? Conrado Hodge MD ? Specimens: ?? A) - Station 4R Lower Paratracheal Lymph Node, 4R FNA passes; 3 ? B) - Station 4L Lower Paratracheal Lymph Node, 4L FNA passes; 3 ? C) - Station 7 Subcarinal Lymph Node, Station 7 FNA passes; 4 ? D) - Station 11L Interlobar Lymph Node, Station 11L FNA passes; 3 ? 05/04/2024 9:18 AM [facility] Final Diagnosis A) LYMPH NODE, THORACIC STATION 4R, RIGHT LOWER PARATRACHEAL, FNA WITH CELL BLOCK: 1. Negative for metastatic malignancy 2. Lymphocytes, consistent with sampled lymph node B) LYMPH NODE, THORACIC STATION 4L, LEFT LOWER PARATRACHEAL, FNA WITH CELL BLOCK: 1. Positive for malignancy 2. Metastatic non-small cell carcinoma, see comment C) LYMPH NODE, THORACIC STATION 7, SUBCARINAL, FNA WITH CELL BLOCK: 1. Negative for metastatic malignancy 2. Lymphocytes, consistent with sampled lymph node D) LYMPH NODE, THORACIC STATION 11L, LEFT INTERLOBAR, FNA WITH CELL BLOCK: 1. Positive for malignancy 2. Rare cells of metastatic non-small cell carcinoma 05/04/2024 9:18 AM [facility] Comment A large battery of IHC testing was performed on the patient's recent prior case ([id number]). IHC testing is not repeated on the current case but is available upon clinical request. The morphology of the current disease process is morphologically similar to the carcinoma in the recent prior thoracic station 5 lymph node (labeled as non-small cell carcinoma, favor adenocarcinoma). PD-L1 and NGS testing were performed on the recent prior biopsy and are not repeated on the current case. ??These tests are available upon clinical request. 05/04/2024 9:18 AM [facility] Clinical Information [id number] Collected: ? 04/07/2024 0922 ? Final Diagnosis A-B) LYMPH NODE(S), STATION 5 SUBAORTIC, RESECTION: 1. Poorly differentiated non-small cell carcinoma involving lymph node tissue, favor metastatic adenocarcinoma from pulmonary primary Patient with history of tobacco use and Sjogren's syndrome. 05/04/2024 9:18 AM T [facility] Gross Description A) Received identified as Station 4R Lower Paratracheal Lymph Node, is a fine needle aspirate specimen. The specimen consists of: ? -3 Air dried slides ? -1 CytoLyt vial ? -0 RPMI vials ? -1 Formalin vial The following were prepared from the specimen submitted: ? -3 Diff-Quik stained slides ? -1 Papanicolaou stained ThinPrep slide ? -1 H&E stained cell block slide A2 Cell block material was removed from the patient and placed directly in formalin at 0815 on 05/03/24 and fixed in formalin at least 6 hours and no more than 72 hours. B) Received identified as Station 4L Lower Paratracheal Lymph Node, is a fine needle aspirate specimen. The specimen consists of: ? -3 Air dried slides ? -0 CytoLyt vials ? -1 RPMI vial ? -1 Formalin vial The following were prepared from the specimen submitted: ? -3 Diff-Quik stained slides ? -0 Papanicolaou stained ThinPrep slides ? -2 H&E stained cell block slides B2 Cell block material was removed from the patient and placed directly in formalin at 0830 on 05/03/24 and fixed in formalin at least 6 hours and no more than 72 hours. B3 Cell block material was placed in RPMI at the time of collection and moved to formalin at 1036 on 05/03/24 and fixed in formalin at least 6 hours and no more than 72 hours. C) Received identified as Station 7 Subcarinal Lymph Node, is a fine needle aspirate specimen. The specimen consists of: ? -4 Air dried slides ? -1 CytoLyt vial ? -0 RPMI vials ? -1 Formalin vial The following were prepared from the specimen submitted: ? -4 Diff-Quik stained slides ? -1 Papanicolaou stained ThinPrep slide ? -1 H&E stained cell block slide C2 Cell block material was removed from the patient and placed directly in formalin at 0845 on 05/03/24 and fixed in formalin at least 6 hours and no more than 72 hours. D) Received identified as Station 11L Interlobar Lymph Node, is a fine needle aspirate specimen. The specimen consists of: ? -3 Air dried slides ? -1 CytoLyt vial ? -0 RPMI vials ? -1 Formalin vial The following were prepared from the specimen submitted: ? -3 Diff-Quik stained slides ? -1 Papanicolaou stained ThinPrep slide ? -1 H&E stained cell block slide D2 Cell block material was removed from the patient and placed directly in formalin at 0900 on 05/03/24 and fixed in formalin at least 6 hours and no more than 72 hours. 05/04/2024 9:18 AM T [facility] Adequacy Assessment A) G.N. assessed adequacy from the air-dried smears at the time of the procedure with an impression of Adequate. B) G.N. assessed adequacy from the air-dried smears at the time of the procedure with an impression of Adequate. C) G.N. assessed adequacy from the air-dried smears at the time of the procedure with an impression of Not Adequate. D) G.N. assessed adequacy from the air-dried smears at the time of the procedure with an impression of Not Adequate. 05/04/2024 9:18 AM T [facility] Microscopic Description Specimen adequacy: Adequate for interpretation. All slides were reviewed. The microscopic appearance substantiates the diagnosis. 05/04/2024 9:18 AM [facility] Additional Information Cytology is screened at [facility], Central Laboratory - [address], [place] [address] and [facility] - [address], [place] [address] and [facility] - [address] [place] [address] Interpreted at [facility], Central Laboratory - [address], [place] [address] 05/04/2024 9:18 AM [facility] Aspirate (Station 4R Lower Paratracheal Lymph Node) 05/03/2024 8:21 AM CDT 05/03/2024 9:27 AM CDT Specimen obtained by aspiration (specimen) (Station 4L Lower Paratracheal Lymph Node) 05/03/2024 8:28 AM CDT 05/03/2024 9:27 AM CDT Specimen obtained by aspiration (specimen) (Station 7 Subcarinal Lymph Node) 05/03/2024 8:40 AM CDT 05/03/2024 9:27 AM CDT Specimen obtained by aspiration (specimen) (Station 11L Interlobar Lymph Node) 05/03/2024 8:46 AM CDT 05/03/2024 9:27 AM CDT Luis Daniel Jean MD PATHOLOGY/CYTOL OGY [facility] [address] [place] [id number], * HCHG TUBE PR1, HCHG STYLET PR1 (05/03/2024 8:08 AM CDT) Narrative Harish Ballesteros CRNA - 05/03/2024 8:08 AM CDT Harish Ballesteros CRNA ? 05/03/2024 ??8:09 AM Procedure: ETT Patient location during procedure: OR ETT Properties Mask Ventilation: easy and oral airway Final Technique: direct laryngoscopy Type: straight Location: oral Cuffed: yes Tube Size: 8.5 mm Stylet: yes Laryngoscope Blade: Lopez Blade Size: 2 Cormack-Lehane Grade View: 1 Insertion Attempts: 1 Placement Verification: auscultation, end tidal CO2 and symmetrical chest wall movement Assessment: pharynx clear, atraumatic and dentition unchanged Secured at: 23 Measured From: lips Difficulty: 0 (not difficult) Tamara Jean MD ANESTHESIA PX N OTE ORDERABLES * SCAN-CARDIAC STRIP (05/03/2024 12:00 AM CDT) Narrative 05/03/2024 12:00 AM CDT Ordered by an unspecified provider. Other Clinical Staff OTHER * SCAN-CT INTERPRETATION (04/26/2024 12:00 AM CDT) Anatomical Region Laterality Modality Other Scanner OTHER * XR CHEST 2 VIEWS PA AND [...] (Electronically Signed) Nilam BLOOD GENERAL IMAGING * MR HEAD BRAIN WWO (04/25/2024 12:00 AM CDT) Anatomical Region Laterality Modality BRAIN, HEAD Magnetic Resonan ce Kasey Roman MD MR * (ABNORMAL) CBC W PLT NO DIFF (04/20/2024 4:57 PM CDT) WHITE BLOOD COUNT 4.3(L) 4.5 - 11.0 thou/cu mm 04/20/2024 5:20 PM CDT [facility] RED BLOOD COUNT 4.15 4.00 - 5.20 mil/cu mm 04/20/2024 5:20 PM CDT [facility] HEMOGLOBIN 13.7 12.0 - 16.0 g/dL 04/20/2024 5:20 PM CDT [facility] HEMATOCRIT 40.0 33.0 - 51.0 % 04/20/2024 5:20 PM CDT [facility] MCV 96 80 - 100 fL 04/20/2024 5:20 PM CDT [facility] MCH 33.0 26.0 - 34.0 pg 04/20/2024 5:20 PM CDT [facility] MCHC 34.3 32.0 - 36.0 g/dL 04/20/2024 5:20 PM CDT [facility] RDW 12.1 11.5 - 15.5 % 04/20/2024 5:20 PM CDT [facility] PLATELET COUNT 204 140 - 440 thou/cu mm 04/20/2024 5:20 PM CDT [facility] TR[facility] LAB[facility]ATORY MPV 9.5 6.5 - 11.0 fL 04/20/2024 5:20 PM CDT [facility] NRBC 0.0 % 04/20/2024 5:20 PM CDT [facility] ABS NRBC 0.0 thou /cu mm 04/20/2024 5:20 PM CDT [facility] Blood BLOOD SPECIMEN / Unknown Venipuncture / Unknown 04/20/2024 4:57 PM CDT 04/20/2024 5:15 PM CDT Lisbeth BLOOD HEMATOLOGY Performing Organization Address City/[facility] Co de Phone Number [facility] [address] [place] [address], * EKG 12 LEAD (04/20/2024 4:54 PM [...] NOW QTc 486 ms BEYOND NOW P [place] 51 degrees BEYOND NOW R [place] -5 degrees BEYOND NOW T [place] 45 degrees BEYOND NOW 04/20/2024 4:54 PM CDT 04/21/2024 1:33 PM CDT Lisbeth BLOOD EKG ORD Performing Organization Address [facility] de Phone Number BEYOND NOW [place], [place] * ND READING EKG - NO CHARGE, COMP ONLY [...] @ Apr 10 2024 11:38PM (Electronically Signed) [email or web address] Procedure Note Santos Read MD - 04/10/2024 [...] @ Apr 10 2024 11:38PM (Electronically Signed) [email or web address] BLOOD GENERAL IMAGING * SCAN-CARDIAC STRIP [...] 11.0 thou/cu mm 04/09/2024 4:28 PM CDT [facility] RED BLOOD COUNT 4.00 4.00 - 5.20 mil/cu mm 04/09/2024 4:28 PM CDT [facility] HEMOGLOBIN 13.1 12.0 - 16.0 g/dL 04/09/2024 4:28 PM CDT [facility] HEMATOCRIT 39.0 33.0 - 51.0 % 04/09/2024 4:28 PM T [facility] MCV 98 80 - 100 fL 04/09/2024 4:28 PM CDT [facility] MCH 32.8 26.0 - 34.0 pg 04/09/2024 4:28 PM CDT [facility] MCHC 33.6 32.0 - 36.0 g/dL 04/09/2024 4:28 PM T [facility] RDW 12.9 11.5 - 15.5 % 04/09/2024 4:28 PM CDT [facility] PLATELET COUNT 142 140 - 440 thou/cu mm 04/09/2024 4:28 PM T [facility] MPV 9.5 6.5 - 11.0 fL 04/09/[facility]24 4:[facility] NRBC 0.0 % 04/09/2024 4:28 PM CDT [facility] ABS NRBC 0.0 thou /cu mm 04/09/2024 4:28 PM CDT [facility] % NEUT 71.2 % 04/09/2024 4:28 PM CDT [facility] % LYMPH 19.5 % 04/09/2024 4:28 PM CDT [facility] % MONO 7.2 % 04/09/2024 4:28 PM CDT [facility] % EOS 1.1 % 04/09/2024 4:28 PM CDT [facility] % BASO 0.4 % 04/09/2024 4:28 PM CDT [facility] % IMMATURE GRAN (METAS,MYELOS,ND OS) 0.6 % 04/09/2024 4:28 PM CDT [facility] ABSOLUTE NEUTROPHILS 3.8 1.7 - 7.0 thou/cu mm 04/09/2024 4:28 PM CDT [facility] ABSOLUTE LYMPHOCYTES 1.0 0.9 - 2.9 thou/cu mm 04/09/2024 4:28 PM CDT [facility] ABSOLUTE MONOCYTES 0.4 <0.9 thou/cu mm 04/09/2024 4:28 PM CDT [facility] ABSOLUTE EOSINOPHILS 0.1 <0.5 thou/cu mm 04/09/2024 4:28 PM CDT [facility] ABSOLUTE BASOPHILS 0.0 <0.3 thou/cu mm 04/09/2024 4:28 PM [facility] ABSOLUTE IMMATURE GRANULOCYTES(MET ,MYELOS,PROS) 0.0 <0.3 thou/cu mm 04/09/2024 4:28 PM CDT [facility] Blood BLOOD SPECIMEN / Unknown Venipuncture / Unknown 04/09/2024 3:57 PM CDT 04/09/2024 4:03 PM CDT Narrative [facility] - 04/09/2024 4:28 PM CDT RN to order if patient presents with two or more positive sepsis screening criteria plus new or worsening signs or symptoms of suspected infection. Luis Daniel Jean MD HEMATOLOGY [facility] [address] [place] [address], * TSH (04/09/2024 3:57 PM CDT) TSH 3.20 0.27 - 4.20 uIU/mL 04/09/2024 4:38 PM CDT [facility] Blood BLOOD SPECIMEN / Unknown Venipuncture / Unknown 04/09/2024 3:57 PM CDT 04/09/2024 4:03 PM CDT Narrative [facility] - 04/09/2024 4:38 PM CDT In Adults, TSH values between 5.00 and 10.00 uIU/ml do not necessarily indicate the presence of Hypothyroidism. Correlation with clinical findings such as presence of goiter and/or Thyroperoxidase (TPO) Antibody may be helpful. For more information please refer to MEHDI 2004; 291: 228-238. Noman Guajardo MD CHEMISTRY Performing Organization Address [facility] Co de Phone Number [facility] [address] [place] [address], [place] * T3,FREE (04/09/2024 3:57 PM CDT) T3,FREE 2.25 2.00 - 4.40 pg/mL 04/09/2024 5:31 PM CDT [facility] Blood BLOOD SPECIMEN / Unknown Venipuncture / Unknown 04/09/2024 3:57 PM CDT 04/09/2024 4:03 PM CDT Mraco Pedraza MD CHEMISTRY Performing Organization Address [facility] Co de Phone Number [facility] [address] [address], [place] * (ABNORMAL) T3,TOTAL (04/09/2024 3:57 PM CDT) T3,TOTAL 73(L) 85 - 202 ng/dL 04/09/2024 4:39 PM CDT [facility] Blood BLOOD SPECIMEN / Unknown Venipuncture / Unknown 04/09/2024 3:57 PM CDT 04/09/2024 4:03 PM CDT Noman Guajardo MD CHEMISTRY Performing Organization Address [facility] Co de Phone Number [facility] [address] [address], [place] * T4,FREE (04/09/2024 3:57 PM CDT) T4,FREE 1.25 0.93 - 1.70 ng/dL 04/09/2024 5:31 PM CDT [facility] Blood BLOOD SPECIMEN / Unknown Venipuncture / Unknown 04/09/2024 3:57 PM CDT 04/09/2024 4:03 PM CDT Marco Pedraza MD CHEMISTRY [facility] [address] [place] [address], * Magnesium - MEDICAL MANAGER (04/09/2024 3:57 PM CDT) MAGNESIUM 1.7 1.6 - 2.4 mg/dL 04/09/2024 4:38 PM CDT [facility] AL LABORATORY Blood BLOOD SPECIMEN / Unknown Venipuncture / Unknown 04/09/2024 3:57 PM CDT 04/09/2024 4:03 PM CDT Luis Daniel Jean MD CHEMISTRY Performing Organization Address City/[facility]/ZIP Co de Phone Number [facility] [address] [place] [address], * (ABNORMAL) Comprehensive Metabolic Panel - MEDICAL MANAGER (04/09/2024 3:57 PM CDT) SODIUM 136 136 - 145 mmol/L 04/09/2024 4:38 PM CDT [facility] POTASSIUM 4.5 3.5 - 5.1 mmol/L 04/09/2024 4:38 PM CDT [facility] CHLORIDE 100 98 - 107 mmol/L 04/09/2024 4:38 PM CDT [facility] CO2,TOTAL 31(H) 22 - 29 mmol/L 04/09/2024 4:38 PM CDT [facility] ANION GAP 5 5 - 18 04/09/2024 4:38 PM CDT [facility] GLUCOSE 83 70 - 99 mg/dL 04/09/2024 4:38 PM CDT [facility] CALCIUM 9.3 8.8 - 10.2 mg/dL 04/09/2024 4:38 PM CDT [facility] BUN 12 8 - 23 mg/dL 04/09/2024 4:38 PM CDT [facility] CREATININE 0.49(L) 0.50 - 0.90 mg/dL 04/09/2024 4:38 PM CDT [facility] BUN/CREAT RATIO 24(H) 10 - 20 4:38 PM CDT [facility] eGFR >90 >90 mL/min/1.7 3m2 04/09/2024 4:38 PM CDT [facility] Comment:As of 2021, eG FR is calculated by the CKD-EPI creatinine equation without race adjustment. ??eGFR can be influenced by muscle mass, exercise, and diet. ??The reported eGFR is an estimation only and is only applicable if the renal function is stable. ALBUMIN 3.4(L) 4.0 - 4.9 g/dL 04/09/2024 4:38 PM CDT [facility] PROTEIN,TOTAL 6.9 6.0 - 8.0 g/dL 04/09/2024 4:38 PM CDT [facility] BILIRUBIN,TOTAL 0.4 0.0 - 1.2 mg/dL 04/09/2024 4:38 PM CDT [facility] ALK PHOSPHATASE 105(H) 35 - 104 IU/L 04/09/2024 4:38 PM CDT [facility] ALT (SGPT) 14 10 - 35 IU/L 04/09/2024 4:38 PM CDT [facility] AST (SGOT) 34 10 - 35 IU/L 04/09/2024 4:38 PM CDT [facility] Blood BLOOD SPECIMEN / Unknown Venipuncture / Unknown 04/09/2024 3:57 PM CDT 04/09/2024 4:03 PM CDT Luis Daniel Jean MD CHEMISTRY [facility] [address] [place] [address], [place] * [facility] CATH INFUSION PR10, H[facility] TUBING [...] ultrasound used. Securement/dressing: dressing applied. 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 ??Comment:. Catheter length: 12 cm. ??Comment: Events: no complications. Gentry Harrison MD ANESTHESIA PX NOTE O RDERABLES * CG ROS1 (04/07/2024 9:22 AM CDT) Tissue (Station 5 Subaortic Lymph Node) 04/07/2024 9:22 AM CDT 04/19/2024 5:15 PM CDT Luis Daniel Jean MD LABORATORY Performing Organization Address City/[facility]/ZIP Co de Phone Number [facility] [address] [place] [address], * CG ALK (04/07/2024 9:22 AM CDT) Tissue (Station 5 Subaortic Lymph Node) 04/07/2024 9:22 AM CDT 04/19/2024 5:15 PM CDT Luis Daniel Jean MD LABORATORY [facility] [address] [place] [address], * FOCUS (04/07/2024 9:22 AM CDT) Tissue (Station 5 Subaortic Lymph Node) 04/07/2024 9:22 AM CDT 04/12/2024 10:32 AM CDT Luis Daniel Jean MD LABORATORY [facility] [address] [place] [address], * CYTOGENETICS MALIGNANT TISSUE STUDIES (04/07/2024 9:22 AM CDT) RFR Smoker with history of endometriosis 04/25/2024 2:50 PM CDT [facility] TEST & RESULT SUMMARY ALK FISH: ?? Negative for rearrangement. ROS1 FISH: ?? Negative for rearrangement. 04/25/2024 2:50 PM CDT [facility] _ 04/25/2024 2:50 PM CDT [facility] ISCN nuc salvador(ALKx2~4)[50] nuc salvador(ROS1x2~4)[50] 04/25/2024 2:50 PM CDT [facility] INTERPRETATION ALK and ROS1 FISH analyses revealed no evidence of clonal rearrangement. ?? Clinicopathologic correlation of these results is recommended. 04/25/2024 2:50 PM CDT [facility] SOURCE Station 5 Subaortic Lymph Node (Paraffin Slides A1 2 uns 1 H&E) [id number] 04/25/2024 2:50 PM CDT [facility] METHODS Paraffin-embedded nuclei were hybridized using fluorescence [...] 15% nuclei analyzed 04/25/2024 2:50 PM CDT [facility] DISCLAIMER The FDA approved Vysis ALK Break Apart FISH Probe Kit was developed and its performance characteristics determined by [employer]. This test is performed with minor modifications to protocol and validated by the [facility] and [facility] to yield equivocal or superior performance. The ROS1 FISH test was developed and its performance characteristics determined by the [facility]. It has not been cleared [...] clinical laboratory testing. 04/25/2024 2:50 PM CDT [facility] Tissue (Station 5 Subaortic Lymph Node) 04/07/2024 9:22 AM CDT 04/19/2024 5:15 PM CDT Luis Daniel Jean MD LABORATORY [facility] [address] [place] [address], * PATH TISSUE EXAM (04/07/2024 9:22 AM CDT) Case Report Pathology Report ?Case: [id number] ? Authorizing Provider: ??Luis Daniel Jean MD Collected: ? 04/07/2024 0922 ? Ordering Location: ? [facility] ?Received: ?04/07/2024926 ? Hospital ? Pathologist: ? Amber Pollock MD ? Specimens: ?? A) - Station 5 Subaortic Lymph Node, frozen ? B) - Station 5 Subaortic Lymph Node, fresh ? 4 5:44 PM CDT [facility] Amendment 04/13/2024 - Amendmen t issued to report PD-L1 results. See final diagnosis section. 04/19/2024 - Amendment to report [employer] Targeted Next Generation Sequencing results. Please see attached scanned report and updated diagnosis. 04/25/2024 - Amendment issued to incorporate ancillary FISH studies. 05/05/2024 - At the request of the treating physician Dr Dennison,, this signed out case was retrieved from the [employer] pathology archives and reviewed by a pathologist, Dr. Florian, to select and prepare archival block(s) for submission to [facility] for molecular analysis. 05/15/2024 - Per Dr Dennison, tissue was submitted to [facility], please see attached scanned report for results. ?? 4 5:44 PM CDT [facility] Final Diagnosis A-B) LYMPH NODE(S), [...] rearrangement ?- See attached NGS report 4 5:44 PM CDT [facility] Amendment electronically signed by Mary Ellen David MD on 05/15/2024 at 5:44 PM Amendment electronically signed by Сергей Jensen MD [...] ANCILLARY TESTING PROTOCOL This patient's sample meets [employer] [facility] Thoracic Oncology Program Committee criteria* for reflex testing or such testing has been requested by the ordering physician. Testing will be performed, and the results will be communicated in an amendment to this report. There is no need to call to order the above tests. If there is a need for ancillary tests other than these, please contact the [facility] ([phone]). Slides available for [facility] NGS testing: A1-2 used for NGS; A1-3 Blocks available for [facility] NGS testing: B1, A1, A2, B2, B3 Blocks available for tests using immunostains and/or FISH (requiring 100 cells): A1, A2, B1, B2, B3 (8 air dried unstained slides also available) Blocks available for send out (outside vendor) testing requiring 5 x 5 mm of tumor: B1, B2, B3, A1, A2 *[place] [facility] Thoracic Oncology Program Committee reflex testing criteria: Stage IV pulmonary non-small cell carcinoma OR Tumor size >= 4 cm, or lymph node involvement, pulmonary non-small cell carcinoma, neoadjuvant setting OR Resected stage IB - IIIB pulmonary non-small cell carcinoma, adjuvant setting (if not previously performed) - [facility] Lung NGS panel (EGFR, ALK, ROS1, RET, MET, KRAS, BRAF, HRAS, NRAS, ERBB2, NTRK1/2/3) - [facility] PD-L1 SP263 - If RNA NGS fusion analysis fails, FISH for ALK and ROS1 fusion will be attempted 4 5:44 PM CDT [facility] LAB[facility] Clinical Information Smoker with history of endometriosis. ??Enlarged PET-avid prevascular/AP window mass only accessible by surgery for sampling. Review of [facility] pathology records shows no prior history [...] similar to the November 2021 exam. 4 5:44 PM [facility] Gross Description A) Received fresh labeled [...] on 04/07/2024. ?? KMN 04/07/2024 ?? 4 5:44 PM [facility] Intraoperative Consultation A) LYMPH NODE, STATION [...] surgical procedure. ??This testing was performed at: [facility] ?? [address] [place] [address] 4 5:44 PM [facility] Microscopic Description The final diagnosis is [...] situ hybridization tests that were performed by [facility] and whose performance characteristics were evaluated by [...] perform high complexity clinical laboratory testing. 4 5:44 PM T [facility] Cytogenetics Summary Cytogenetic testing has been ordered and will be reported separately. 4 5:44 PM T [facility] Molecular Diagnostics Summary Preanalytical microdissection of tissue/cytology slides for Next Generation Sequencing was performed according to laboratory protocol as follows: Microscopic examination was performed by a pathologist, Dr. Pollock, to determine specimen adequacy and identify areas of tumor for isolation. Areas of tumor selected and marked by the pathologist were manually harvested by a hazmat technician for nucleic acid extraction. 4 5:44 PM [facility] SYNOPTIC REPORTING Lung Biomarker Reporting Template LUNG BIOMARKER REPORTING TEMPLATE - A Protocol posted: 06/09/2023 RESULTS ?? ALK: ? Rearrangement by Molecular Methods: ?No ALK rearrangement detected ?? ROS1: ? Rearrangement by Molecular Methods: ?No ROS1 rearrangement detected ?? Comment(s): ?Each FISH test uses a multiplex probe stain procedure. 4 5:44 PM T [facility] Additional Information Interpreted at [facility] - [address] [address] Immunohistochemistry controls were reviewed and approved by [...] incubated with a PD-L1 rabbit monoclonal antibody ([employer] PD-L1 SP263 assay), performed on the [employer] BenchMark ULTRA instrument and visualized with OptiView [...] than or equal to 1% (Expression) This [place] SP263 immunohistochemical antibody assay is considered a laboratory developed test for patients with??non-small cell lung cancer who are being considered for treatment with atezolizumab. This [place] SP263 immunohistochemical antibody assay is considered a [...] specimens. References N Engl J Med 2020; 383:9860-1831 ?? 10.1056/[id number] J Thorac Oncol 2018;13(3):367-76 https://doi.org/10.10 16/j.jtho.2017.11.112 J Thorac Oncol 2018;13(9):1302-11 ??https://doi.org/10. 1016/j.jtho.2018.05.0 13 J Thorac Oncol 2017;12(11):1654-63 ??https://doi.org /10.1016/j.jtho.2017. 07.031 Am J Clin Oncol 202;39(15)suppl:8500 ?? 10.1200/JCO.202.39.1 5_suppl.8500 Disclaimer Support for the interpretation of this case may have included the use of immunohistochemistry and/or in situ hybridization tests that were performed by [facility] and whose performance characteristics were evaluated by [...] to perform high complexity clinical laboratory testing. 5:44 PM CDT [facility] Tissue (Station 5 Subaortic Lymph Node) 04/07/2024 9:22 AM CDT 04/07/2024 9:27 AM CDT Tissue specimen (specimen) (Station 5 Subaortic Lymph Node) 04/07/2024 9:23 AM CDT 04/07/2024 9:40 AM CDT Luis Daniel Jean MD PATHOLOGY/CYTOL OGY [facility] [address] [place] [address], * [facility] TUBE TRACH PR40, [facility] STYLET [...] A Rh Positive 04/07/2024 8:01 AM CDT [facility] ANTIBODY SCREEN Negative Negative 04/07/2024 8:01 AM CDT [facility] SPECIMEN EXPIRATION DATE/TIME 04/10/24 23:59 04/07/2024 8:01 AM CDT [facility] Blood BLOOD SPECIMEN / Unknown Venipuncture / Unknown 04/07/2024 7:03 AM CDT 04/07/2024 7:19 AM CDT Nilam BLOOD BLOOD BANK [facility] [address] [place] [address], * BUN (04/07/2024 7:03 AM CDT) BUN 12 8 - 23 mg/dL 04/07/2024 8:10 AM CDT [facility] Blood BLOOD SPECIMEN / Unknown Venipuncture / Unknown 04/07/2024 7:03 AM CDT 04/07/2024 7:19 AM CDT Nilam BLOOD CHEMISTRY [facility] [address] [address], [place] * Potassium (04/07/2024 7:03 AM CDT) POTASSIUM 3.6 3.5 - 5.1 mmol/L 04/07/2024 8:29 AM CDT [facility] Blood BLOOD SPECIMEN / Unknown Venipuncture / Unknown 04/07/2024 7:03 AM CDT 04/07/2024 7:19 AM CDT Nil[facility] BLOOD CHEMISTRY Performing Organization Address [facility] Co de Phone Number [facility] [address] [address], [place] * Creatinine (04/07/2024 7:03 AM CDT) eGFR >90 >90 mL/min/1.7 3m2 04/07/2024 8:10 AM CDT [facility] Comment:As of 2021, eG FR is calculated by the CKD-EPI creatinine equation without race adjustment. ??eGFR can be influenced by muscle mass, exercise, and diet. ??The reported eGFR is an estimation only and is only applicable if the renal function is stable. CREATININE 0.50 0.50 - 0.90 mg/dL 04/07/2024 8:10 AM CDT [facility] Blood BLOOD SPECIMEN / Unknown Venipuncture / Unknown 04/07/2024 7:03 AM CDT 04/07/2024 7:19 AM CDT Nil[facility] BLOOD CHEMISTRY Performing Organization Address City/[facility] Co de Phone Number [facility] [address] [address], [place] * Protime - INR (04/07/2024 7:03 AM CDT) INR 1.0 <1.3 04/07/2024 7:43 AM CDT [facility] PROTIME 11.0 10.3 - 12.3 sec 04/07/2024 7:43 AM CDT [facility] Blood BLOOD SPECIMEN / Unknown Venipuncture / Unknown 04/07/2024 7:03 AM CDT 04/07/2024 7:19 AM CDT Narrative [facility] - 04/07/2024 7:43 AM CDT ?Therapeutic [...] [facility]. Nilam BLOOD HEMATOLOGY Performing Organization Address City/[facility] Co de Phone Number [facility] [address] [place] [address], * SCAN-CARDIAC STRIP (04/07/2024 12:00 AM CDT) Narrative 04/07/2024 12:00 AM CDT Ordered by an unspecified provider. Other Clinical Staff OTHER * HEMOGLOBIN (04/05/2024 3:37 PM CDT) HEMOGLOBIN 14.4 12.0 - 16.0 g/dL 04/05/2024 3:44 PM CDT [facility] MCV 96 80 - 100 fL 04/05/2024 3:44 PM CDT [facility] Blood BLOOD SPECIMEN / Unknown Venipuncture / Unknown 04/05/2024 3:37 PM CDT 04/05/2024 3:38 PM CDT Kasey Roman MD HEMATOLOGY Performing Organization Address City/[facility]/ZIP Co de Phone Number [facility] [address] [place] [address], * SDNA-FIT EXTERNAL (COLOGUARD) (02/16/2024 8:30 AM CDT) NONINV COLON CA DNA+OCC BLD SCRN STL-IMP Negative Negative 02/21/2024 7:43 PM CDT [facility] (CLIA #:[id number]) Comment: NEGATIVE TEST RESULT. A negative Cologuard [...] Graves. et al, N Engl J Med 2014;370(14):1286- 1297) The normal value (reference range) for this assay is negative. COLOGUARD RE-SCREENING RECOMMENDATION: Periodic colorectal cancer screening is an important part of preventive healthcare for asymptomatic individuals at average risk for colorectal cancer. ??Following a negative Cologuard result, the [place] Cancer Society and U.S. Multi-Society Task Force screening guidelines recommend a Cologuard re-screening interval of 3 years. References: [place] [employer] Guideline for Colorectal Cancer Screening: https://www.cancer.org/cancer/lqsyz-tufdwo-ypysra/lwxosovze-udkxteevz-ghiiwun/ac s-rec ommendations.html.; Sixto NERI, Lauren RICKETTS, Louisa MarceloK, Colorectal Cancer Screening: Recommendations for Physicians and Patients from the U.S. Multi-Society Task Force on Colorectal Cancer Screening , Am J Gastroenterology 2017; 112:0053-8524. TEST DESCRIPTION: Composite algorithmic analysis of stool [...] Medina et al, N Engl J Med 2014;370(14):4763-4020.) Cologuard may produce a false negative or false positive result (no colorectal cancer or precancerous polyp present at colonoscopy follow up). A negative Cologuard test result does not guarantee the absence of CRC or advanced adenoma (pre-cancer). The current Cologuard screening interval is every 3 years. ([employer] [employer] and U.S. Multi-Society Task Force). Cologuard performance data in a 10,000 patient pivotal study using colonoscopy as the reference method can be accessed at the following location: www.[employer] Live/results. Additional description of the Cologuard test process, warnings and precautions can be found at www.[email or web address]. Stool specimen (specimen) (Rectum) 02/16/2024 8:30 AM CDT 02/17/2024 9:48 AM CDT Kasey Roman MD URINE [employer] (CLIA #:[id number]) [place] [address], * CT CHEST SCREENING LOW DOSE WO [...] health care provider. XR MAMMO BILAT SCREENING [[id number]] CLINICAL HISTORY: ??This is an asymptomatic 63 y.o. patient. INDICATION FOR EXAM: Mammogram Screening. TECHNIQUE: CC & MLO views were obtained. ??This study was evaluated with the assistance of Computer-Aided Detection. COMPARISON FILM: Yes 09/30/21 [facility] 10/09/19 [facility] FINDINGS: ??The breasts are heterogeneously dense, which may obscure small masses. There are no dominant masses, suspicious micro calcifications or areas of architectural distortion. Kasey Roman MD MAMMO * (ABNORMAL) LIPID PANEL W REFLEX MEASURED LDL (01/12/2024 3:38 PM CDT) CHOLESTEROL,TOTAL 164 100 - 199 mg/dL 01/12/2024 11:20 PM CDT [facility] Comment: Cholesterol, Total Reference Ranges Desirable <200 mg/dL Borderline 200-239 mg/dL High >=240 mg/dL TRIGLYCERIDES 217(H) <150 mg/dL 01/12/2024 11:20 PM CDT [facility] HDL CHOLESTEROL 52 >40 mg/dL 11:20 PM CDT [facility] NON-HDL CHOLESTEROL 112 <145 mg/dl 01/12/2024 11:20 PM CDT [facility] CHOL/HDL RATIO 3.15 <4.50 01/12/2024 11:20 PM CDT [facility] LDL CHOLESTEROL 69 <=130 mg/dL 01/12/2024 11:20 PM CDT [facility] VLDL CHOLESTEROL 43(H) <=30 mg/dL 01/12/2024 11:20 PM CDT [facility] PROVIDER ORDERED STATUS RANDOM 01/12/2024 11:20 PM CDT [facility] Blood BLOOD SPECIMEN / Unknown Venipuncture / Unknown 01/12/2024 3:38 PM CDT 01/12/2024 3:39 PM CDT Kasey Roman MD CHEMISTRY Performing Organization Address [facility]/ZIP Co de Phone Number [facility] [address] [place] [address], * HPV HIGH RISK (01/12/2024 3:11 PM CDT) TYPE 16 Negative Negative 01/17/2024 6:08 PM CDT [facility] TYPE 18 Negative Negative 01/17/2024 6:08 PM CDT [facility] OTHER HIGH RISK TYPES Negative Negative 01/17/2024 6:08 PM CDT [facility] Other (Cervical) Non-Blood / Unknown 01/12/2024 3:11 PM CDT 01/14/2024 9:58 AM CDT Narrative [facility] - 01/17/2024 6:08 PM CDT HPV types 16, 18, 31, 33, 35, 39, 45, 51, 52, 56, 58, 59, 66 and 68 DNA were undetectable or below the pre-set threshold. Methodology: Jhonathan Gavi 4800 HPV Test Kasey Roman MD MICROBIOLOGY Performing Organization Address City/[facility]/ZIP Co de Phone Number [facility] [address] [place] [address], * LC HIV-1/O/2, 4TH GENERATION (11/24/2022 5:31 PM PRINCIPAL TRAINER) HIV Scr 4th Gen Non Reactive Non Reactive 11/27/2022 10:06 PM PRINCIPAL TRAINER [facility] Comment: HIV Negative HIV-1/HIV-2 antibodies and HIV-1 p24 antigen were NOT detected. There is no laboratory evidence of HIV infection. Blood BLOOD SPECIMEN / Unknown Venipuncture / Unknown 11/24/2022 5:31 PM PRINCIPAL TRAINER 11/24/2022 5:31 PM PRINCIPAL TRAINER Narrative [facility] ([facility]) - 11/27/2022 10:06 PM PRINCIPAL TRAINER Performed at: ??01 - [facility] [address] ??[id number] Hotel Director: Trino Molina MD, Phone: ??[phone] Kasey Roman MD LABORATORY [facility] ([facility]) [address] [place] [address] * OCCULT BLOOD IFOBT STOOL (10/09/2019 2:10 PM PRINCIPAL TRAINER) STOOL BLOOD ,IFOBT Negative Negative 10/09/2019 2:19 PM PRINCIPAL TRAINER [facility] Stool STOOL SPECIMEN / Unknown Non-Blood / Unknown 10/09/2019 2:10 PM PRINCIPAL TRAINER 10/09/2019 2:10 PM PRINCIPAL TRAINER Kasey Roman MD LABORATORY Performing Organization Address [facility] Co de Phone Number [facility] [address] [place] [address], * ANTI HCV [[id number]] (01/24/2015 7:12 AM CDT) HEPATITIS C ANTIBODY Non-Reacti ve Non-Reacti ve 01/24/2015 1:57 PM CDT [facility] Blood specimen (specimen) BLOOD SPECIMEN / Unknown Venipuncture / Unknown 01/24/2015 7:12 AM CDT 01/24/2015 7:12 AM CDT Narrative [facility] - 01/24/2015 1:57 PM CDT Antibodies to HCV not detected; does not exclude the possibility of exposure to HCV. Richard Morgan MD S[facility] [address] [place] [address], [place] from Last 3 Months or Most Recently Relevant to Health Maintenance Advance Directives * Full Code (Latest Code Status on File) Date Activated Date Inactivated Comments 05/03/2024 6:03 AM 05/03/2024 12:34 PM Question Answer Comments Code Status Discussion: Unable to Assess Preferences, Provider to review later * Full Code Date Activated Date Inactivated Comments 04/20/2024 10:07 [...] Comments Code Status Discussion: Discussed Care Teams Bander Relationship Specialty Start Date End Date Kasey Roman MD [address] [place] [address] PCP - General Family Practice 09/21/19 Rian Marmolejo MD [address] [place] [address] [facility] [address] [place] [address] Rheumatology Rheumatology 05/04/17 Amber Santana RN [address] [place] [address] Nurse Navigator - Oncology Registered Nurse 02/02/24 Jacqueline Nolen, RN, BSN [address] [place] [phone] Nurse Navigator - Oncology Registered Nurse 02/07/24 Luis Daniel Jean MD [address] [place] [address] Surgery - Cardiothoracic 02/10/24
--- OUTSIDE RECORDS SUMMARY | 2024-06-01 06:46 | XMS_ITS | Continuity of Care Document ---
Author Organization [facility] Address [address] [place] [address] Phone Care Team Providers Care Accounting Clerks Supervisor Name Role Phone Cindy Barnes Unavailable Unavailable Allergies, Adverse Reactions, Alerts Substance Reaction Status Criticality PENICILLIN rash Active No Information Medications Medication Instructions Dosage Effective Dates (start - stop) Status Comments PAXIL (unknown strength) Not Available - Active PREDNISONE INTENSOL (unknown strength) Not Available - Active LISINOPRIL (unknown strength) Not Available - Active Procedures Procedure Date Office/Outpatient Visit,[facility] 2017 Results Test Name Date and Time Measure Units Reference Range Abnormal Flag Status Comments Panel Description: Lumbosacral Min. 4 Views Unk nown [id number] 20:27:55 (See Attached Document) Unknown (See Attached Document) Panel Description: Lumbosacral Min. 4 Views Unk nown Image Lumbosacral Min. 4 Views Advance Directives Directive Yes / No Effective Date File Name No Information Encounters Encounter Description Practice Location Reason(s) For Visit Diagnoses Date Provider Providers Copied on Encounter Office/Outpat ient Visit,[facility], [address], [place], [place], [id number], [place] tel:[phone] [facility] Osteoarthritis of hip, unspecified [address]. [facility], [address], [place], [address], [place]. tel:[phone] Referring Provider: Richard Morgan, [employer] [address], [address] . tel:[phone] [facility], [address], [place], [place], [id number], [place] tel:[phone] [facility] Radiculopathy, lumbar region 8 Keith Marin. [facility], [address], [place], [address], [place]. tel:[phone] Family History Family Member Type Diagnosis Age At Onset No Information Payers Payer name Insurance type Covered libertarian ID Authoriza tion(s) No Information Social History [...]
--- OUTSIDE RECORDS SUMMARY | 2024-06-01 06:46 | XMS_ITS | Referral Summary ---
Author Organization [facility] Address [address] [place] [address] Care Team Providers Care Test Clerk Name Role Phone Unavailable Primary Care Provider Unavailabl e Source Comments Patient records contain information from all sites at [facility]. For routine questions regarding patient records, call [phone] during business hours, M-F 8:00 AM - 5:00 PM Central Time. Record requests for emergency care only can be directed to [phone] at any time.[facility] Encounters Date Type Department Care Team Description 05/23/2024 2:15 PM CDT - 05/30/2024 2:58 PM CDT Hospital Encounter Department of Radiation Oncology in [address] [phone] Сергей Mejias M.D. 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 05/10/2024 12:58 PM CDT - 05/24/2024 5:10 PM CDT Hospital Encounter Department of Radiation Oncology in [address] [phone] Сергей Mejias M.D. 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 Grieman, Kari A, R.N. 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 12/23/2022 Active PARoxetine (PaxiL) 30 mg tablet Take 1 tablet by mouth daily. 01/12/2024 Active lisinopril-hydroCHLORO thiazide 20-25 mg per tablet Take 1 tablet by mouth daily. 01/12/2024 Active metoprolol succinate (Toprol XL) 50 mg 24 hr tablet Take 1 tablet by mouth daily. 12/30/2021 Active rosuvastatin (Crestor) 20 mg tablet Take 20 mg by mouth at bedtime. 11/04/2021 Active Active Problems Problem Noted Date Diagnosed Date Malignant Neoplasm Of Unspec ified Part Of Bronchus Or Lung Laterality Unknown 05/05/2024 Cancer Staging:Clinical stage from 04/07/2024:Stage Unknown(cTX, cN2, cM0) - Unsigned Immunizations Name Administration Dates Next Due Influenza, Unspecified 06/26/2009,2007,10/29/2006,06/30/2004, 3 PPSV23 06/27/2004 Social History Tobacco Use Types Packs/Day Years Used Date Smoking Tobacco: Every Day Cigarettes 1 47.7 Started: 1978 Smokeless Tobacco: Never Tobacco Cessation:Ready to Q uit: Not Asked; Counseling Given: Not Answered Alcohol Use Standard Drinks/Week Comments Yes 7 (1 standard drink = 0.6 oz pur e alcohol) Dental Answer Date Recorded Dental: Regular Dentist Unknown 04/27/20 Sex and Gender Information Value Date Recorded Sex Assigned at Not on file Gender Identity Not on file Sexual Orientation Not on file Last Filed Vital Signs Vital Sign Reading Time Taken Comments Blood Pressure 173/63 05/10/2024 1:01 PM CDT Pulse 72 05/10/2024 1:01 PM CDT Temperature - - Respiratory Rate - - Oxygen Saturation - - Inhaled Oxygen Concentration - - Weight 64.5 kg (142 lb 3.2 oz) 05/23/2024 2:18 P M CDT Height - - Body Mass Index - - Plan of Treatment Upcoming Encounters Date Type Department Care Team (Late st Contact Info) Description 06/02/2024 11:30 AM CDT Appointment Department of Radiology in [place], [place] [address] [place] [phone] Сергей Mejias M.D. [address] [place] [phone] 06/07/2024 1:00 PM CDT Appointment Department of Radiation Oncology in [address] [address] Сергей Mejias M.D. 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 05/23/2024 ??3:18 PM Initial Rad Onc Treatment Planning CT Simulation Performed by: Сергей Mejias M.D. Authorized by: Сергей Mejias M.D. ?? Сергей Mejias M.D. RADIATION ONCOLO GY ORDERABLES Performing Organization Address [facility] de Phone Number CHERIE HIGGINBOTHAM na * MR Brain-Outside MR Neuro (04/25/2024 2:55 PM CDT) Narrative [facility] - 05/01/2024 10:55 AM CDT This order has been created and auto-finalized to support the import of outside images. If available, original interpretation can be found on the Media Tab in Chart Review, in Document Viewer, as an image in QREADS or as an Addendum. If a re-interpretation or overread is required please follow defined workflow.?? Provider Not In System IMG MRI PROCEDURE S Performing Organization Address [facility] de Phone Number [facility] NA * XR CHEST 2 VIEWS PA AND LATERAL-Outside Chest Xray (04/25/2024 11:20 AM CDT) Only the most recent of4 resultswithin the time period is included. Narrative [facility] - 05/01/2024 10:59 AM CDT This order has been created and auto-finalized to support the import of outside images. If available, original interpretation can be found on the Media Tab in Chart Review, in Document Viewer, as an image in QREADS or as an Addendum. If a re-interpretation or overread is required please follow defined workflow.?? Provider Not In System IMG DIAGNOSTIC IM AGING PROCEDURES Performing Organization Address [facility] de Phone Number [facility] NA from Last 3 Months
--- OUTSIDE RECORDS SUMMARY | 2024-06-01 06:46 | XMS_ITS | Clinical Summary ---
Author Organization [facility] Address [address] [place] [address] Care Team Providers Care Audio Technician Name Role Phone Unavailable Primary Care Provider Unavailabl e Source Comments Patient records contain information from all sites at [facility]. For routine questions regarding patient records, call [phone] during business hours, M-F 8:00 AM - 5:00 PM Central Time. Record requests for emergency care only can be directed to [phone] at any time.[facility] Medications Medication Sig Dispensed Refills Start Date [...] from 04/07/2024:Stage Unknown(cTX, cN2, cM0) - Unsigned Encounters Date Type Department Care Team Description 05/25/2024 Clinical Communication Department of Radiation Oncology in [place], [place] [address] [place] [phone] Сергей Mejias M.D. 05/23/2024 2:15 PM CDT - 05/30/2024 2:58 PM CDT Hospital Encounter Department of Radiation Oncology in [place], [place] [address] [place] [phone] Сергей Mejias M.D. 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 [address] [place] [address] 06/07/2024 1:00 PM CDT Appointment Department of Radiation Oncology in [place] [address] [place] [phone] Сергей Mejias M.D. [address] [place] [phone] Health Maintenance Due Date Last Done Comments Bone Density Scan (Osteoporosis Screen) 1958 CT Colonography 1958 Cervical Cancer Screening 1960 Colonoscopy 1958 FIT 1960 HIV Screening 1960 Hepatitis C Screening 1960 Mammogram 1958 Tobacco Cessation counseling 1958 Pneumococcal vaccine (65+ years) (2 of 2 - PCV) 06/27/2005 06/27/2004 Zoster Vaccines (2 of 2) 09/05/2019 07/11/2019 Depression Screening (Annual PHQ-2) 09/20/2023 Fall Risk Screen (Annual) 09/20/2023 COVID-19 Vaccine (2022- season) 2024 12/23/2022, 07/31/2021, 11/23/2020, Additional history exists Creatinine Level (Kidney Function Test) 05/30/2025 05/30/2024, 04/20/2024, 04/09/2024, Additional history exists Potassium Level 05/30/2025 05/30/2024, 084, 04/09/2024, Additional history exists Sodium Level 05/30/2025 05/30/2024, 08/0 09/2023, 04/09/2024, Additional history exists Cologuard 02/20/2027 02/21/2024 Colorectal Cancer Screening 02/20/2027 Fasting Glucose for Diabetes Screening 05/30/2027 05/30/2024, 04/20/2024, 04/09/2024, Additional history exists DTaP,Tdap,and Td Vaccines (3 - Td or Tdap) 09/09/2031 09/09/2021, 08/19/2011 Influenza Vaccine Completed 05/30/2024, , 08/08/2021, Additional history exists HPV Vaccines Aged Out No longer eligi ble based on patient's age to complete this topic Procedures Procedure Name Priority Date/Time Associated Diagnosis [...] CHERIE HIGGINBOTHAM - 05/23/2024 2:30 PM CDT Babs Perez, RTT ? 05/23/2024 ??3:18 PM Initial Rad Onc Treatment Planning CT Simulation Performed by: Сергей Mejias M.D. Authorized by: Сергей Mejias M.D. ?? Сергей Mejias M.D. RADIATION ONCOLO GY ORDERABLES Performing Organization Address [facility] de Phone Number CHERIE HIGGINBOTHAM na * MR Brain-Outside MR Neuro (04/25/2024 2:55 PM CDT) Narrative [facility] - 05/01/2024 10:55 AM CDT This order [...] IMG MRI PROCEDURE S Performing Organization Address [facility] de Phone Number II NA * XR CHEST 2 VIEWS PA [...] DIAGNOSTIC IM AGING PROCEDURES Performing Organization Address [facility] de Phone Number [facility] NA from Last 3 Months
--- OUTSIDE RECORDS SUMMARY | 2024-06-01 06:47 | XMS_ITS | Encounter Summary ---
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 [address] [place] [address] [facility] Referral ID Status Reason Start Date Expiration Date Visits Re quested Visits Authorized [id number] Closed 05/10/2024 05/10/2025 1 1 Encounter Details Date Type Department Care Team (Latest Contact Info) Description 05/23/2024 2:15 PM CDT - 05/30/2024 2:58 PM CDT Hospital Encounter Department of Radiation Oncology in [place], [place] [address] [place] [phone] Сергей Mejias M.D. 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) Social History Tobacco Use Types Packs/Day Years Used Date Smoking Tobacco: Every Day Cigarettes 1 47.7 Started: 1978 Smokeless Tobacco: Never Alcohol Use Standard Drinks/Week Comments Yes 7 (1 standard drink = 0.6 oz pur e alcohol) Dental Answer Date Recorded Dental: Regular Dentist Unknown 04/27/20 Sex and Gender Information Value Date Recorded Sex Assigned at Not on file Gender Identity Not on file Sexual Orientation Not on file documented as of this encounter Medications at Time of Discharge Medication Sig Dispensed Refills Start Date End Date aspirin [address] tablet Take 1 tablet by mouth daily. 12/23/2022 lisinopril-hydroCHLOROthia zide 20-25 mg per tablet Take 1 tablet by mouth daily. 01/12/2024 metoprolol succinate (Toprol XL) 50 mg 24 hr tablet Take 1 tablet by mouth daily. 12/30/2021 PARoxetine (PaxiL) 30 mg tablet Take 1 tablet by mouth daily. 01/12/2024 rosuvastatin (Crestor) 20 mg tablet Take 20 mg by mouth at bedtime. 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 Authorized by: Сергей Mejias M.D. Simulation was performed under physician supervision based on physician order in preparation for radiation therapy. Physician was immediately available to provide assistance and direction throughout the procedure. Written consent for treatment was completed or confirmed. The patient was appropriately identified and placed in the treatment position using the necessary immobilization to ensure a reproducible treatment position. Reference sims were placed to facilitate marking of isocenter. Area scanned:Chest Contrast used for the simulation procedure: IV Patient position:head first supine and arms up Custom immobilization: Vac-barrie Motion management: 4D CT scan Bolus: No CT guidance: Following positioning of the patient, a series of slices was obtained to be utilized in treatment planning. CT images were transferred to the [employer] treatment planning system, after a reference isocenter was determined and marked. Segmentation and treatment planning will take place prior to treatment delivery. Patient set up and imaging was appropriate and completed without incident. Flour Broker use:No Associated attestation - Сергей Mejias M.D. - 05/30/2024 2:58 PM CDT Agree with documentation as below. I was personally available during the simulation. documented in this encounter Plan of Treatment Upcoming Encounters Date Type Department Care Team (Late st Contact Info) Description 06/02/2024 11:30 AM CDT Appointment Department of Radiology in [place], [place] [address] [place] [phone] Сергей Mejias M.D. [address] [place] [address] 06/07/2024 1:00 PM CDT Appointment Department of Radiation Oncology in [place] [address] [place] [phone] Сергей Mejias M.D. 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 05/23/2024 ??3:18 PM Initial Rad Onc Treatment Planning CT Simulation Performed by: Сергей Mejias M.D. Authorized by: Сергей Mejias M.D. ?? Сергей Mejias M.D. 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
--- OUTSIDE RECORDS SUMMARY | 2024-06-01 06:47 | XMS_ITS | Encounter Summary ---
Author Organization [facility] Address [address] [place] [address] Care Team Providers Care Electric Blanket Packer Name Role Phone Unavailable Primary Care Provider Unavailabl e Encounter Details Date Type Department Care Team (Late st Contact Info) Description 05/25/2024 Clinical Communication Department of Radiation Oncology in [place], [place] [address] [place] [address] Сергей Mejias M.D. [address] [place] [phone] Social History Tobacco Use Types Packs/Day Years [...] documented as of this encounter Miscellaneous Notes * Telephone Encounter - Anel Rodriguez - 05/25/2024 2:12 PM CDT Other Reason for Call Caller: Rosemary Relationships to patient: Self Reason for call: Rosemary called stating that they scheduled her for a port placement on 06/01 at [facility]. She is supposed to start her radiation treatments on 05/31. She is wondering if the radiation should be delayed until Tuesday 06/05 as she doesn't want to have radiation and port placement on the same day. She would like a call back to clarify, plan and how to proceed. [phone] documented in this encounter Plan of Treatment Upcoming Encounters Date Type Department Care Team (Late st Contact Info) Description 06/02/2024 11:30 AM CDT Appointment Department of Radiology in [place], [place] [address] [place] [phone] Сергей Mejias M.D. [address] [place] [address] 06/07/2024 1:00 PM CDT Appointment Department of Radiation Oncology in [place], [place] [address] [place] [phone] Сергей Mejias M.D. [address] [place] [address] documented as of this encounter Visit Diagnoses Not on filedocumented in this encounter
--- OUTSIDE RECORDS SUMMARY | 2024-06-01 06:47 | XMS_ITS | Encounter Summary ---
Author Organization [facility] Address [address] [place] [address] Care Team Providers Care Topstitcher Lockstitch Name Role Phone Unavailable Primary Care Provider Unavailabl e Reason for Visit * Appointment Request (Routine) - Closed Specialty Diagnoses / Procedures Referred By Contac t Referred To Contact Radiation Oncology Diagnoses Malignant Neoplasm Of Unspecified Part Of Lung Laterality Unknown Adenocarcinoma (HCC) Aniya Dennison M.D. [address] [place] [address] Referral ID Status Reason Start Date Expiration Date Visits Re quested Visits Authorized [id number] Closed 04/27/2024 04/27/2025 1 1 Encounter Details Date Type Department Care Team (Latest Contact Info) Description 05/10/2024 12:58 PM CDT - 05/24/2024 5:10 PM CDT Hospital Encounter Department of Radiation Oncology in [place], [place] [address] [place] [phone] Сергей Mejias M.D. [address] [place] [phone] Malignant Neoplasm Of Unspecified Part Of Bronchus Or Lung Laterality Unknown (HCC) (Primary Dx) Social History Tobacco Use Types Packs/Day Years [...] Weight 64.5 kg (142 lb 3.2 oz) 05/10/2024 1:01 P M CDT Height - - Body Mass Index - - documented in this encounter Medications at Time [...] bedtime. 11/04/2021 documented as of this encounter Consult Notes * Simran Clifton P.A.-C., M.S. - 05/10/2024 1:00 PM CDT SUBJECTIVE REQUESTING PROVIDER Aniya Dennison M.D. CHIEF COMPLAINT/REASON FOR CONSULT 1. Malignant Neoplasm Of Unspecified Part Of Bronchus Or Lung Laterality Unknown (HCC) SUPERVISED BY: Сергей Mejias M.D. HISTORY OF PRESENT ILLNESS Mrs. Delmi Blanton is a 63-year-old female with non-small cell lung cancer, who presents today for an opinion regarding the role of radiation therapy in the management of the patient's disease. Her oncologic history is as follows: Oncology History Malignant Neoplasm Of Unspecified Part Of Bronchus Or Lung Laterality Unknown (HCC) 12/01/[address] screen low dose 1. No suspicious pulmonary nodules. 2. Mediastinal lymphadenopathy with single enlarged aortopulmonary window lymph node of unknown etiology to include malignancy. 12/31/[address] CHEST 1. Enlarged prevascular lymph node is significantly diminished in size from the previous study. No additional abnormal lymphadenopathy. 2. Chronic cardiomegaly and minimal adjacent atelectasis left lower lobe. No other pulmonary pathology. Lung reds category 1 S. negative. No pulmonary nodules. Continue annual LDCT in 12 months. 01/26/[address] chest screening low dose Impression: ACR Lung-RADS Category 1S: Negative for lung cancer screening. No suspicious nodules. Enlarged AP bulky AP window lymph node. This is similar in size compared to November 2021 but had regressed in December2022. This is of unclear underlying etiology. Please correlate with interval history and consider PET-CT tissue sampling. Additionally recommend continued annual lung cancer screening with low-dose CT in 12 months. 02/03/2024 Critical Imaging PET-CT Impression: 1. Left-sided mediastinal mass is identified which [...] 4. Other PET-CT findings as detailed above. 04/07/2024 Biopsy/Pathology Final Diagnosis A-B) LYMPH NODE(S), STATION 5 SUBAORTIC, RESECTION: 1. 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 See comment 3. Ancillary testing: a. PD-L1: - Tumor Proportion Score (TPS): 0% (No PD-L1 expression, TPS less than 1%) - Tumor Cell (TC): 0% (Negative, TC less than 1%) b. NGS (lung panel): - DNA (mutation and copy number): Negative; see attached report - RNA (fusion): Fusion analysis failed - ALK FISH: Negative for rearrangement - ROS1 FISH: Negative for rearrangement - See attached NGS report 04/25/2024 Critical Imaging MR brain without IV contrast 1. Mild scattered white matter T2 hyperintensities likely represent age-related chronic small-vessel ischemic change. However given the patient's history, recommend the patient return for completion of contrast-enhanced images. 2. No acute hemorrhage or infarct. 04/26/[address] CAP Impression: 1. Redemonstration of an AP window lymph node/mass similar in size compared to prior examination measuring approximately 1.8 x 3.9 centimeters. 2. Moderate left-sided pneumothorax and moderate left-sided pleural effusion with atelectatic changes involving primarily the left lower lobe and lingula. 3. There is a nondisplaced fracture of the posterior left 9th rib with a small amount edema in the adjacent subcutaneous fat 4. No CT evidence of metastatic disease involving the abdomen or pelvis. 05/03/2024 Biopsy/Pathology A bronchoscope was passed through the endotracheal tube into the airway. The trachea, mainstem bronchi, lobar and segmental bronchi were all evaluated. There were no lesions or masses within the airway, and there were no signs of external compression. There was no inflammation of the airways, and the secretions were thin and nonpurulent. The bronchoscope was then removed from the airway and the endobronchial ultrasound scope was advanced into the airway where endobronchial ultrasound was then performed at stations 4R, 4L, 7, and 11L, with identification of the lymph nodes of interest, which were confirmed based on appearance, location, and Doppler evaluation. Fine-needle aspirations were per formed with a 21-gauge needle under ultrasound visualization. Intraoperative examination of the tissue slides showed adequate tissue sampling at stations 4R and 4L consistent with darrian tissue for evaluation, the lymph node sampling at station 7 and 11L was more limited. The station 4L lymph node appeared positive for malignancy. Final Diagnosis A) LYMPH NODE, THORACIC STATION [...] cells of metastatic non-small cell carcinoma 05/04/[address] Dennison, [facility]. Will likely pursue chemoradiotherapy followed by 1year of immunotherapy. Follow up with Dr. Dennison scheduled for May 23. 05/05/2024 Critical Imaging Brain MRI demonstrated no evidence of metastatic disease. 05/23/2024 - Radiation Therapy Radiation Therapy Treatment Details (Noted on 05/10/2024) Site: Left Lung Technique: No technique specified Goal: Curative Planned Treatment Start Date: 05/23/2024 INTERVAL HISTORY: The patient was seen and examined today with Dr. Mejias. The patient reports doing well overall. She reports good energy levels. She denies shortness of breath. She has an occasional dry cough that she relates to Sjogren's. She denies chest pain or tightness. She states that her activity is limited due to neuropathy, not due to breathing. She reports that she can climb 2 flights of stairs. She denies pain with swallowing. She does report needing to chew carefully due to mouth/throat dryness, again which she relates to Sjogren's. She denies any new neurological symptoms. The patient does have a diagnosis of Sjogren's Syndrome. She denies a history of other connective tissue disorders. The patient denies a history of prior radiation therapy or infla mmatory bowel disease. Her ECOG performance status is 0. REVIEW OF SYSTEMS Review of systems was negative except as documented above. MEDICAL HISTORY Past Medical History: Diagnosis Date Asthma (HCC) Chronic Pain Syndrome Coronary Artery Disease NOS Endometriosis Gastroesophageal Reflux Disease Hypertension Essential Primary Osteoarthritis Scoliosis Sjogren's (Sicca) Syndrome (HCC) Tachycardia Supraventricular Paroxysmal (HCC) Tobacco Use SURGICAL HISTORY Past Surgical History: Procedure Laterality Date ARTHROPLASTY REPLACEMENT TOTAL HIP Bilateral HYSTEROSCOPY OTHER CONVERTED SHX (SEE COMMENT) N/A 11/01/1989 Molding for body jacket. OTHER CONVERTED SHX (SEE COMMENT) N/A 10/28/1989 Removal of foreign bodies. Transplantation of bone: homogenous bone bank graft SALPINGO - OOPHORECTOMY SPINE SURGERY rods for scoliosis FAMILY HISTORY No family history on file. SOCIAL HISTORY Social History Socioeconomic History Marital status: Spouse name: Art Number of children: 2 Tobacco Use Smoking status: Every Day Current packs/day: 1.00 Average packs/day: 1 pack/day for 47.6 years (47.6 ttl pk-yrs) Types: Cigarettes Start date: 1978 Smokeless tobacco: Never Substance and Sexual Activity Alcohol use: Yes Alcohol/week: 7.0 - 14.0 standard drinks of alcohol Types: 7 - 14 Glasses of wine per week OBJECTIVE BP (!) 173/63 (BP Location: Right arm, Patient Position: Sitting, Cuff Size: Regular) Pulse 72 Wt 64.5 kg PHYSICAL EXAMINATION General: Alert and oriented, in no apparent distress. Heart: Regular rate and rhythm. Lungs: Clear to auscultation bilaterally. ASSESSMENT / PLAN #1 Stage IIIA (TX N2 M0) poorly differentiated non-small cell carcinoma, favoring metastatic adenocarcinoma from lung primary I had a discussion with the patient regarding her lung cancer diagnosis. We reviewed her oncologic history as detailed above. We also had a detailed discussion regarding the risks, benefits, and alternatives of radiotherapy in this setting. Dr. Mejias offered radiation therapy in 30 fractions with concurrent chemotherapy. I discussed the logistics as well as the acute and chronic side effects of radiotherapy. The acute side effects are common and include, but are not limited to, fatigue, shortness of breath, skin irritation, cough, pain and/or difficulty with swallowing, and musculoskeletal aches/pains from immobilization. A delayed side effect could include radiation pneumonitis. Long-term side effects could include, but are not limited to, heart damage with left-sided treatment, ulceration or narrowing of the esophagus, broken rib, spinal cord damage, bronchial collapse, hemorrhage of a blood vessel, chronicshortness of breath, chronic chest wall pain, and secondary malignancy. The patient was provided with a written summary of recommendations. Her questions were answered to her verbalized satisfaction. The patient is scheduled for follow-up with Dr. Dennison on May 23, 2024 for further discussion and recommendations regarding chemotherapy. We discussed obtaining pulmonary function tests; however, the patient declined at this time. We discussed the recommendation for smoking cessation. The patient states that she is trying to cut back. I offered referral to a nicotine dependence counselor; however, she declined at this time. 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 She is then planning on moving to [place]. She states that she has decided to stay in [place] to receive her initial chemoradiotherapy treatments. After discussion, the patient verbally stated that she would like to proceed with radiation treatment. She signed consent. She is not able to stay for CT simulation today, so this will be re-scheduled to a date that she is available in the near future. Dr. Mejias also met with the patient today, please see his attestation for details. The patient was provided with our contact information. She will contact us with questions or concerns. She verbally expressed her understanding of the plan. EDUCATION: Ready to learn, no apparent learning barriers were identified; learning preferences include listening. Explained diagnosis and treatment plan; patient expressed understanding of the content. CONSENT: Discussed the risks, benefits, alternatives, and the necessity of other members of the healthcare team participating in the procedure. All questions answered and consent given. PRIMARY PROVIDER Kasey Roman M.D. I personally spent 65 minutes in care of the patient today. Time includes both non face to face andface to face patient care. Signed by: Simran Clifton P.A.-C., M.S. 05/10/2024 2:29 PM CDT [facility] [address] [place] [id number] Associated attestation - Сергей Mejias M.D. - 05/24/2024 5:10 PM CDT I was the supervising physician in the delivery of the service. I personally saw the patient and reviewed the indications and goals of treatment as well as the potential risks and adverse effects with the patient. I agree with the documentation provided by Simran Clifton. We discussed the role of radiation therapy as definitive treatment for her stage III lung cancer and discussed the potential risks and adverse effects as described above. We offered her a simulation appointment today to begin treatment but she declined due to a scheduling conflict with her work. She will schedule simulation at a later date. documented in this encounter Plan of Treatment Upcoming Encounters Date Type Department Care Team (Late st Contact Info) Description 06/02/2024 11:30 AM CDT Appointment Department of Radiology in [address] [phone] Сергей Mejias M.D. [address] [place] [phone] 06/07/2024 1:00 PM CDT Appointment Department of Radiation Oncology in [address] [phone] Сергей Mejias M.D. [address] [place] [address], [place] [phone] documented as of this encounter Visit Diagnoses Diagnosis Malignant Neoplasm Of Unspecified Part Of Bronchus Or Lung Laterality Unknown (HCC)- Primary documented in this encounter
--- OUTSIDE RECORDS SUMMARY | 2024-06-01 06:47 | XMS_ITS | Encounter Summary ---
Author Organization [facility] Address [address] [place] [address] Care Team Providers Care Retirement [place] Manager Name Role Phone Unavailable Primary Care Provider Unavailabl e Reason for Referral * Radiation Therapy (Routine) - Closed Specialty Diagnoses / Procedures Referred By Contac t Referred To Contact Diagnoses Malignant Neoplasm Of Unspecified Part Of Bronchus Or Lung Laterality Unknown (HCC) Procedures Initial Rad Onc Treatment Planning CT Simulation Сергей Mejias M.D. [address] [place] [address] [facility] Region Referral ID Status Reason Start Date Expiration Date Visits Re quested Visits Authorized [id number] Closed 05/10/2024 05/10/2025 1 1 * Outpatient (Routine) - Authorized Specialty Diagnoses / Procedures Referred By Contac t Referred To Contact Social Work Diagnoses Malignant Neoplasm Of Unspecified Part Of Bronchus Or Lung Laterality Unknown (HCC) Сергей Mejias M.D. [address] [place] [address] [facility] Region Referral ID Status Reason Start Date Expiration Date V isits Requested Visits Authorized [id number] Authorized 05/10/2024 11/09/2025 1 1 * Outpatient (Routine) - Authorized Specialty Diagnoses / Procedures Referred By Contac t Referred To Contact Radiation Oncology Diagnoses Malignant Neoplasm Of Unspecified Part Of Bronchus Or Lung Laterality Unknown (HCC) Сергей Mejias M.D. [address] [place] [address] [facility] Region Referral ID Status Reason Start Date Expiration Date V isits Requested Visits Authorized [id number] Authorized 05/10/2024 11/09/2025 1 1 * Specialty Diagnoses / Procedures Referred By Contac t Referred To Contact Simran Clifton P.A.-C., M.S. [address] [place] [phone] [facility] Region Referral ID Status Reason Start Date Expiration Date Visits Re quested Visits Authorized Scheduling Instructions Please do not schedule if patient has 10 fractions or less, unless requested by care team. * Radiation Therapy (Routine) - Authorized Specialty Diagnoses / Procedures Referred By Contac t Referred To Contact Diagnoses Malignant Neoplasm Of Unspecified Part Of Bronchus Or Lung Laterality Unknown (HCC) Procedures Management Visit Сергей Mejias M.D. [address] [place] [address] [facility] Referral ID Status Reason Start Date Expiration Date V isits Requested Visits Authorized [id number] Authorized 05/10/2024 05/10/2025 10 10 * Radiation Therapy (Routine) - Authorized Specialty Diagnoses / Procedures Referred By Contac t Referred To Contact Diagnoses Malignant Neoplasm Of Unspecified Part Of Bronchus Or Lung Laterality Unknown (HCC) Procedures Prior Auth Rad Tx HI IMRT COMPLEX HI GUIDANCE FOR LOC RAD TX HI IMRT RADIOTHERAPY PLAN IMRT Сергей Mejias M.D. [address] [place] [address] [facility] Referral ID Status Reason Start Date Expiration Date V isits Requested Visits Authorized [id number] Authorized 05/23/2024 08/21/2024 30 30 Encounter Details Date Type Department Care Team (Late st Contact Info) Description 05/10/2024 Orders Only Department of Radiation Oncology in [place], [place] [address] [place] [address] Simran Clifton P.A.-C., M.S. [address] [place] [address] Malignant Neoplasm Of Unspecified Part Of Bronchus [...] as of this encounter Miscellaneous Notes * Addendum Note - Simran Clifton P.A.-C., M.S. - 05/10/2024 9:02 AM CDTAddended by: SIMRAN CLIFTON on: 05/10/2024 09:20 AM Modules accepted: Orders documented in this encounter Plan of Treatment Upcoming Encounters Date Type Department Care Team (Late Contact Info) Description 06/02/2024 11:30 AM CDT Appointment Department of Radiology in [place], [place] [address] [place] [phone] Сергей Mejias M.D. [address] [place] [address] 06/07/2024 1:00 PM CDT Appointment Department of Radiation Oncology in [place], [place] [address] [place] [address] Сергей Mejias M.D. [address] [place] [address] Scheduled Orders Name Type Priority Associated Diagnoses Orde r Schedule Prior Auth Rad Tx Radiation Oncology Routine Malignant Neoplasm Of Unspecified Part Of Bronchus Or Lung Laterality Unknown (HCC) Ordered: 05/10/2024 Management Visit Radiation Oncology Routine Malignant Neoplasm Of Unspecified Part Of Bronchus Or Lung Laterality Unknown (HCC) 10 Occurrences starting 05/10/2024 until 08/10/2025 Scheduled Referrals Name Type Priority Associated Diagnoses Orde r Schedule Radiation Oncology - Nurse education visit (clinic) Outpatient Referral Routine Malignant Neoplasm Of Unspecified Part Of Bronchus Or Lung Laterality Unknown (HCC) Expected: 05/10/2024, Expires: 08/10/2025 Radiation Oncology - Medical nutrition therapy consult (clinic) Outpatient Referral Routine Malignant Neoplasm Of Unspecified Part Of Bronchus Or Lung Laterality Unknown (HCC) Expected: 05/10/2024, Expires: 08/10/2025 Social Work - General consult (clinic) Outpatient Referral Routine Malignant Neoplasm Of Unspecified Part Of Bronchus Or Lung Laterality Unknown (HCC) Expected: 05/10/2024, Expires: 08/10/2025 documented as of this encounter Results * Initial Rad Onc [...] Bronchus Or Lung Laterality Unknown (HCC)- Primary Malignant Neoplasm Of Unspecified Part Of Bronchus Or Lung Laterality Unknown (HCC) documented in this encounter
--- OUTSIDE RECORDS SUMMARY | 2024-06-01 06:47 | XMS_ITS | Encounter Summary ---
Author Organization [facility] Address [address] [place] [address] Care Team Providers Care Pipe Roller Name Role Phone Unavailable Primary Care Provider Unavailabl e Reason for Visit * Radiation Therapy (Routine) - Closed Specialty Diagnoses / Procedures Referred By Contac t Referred To Contact Diagnoses Malignant Neoplasm Of Unspecified Part Of Bronchus Or Lung Laterality Unknown (HCC) Procedures Initial Rad Onc Treatment Planning CT Simulation Сергей Mejias M.D. [address] [place] [address] [facility] Region Referral ID Status Reason Start Date Expiration Date Visits Re quested Visits Authorized [id number] Closed 05/10/2024 05/10/2025 1 1 Encounter Details Date Type Department Care Team (Latest Contact Info) Description 05/23/2024 2:00 PM CDT - 05/23/2024 2:14 PM CDT Hospital Encounter Department of Radiation Oncology in [place], [place] [address] [place] [phone] Сергей Mejias M.D. [address] [place] [address] Dolly Dueñas R.N. [address] [place] [address] Malignant Neoplasm Of Unspecified Part Of Bronchus [...] bedtime. 11/04/2021 documented as of this encounter Plan of Treatment Upcoming Encounters Date Type Department Care Team (Late st Contact Info) Description 06/02/2024 11:30 AM CDT Appointment Department of Radiology in [address] [address] Сергей Mejias M.D. [address] [place] [address] 06/07/2024 1:00 PM CDT Appointment Department of Radiation Oncology in [place] [address] [place] [address] Сергей Mejias M.D. [address] [place] [address] documented as of this encounter Visit Diagnoses Diagnosis Malignant Neoplasm Of Unspecified Part Of Bronchus Or Lung Laterality Unknown (HCC)- Primary documented in this encounter Administered Medications Inactive Administered Medications - up to 3 most recent administrations Medication Order MAR Action Action Date Dose Rate Site iohexoL 300 mg iodine/mL solution 1-200 mL (Omnipaque) 1-200 mL, intravenous, Once in imaging, contrast, Starting on Wed05/23/24 at 1419, For 1 dose, Intraprocedure (RAD), Administer 1-200 mL, dosing per medication reference document and per protocol. Given 05/23/2024 3:07 PM CDT 80 mL sodium chloride 0.9 % injection 10 mL 10 mL, intravenous, As needed, line care, Peripheral Intravenous Catheter and Rapid Infusion Catheter, Starting on Wed05/23/24 at 1418, Prior to blood sampling, post blood transfusion or post blood sampling. Given 05/23/2024 3:08 PM CDT 10 mL Given 05/23/2024 3:07 PM CDT 10 mL documented in this encounter
[2024-06-01] MEDS: LACTATED RINGERS 1000 ML 1,000 ML 100 ML IV (06:50)
--- NOTE | 2024-06-01 06:50 | CRLHL7_ITS ---
For Patients: As a result of the Century Cures Act, medical imaging exams and procedure reports are released immediately into your electronic medical record. You may view this report before your referring provider. If you have questions, please contact your health care provider. Indication: Preoperative pneumothorax assessment Technique: Chest 1 view Comparison: Chest x-ray 03/18/2019 Findings/Impression: Cardiovascular and mediastinum: Moderate globular cardiomegaly. Lungs and pleural space: Trace left pleural effusion with minimal left basilar airspace disease, probably atelectasis. No pneumothorax. Bones and soft tissues: Spinal rods partially included on the exam. Dictated by Ramsey Gutierres MD @ 06/01/2024 7:59:53 AM (Electronically Signed)
[2024-06-01 07:02] VITALS: BMI 26.6
[2024-06-01 07:23] VITALS: BP 177/93; PULSE 62; RESP 18; TEMP 36.8; O2SAT 96
[2024-06-01] MEDS: SODIUM CHLORIDE 0.9 % (FLUSH) 10 ML SYRINGE IVF (07:26)
--- NOTE | 2024-06-01 08:00 | CRLHL7_ITS ---
For Patients: As a result of the Century Cures Act, medical imaging exams and procedure reports are released immediately into your electronic medical record. You may view this report before your referring provider. If you have questions, please contact your health care provider. INDICATION: Port-A-Cath placement. TECHNIQUE: Fluoroscopically guided right-sided Port-A-Cath placement. FINDINGS: A single spot intraoperative image demonstrates a right-sided Port-A-Cath with its tip in the expected location of the upper to mid superior vena cava. 31.6 seconds fluoroscopy time utilized. IMPRESSION : Right-sided Port-A-Cath placement. 31.6 seconds fluoroscopy time utilized intraoperatively. Dictated by Harish Rooney MD @ 06/01/2024 2:53:04 PM (Electronically Signed)
--- NOTE | 2024-06-01 08:05 | PM.GSCN ---
History of Present Illness Consult details Date Seen: 06/01/24 Consult date: 06/01/24 Narrative: Patient is a 63-year-old female, with new diagnosis non-small cell lung carcinoma. She was seen by Oncology, who recommended she proceed with port placement for initiation of chemotherapy. Patient did undergo a biopsy of a lymph node on the left lung in April. Procedure was complicated by pneumothorax and pleural effusion. She did require a chest tube and short hospitalization at that time. A chest x-ray was obtained today, it shows no residual pneumothorax on the left side but a small persistent pleural effusion. Patient does continue to smoke. Risks and benefits of port placement were discussed at length the patient. She had time to ask all questions and address any concerns. Review of Systems Status of ROS: Reports: 6 or more systems reviewed and unremarkable except as noted in History and below [facility] Medical History (Updated 05/31/24 @ 07:28 by Thelma Li RN) Lung cancer ?C34.90 - Malignant neoplasm of unspecified part of unspecified bronchus or lung (ICD-10) Wheezing ?R06.2 - Wheezing (ICD-10) PSVT (paroxysmal supraventricular tachycardia) ?I47.1 - Supraventricular tachycardia (ICD-10) Osteoarthritis ?M19.90 - Unspecified osteoarthritis, unspecified site (ICD-10) Asthma ?J45.909 - Unspecified asthma, uncomplicated (ICD-10) Sjogren's syndrome ?M35.00 - Sjogren syndrome, unspecified (ICD-10) Left leg weakness ?R29.898 - Other symptoms and signs involving the musculoskeletal system (ICD-10) Chronic shoulder pain ?M25.519 - Pain in unspecified shoulder (ICD-10) ?G89.29 - Other chronic pain (ICD-10) Hypertension ?I10 - Essential (primary) hypertension (ICD-10) Hypersomnia ?G47.10 - Hypersomnia, unspecified (ICD-10) Tobacco use disorder ?F17.200 - Nicotine dependence, unspecified, uncomplicated (ICD-10) Allergic rhinitis due to allergen ?J30.9 - Allergic rhinitis, unspecified (ICD-10) Endometriosis ?N80.9 - Endometriosis, unspecified (ICD-10) Esophageal reflux ?K21.9 - Gastro-esophageal reflux disease without esophagitis (ICD-10) Anxiety ?F41.9 - Anxiety disorder, unspecified (ICD-10) Surgical History Status post total hip replacement, right ?Z96.641 - Presence of right artificial hip joint (ICD-10) H/O Spinal surgery ?Z98.890 - Other specified postprocedural states (ICD-10) History of hysteroscopy ?Z98.890 - Other specified postprocedural states (ICD-10) Status post total hip replacement, left ?Z96.642 - Presence of left artificial hip joint (ICD-10) History of right salpingo-oophorectomy ?Z90.79 - Acquired absence of other genital organ(s) (ICD-10) ?Z90.721 - Acquired absence of ovaries, unilateral (ICD-10) Social History Smoking Status: Current every day smoker What tobacco products do you use: cigarettes Smoking packs per day: 1 Smoking cigarettes per day: 20.0 Do you use any of these nicotine containing products: None Second hand tobacco smoke exposure: No How often do you have a drink containing alcohol: 4 or more times a week Alcohol type: wine How many standard drinks containing alcohol do you have on a typical day: 1 or 2 How often do you have six or more drinks on one occasion: Never AUDIT-C Alcohol total score: 4 Non-prescribed substance use: denies use Caffeine: Yes Are you using contraception or practicing any form of control: No service: No Meds Home Medications and Allergies Home Medications ?Medication ?Instructions ?Recorded ?Confirmed ?Type lisinopril 20 1 tab PO DAILY 06/29/22 06/01/24 History mg-hydrochlorothiazide 25 mg tablet metoprolol succinate 50 mg 50 mg PO DAILY 06/29/22 06/01/24 History tablet,extended release 24 hr paroxetine HCl 20 mg tablet 40 mg PO DAILY 06/29/22 06/01/24 History aspirin 81 mg tablet,delayed 81 mg PO QDAY 07/17/23 06/01/24 History release (Adult Aspirin Regimen) ibuprofen 200 mg tablet (Advil) 200 mg PO Q6H PRN 04/24/24 05/23/24 History prednisone 20 mg tablet 20 mg PO BID PRN 04/24/24 05/23/24 History cyclobenzaprine 5 mg tablet 5 mg PO QHS PRN 05/31/24 06/01/24 History rosuvastatin 20 mg tablet 20 mg PO DAILY 05/31/24 06/01/24 History Allergies Allergy/AdvReac Type Severity Reaction Status Date / Time latex Allergy Redness of Verified 06/01/24 06:55 Skin Penicillins Allergy Rash Verified 06/01/24 06:55 erythromycin base AdvReac Nausea Verified 06/01/24 06:55 Exam Narrative: Exam Narrative: General: Alert and oriented, no acute distress Respiratory: Equal breath rise bilaterally, maintained on room air CV: Well perfused Chest: Minimal subcutaneous fat, no suspicious lesions or scars noted. Const: Vital Signs, click to edit/add: Vital Signs - 24 hr 06/01/24 07:23 Temperature 98.2 F Pulse Rate 62 Respiratory Rate 18 Blood Pressure 177/93 H Pulse Oximetry 96 Oxygen Delivery Me thod Room Air Results Labs Labs: All other labs normal. Imaging Chest x-ray: report reviewed and image reviewed Progress Note:A&P Assessment and plan (1) Non-small cell lung cancer: Status: Acute Plan Patient is a 63-year-old female with new diagnosis non-small cell lung carcinoma. Recommendations have been made by her oncologist for port a catheter placement and initiation of chemotherapy. She is scheduled to have chemotherapy may be next week. Risks and benefits of port placement were discussed at length the patient. Risks included, but were not limited to: Bleeding, infection, risk of damage to surrounding structures and possible need for additional procedures. All questions and concerns were addressed with patient agreeing to proceed.
[2024-06-01] MEDS: CLINDAMYCIN 900 MG/50 ML-D5W IVPB (08:15)
[2024-06-01] MEDS: HEPARIN 500 UNIT/5 ML SYRINGE IVF (08:44)
[2024-06-01] MEDS: 0.9 % SODIUM CHLORIDE 50 ml INJECTION (08:44)
[2024-06-01] MEDS: BUPIVACAINE 0.5% 30 ML INJECTION (08:44)
[2024-06-01] MEDS: LIDOCAINE 1 % PF 30 ML INJECTION (08:44)
--- NOTE | 2024-06-01 09:00 | CRLHL7_ITS ---
For Patients: As a result of the Century Cures Act, medical imaging exams and procedure reports are released immediately into your electronic medical record. You may view this report before your referring provider. If you have questions, please contact your health care provider. INDICATION: Post port placement COMPARISON: June 01, 2024 at 7:39 a.m. TECHNIQUE: Portable AP semi upright image of the chest June 01, 2024 at approximately 9:08 a.m. FINDINGS: TUBES AND LINES: Right IJ port ending in the SVC. HEART AND MEDIASTINUM: Enlarged heart. LUNGS AND PLEURAL SPACES: Retrocardiac airspace opacity which was present preoperatively.No large effusions. No pneumothorax on either side OSSEOUS STRUCTURES: Age-appropriate appearance. No acute focal finding. IMPRESSION: 1. Right IJ port ending in the SVC. 2. Enlarged heart. 3. Retrocardiac airspace opacity which was present before the port placement. 4. No large effusions and no pneumothorax on either side Dictated by Сергей Torres MD @ 06/01/2024 9:25:20 AM (Electronically Signed)
[2024-06-01 09:05] VITALS: BP 132/74; PULSE 56; RESP 16; TEMP 36.2; O2SAT 96
--- NOTE | 2024-06-01 09:06 | PM.GSPRC ---
Operative Note Date of procedure: 06/01/24 Pre-op diagnosis: Non-small cell lung carcinoma Post-op diagnosis: Same Type of Procedure: Right internal jugular port a catheter placement Indications: Patient is a 63-year-old female with a new diagnosis non-small cell lung carcinoma. It has been recommended that she have a port a catheter placed to start chemotherapy. Risks and benefits of operative intervention were discussed at length with the patient. Risks included but was not limited to: Bleeding, infection, risk of damage to surrounding structures, possible need for additional procedures and postoperative complications such as pneumonia, pulmonary emboli or ID. All questions and concerns were addressed with the patient agreeing to proceed. Procedure Description: After discussing the risks and benefits of the procedure, the patient signed informed consent.? The operative site was marked and the patient was brought to the operating room and placed on the operating table in supine position.? Care was taken to pad the patient's pressure points.?? The patient was then given sedation by anesthesia.?? The operative site was then prepped and draped in the usual sterile fashion.? A time-out was then performed. The patient's right internal jugular vein was visualized using ultrasound. Local anesthetic was injected into the neck skin above the vein. A skin gracie was made with an 11 blade. The vein was accessed percutaneously via Seldinger technique using ultrasound guidance. Next local anesthetic was injected into the skin below the clavicle and along the proposed tract to the neck incision. A skin incision was then made with a 15 blade and a pocket created in the chest wall with cautery. A tunneler was then used to thread the catheter from the chest wall pocket to the neck incision. Once this was done fluoroscopy was brought into the field. Over the wire the tract was dilated using fluoroscopy. The wire and the dilator were then removed leaving the sheath intact in the vein. Through this the catheter was threaded. Using fluoroscopy the catheter was positioned into the distal SVC. The catheter was noted to flush and aspirate easily. The catheter was then connected to the port. The port was placed in the pocket and secured in place with a single 2 0 Prolene stay suture on the medial edge. It was noted to flush and aspirate easily. This was then locked with heparinized saline. The skin was closed with absorbable suture. Sterile dressings were applied. Instrument sponge and needle counts were correct at the end of the case. The patient was woken and taken to the PACU in stable condition. Findings: Compressible right internal jugular vein. Anesthesia: MAC and local Surgeon: Namrata Suazo MD Estimated blood loss (mL): 5 Condition: stable Disposition: PACU
--- NOTE | 2024-06-01 09:07 | W.ANESCHARGE ---
Anesthesia Charges Start Date/Time Anesthesia Start Date: 06/01/24 Anesthesia Start Time: 08:05 Stop Date/Time Anesthesia Stop Date: 06/01/24 Anesthesia Stop Time: 09:02
[2024-06-01 09:15] VITALS: BP 123/77; PULSE 60; RESP 16; O2SAT 96
[2024-06-01 09:30] VITALS: BP 136/81; PULSE 59; RESP 16; O2SAT 96
[2024-06-01 09:45] VITALS: BP 146/74; PULSE 65; RESP 16; O2SAT 96
== END 2024-06-01 10:08 | disposition home or self-care (01) ==
PROVIDERS: PCP Family Medicine; Visit Provider Surgery
PROC: (CPT 36561; principal; 2024-06-01 08:00)
DX: Z45.2 Encounter for adjustment and management of vascular access device (principal); C34.92 Malignant neoplasm of unspecified part of left bronchus or lung
CPT/HCPCS: 36561; 00532; 71045; 76000; 76998; C1788; J0665; J0736; J1100; J1642; J2001; J2250; J2405; J2704; J2765; J3010; J3490; J7120

== ENCOUNTER 2024-07-25 10:15 | Outpatient (RCR) | payer MEDICARE, SELFPAY ==
--- NOTE | 2024-05-09 14:39 | URNOTE ---
Received request for prior authorization for Carboplatin (J9045), Paclitaxel (J9267) and Palonosetron (J2469). [facility], prior authorization is approved (Auth#[id number]) for Carboplatin (J9045), Paclitaxel (J9267) and Palonosetron (J2469), per Rep. Ludmila Ramirez(05/09/24 at 1428pm) approval is not dose or frequency specific. Date range: 05/08/2024 to 05/08/2025.
[2024-05-23 12:22] LABS: Eosinophils Percent Auto 1.9 % (0.0-7.0); Hematocrit 39.9 % (33.0-51.0); Hemoglobin* 12.9 gm/dL (12.0-16.0); Lymphocytes Percent Auto 29.8 % (20-44); Mean Corpuscular HGB Conc 32 gm/dL (32-36); Mean Corpuscular Hemoglobin 32 pg (26-34); Mean Corpuscular Volume 98 fL (80-100); Monocytes Percent Auto 13.5 % (0.0-11.0); Neutrophils Percent Auto 53.8 % (42.0-72.0); Platelet Count* 163 K/uL (140-440); Red Blood Count 4.09 m/uL (4.00-5.20); White Blood Count* 3.12 K/uL (4.50-11.00)
[2024-05-23 12:23] LABS: Slide Review Reflex No
[2024-05-23 12:34] LABS: Chloride* 99 mmol/L (96-114); Sodium* 134 mmol/L (135-149)
[2024-05-23 12:35] LABS: Potassium* 3.6 mmol/L (3.6-5.1)
[2024-05-23 12:37] LABS: Alkaline Phosphatase* 128 U/L (40-150); Anion Gap 4 mEq/L (7-15); Aspartate Amino Transferase* 43 U/L (12-35); Bilirubin Total* 0.5 mg/dL (0.1-1.5); Blood Urea Nitrogen* 14 mg/dL (7-30); Carbon Dioxide* 31 mmol/L (20-32); Creatinine* 0.5 mg/dL (0.5-1.5); Est. Creatinine Clearance* 44.36; Estimated Glomerular Filt Rate 104 ml/min; Glucose* 72 mg/dL (60-115); Total Protein* 7.4 g/dL (6.0-8.3)
[2024-05-23 12:38] LABS: Alanine Aminotransferase* 23 U/L (4-35); Calcium* 9.1 mg/dL (8.4-10.6)
--- NOTE | 2024-05-23 13:57 | ONC.NURNOTE ---
New chemotherapy teaching today with niece- Modesta reviewed possible side effects- self care at home calling with concerns, management of fever over 100.5, home antiemetics, reviewed contents of treatment binder patient plans to order cold packs for her feet- since she has underlying neuropathy in her feet and she is interested in trying the cold packs questions addressed consents EMELIA reviewed and signed port discussed as she does not have good IV access model of ports shown to patient and jimmy
--- NOTE | 2024-05-30 09:27 | PC.NURSE ---
Addendum entered by Melissa Gay RN 05/30/24 09:42: Update: Pt called to clarify that her chemo appt for tomorrow was cancelled. Daniela will have her pre-op physical today and other appointments as mentioned. Addendum entered by Melissa Gay RN 05/30/24 09:42: Correction: Port placement is at [facility] and PET scan is Wednesday in [place]. Original Note: Pt's daughter Mishel called to ask about how to get her FMLA paperwork filled out as she plans to to take time off to help her parents. RN talked her through the process, she verbalized understanding. Mishel will email this RN the paperwork and we will print and complete. RN noted Delmi's chemo appointment tomorrow and said we could give it to her then, however, Mishel voiced that she didn't think the treatment was proceeding tomorrow. RN clarified with DAMARIS Mccoy that further work up is being done. Chemo appt for 05/31/[address] Jesi ontiveros on 06/06/24 was cancelled. Pt will be having a PET scan on and a port placed (per the schedule). Will complete Mishel's [facility] paperwork and fax it where it needs to go.
[2024-06-06 11:07] VITALS: BP 181/84; PULSE 80; RESP 16; TEMP 36.7; O2SAT 98
[2024-06-06 11:27] LABS: Basophils Percent Auto 0.5 % (0.0-3.0); Hematocrit 39.5 % (33.0-51.0); Hemoglobin* 13.1 gm/dL (12.0-16.0); Immature Granulocytes Pct Auto 0.3 %; Mean Corpuscular HGB Conc 33 gm/dL (32-36); Mean Corpuscular Hemoglobin 32 pg (26-34); Mean Corpuscular Volume 97 fL (80-100); Monocytes Percent Auto 10.7 % (0.0-11.0); Neutrophils Percent Auto 66.5 % (42.0-72.0); Platelet Count* 168 K/uL (140-440); RDW Coefficient of Variation % 12.5 % (11.5-15.5); Red Blood Count 4.09 m/uL (4.00-5.20); White Blood Count* 3.91 K/uL (4.50-11.00)
[2024-06-06 11:30] LABS: Slide Review Reflex No
[2024-06-06 11:40] LABS: Albumin* 4.1 g/dL (3.3-5.0); Chloride* 97 mmol/L (96-114); Potassium* 3.7 mmol/L (3.6-5.1); Sodium* 133 mmol/L (135-149)
[2024-06-06 11:43] LABS: Alanine Aminotransferase* 20 U/L (4-35); Alkaline Phosphatase* 120 U/L (40-150); Anion Gap 5 mEq/L (7-15); Aspartate Amino Transferase* 37 U/L (12-35); Bilirubin Total* 0.6 mg/dL (0.1-1.5); Blood Urea Nitrogen* 11 mg/dL (7-30); Carbon Dioxide* 31 mmol/L (20-32); Creatinine* 0.5 mg/dL (0.5-1.5); Est. Creatinine Clearance* 44.36; Estimated Glomerular Filt Rate 104 ml/min; Glucose* 160 mg/dL (60-115); Total Protein* 7.5 g/dL (6.0-8.3)
[2024-06-06 12:11] VITALS: BP 132/76
[2024-06-06] MEDS: dexAMETHasone 20 MG in 0.9 % SODIUM CHLORIDE 100 ml 100 ML 400 MG IVPB (12:52)
[2024-06-06] MEDS: PALONOSETRON 0.25 MG/5 ML inj IV (12:52)
[2024-06-06] MEDS: FAMOTIDINE 20 MG, diphenhydrAMINE 50 MG in 0.9 % SODIUM CHLORIDE 100 ml 100 ML 309 MG IVPB (13:12)
[2024-06-06] MEDS: SODIUM CHLORIDE 0.9 % (FLUSH) 10 ML SYRINGE IVF (15:42)
--- NOTE | 2024-06-07 14:58 | ONC.NURNOTE ---
Called pt to see how she was doing following 1st chemo yesterday. Pt states she was slightly dizzy this am and didn't want to take compazine scheduled. Pt doing well today, will take antinausea meds as needed.
[2024-06-12 14:35] LABS: Eosinophils Percent Auto 4.9 % (0.0-7.0); Hemoglobin* 11.8 gm/dL (12.0-16.0); Immature Granulocytes Pct Auto 0.5 %; Mean Corpuscular HGB Conc 33 gm/dL (32-36); Mean Corpuscular Hemoglobin 32 pg (26-34); Mean Corpuscular Volume 98 fL (80-100); Monocytes Percent Auto 6.9 % (0.0-11.0); Neutrophils Percent Auto 56.7 % (42.0-72.0); Platelet Count* 123 K/uL (140-440); RDW Coefficient of Variation % 12.1 % (11.5-15.5); Red Blood Count 3.68 m/uL (4.00-5.20); White Blood Count* 2.03 K/uL (4.50-11.00)
[2024-06-12 14:46] LABS: Slide Review Reflex No
[2024-06-12 14:50] LABS: Albumin* 3.7 g/dL (3.3-5.0); Chloride* 99 mmol/L (96-114); Potassium* 4.1 mmol/L (3.6-5.1); Sodium* 133 mmol/L (135-149)
[2024-06-12 14:52] LABS: Bilirubin Total* 0.6 mg/dL (0.1-1.5); Creatinine* 0.6 mg/dL (0.5-1.5); Est. Creatinine Clearance* 44.36; Estimated Glomerular Filt Rate 100 ml/min
[2024-06-12 14:53] LABS: Alanine Aminotransferase* 18 U/L (4-35); Alkaline Phosphatase* 95 U/L (40-150); Anion Gap 4 mEq/L (7-15); Aspartate Amino Transferase* 34 U/L (12-35); Blood Urea Nitrogen* 15 mg/dL (7-30); Calcium* 8.8 mg/dL (8.4-10.6); Carbon Dioxide* 30 mmol/L (20-32); Glucose* 85 mg/dL (60-115); Total Protein* 6.8 g/dL (6.0-8.3)
[2024-06-13 11:14] VITALS: BP 156/77; PULSE 55; RESP 16; TEMP 36.4; O2SAT 99
[2024-06-13] MEDS: dexAMETHasone 20 MG in 0.9 % SODIUM CHLORIDE 100 ml 100 ML 408 MG IVPB (12:05)
[2024-06-13] MEDS: PALONOSETRON 0.25 MG/5 ML inj IV (12:08)
[2024-06-13] MEDS: FAMOTIDINE 20 MG, diphenhydrAMINE 50 MG in 0.9 % SODIUM CHLORIDE 100 ml 100 ML 309 MG IVPB (12:26)
[2024-06-13] MEDS: SODIUM CHLORIDE 0.9 % (FLUSH) 10 ML SYRINGE IVF ×2 (14:12→14:58)
[2024-06-13] MEDS: 0.9 % SODIUM CHLORIDE 250 ml IV (14:12)
[2024-06-13] MEDS: HEPARIN 500 UNIT/5 ML SYRINGE IVF (15:00)
[2024-06-19] MEDS: SODIUM CHLORIDE 0.9 % (FLUSH) 10 ML SYRINGE IVF (13:42)
[2024-06-19] MEDS: HEPARIN 500 UNIT/5 ML SYRINGE IVF (13:43)
[2024-06-19 13:53] LABS: Eosinophils Percent Auto 7.8 % (0.0-7.0); Hematocrit 33.4 % (33.0-51.0); Lymphocytes Percent Auto 25.5 % (20-44); Mean Corpuscular HGB Conc 33 gm/dL (32-36); Mean Corpuscular Hemoglobin 32 pg (26-34); Mean Corpuscular Volume 97 fL (80-100); Monocytes Percent Auto 10.8 % (0.0-11.0); Neutrophils Percent Auto 53.9 % (42.0-72.0); Platelet Count* 116 K/uL (140-440); RDW Coefficient of Variation % 12.2 % (11.5-15.5); Red Blood Count 3.44 m/uL (4.00-5.20)
[2024-06-19 14:20] LABS: Slide Review Reflex No; White Blood Count* 1.02 K/uL (4.50-11.00)
[2024-06-19 14:21] LABS: Albumin* 3.5 g/dL (3.3-5.0); Chloride* 99 mmol/L (96-114)
[2024-06-19 14:22] LABS: Potassium* 3.6 mmol/L (3.6-5.1); Sodium* 132 mmol/L (135-149)
[2024-06-19 14:24] LABS: Alanine Aminotransferase* 18 U/L (4-35); Alkaline Phosphatase* 77 U/L (40-150); Anion Gap 5 mEq/L (7-15); Aspartate Amino Transferase* 33 U/L (12-35); Bilirubin Total* 0.6 mg/dL (0.1-1.5); Blood Urea Nitrogen* 11 mg/dL (7-30); Carbon Dioxide* 28 mmol/L (20-32); Creatinine* 0.5 mg/dL (0.5-1.5); Est. Creatinine Clearance* 44.36; Estimated Glomerular Filt Rate 104 ml/min; Glucose* 100 mg/dL (60-115); Total Protein* 6.5 g/dL (6.0-8.3)
[2024-06-19 14:25] LABS: Calcium* 8.7 mg/dL (8.4-10.6)
--- NOTE | 2024-06-23 12:03 | ONC.NURNOTE ---
Patient was on schedule for labs Wednesday, treatment on Wednesday. Nursing discussion lead to call radiation oncology. Rad Onc notes that would not want the patient scheduled on Wednesday, would need to be treated at the latest. Patient has family pictures scheduled and cannot come. Left note for Dr. redding to address plan for patient following labs on Wednesday. Patient currently scheduled for Wednesday, but she is aware that this may change due to lab results.
[2024-06-26 11:46] LABS: Basophils Percent Auto 0.8 % (0.0-3.0); Eosinophils Percent Auto 5.5 % (0.0-7.0); Hematocrit 33.5 % (33.0-51.0); Immature Granulocytes Pct Auto 0.8 %; Lymphocytes Percent Auto 24.2 % (20-44); Mean Corpuscular HGB Conc 33 gm/dL (32-36); Mean Corpuscular Hemoglobin 32 pg (26-34); Mean Corpuscular Volume 99 fL (80-100); Monocytes Percent Auto 20.3 % (0.0-11.0); Neutrophils Percent Auto 48.4 % (42.0-72.0); Platelet Count* 101 K/uL (140-440); RDW Coefficient of Variation % 13.1 % (11.5-15.5)
[2024-06-26 12:14] LABS: Albumin* 3.7 g/dL (3.3-5.0); Chloride* 102 mmol/L (96-114)
[2024-06-26 12:15] LABS: Potassium* 3.6 mmol/L (3.6-5.1); Sodium* 133 mmol/L (135-149)
[2024-06-26 12:17] LABS: Alanine Aminotransferase* 21 U/L (4-35); Alkaline Phosphatase* 102 U/L (40-150); Anion Gap 3 mEq/L (7-15); Aspartate Amino Transferase* 37 U/L (12-35); Bilirubin Total* 0.3 mg/dL (0.1-1.5); Blood Urea Nitrogen* 11 mg/dL (7-30); Carbon Dioxide* 28 mmol/L (20-32); Creatinine* 0.5 mg/dL (0.5-1.5); Est. Creatinine Clearance* 44.36; Estimated Glomerular Filt Rate 104 ml/min; Glucose* 149 mg/dL (60-115); Total Protein* 6.8 g/dL (6.0-8.3)
[2024-06-26 12:18] LABS: Calcium* 8.7 mg/dL (8.4-10.6)
[2024-06-26 12:32] LABS: White Blood Count* 1.28 K/uL (4.50-11.00)
[2024-06-26 12:34] LABS: Slide Review Acceptable Review (Acceptable); Slide Review Reflex Yes
--- NOTE | 2024-06-27 09:30 | URNOTE ---
Carlos ([id number]) has been approved 06/27/2024-09/19/2024 Auth #[id number]
--- NOTE | 2024-06-27 09:42 | PC.NURSE ---
Pt present at [facility] yesterday, 06/26/2024 for labs in preparation for chemo today, 06/27/2024. Results revealed that her WBC and ANC are still too low to treat. Discussed with Dr. Dennison and after discussing with radiation team, ordered filgrastim 300 mcg sc x 2 days this week followed by labs and chemo on Wednesday next week. PA completed and pt scheduled for Zarxio on Wednesday and Wednesday this week. Labs and hopefully chemo on 07/03/2024. All team members and pt aware and agree with the plan.
[2024-06-28 11:34] VITALS: BP 152/84; PULSE 68; RESP 20; TEMP 36.4; O2SAT 97
[2024-06-28] MEDS: FILGRASTIM-SNDZ 300 MCG/0.5 ML SYRINGE SUBCUT (11:40)
[2024-06-30] MEDS: FILGRASTIM-SNDZ 300 MCG/0.5 ML SYRINGE SUBCUT (11:48)
[2024-07-03 08:08] VITALS: BP 170/92; PULSE 68; RESP 18; TEMP 36.2; O2SAT 98
[2024-07-03] MEDS: SODIUM CHLORIDE 0.9 % (FLUSH) 10 ML SYRINGE IVF ×2 (08:20→12:45)
[2024-07-03 08:27] LABS: Basophils Percent Auto 0.5 % (0.0-3.0); Hematocrit 34.4 % (33.0-51.0); Hemoglobin* 11.3 gm/dL (12.0-16.0); Immature Granulocytes Pct Auto 0.5 %; Lymphocytes Percent Auto 14.7 % (20-44); Mean Corpuscular HGB Conc 33 gm/dL (32-36); Mean Corpuscular Hemoglobin 32 pg (26-34); Mean Corpuscular Volume 98 fL (80-100); Monocytes Percent Auto 15.5 % (0.0-11.0); Neutrophils Percent Auto 64.8 % (42.0-72.0); Platelet Count* 80 K/uL (140-440); Red Blood Count 3.52 m/uL (4.00-5.20); White Blood Count* 3.73 K/uL (4.50-11.00)
[2024-07-03 08:30] LABS: Slide Review Reflex No
[2024-07-03 08:40] LABS: Albumin* 3.7 g/dL (3.3-5.0); Chloride* 97 mmol/L (96-114)
[2024-07-03 08:41] LABS: Potassium* 3.5 mmol/L (3.6-5.1); Sodium* 133 mmol/L (135-149)
[2024-07-03 08:43] LABS: Anion Gap 5 mEq/L (7-15); Aspartate Amino Transferase* 37 U/L (12-35); Bilirubin Total* 0.4 mg/dL (0.1-1.5); Blood Urea Nitrogen* 9 mg/dL (7-30); Carbon Dioxide* 31 mmol/L (20-32); Creatinine* 0.4 mg/dL (0.5-1.5); Est. Creatinine Clearance* 44.36; Estimated Glomerular Filt Rate 110 ml/min
[2024-07-03 08:44] LABS: Alanine Aminotransferase* 22 U/L (4-35); Alkaline Phosphatase* 118 U/L (40-150); Glucose* 126 mg/dL (60-115)
[2024-07-03] MEDS: 0.9 % SODIUM CHLORIDE 250 ml IV (09:55)
[2024-07-03] MEDS: PALONOSETRON 0.25 MG/5 ML inj IV (09:56)
[2024-07-03] MEDS: FAMOTIDINE 20 MG, diphenhydrAMINE 50 MG in 0.9 % SODIUM CHLORIDE 100 ml 100 ML 309 MG IVPB (09:58)
[2024-07-03] MEDS: dexAMETHasone 20 MG in 0.9 % SODIUM CHLORIDE 100 ml 100 ML 408 MG IVPB (10:26)
[2024-07-03] MEDS: CARBOplatin 165 MG, TUBING SECONDARY 1 EACH in 0.9 % SODIUM CHLORIDE 250 ml 250 ML 533 MG IVPB (12:09)
[2024-07-03] MEDS: HEPARIN 500 UNIT/5 ML SYRINGE IVF (12:46)
[2024-07-10] MEDS: SODIUM CHLORIDE 0.9 % (FLUSH) 10 ML SYRINGE IVF ×2 (08:28→09:52)
[2024-07-10] MEDS: HEPARIN 500 UNIT/5 ML SYRINGE IVF ×2 (08:28→09:52)
[2024-07-10 08:39] LABS: Basophils Percent Auto 1.7 % (0.0-3.0); Eosinophils Percent Auto 9.2 % (0.0-7.0); Hematocrit 31.8 % (33.0-51.0); Hemoglobin* 10.6 gm/dL (12.0-16.0); Immature Granulocytes Pct Auto 0.8 %; Lymphocytes Percent Auto 22.5 % (20-44); Mean Corpuscular HGB Conc 33 gm/dL (32-36); Mean Corpuscular Hemoglobin 33 pg (26-34); Mean Corpuscular Volume 98 fL (80-100); Monocytes Percent Auto 11.7 % (0.0-11.0); Neutrophils Percent Auto 54.1 % (42.0-72.0); Platelet Count* 75 K/uL (140-440); RDW Coefficient of Variation % 13.9 % (11.5-15.5); Red Blood Count 3.26 m/uL (4.00-5.20)
[2024-07-10 08:59] LABS: Albumin* 3.7 g/dL (3.3-5.0); Chloride* 97 mmol/L (96-114); Potassium* 3.5 mmol/L (3.6-5.1); Sodium* 132 mmol/L (135-149)
[2024-07-10 09:01] LABS: Anion Gap 4 mEq/L (7-15); Aspartate Amino Transferase* 33 U/L (12-35); Bilirubin Total* 0.4 mg/dL (0.1-1.5); Carbon Dioxide* 31 mmol/L (20-32); Creatinine* 0.4 mg/dL (0.5-1.5); Est. Creatinine Clearance* 44.36; Estimated Glomerular Filt Rate 110 ml/min; Total Protein* 6.8 g/dL (6.0-8.3)
[2024-07-10 09:02] LABS: Alanine Aminotransferase* 19 U/L (4-35); Alkaline Phosphatase* 94 U/L (40-150); Blood Urea Nitrogen* 11 mg/dL (7-30); Glucose* 96 mg/dL (60-115)
[2024-07-10 09:09] LABS: Slide Review Reflex No
[2024-07-11] MEDS: FILGRASTIM-SNDZ 300 MCG/0.5 ML SYRINGE SUBCUT (10:11)
[2024-07-11 10:13] VITALS: BP 157/82; PULSE 68; RESP 16; TEMP 36.2; O2SAT 99
[2024-07-12 13:44] VITALS: BP 135/79; PULSE 64; RESP 14; TEMP 37.1; O2SAT 98
[2024-07-12] MEDS: FILGRASTIM-SNDZ 300 MCG/0.5 ML SYRINGE SUBCUT (13:52)
--- NOTE | 2024-07-13 14:17 | ONC.NURNOTE ---
follow up [facility]S on 05/23 = 8 [employer] visit offered patient declined- she is moving to [place] in a few weeks and has many other tasks at this time
[2024-07-17] MEDS: SODIUM CHLORIDE 0.9 % (FLUSH) 10 ML SYRINGE IVF ×2 (08:15→11:55)
[2024-07-17 08:18] VITALS: BP 145/74; PULSE 70; RESP 16; TEMP 36.2; O2SAT 99
[2024-07-17 08:32] LABS: Eosinophils Percent Auto 3.4 % (0.0-7.0); Hemoglobin* 10.4 gm/dL (12.0-16.0); Immature Granulocytes Pct Auto 4.9 %; Lymphocytes Percent Auto 20.4 % (20-44); Mean Corpuscular HGB Conc 33 gm/dL (32-36); Mean Corpuscular Hemoglobin 32 pg (26-34); Mean Corpuscular Volume 99 fL (80-100); Monocytes Percent Auto 22.8 % (0.0-11.0); Neutrophils Percent Auto 47.5 % (42.0-72.0); Platelet Count* 111 K/uL (140-440); RDW Coefficient of Variation % 15.5 % (11.5-15.5); Red Blood Count 3.23 m/uL (4.00-5.20); White Blood Count* 2.06 K/uL (4.50-11.00)
[2024-07-17 08:35] LABS: Slide Review Reflex No
[2024-07-17] MEDS: PALONOSETRON 0.25 MG/5 ML inj IV (09:30)
[2024-07-17] MEDS: FAMOTIDINE 10 MG/ML inj 20 MG IVP (09:32)
[2024-07-17] MEDS: diphenhydrAMINE 50 MG/ML inj 25 MG IVP (09:35)
[2024-07-17] MEDS: dexAMETHasone 20 MG in 0.9 % SODIUM CHLORIDE 100 ml 100 ML 408 MG IVPB (09:37)
[2024-07-17] MEDS: CARBOPLATIN IVPB (11:17)
[2024-07-17] MEDS: SODIUM CHLORIDE 0.9% IVPB (11:17)
[2024-07-17] MEDS: TUBING SECONDARY IVPB (11:17)
[2024-07-17] MEDS: HEPARIN 500 UNIT/5 ML SYRINGE IVF (11:56)
[2024-07-25 10:36] LABS: Basophils Percent Auto 1.1 % (0.0-3.0); Eosinophils Percent Auto 2.3 % (0.0-7.0); Hematocrit 31.5 % (33.0-51.0); Hemoglobin* 10.4 gm/dL (12.0-16.0); Immature Granulocytes Pct Auto 0.6 %; Lymphocytes Percent Auto 20.7 % (20-44); Mean Corpuscular HGB Conc 33 gm/dL (32-36); Mean Corpuscular Hemoglobin 33 pg (26-34); Mean Corpuscular Volume 99 fL (80-100); Monocytes Percent Auto 16.7 % (0.0-11.0); Neutrophils Percent Auto 58.6 % (42.0-72.0); Platelet Count* 151 K/uL (140-440); RDW Coefficient of Variation % 15.5 % (11.5-15.5); Red Blood Count 3.17 m/uL (4.00-5.20)
[2024-07-25 10:51] LABS: Slide Review Reflex Yes; White Blood Count* 1.74 K/uL (4.50-11.00)
[2024-07-25 10:57] LABS: Albumin* 3.7 g/dL (3.3-5.0)
[2024-07-25 10:58] LABS: Chloride* 100 mmol/L (96-114); Potassium* 3.7 mmol/L (3.6-5.1); Sodium* 134 mmol/L (135-149)
[2024-07-25 11:00] LABS: Anion Gap 6 mEq/L (7-15); Aspartate Amino Transferase* 44 U/L (12-35); Bilirubin Total* 0.2 mg/dL (0.1-1.5); Carbon Dioxide* 28 mmol/L (20-32); Creatinine* 0.5 mg/dL (0.5-1.5); Est. Creatinine Clearance* 44.36; Estimated Glomerular Filt Rate 104 ml/min
[2024-07-25 11:01] LABS: Alanine Aminotransferase* 27 U/L (4-35); Alkaline Phosphatase* 109 U/L (40-150); Blood Urea Nitrogen* 9 mg/dL (7-30); Calcium* 8.7 mg/dL (8.4-10.6); Glucose* 109 mg/dL (60-115); Total Protein* 6.8 g/dL (6.0-8.3)
[2024-07-25] MEDS: SODIUM CHLORIDE 0.9 % (FLUSH) 10 ML SYRINGE IVF (11:13)
[2024-07-25] MEDS: HEPARIN 500 UNIT/5 ML SYRINGE IVF (11:13)
[2024-07-25 11:43] LABS: Slide Review Acceptable Review (Acceptable)
== END 2024-10-21 23:59 | disposition home or self-care (01) ==
LOC: CCIC 10:15
PROVIDERS: Clinical Nurse Specialist; PCP Family Medicine; Referring Provider Family Medicine; Visit Provider Internal Medicine Hematology & Oncology
DX: C34.92 Malignant neoplasm of unspecified part of left bronchus or lung (principal); M35.00 Sjogren syndrome, unspecified; F17.200 Nicotine dependence, unspecified, uncomplicated
CPT/HCPCS: 36415; 36591; 80053; 82565; 85025; 96366; 96367; 96372; 96375; 96376; 96411; 96413; 96417; 99202; 99205; 99211; 99213; 99214; 99215; G0463; J1100; J1200; J1642; J2469; J7050; J9045; J9267; Q5101; S0028